=== PATIENT | male | born 1960 | race Caucasian/White ===

== ENCOUNTER 2016-11-28 14:40 | Inpatient (IN) | payer MEDICARE ==
[~2016-11-28] VITALS: Ht 172.7 cm; Wt 66.0 kg
[~2016-11-28 14:40] MED LIST: AMLO10 PO; BRIM0.2S4 EACH EYE; COZA50TA PO; DORZ1SOL2 EACH EYE; FLUT1SPR20 EACH NARE; GABA100C4 PO; HYDR-3133 PO; HYDR200T3 PO; LEFL1TAB3 PO; LOTE0.5S EACH EYE; MIRA33504 PO; NEPA0.3D EACH EYE; OMEP20TA PO; PHOS667C5 PO; PILO1SOL5 EACH EYE; RENATAB5 PO; SEVEL800 PO; TEMA15CA PO; TRAV0.00 EACH EYE
[2016-12-04] MEDS ORDERED: WHEEMIS3 (12:03)
[2016-12-04] MEDS ORDERED: ACET500C PO (12:03)
[2016-12-04] MEDS ORDERED: OXYGENTANK NAS.CANULA (12:21)
[2016-12-04] MEDS ORDERED: ALBU0.63 NEB (12:21)
[2016-12-06] MEDS ORDERED: METOPROLOL TARTRATE 25 MG TAB PO PRN (06:45)
[2016-12-06] MEDS ORDERED: LACTATED RINGER'S 1000 ML IV SCH (06:45)
[2016-12-06] MEDS ORDERED: INSULIN HUMAN REGULAR 1,000 UNITS/10 ML VIAL SQ PRN (06:45)
[2016-12-06] MEDS ORDERED: SODIUM CHLORID 0.9% 500 ML IV SCH (06:45)
[2016-12-06 07:23] LABS: INTERNATIONAL NORMALIZED RATIO 1.3 RATIO
[2016-12-06 07:26] VITALS: BP 128/60; PULSE 85; RESP 18; TEMP 100; O2SAT 95
[2016-12-06 08:19] LABS: AUTOMATED NEUTROPHIL # 6.8 TH/MM3 (1.8-7.7); BASOPHIL # 0.1 TH/MM3 (0-0.2); EOSINOPHIL # 0.3 TH/MM3 (0-0.4); EOSINOPHIL % 3.6 % (0.0-4.0); HEMATOCRIT 28.3 % (39.0-51.0); HEMO FLAGS DIFF FINAL; LYMPH % 11.1 % (9.0-44.0); MEAN CELL VOLUME 79.9 FL (80.0-100.0); MEAN CORPUSCULAR HEMOGLOBIN 25.8 PG (27.0-34.0); MEAN CORPUSCULAR HGB CONC 32.2 % (32.0-36.0); NEUT % 74.3 % (16.0-70.0); PLATELET COUNT 188 TH/MM3 (150-450); RED BLOOD COUNT 3.54 MIL/MM3 (4.50-5.90); RED CELL DISTRIBUTION WIDTH 18.5 % (11.6-17.2); WHITE BLOOD COUNT 9.2 TH/MM3 (4.0-11.0)
[2016-12-06] MEDS ORDERED: ONDANSETRON HCL 4 MG/2 ML VIAL IV PUSH ONE (09:12)
[2016-12-06] MEDS ORDERED: ePHEDrine/NS 25 MG/5 ML SYR IV ONE (09:12)
[2016-12-06] MEDS ORDERED: NEOSTIGMINE 3 MG/3 ML SYR IV ONE (09:12)
[2016-12-06] MEDS ORDERED: PROPOFOL 200 MG/20 ML AMP IV ONE (09:12)
[2016-12-06] MEDS ORDERED: SODIUM CHLORID 0.9% 500 ML INJ 500 ML IV ONE (09:12)
[2016-12-06] MEDS ORDERED: MIDAZOLAM HCL 2 MG/2 ML VIAL ONE ×2 (09:42→09:54)
[2016-12-06] MEDS ORDERED: FAMOTIDINE 20 MG/2 ML VIAL ONE (09:42)
[2016-12-06] MEDS ORDERED: ACETAMINOPHEN 1000 MG/100 ML VIAL IV ONE (09:42)
[2016-12-06] MEDS ORDERED: fentaNYL CITRATE 250 MCG/5 ML AMP ONE (10:03)
[2016-12-06] MEDS ORDERED: VANCOMYCIN HCL 1000 MG VIAL ONE (10:29)
[2016-12-06] MEDS ORDERED: BACITRACIN TOP OINT 15 GM TUBE ONE (11:16)
[2016-12-06] MEDS ORDERED: GENTAMICIN SULFATE 80 MG/2 ML VIAL ONE (11:16)
[2016-12-06] MEDS ORDERED: POTASSIUM CHLOR 20 MEQ 100 ML x 2 BAGS IV PRN (12:15)
[2016-12-06] MEDS ORDERED: POTASSIUM CHLOR 20 MEQ/100 ML x 1 BAG IV PRN (12:15)
[2016-12-06] MEDS ORDERED: POTASSIUM PHOSPHATE 21 MMOL/NS 250 ML IV PRN ×2 (12:15)
[2016-12-06] MEDS ORDERED: ACETAMINOPHEN/HYDROcodone 325 MG/5 MG TAB PO PRN (12:15)
[2016-12-06] MEDS ORDERED: MORPHINE SULFATE 4 MG/ML INJ IV PRN ×2 (12:15)
[2016-12-06] MEDS ORDERED: ONDANSETRON HCL 4 MG/2 ML VIAL IV PUSH PRN (12:15)
[2016-12-06] MEDS ORDERED: SODIUM CHLORIDE 0.9% FLUSH 5 ML FLUSH IV FLUSH PRN (12:15)
[2016-12-06] MEDS ORDERED: MAGNESIUM SULFATE 1 GM/100 ML IV PRN (12:15)
[2016-12-06] MEDS ORDERED: ACETAMINOPHEN 325 MG TAB PO PRN ×2 (12:15→15:30)
[2016-12-06] MEDS ORDERED: BUPIVACAINE HCL PF 0.5% 30 ML VIAL NB ONE (12:25)
[2016-12-06] MEDS ORDERED: DEXTROSE 50% IN WATER 50 ML VIAL(D50) IV PUSH PRN (12:30)
[2016-12-06] MEDS ORDERED: DO NOT ADM ANY ANTICOAGULANT DRUGS XX PRN (12:30)
[2016-12-06] MEDS ORDERED: GLUCAGON 1 MG/ML VIAL OTHER PRN (12:30)
--- NOTE | 2016-12-06 12:36 | PD.VS.PN ---
Objective Pulmonary: CTA Bilateral Cardiac: regular dressing intact. left lateral foot with 6mm x1cm callous. Laboratory Laboratory Tests Test 12/06/16 12/06/16 06:58 08:10 Prothrombin Time 14.0 Prothromb Time International 1.3 Ratio Potassium Level 4.4 White Blood Count 9.2 Red Blood Count 3.54 Hemoglobin 9.1 Hematocrit 28.3 Mean Corpuscular Volume 79.9 Mean Corpuscular Hemoglobin 25.8 Mean Corpuscular Hemoglobin 32.2 Concent Red Cell Distribution Width 18.5 Platelet Count 188 Mean Platelet Volume 8.4 Neutrophils (%) (Auto) 74.3 Lymphocytes (%) (Auto) 11.1 Monocytes (%) (Auto) 10.0 Eosinophils (%) (Auto) 3.6 Basophils (%) (Auto) 1.0 Neutrophils # (Auto) 6.8 Lymphocytes # (Auto) 1.0 Monocytes # (Auto) 0.9 Eosinophils # (Auto) 0.3 Basophils # (Auto) 0.1 CBC Comment DIFF FINAL Differential Comment Assessment and Plan Assessment: (1) Skin flap necrosis Status: Acute Plan This patient is a 55 year old male with hx of non-healing right BKA. Revised to right AKA. Will need HD and pain control. Patient with small ulcer of left lateral foot/heel. Will order non-invasive arterial studies. Sauol Tay DO Dec 06, 2016 12:36
[2016-12-06] MEDS ORDERED: *morphine SULFATE 8 MG/ML PERIprocedure ONLY ONE (14:03)
[2016-12-06] MEDS ORDERED: *ONDANSETRON 4 MG VIAL PERIprocedural Use ONLY ONE (14:03)
[2016-12-06] MEDS ORDERED: SODIUM CHLOR 0.9% 1000 ML INJ 1,000 ML IV PRN ×3 (15:28)
[2016-12-06] MEDS ORDERED: cloNIDine HCL 0.1 MG TAB PO PRN (15:30)
[2016-12-06] MEDS ORDERED: ONDANSETRON HCL 4 MG/2 ML VIAL IV PRN (15:30)
[2016-12-06] MEDS ORDERED: ALBUMIN HUMAN 25% 25 GM/100 ML BAGP IV PRN (15:30)
[2016-12-06] MEDS ORDERED: GENTAMICIN SULFATE (DIALYSIS USE ONLY) 20 MG/2 ML VIAL IV PRN (15:30)
[2016-12-06] MEDS ORDERED: MANNITOL 12.5 GM/50 ML VIAL IV PRN (15:30)
[2016-12-06] MEDS ORDERED: NITROGLYCERIN 0.4 MG SL 25 TABS/BTL SL PRN (15:30)
[2016-12-06] MEDS ORDERED: GELATIN 12 MM/7 MM FOAM TOP PRN (15:30)
[2016-12-06] MEDS ORDERED: SODIUM CHLORIDE 0.9% FLUSH 5 ML FLUSH IVF PRN (15:30)
[2016-12-06] MEDS ORDERED: EPOETIN ALFA 10,000 UNITS/ML VIAL IV PRN (15:30)
[2016-12-06] MEDS ORDERED: diphenhydrAMINE HCL 25 MG CAP PO PRN (15:30)
[2016-12-06] MEDS ORDERED: HEPARIN SODIUM - IV 10,000 UNITS/10 ML VIAL IVF PRN (15:30)
[2016-12-06] MEDS ORDERED: HEPARIN SODIUM - IV 10,000 UNITS/10 ML VIAL PRN (15:30)
[2016-12-06] MEDS ORDERED: LOW DOSE INSULIN NOVOLIN REGULAR SUPPLEMENTAL SCALE SQ SCH (16:00)
--- NOTE | 2016-12-06 17:25 | PD.CONS ---
HPI Service Nephrology Consult Requested By Dr. Tay Reason for Consult ESRD Primary Care Physician Wiley Meza M.D. History of Present Illness 56 year old male with ESRD,diabetes, CAD,PVD recent BKA non healing right leg and had a AKA today , he is on Hemodialysis on Friday, Friday, Friday and follows with Dr. Sharp, today his day to do dialysis as well, post anesthesia he is tired but awakes up, he has dressing right AKA. Review of Systems Constitutional: COMPLAINS OF: Fatigue Musculoskeletal: COMPLAINS OF: Joint pain Neurologic: COMPLAINS OF: Abnormal gait Past Family Social History Allergies: Coded Allergies: No Known Allergies (Verified , 12/04/16) Past Medical History Hypertension Diabetes Hyperlipidemia Coronary artery disease Peripheral arterial disease History of CHF Sleep apnea GERD History of diabetic retinopathy History of glaucoma Questionable history of rheumatoid arthritis Recent diabetic foot infection with gangrene Past Surgical History Recent right foot metatarsal amputation Recent right BKA Thoracentesis Left upper extremity AV shunt placement Cardiac catheterization with stenting and 2007 and 2006 Cataract surgery Ankle surgery with pinning Reported Medications Reported Meds & Active Scripts Active Miralax Powder (Polyethylene Glycol 3350 Powder) 17 Gm Powd 17 Gm PO DAILY Mix and dissolve one measuring cap-ful (17 grams) in water or juice. Cozaar (Losartan Potassium) 50 Mg Tab 50 Mg PO DAILY 30 Days Gabapentin 100 Mg Cap 100 Mg PO BID 30 Days Norvasc (Amlodipine Besylate) 10 Mg Tab 10 Mg PO DAILY 30 Days Renvela (Sevelamer Carbonate) 800 Mg Tab 800 Mg PO TIDAC Reported Albuterol Neb (Albuterol Sulfate) 0.63 Mg/3 Ml Neb 0.63 Mg NEB Q4HR NEB PRN Oxygen tank (Oxygen) 1 Ea Tank 2 Liter DEANDRA.CANULA PRN Oxygen Concentrator Portable Gaseous 2 L/min via Nasal Cannula Continuous For 99 months Acetaminophen 500 Mg Cap 500 Mg PO Q4-6H PRN Wheelchair (Device) 1 Mis Mis 1 Ea .ROUTE DIRECTED Travatan Z Opth Drops (Travoprost) 0.004 % Soln 1 Drop EACH EYE HS Lotemax Opth Drops (Loteprednol Etabonate) 0.5 % Soln 1 Drop EACH EYE DAILY Ilevro Opth Drops (Nepafenac) 0.3 % Soln 1 Drop EACH EYE HS Omeprazole 20 Mg Tab 20 Mg PO DAILY Hydroxyzine HCl 25 Mg Tab 25 Mg PO BID Kendal-Radha (B-Complex W/ C & Folic Acid) 1 Tab 1 Tab PO DAILY Pilocarpine Opth Drops (Pilocarpine HCl) 1 % Soln 1 Drop EACH EYE TID Phoslo (Calcium Acetate (Phosphate Binder)) 667 Mg Cap 1,334 Mg PO TID Hydroxychloroquine (Hydroxychloroquine Sulfate) 200 Mg Tab 200 Mg PO Q12HR Take with food Eq Allergy Relief (Fluticasone Propionate (Nasal)) 50 Mcg/Act Spr 2 [place] EACH NARE DAILY Cosopt Opth Drops (Dorzolamide-Timolol Opth Drops) 22.3-6.8 Mg/Ml Soln 1 Drop EACH EYE TID Brimonidine Opth Drops (Brimonidine Tartrate) 0.2% Soln 1 Drop EACH EYE TID Leflunomide 20 Mg Tab 20 Mg PO DAILY Active Ordered Medications Current Medications Medications (Trade) Dose Ordered Sig/Torey Route Start Time Stop Time Status Last Admin Lactated Ringer's 1,000 ml @ 30 mls/hr Q24H IV 12/06/16 06:45 (NS 500 ml Inj) 500 ml @ 30 mls/hr [id number] IV 12/06/16 06:45 12/07/16 06:44 (NS Flush) 2 ml BID IV FLUSH 12/06/16 21:00 IV Flush 2 ml 2 ml UNSCH PRN IV FLUSH 12/06/16 12:15 Potassium Chloride 100 ml @ 50 mls/hr Q2H PRN IV 12/06/16 12:15 Potassium Chloride 100 ml @ 50 mls/hr UNSCH PRN IV 12/06/16 12:15 Potassium Phosphate 21 mmol/ Sodium Chloride 257 ml @ 41.7 mls/hr UNSCH PRN IV 12/06/16 12:15 (Magnesium Sulfate 1 Gm Premix) 200 ml @ 100 mls/hr UNSCH PRN IV 12/06/16 12:15 (Zofran Inj) 4 mg Q6H PRN IV PUSH 12/06/16 12:15 ([place] 5-325 Mg) 1 tab Q4H PRN PO 12/06/16 12:15 (Roxicodone) 7.5 mg Q4H PRN PO 12/06/16 12:15 (Morphine Inj) 2 mg Q4H PRN IV 12/06/16 12:15 (Morphine Inj) 4 mg Q1H PRN IV 12/06/16 12:15 Clopidogrel Bisulfate 75 mg 75 mg DAILY PO 12/07/16 09:00 (Vancomycin Inj/ NS 250 ml Inj) 250 ml @ 250 mls/hr Q24H IV 12/07/16 11:00 Miscellaneous Information ALL NURSING DEPARTME... UNSCH PRN XX 12/06/16 12:30 12/07/16 12:29 (NS 1000 ml Inj) 1,000 ml @ 0 mls/hr Q0M PRN IV 12/06/16 15:28 12/06/16 16:58 Heparin Sodium (Porcine) 8000 units 8,000 units UNSCH PRN IVF 12/06/16 15:30 Sodium Chloride 1,000 ml @ 200 mls/hr Q5H PRN IV 12/06/16 15:28 (NS 1000 ml Inj) 1,000 ml @ 0 mls/hr Q0M PRN IV 12/06/16 15:28 (Mannitol Inj) 12.5 gm UNSCH PRN IV 12/06/16 15:30 (Albumin 25% Inj) 25 gm UNSCH PRN IV 12/06/16 15:30 (NS Flush) 5 ml UNSCH PRN IVF 12/06/16 15:30 (Heparin Inj) UNSCH PRN .XX 12/06/16 15:30 (Gentamicin (Dialysis) Inj) 20 mg UNSCH PRN IV 12/06/16 15:30 (Zofran Inj) 4 mg UNSCH PRN IV 12/06/16 15:30 (Tylenol) 650 mg UNSCH PRN PO 12/06/16 15:30 (Benadryl) 25 mg UNSCH PRN PO 12/06/16 15:30 (Nitrostat Sl) 0.4 mg UNSCH PRN SL 12/06/16 15:30 (Catapres) 0.1 mg UNSCH PRN PO 12/06/16 15:30 (Epogen Inj) 4,000 units UNSCH PRN IV 12/06/16 15:30 12/06/16 16:58 (Gelfoam 12 Mm/7 Mm Top) 1 foam UNSCH PRN TOP 12/06/16 15:30 12/06/16 16:59 Family History noncontributory Social History denies smoking or ETOH Physical Exam Vital Signs Vital Signs Date Time Temp Pulse Resp B/P Pulse Ox O2 Delivery O2 Flow Rate FiO2 12/06/16 13:00 71 16 123/71 98 Nasal Cannula 3 12/06/16 12:45 69 17 126/73 98 Nasal Cannula 3 12/06/16 12:30 70 17 121/74 98 Nasal Cannula 3 12/06/16 12:15 72 16 119/71 97 Nasal Cannula 3 12/06/16 12:00 75 16 118/66 98 Nasal Cannula 3 12/06/16 11:53 98.8 79 16 107/56 99 Nasal Cannula 3 12/06/16 07:26 100.0 85 18 128/60 95 Physical Exam GENERAL: Well-nourished, well-developed patient. SKIN: Warm and dry. HEAD: Normocephalic. EYES: No scleral icterus. No injection or drainage. NECK: Supple, trachea midline. No JVD or lymphadenopathy. CARDIOVASCULAR: Regular rate and rhythm without murmurs, gallops, or rubs. RESPIRATORY: Breath sounds equal bilaterally. No accessory muscle use. GASTROINTESTINAL: Abdomen soft, non-tender, nondistended. EXTREMITIES: No cyanosis, or edema. AVF L, AKA RT NEUROLOGICAL: Awake,under sedation Laboratory Laboratory Tests Test 12/06/16 12/06/16 06:58 08:10 Prothrombin Time 14.0 Prothromb Time International 1.3 Ratio Potassium Level 4.4 White Blood Count 9.2 Red Blood Count 3.54 Hemoglobin 9.1 Hematocrit 28.3 Mean Corpuscular Volume 79.9 Mean Corpuscular Hemoglobin 25.8 Mean Corpuscular Hemoglobin 32.2 Concent Red Cell Distribution Width 18.5 Platelet Count 188 Mean Platelet Volume 8.4 Neutrophils (%) (Auto) 74.3 Lymphocytes (%) (Auto) 11.1 Monocytes (%) (Auto) 10.0 Eosinophils (%) (Auto) 3.6 Basophils (%) (Auto) 1.0 Neutrophils # (Auto) 6.8 Lymphocytes # (Auto) 1.0 Monocytes # (Auto) 0.9 Eosinophils # (Auto) 0.3 Basophils # (Auto) 0.1 CBC Comment DIFF FINAL Differential Comment Result Diagram: 12/06/16 0810 12/06/16 0658 Assessment and Plan Problem List: (1) ESRD (end stage renal disease) Plan: He is seen during dialysis, tolerating it well, UF 3 L continue supportive care s/p AKA Epogen ordered. (2) PAD (peripheral artery disease) Plan: s/p AKA (3) Type 2 diabetes mellitus Plan: follow BG (4) Hypertension Plan: stable Ham Alcantar MD Dec 06, 2016 17:25
[2016-12-06 20:00] VITALS: BP 146/68; PULSE 87; RESP 16; TEMP 97.8; O2SAT 97
[2016-12-06 21:00] VITALS: PULSE 85
[2016-12-06] MEDS: SODIUM CHLORIDE 0.9% FLUSH 5 ML FLUSH IV FLUSH SCH (21:00)
[2016-12-06] MEDS: MEDIUM DOSE INSULIN NOVOLIN REGULAR SUPPLEMENTAL SCALE SQ SCH (21:00)
[2016-12-06] MEDS ORDERED: HYDROmorphone HCL PF 4 MG/ML VIAL IV PUSH PRN (21:30)
[2016-12-06] MEDS: HYDROmorphone HCL PF 1 MG/ML VIAL IV PUSH PRN (21:32)
[2016-12-06 22:00] VITALS: PULSE 91
[2016-12-06 23:00] VITALS: PULSE 91
[2016-12-06] MEDS: HYDROmorphone HCL 4 MG TAB PO PRN (23:12)
[2016-12-07] VITALS (31 sets, daily range): BP systolic 133–153; BP diastolic 59–74; PULSE 88–101; RESP 14–18; TEMP 98.1–99.5; O2SAT 90–100
--- NOTE | 2016-12-07 01:01 | RADRPT ---
EXAM DATE/TIME: 12/06/2016 21:29 [facility] COMPARISON: No previous studies available for comparison. INDICATIONS : Pre op surgery. MEDICAL HISTORY : Gastroesophageal reflux disease. Hypertension. Congestive heart failure. Renal failure. Cerebrova scular accident. Seizures. Coronary artery disease. Peripheral vascular disease. Deep vein thrombosis in arm. Sleep apnea. Dialysis. Rheumatoid arthritis. Lupus. SURGICAL HISTORY : Coronary artery stent. Bowel resection. Bilateral cataract removal. Angioplasty. Left ankle surger y. Right lower leg amputation. Left arm AV fistula. ENCOUNTER: Initial ACUITY: 1 day PAIN SCORE: 6/10 LOCATION: Left leg. TECHNIQUE: Venous ultrasound of the leg was performed from the inguinal ligament to the proximal calf. Real-lance e, color Doppler and spectral tracing, compression and augmentation techniques were used. FINDINGS: There is normal compressibility of the deep venous system from the inguinal region to the proximal ca lf. No echogenic clot is seen in the lumen of the common femoral, femoral, popliteal, and posterior tibial veins. There is a normal response of the venous system to proximal and distal augmentation an d respiration. CONCLUSION: No DVT is identified within the left lower extremity. Aditya Walker MD on December 07, 2016 at 0:59 Board Certified Radiologist. This report was verified electronically.
[2016-12-07] MEDS: HYDROmorphone HCL PF 1 MG/ML VIAL IV PUSH PRN ×2 (04:40→11:35)
[2016-12-07] MEDS: HYDROmorphone HCL 4 MG TAB PO PRN ×3 (05:50→22:05)
[2016-12-07] MEDS: MEDIUM DOSE INSULIN NOVOLIN REGULAR SUPPLEMENTAL SCALE SQ SCH ×5 (05:54→21:00)
[2016-12-07] MEDS: CLOPIDOGREL 75 MG TAB PO SCH (08:51)
[2016-12-07] MEDS: SODIUM CHLORIDE 0.9% FLUSH 5 ML FLUSH IV FLUSH SCH ×2 (08:53→21:00)
--- NOTE | 2016-12-07 09:39 | PD.VS.PN ---
Subjective Subjective/Hospital Course Pain better controlled after adjustment in pain meds. Objective Vitals/I&O Date Time Temp Pulse Resp B/P Pulse Ox O2 Delivery O2 Flow Rate FiO2 12/07/16 08:49 91 21 12/07/16 08:39 99 Room Air 12/07/16 08:39 98.7 96 18 147/67 99 12/07/16 06:00 91 12/07/16 05:00 94 12/07/16 04:26 99.5 99 14 142/59 97 12/07/16 04:00 93 12/07/16 03:00 95 12/07/16 02:00 94 12/07/16 01:09 98.1 95 16 149/67 100 12/07/16 01:00 88 12/06/16 23:00 91 12/06/16 22:00 91 12/06/16 21:00 85 12/06/16 20:00 97.8 87 16 146/68 97 12/06/16 20:00 87 12/06/16 16:00 75 14 116/69 97 Nasal Cannula 3 12/06/16 15:00 74 16 117/72 99 Nasal Cannula 3 12/06/16 14:00 74 15 98 Nasal Cannula 3 12/06/16 13:00 71 16 123/71 98 Nasal Cannula 3 12/06/16 12:45 69 17 126/73 98 Nasal Cannula 3 12/06/16 12:30 70 17 121/74 98 Nasal Cannula 3 12/06/16 12:15 72 16 119/71 97 Nasal Cannula 3 12/06/16 12:00 75 16 118/66 98 Nasal Cannula 3 12/06/16 11:53 98.8 79 16 107/56 99 Nasal Cannula 3 Physical Exam right AKA stump dressing in place. No drainage observed. Imaging Last 48 hours Impressions Lower Extremity Ultrasound 12/06/16 0000 Signed Impressions: Service Date/Time: Tuesday, December 06, 2016 21:29 - CONCLUSION: No DVT is identified within the left lower extremity. Aditya Walker MD Assessment and Plan Assessment: (1) Skin flap necrosis Status: Acute Plan This patient is a 55 year old male with hx of non-healing right BKA. Revised to right AKA. Pain meds adjusted, diet advanced. Will add stool softener. Had HD 12/06, will need HD again on 12/09. Will review left lower extremity non-invasive studies/vein mapping. Plan for stump stocking and stump protector friday. Discharge planning on friday if pain controlled and above in place. Saulo Tay DO Dec 07, 2016 09:39
[2016-12-07] MEDS ORDERED: BISACODYL 10 MG SUPP RECTAL ONE (09:45)
[2016-12-07] MEDS: VANCOMYCIN 1,000 MG/NS 250 ML IV SCH ×2 (11:26)
--- NOTE | 2016-12-07 12:08 | HHI.NPPN ---
Subjective Additional Remarks Tolerated HD yesterday, s/p R AKA. No acute complaints Objective Data Data 12/06/16 12/07/16 19:00 07:00 Intake Total 800 ml 480 ml Output Total 3300 ml 0 ml Balance -2500 ml 480 ml Intake Oral 480 ml IV Total 0 ml Other 800 ml Output Urine Total 0 ml Stool Total 0 ml Hemodialysis 3000 ml Estimated Blood Loss 300 ml Vital Signs Date Time Temp Pulse Resp B/P Pulse Ox O2 Delivery O2 Flow Rate FiO2 12/07/16 11:29 98.5 95 17 153/74 95 12/07/16 08:49 91 21 12/07/16 08:39 99 Room Air 12/07/16 08:39 98.7 96 18 147/67 99 12/07/16 06:00 91 12/07/16 05:00 94 12/07/16 04:26 99.5 99 14 142/59 97 12/07/16 04:00 93 12/07/16 03:00 95 12/07/16 02:00 94 12/07/16 01:09 98.1 95 16 149/67 100 12/07/16 01:00 88 12/06/16 23:00 91 12/06/16 22:00 91 12/06/16 21:00 85 12/06/16 20:00 97.8 87 16 146/68 97 12/06/16 20:00 87 12/06/16 16:00 75 14 116/69 97 Nasal Cannula 3 12/06/16 15:00 74 16 117/72 99 Nasal Cannula 3 12/06/16 14:00 74 15 98 Nasal Cannula 3 12/06/16 13:00 71 16 123/71 98 Nasal Cannula 3 12/06/16 12:45 69 17 126/73 98 Nasal Cannula 3 12/06/16 12:30 70 17 121/74 98 Nasal Cannula 3 12/06/16 12:15 72 16 119/71 97 Nasal Cannula 3 -: 12/06/16 0810 12/06/16 0658 Physical Exam General Appearance: Well Developed, No Acute Distress Throat Throat Exam: Oral Mucosa [place] & Moist Neck Neck Exam: Neck Supple Pulmonary Resp Exam: Clear Bilaterally Cardiology CV Exam: Regular, Normal Sinus Rhythm Gastrointestinal/Abdomen GI Exam: Soft, Non-Tender, Bowel Sounds Present Integumentary Skin Exam: Clear Extremeties Extremities Exam: No Edema Neurologic Neuro Exam: Alert, Awake, Oriented, Speech Clear Psychiatric Psych Exam: Appropriate Responses Assessment/Plan Problem List: (1) ESRD (end stage renal disease) Plan: HD done yesterday - 3L UF. Plan next HD Friday, continue MWF HD. continue supportive care s/p AKA Epogen ordered. (2) PAD (peripheral artery disease) Plan: s/p AKA (3) Type 2 diabetes mellitus Plan: follow BG (4) Hypertension Plan: stable Problem Qualifiers (1) Type 2 diabetes mellitus: (2) Hypertension: Qualified Code: I10 - Essential hypertension Willem Meza MD Dec 07, 2016 12:08
--- NOTE | 2016-12-07 15:05 | RADRPT ---
EXAM DATE/TIME: 12/06/2016 21:54 [facility] COMPARISON: No previous studies available for comparison. INDICATIONS : Left leg mapping. MEDICAL HISTORY : Congestive heart failure. Gastroesophageal reflux disease. Hypertension. Renal failure. Cerebrovascu lar accident. Seizures. Coronary artery disease. Peripheral vascular disease. Deep vein thrombosis in arm. Sleep apnea. Dialysis. Rheumatoid arthritis. Lupus. SURGICAL HISTORY : Coronary artery stent. Bowel resection. Bilateral cataract removal. Angioplasty. Left ankle surgery . Right lower leg amputation. Left arm AV fistula. ENCOUNTER: Initial ACUITY: 1 day PAIN SCORE: 6/10 LOCATION: Left leg. GREATER SAPHENOUS VEIN THIGH: PROXIMAL: 3 mm MID: 2 mm DISTAL: 2 mm CALF: PROXIMAL: 2 mm MID: 1 mm DISTAL: 1 mm FINDINGS: The venous system of the lower extremity is patent by color Doppler imaging. Measurements of the leg veins (in mm) are listed above. CONCLUSION: 1. Vein measurements as above. Efrem Boucher MD on December 07, 2016 at 15:02 Board Certified Radiologist. This report was verified electronically.
[2016-12-07] MEDS: DOCUSATE SODIUM 100 MG CAP PO SCH (22:04)
[2016-12-08] VITALS (21 sets, daily range): BP systolic 125–154; BP diastolic 59–75; PULSE 16–97; RESP 16–18; TEMP 97.4–98.2; O2SAT 95–97
[2016-12-08 06:24] LABS: AUTOMATED NEUTROPHIL # 13.6 TH/MM3 (1.8-7.7); BASOPHIL # 0.1 TH/MM3 (0-0.2); BASOPHIL % 0.8 % (0.0-2.0); EOSINOPHIL # 0.1 TH/MM3 (0-0.4); EOSINOPHIL % 0.7 % (0.0-4.0); HEMO FLAGS DIFF FINAL; LYMPH % 5.2 % (9.0-44.0); LYMPHOCYTE # 0.8 TH/MM3 (1.0-4.8); MEAN CELL VOLUME 80.6 FL (80.0-100.0); MEAN CORPUSCULAR HEMOGLOBIN 25.4 PG (27.0-34.0); MEAN CORPUSCULAR HGB CONC 31.5 % (32.0-36.0); MONO % 7.6 % (0.0-8.0); NEUT % 85.7 % (16.0-70.0); PLATELET COUNT 265 TH/MM3 (150-450); RED BLOOD COUNT 3.35 MIL/MM3 (4.50-5.90); RED CELL DISTRIBUTION WIDTH 18.3 % (11.6-17.2); WHITE BLOOD COUNT 15.8 TH/MM3 (4.0-11.0)
[2016-12-08 06:41] LABS: BICARBONATE 24.2 MEQ/L (21.0-32.0); POTASSIUM 4.8 MEQ/L (3.5-5.1)
--- NOTE | 2016-12-08 09:02 | PD.VS.PN ---
Subjective Subjective/Hospital Course Pain better controlled after adjustment in pain meds. Objective Vitals/I&O Date Time Temp Pulse Resp B/P Pulse Ox O2 Delivery O2 Flow Rate FiO2 12/08/16 03:00 92 12/08/16 03:00 98.2 16 16 125/59 95 12/08/16 02:00 90 12/08/16 01:00 91 12/08/16 00:00 91 12/07/16 23:00 98.4 91 16 133/65 96 12/07/16 23:00 95 12/07/16 22:00 94 12/07/16 21:44 96 Room Air 12/07/16 21:00 96 12/07/16 20:17 90 21 12/07/16 20:10 98.3 95 16 138/65 96 12/07/16 20:00 96 12/07/16 19:00 95 12/07/16 18:00 96 12/07/16 17:00 93 12/07/16 16:14 98.1 97 16 142/68 94 12/07/16 16:00 99 12/07/16 15:00 100 12/07/16 14:00 101 12/07/16 13:00 96 12/07/16 12:00 96 12/07/16 11:29 98.5 95 17 153/74 95 12/07/16 11:00 96 12/07/16 10:00 93 12/08/16 12/08/16 12/08/16 07:00 15:00 23:00 Intake Total 480 ml Output Total 0 ml Balance 480 ml Physical Exam Right aka stump dressing is clean and intact. Laboratory Laboratory Tests Test 12/08/16 05:25 White Blood Count 15.8 Red Blood Count 3.35 Hemoglobin 8.5 Hematocrit 27.0 Mean Corpuscular Volume 80.6 Mean Corpuscular Hemoglobin 25.4 Mean Corpuscular Hemoglobin 31.5 Concent Red Cell Distribution Width 18.3 Platelet Count 265 Mean Platelet Volume 8.7 Neutrophils (%) (Auto) 85.7 Lymphocytes (%) (Auto) 5.2 Monocytes (%) (Auto) 7.6 Eosinophils (%) (Auto) 0.7 Basophils (%) (Auto) 0.8 Neutrophils # (Auto) 13.6 Lymphocytes # (Auto) 0.8 Monocytes # (Auto) 1.2 Eosinophils # (Auto) 0.1 Basophils # (Auto) 0.1 CBC Comment DIFF FINAL Differential Comment Sodium Level 138 Potassium Level 4.8 Chloride Level 99 Carbon Dioxide Level 24.2 Anion Gap 15 Blood Urea Nitrogen 27 Creatinine 7.82 Estimat Glomerular Filtration 7 Rate Random Glucose 150 Calcium Level 8.8 Assessment and Plan Assessment: (1) Skin flap necrosis Status: Acute Plan This patient is a 55 year old male with hx of non-healing right BKA. Revised to right AKA. Pain is improved. Had HD 2, will need HD again on 12/09. Will review left lower extremity non-invasive studies/vein mapping. Plan for stump stocking and stump protector friday. Discharge planning on friday if pain controlled and above in place. Saulo Tay DO Dec 08, 2016 09:02
[2016-12-08] MEDS: SODIUM CHLORIDE 0.9% FLUSH 5 ML FLUSH IV FLUSH SCH ×2 (09:13→21:00)
[2016-12-08] MEDS: CLOPIDOGREL 75 MG TAB PO SCH (09:13)
[2016-12-08] MEDS: DOCUSATE SODIUM 100 MG CAP PO SCH ×2 (09:13→21:00)
--- NOTE | 2016-12-08 10:53 | HHI.NPPN ---
Subjective Additional Remarks Tolerated HD Friday, s/p R AKA. No acute complaints Objective Data Data 12/07/16 12/08/16 19:00 07:00 Intake Total 730 ml Balance 730 ml Intake Oral 480 ml IV Total 250 ml # Voids 0 # Bowel Movements 0 Vital Signs Date Time Temp Pulse Resp B/P Pulse Ox O2 Delivery O2 Flow Rate FiO2 12/08/16 09:02 97 Room Air 12/08/16 09:02 97.7 90 16 141/68 97 12/08/16 03:00 92 12/08/16 03:00 98.2 16 16 125/59 95 12/08/16 02:00 90 12/08/16 01:00 91 12/08/16 00:00 91 12/07/16 23:00 98.4 91 16 133/65 96 12/07/16 23:00 95 12/07/16 22:00 94 12/07/16 21:44 96 Room Air 12/07/16 21:00 96 12/07/16 20:17 90 21 12/07/16 20:10 98.3 95 16 138/65 96 12/07/16 20:00 96 12/07/16 19:00 95 12/07/16 18:00 96 12/07/16 17:00 93 12/07/16 16:14 98.1 97 16 142/68 94 12/07/16 16:00 99 12/07/16 15:00 100 12/07/16 14:00 101 12/07/16 13:00 96 12/07/16 12:00 96 12/07/16 11:29 98.5 95 17 153/74 95 12/07/16 11:00 96 -: 12/08/16 0525 12/08/16 0525 Physical Exam General Appearance: Well Developed, No Acute Distress Throat Throat Exam: Oral Mucosa [place] & Moist Neck Neck Exam: Neck Supple Pulmonary Resp Exam: Clear Bilaterally Cardiology CV Exam: Regular, Normal Sinus Rhythm Gastrointestinal/Abdomen GI Exam: Soft, Non-Tender, Bowel Sounds Present Integumentary Skin Exam: Clear Extremeties Extremities Exam: No Edema Neurologic Neuro Exam: Alert, Awake, Oriented, Speech Clear Psychiatric Psych Exam: Appropriate Responses Assessment/Plan Problem List: (1) ESRD (end stage renal disease) Plan: HD done Friday - 3L UF. Plan next HD Friday, continue MWF HD. Possible discharge after dialysis Friday continue supportive care s/p AKA Epogen ordered. (2) PAD (peripheral artery disease) Plan: s/p AKA (3) Type 2 diabetes mellitus Plan: follow BG (4) Hypertension Plan: stable Problem Qualifiers (1) Type 2 diabetes mellitus: (2) Hypertension: Qualified Code: I10 - Essential hypertension Willem Meza MD Dec 08, 2016 10:53
[2016-12-08] MEDS: MEDIUM DOSE INSULIN NOVOLIN REGULAR SUPPLEMENTAL SCALE SQ SCH ×3 (11:00→21:00)
[2016-12-08] MEDS: VANCOMYCIN 1,000 MG/NS 250 ML IV SCH ×2 (11:38)
[2016-12-08] MEDS ORDERED: TEMA15CA PO (11:51)
[2016-12-09] VITALS (13 sets, daily range): BP systolic 134–146; BP diastolic 68–77; PULSE 86–116; RESP 18; TEMP 97.7–98.6; O2SAT 94–95
--- NOTE | 2016-12-09 06:20 | MP ---
cc: KIMBERLEE ROSE DATE OF SURGERY 12/06/2016 PREOPERATIVE DIAGNOSIS Nonhealing right BKA stump. POSTOPERATIVE DIAGNOSIS Nonhealing right BKA stump. PROCEDURE Right above-knee amputation. SURGEON MD Jasvir [employer] [place]. IV FLUIDS 500 cc crystalloids. ANESTHESIA General with femoral and popliteal nerve block. ESTIMATED BLOOD LOSS About 300 cc. URINE OUTPUT Not calculated. COMPLICATIONS None. DISPOSITION To PACU. PROCEDURE The patient's right upper extremity was prepped and draped in sterile fashion after being under anesthesia. We did give the patient 1 gram of IV vancomycin in way of perioperative IV antibiotics. After using an Esmarch bandage I insufflated the tourniquet to 200 mmHg in the above-knee region. I made a fishmouth incision anterior and posteriorly, then used a scalpel and electrocautery to dissect down through the skin and deep issues. I then used multiple Ashlee, mosquito and large clamps, multiple various clamps as I divided the small and large vessels as I worked my way down towards the femur. I used a periosteal elevator to remove any soft tissue off the femur. I then used an oscillating saw and cut at an angle to transect the femur. We then removed the right leg specimen to be sent to pathology. I used multiple 0 suture ligatures, multiple 2-0 and 3-0 Vicryl pop-offs to help out with hemostasis. I then used a rasp in order to clean the edges of the femur. I did use bone wax to help out with hemostasis of the bone and electrocautery. I then closed the deep layer of fascia and muscle over the femoral edge and then closed in layers with the surrounding fascia with interrupted 2-0s and then the deep dermal with interrupted 3-0 Vicryl absorbable sutures. I used adriano for the skin. I used a Xeroform dressing, 4x4s and Ioban, however, in order to cover my amputation. The patient tolerated the procedure well and was extubated at the end of the case. We used an Ioban dressing, 4x4s and a Kerlix at the end of the case to place over the stump. The patient tolerated the procedure well. DO URSULA Holden/FABIEN /11:45 AM /6:07 AM
[2016-12-09] MEDS: MEDIUM DOSE INSULIN NOVOLIN REGULAR SUPPLEMENTAL SCALE SQ SCH ×2 (07:00→11:00)
[2016-12-09] MEDS: DOCUSATE SODIUM 100 MG CAP PO SCH (09:00)
[2016-12-09] MEDS ORDERED: POLYETHYLENE GLYCOL 17 GM PKG PO SCH (09:00)
[2016-12-09] MEDS: CLOPIDOGREL 75 MG TAB PO SCH (09:00)
[2016-12-09] MEDS: SODIUM CHLORIDE 0.9% FLUSH 5 ML FLUSH IV FLUSH SCH (09:03)
--- NOTE | 2016-12-09 09:37 | RADRPT ---
EXAM DATE/TIME: 12/06/2016 00:00 CORRECTION Corrected on: December 09, 2016; CORRECTED: Added missing exam form information. [facility] COMPARISON: ARTERIAL SEGMENTAL DOPPLER COMP W/TBI, August 24, 2016, 0:00. INDICATIONS: Left lateral foot ulcer, revised right above knee amputation TECHNIQUE: Five-station segmental examination of the lower extremities was performed. Pulsed-cuff waveform tracings and pressures were recorded. Ankle-brachial indices and toe-brachial indices were calculated. PRESSURES (mmHg): Brachial (arm): Right 147 Left no bp/sticks Lower Thigh: Right AKA Left CNO>240 Calf: Left CNO>240 Ankle: Left CNO>240 Toe: Left 45 DREW: Left CNO TBI: Left 0.31 PULSED CUFF WAVEFORMS: Demonstrate normal amplitude bilaterally. FINDINGS: Segmental Doppler's were performed in this individual who has already had a right AKA amputation. Dialysis fistula is present on the left. Blood pressures are not obtained on the left. We could compress the vessels from thigh to foot. Comparing right brachial pressure to left foot pressure the DREW calculates at 0.31. It is probably a ccurate. Looking at pulse wave tracings from thigh to ankle there is significant trifurcation break up. Pulse wave traces at the knee are blunted suggesting SFA disease as well. CONCLUSION: Limited exam as described above. Comparing pressures in the toe on the left to brachial on the right the DREW is roughly 0.03. Abner Cope MD FACR on December 09, 2016 at 9:17 Board Certified Radiologist. This report was verified electronically. DR Foreign Language Teacher on December 09, 2016 at 16:26 Board Certified Radiologist. This report was verified electronically.
--- NOTE | 2016-12-09 10:38 | HHI.FF ---
Face to Face Verification Diagnosis: (1) S/P BKA (below knee amputation) unilateral Physical Therapy Order: Strength and gait training Home Health Nursing Order: Wound care and dressing changes (Pt will need dressing changes daily and wound management 5 times a week for 4 weeks) I have seen patient Matt Orona on 12/09/16. My clinical findings support the need for the requested home health care services because: Pt is S/P right BKA revision Ltd mobility - disease progression High risk of falls I certify that my clinical findings support that this patient is homebound because: Mr. Orona is an independent 56/m who is requesting to go home, Other than his revised BKA, pt is stable to return home with assistance of wound care management and PT for BKA revision Unsteady gait/balance Yanet Pretty Dec 09, 2016 10:34
[2016-12-09] MEDS: HYDROmorphone HCL PF 1 MG/ML VIAL IV PUSH PRN (11:31)
[2016-12-09] MEDS ORDERED: LEVA750T PO (12:04)
--- NOTE | 2016-12-09 12:15 | PD.VS.DC ---
Discharge Summary Admission Date: Dec 06, 2016 at 06:12 Discharge Date: Dec 09, 2016 Admission Diagnosis: (1) S/P BKA (below knee amputation) unilateral Discharge Diagnosis: (1) Skin flap necrosis Status: Acute (2) S/P BKA (below knee amputation) unilateral Status: Acute Brief History from admission Mr. Orona is a 56/M patient admitted with a hx of non-healing right BKA. Pt is post-op revision BKA who is doing well and requesting to go home. Pt okay to go home with outpatient PT and wound care management Procedure(s): Right BKA revision Significant Findings Laboratory Tests Test 12/08/16 05:25 White Blood Count 15.8 TH/MM3 (4.0-11.0) Red Blood Count 3.35 MIL/MM3 (4.50-5.90) Hemoglobin 8.5 GM/DL (13.0-17.0) Hematocrit 27.0 % (39.0-51.0) Mean Corpuscular Hemoglobin 25.4 PG (27.0-34.0) Mean Corpuscular Hemoglobin 31.5 % Concent (32.0-36.0) Red Cell Distribution Width 18.3 % (11.6-17.2) Neutrophils (%) (Auto) 85.7 % (16.0-70.0) Lymphocytes (%) (Auto) 5.2 % (9.0-44.0) Neutrophils # (Auto) 13.6 TH/MM3 (1.8-7.7) Lymphocytes # (Auto) 0.8 TH/MM3 (1.0-4.8) Monocytes # (Auto) 1.2 TH/MM3 (0-0.9) Blood Urea Nitrogen 27 MG/DL (7-18) Creatinine 7.82 MG/DL (0.60-1.30) Estimat Glomerular Filtration 7 ML/MIN (>89) Rate Random Glucose 150 MG/DL (74-106) Hospital Course: Vital Signs Date Time Temp Pulse Resp B/P Pulse Ox O2 Delivery O2 Flow Rate FiO2 12/09/16 07:00 98.4 93 18 139/68 95 12/09/16 07:00 96 Room Air 12/09/16 07:00 91 12/09/16 06:50 18 12/09/16 06:00 88 12/09/16 03:00 97.7 96 18 134/68 95 12/09/16 03:00 96 12/09/16 00:00 86 12/08/16 23:00 97 12/08/16 23:00 97.7 97 18 154/75 96 12/08/16 19:00 96 Room Air 12/08/16 19:00 97.6 89 18 140/67 96 12/08/16 19:00 89 12/08/16 18:00 86 12/08/16 17:00 87 12/08/16 16:12 97.7 91 16 139/65 95 12/08/16 16:00 91 12/08/16 15:00 92 12/08/16 14:00 86 12/08/16 13:00 93 Last Impressions Lower Extremity Ultrasound 12/06/16 0000 Signed Impressions: Service Date/Time: Tuesday, December 06, 2016 21:29 - CONCLUSION: No DVT is identified within the left lower extremity. Aditya Walker MD Discharge Condition: Good Discharge Disposition: Disch w/ Home Health Serv (Pt to D/C'D home with Home health care for wound care mangement and PT ) Discharge Instructions: Start Levaquin Po for 14 days post -op Take pain medication as needed for pain control at home Please call the office if you have any fever, swelling, redness or drainage Keep adriano intact F/U appointment 12/18/16 at [address] [facility] [phone] Any questions or concerns: Call [facility] [phone] Yanet Pretty Dec 09, 2016 12:15
[2016-12-09] MEDS: VANCOMYCIN 1,000 MG/NS 250 ML IV SCH ×2 (13:04)
[2016-12-21] MEDS ORDERED: LEVA500T PO (07:31)
[2017-01-03] MEDS ORDERED: ALBU0.63 NEB (08:52)
[2017-01-03] MEDS ORDERED: HYDR-3516 PO (08:52)
[2017-01-03] MEDS ORDERED: Brimonidine 0.2% Opth Soln EACH EYE (08:52)
[2017-01-03] MEDS ORDERED: GABA100C4 PO (08:52)
[2017-01-03] MEDS ORDERED: HYDR200T3 PO (08:52)
[2017-01-03] MEDS ORDERED: NEPHRO PO (08:52)
[2017-01-03] MEDS ORDERED: LATA.005%O EACH EYE (08:52)
[2017-01-03] MEDS ORDERED: SEVEL800 PO (08:52)
[2017-01-03] MEDS ORDERED: CALC667C PO (08:52)
[2017-01-03] MEDS ORDERED: PILO1SOL5 EACH EYE (08:52)
[2017-01-03] MEDS ORDERED: COZA25TA PO (08:52)
[2017-01-03] MEDS ORDERED: LACT PO (08:52)
[2017-01-03] MEDS ORDERED: LEVA500T PO (08:52)
[2017-01-03] MEDS ORDERED: Leflunomide PO (08:52)
[2017-01-03] MEDS ORDERED: PANT20 PO (08:52)
== END 2016-12-09 16:31 | disposition home or self-care (01) | DRG 474 ==
LOC: EDSTATUS 12-05 08:00 → HSDI 12-06 06:12 → EDSTATUS 12-06 10:30 → HCPC 12-06 20:00
PROVIDERS: ADMIT Surgery; ATTEND Surgery
PROC: 3E0T3BZ Introduction of Anesthetic Agent into Peripheral Nerves and Plexi, Percutaneous Approach (ICD-10-PCS; 2016-12-06)
PROC: 5A1D00Z (ICD-10-PCS; 2016-12-06)
PROC: 0Y6C0Z3 Detachment at Right Upper Leg, Low, Open Approach (ICD-10-PCS; principal; 2016-12-06 10:03)
DX: T87.89 Other complications of amputation stump (principal); N18.6 End stage renal disease; I13.2 Hypertensive heart and chronic kidney disease with heart failure and with stage 5 chronic kidney disease, or end stage renal disease; E11.22 Type 2 diabetes mellitus with diabetic chronic kidney disease; E11.319 Type 2 diabetes mellitus with unspecified diabetic retinopathy without macular edema; Z99.2 Dependence on renal dialysis; Z79.4 Long term (current) use of insulin; I73.9 Peripheral vascular disease, unspecified; I25.10 Atherosclerotic heart disease of native coronary artery without angina pectoris; I50.9 Heart failure, unspecified; Z89.511 Acquired absence of right leg below knee; E78.5 Hyperlipidemia, unspecified; G47.30 Sleep apnea, unspecified; K21.9 Gastro-esophageal reflux disease without esophagitis; H40.9 Unspecified glaucoma; M06.9 Rheumatoid arthritis, unspecified; G47.33 Obstructive sleep apnea (adult) (pediatric); Z79.82 Long term (current) use of aspirin; Z87.891 Personal history of nicotine dependence; R94.31 Abnormal electrocardiogram [ECG] [EKG]
CPT/HCPCS: 36415; 71020; 80048; 82948; 84132; 85025; 85027; 85610; 85730; 86850; 86900; 86901; 88307; 88311; 90935; 93005; 93923; 93971; 96374; J0131; J1170; J1580; J2250; J2270; J2405; J2710; J3010; J3370; J7030; J7040; J7050; Q4081

== ENCOUNTER → 2016-12-04 | Outpatient (CLI) | payer MEDICARE ==
[~2016-12-04] MED LIST changes: +ACET500C PO; +ALBU0.63 NEB; +ASPI81TA11 PO; +Brimonidine 0.2% Opth Soln EACH EYE; +CALC667C PO; +COZA25TA PO; +CYCL1TAB29 PO; +DULC5TAB PO; +GETGO ROLLING W1 MI1; +HYDR-3516 PO; +LACT PO; +LACTCHW3 CHEW; +LATA.005%O EACH EYE; +LEVA500T PO; +LEVA750T PO; +Leflunomide PO; +NEPHRO PO; +OXYC1TAB35 PO; +OXYGENTANK NAS.CANULA; +PANT20 PO; +PERC7.5T13 PO; +WHEEMIS3
[2016-12-04 12:28] LABS: HEMATOCRIT 28.3 % (39.0-51.0); MEAN CELL VOLUME 80.1 FL (80.0-100.0); MEAN CORPUSCULAR HEMOGLOBIN 25.6 PG (27.0-34.0); PLATELET COUNT 191 TH/MM3 (150-450); RED BLOOD COUNT 3.53 MIL/MM3 (4.50-5.90); RED CELL DISTRIBUTION WIDTH 18.9 % (11.6-17.2); REVIEW FLAG FINAL; WHITE BLOOD COUNT 12.2 TH/MM3 (4.0-11.0)
[2016-12-04 12:38] LABS: BICARBONATE 19.9 MEQ/L (21.0-32.0); POTASSIUM 5.2 MEQ/L (3.5-5.1)
[2016-12-04 12:43] LABS: APTT (PATIENT) 36.3 SEC (24.3-30.1); INTERNATIONAL NORMALIZED RATIO 1.3 RATIO; PROTHROMBIN TIME - PATIENT 14.2 SEC (9.8-11.6)
--- NOTE | 2016-12-04 14:15 | RADRPT ---
EXAM DATE/TIME: 12/04/2016 12:39 [facility] COMPARISON: CHEST SINGLE AP, October 04, 2015, 14:45. INDICATIONS : Evaluate for pneumonia, pneumothorax or communicable disease. Pre op ampuatation right lower extremit y. MEDICAL HISTORY : Congestive heart failure. Diabetes mellitus type II. Renal disease, end stage. lupus,rheumatoid a rthritis SURGICAL HISTORY : Coronary artery stent. partial amputation right lower extremity ENCOUNTER: Initial ACUITY: 1 day PAIN SCORE: 0/10 LOCATION: Bilateral chest FINDINGS: Comparison is August 2016. There is chronic pleural thickening and chronic parenchymal opacity at enio th lung bases. Previous CT demonstrated rounded atelectasis and chronic pleural disease. No new conso lidation. The 60s. Heart size mildly enlarged. No pneumothorax. CONCLUSION: 1. Chronic parenchymal opacity and pleural thickening at the lung bases similar to August 2016. No n ew consolidation to suggest an acute pneumonia. Previous CT demonstrated rounded atelectasis at the l darlene bases. Efrem Boucher MD on December 04, 2016 at 14:10 Board Certified Radiologist. This report was verified electronically.
--- NOTE | 2016-12-06 07:11 | EKG ---
Date Performed: 12/04/2016 Time Performed: 11:52:48 PTAGE: 56 years EKG: Sinus rhythm NONSPECIFIC ST & T-WAVE ABNORMALITY BORDERLINE ECG PREVIOUS TRACING : 10/09/2016 14.37 Compared to prior tracing no significant change DOCTOR: Jamal Delgado Interpretating Date/Time 12/06/2016 07:08:04
== END ==
LOC: CPRE 11:01
PROVIDERS: ATTEND Surgery
DX: Z01.810 Encounter for preprocedural cardiovascular examination (principal); Z01.811 Encounter for preprocedural respiratory examination; Z01.812 Encounter for preprocedural laboratory examination; I73.9 Peripheral vascular disease, unspecified; R94.31 Abnormal electrocardiogram [ECG] [EKG]
CPT/HCPCS: 36415; 71020; 80048; 85027; 85610; 85730; 86850; 86900; 86901; 93005

== ENCOUNTER 2016-12-12 16:07 | Inpatient (IN) | payer MEDICARE ==
[~2016-12-12] VITALS: Ht 172.7 cm; Wt 68.3 kg
[2016-12-12 16:00] VITALS: BP 113/65; PULSE 80; RESP 18; TEMP 97.4; O2SAT 95
[~2016-12-12 16:07] MED LIST changes: -ASPI81TA11 PO; -Brimonidine 0.2% Opth Soln EACH EYE; -CALC667C PO; -COZA25TA PO; -CYCL1TAB29 PO; -DULC5TAB PO; -GETGO ROLLING W1 MI1; -HYDR-3516 PO; -LACT PO; -LACTCHW3 CHEW; -LATA.005%O EACH EYE; -LEVA500T PO; -Leflunomide PO; -NEPHRO PO; -OXYC1TAB35 PO; -PANT20 PO; -PERC7.5T13 PO
[2016-12-12] MEDS ORDERED: MAGNESIUM HYDROXIDE SUSP 30 ML CUP PO PRN (16:30)
[2016-12-12] MEDS ORDERED: oxyCODONE/ACETAMINOPHEN 5 MG/325 MG TAB PO PRN (16:30)
[2016-12-12] MEDS ORDERED: BISACODYL 10 MG SUPP PR PRN (16:30)
[2016-12-12] MEDS ORDERED: SODIUM CHLORIDE 0.9% FLUSH 5 ML FLUSH FLUSH PRN (16:30)
[2016-12-12] MEDS ORDERED: NALOXONE HCL 0.4 MG/ML AMP IV PRN (16:30)
[2016-12-12] MEDS ORDERED: ONDANSETRON HCL 4 MG/2 ML VIAL IVP PRN (16:30)
[2016-12-12] MEDS ORDERED: ACETAMINOPHEN 325 MG TAB PO PRN ×2 (16:30→17:45)
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
[2016-12-12] MEDS ORDERED: SODIUM CHLOR 0.9% 1000 ML INJ 1,000 ML IV SCH (17:00)
[2016-12-12] MEDS ORDERED: VANCOMYCIN INJ 1,251 MG in SODIUM CHLORID 0.9% 500 ML INJ 500 ML IV ONE (17:00)
--- NOTE | 2016-12-12 17:24 | PD.VS.CON ---
History of Present Illness Chief Complaint: right leg swelling after recent AKA revision (12/09/2016). Consult Requested by: Dr. Sampson History of Present Illness 56 year old diabetic with right AKA revision for non-healing right BKA with discharge 4 days ago with home health, rehab and continued antibiotics. Patient never filled prescription for antibiotics once discharged and noticed swelling as the week progressed in his right BKA stump. 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 Presented to office and has serosanguinous discharge from area. Past/Family/Social History Past Medical History DM Renal insufficiency PAD. Past Surgical History see above. Home Medications Active Scripts Levofloxacin (Levaquin)750 Mg Bpq669 Mg PO DAILY #14 TAB Ref 0 Prov:Yanet Pretty HEEL SEAT FITTER 12/09/16 Polyethylene Glycol 3350 Powder (Miralax Powder)17 Gm Powd17 Gm PO DAILY #1 BOTTLE Ref 0 Mix and dissolve one measuring cap-ful (17 grams) in water or juice. Prov:Emily Sanchez 10/10/16 Losartan (Cozaar)50 Mg Tab50 Mg PO DAILY 30 Days Prov:Gideon Chavez MD 10/03/16 Gabapentin 100 Mg Alk743 Mg PO BID 30 Days Prov:Gideon Chavez MD 10/03/16 Amlodipine (Norvasc)10 Mg Tab10 Mg PO DAILY 30 Days Prov:Gideon Chavez MD 10/03/16 Sevelamer Carbonate (Renvela)800 Mg Bmd823 Mg PO TIDAC #90 TAB Prov:Hailey Jimenez MD 09/03/16 Reported Medications Temazepam 15 Mg Cap15 Mg PO HS PRN (INSOMNIA) #30 CAP Ref 0 12/08/16 Albuterol Neb 0.63 Mg/3 Ml Neb0.63 Mg NEB Q4HR NEB PRN (SHORTNESS OF BREATH) # 25 NEBULE Ref 0 12/04/16 Oxygen tank 1 Ea Tank #2 Liter Moses.canula Prn Oxygen Concentrator Portable Gaseous 2 L/min via Nasal Cannula Continuous For 99 months 12/04/16 Acetaminophen 500 Mg Mvj458 Mg PO Q4-6H PRN (PAIN SCALE 1 TO 7) Ref 0 12/04/16 Wheelchair 1 Mis Mis #1 EA .ROUTE DIRECTED Ref 0 12/04/16 Travoprost Opth Drops (Travatan Z Opth Drops)0.004 % Soln1 Drop EACH EYE HS #1 BOTTLE Ref 0 09/01/16 Loteprednol Opth Drops (Lotemax Opth Drops)0.5 % Soln1 Drop EACH EYE DAILY #1 BOTTLE Ref 0 09/01/16 Nepafenac Opth Drops (Ilevro Opth Drops)0.3 % Soln1 Drop EACH EYE HS #1 BOTTLE Ref 0 09/01/16 Omeprazole 20 Mg Tab20 Mg PO DAILY #30 TAB Ref 0 09/01/16 Hydroxyzine HCl 25 Mg Tab25 Mg PO BID Ref 0 09/01/16 B-Complex W/ C & Folic Acid (Kendal-Radha)1 Tab1 Tab PO DAILY 09/01/16 Pilocarpine Opth Drops 1 % Soln1 Drop EACH EYE TID #1 BOTTLE Ref 0 09/01/16 Calcium Acetate (Phosphate Binder) (Phoslo)667 Mg Cap1,334 Mg PO TID #180 CAP Ref 0 09/01/16 Hydroxychloroquine 200 Mg Vnr175 Mg PO Q12HR #60 TAB Ref 0 Take with food 09/01/16 Fluticasone Propionate (Nasal) (Eq Allergy Relief)50 Mcg/Act Spr2 Notrees EACH NARE DAILY 09/01/16 Dorzolamide-Timolol Opth Drops (Cosopt Opth Drops)22.3-6.8 Mg/Ml Soln1 Drop EACH EYE TID #10 ML 09/01/16 Brimonidine Opth Drops 0.2% Soln1 Drop EACH EYE TID #1 BOTTLE Ref 0 09/01/16 Leflunomide 20 Mg Tab20 Mg PO DAILY 09/01/16 Discontinued Reported Medications Temazepam 15 Mg Cap15 Mg PO HS PRN (INSOMNIA) #30 CAP Ref 0 09/01/16 Coded Allergies: No Known Allergies (Verified , 12/04/16) Physical Exam Neuro: CN2-12 intact Neck: no carotid bruits Heart: regular Lungs: CTA Abdomen: soft and nondistended. Vascular: palpable femoral pulses. Extremities: RIGHT aka stump with edema and erythema laterally. lateral adriano removed Minimal discharge could be drained from right AKA stump at bedside. Mostly serous but not foul smelling. Assessment and Plan Assessment: (1) Cellulitis Status: Acute Plan 56 yr old male with cellulitis status post right AKA. Possible developing abscess. Patient should be admitted for IV antibiotics and diabetic blood sugar control. Will check WBC, Hgb A1C etc.. Allow for observation of stump. May need further surgical revision although would like to attempt IV antibiotics and wound care initially. I have discussed this case with Dr. Samspon and appreciate his assistance in managing this patient. Saulo Tay DO, FACS Collection Systems Technician of Vascular Surgery /[place] Problem Qualifiers (1) Cellulitis: Qualified Code: L03.115 - Cellulitis of right lower extremity Saulo Tay DO Dec 12, 2016 17:24
[2016-12-12] MEDS ORDERED: SODIUM CHLOR 0.9% 1000 ML INJ 1,000 ML IV PRN ×2 (17:39)
--- NOTE | 2016-12-12 17:42 | RADRPT ---
EXAM DATE/TIME: 12/12/2016 16:52 [facility] COMPARISON: CHEST PA & LAT, December 04, 2016, 12:39. CHEST SINGLE AP, August 25, 2016, 9:34. INDICATIONS : Cough. MEDICAL HISTORY : None. SURGICAL HISTORY : Stents. ENCOUNTER: Initial ACUITY: 1 day PAIN SCORE: 0/10 LOCATION: Bilateral chest FINDINGS: The cardiac silhouette is enlarged in transverse diameter. There is prominence of the aortic knob is with calcification characteristic of atherosclerotic vascular disease. There is prominence of the magdalena tral pulmonary vasculature with indistinct vascular margins compatible with vascular congestion but n o evidence of overt failure. Small bilateral pleural effusions are identified. CONCLUSION: 1. Cardiomegaly and findings of vascular congestion without overt failure. The findings are improved when compared with the prior exam. 2. Small bilateral effusions Robson Norwood MD on December 12, 2016 at 17:40 Board Certified Radiologist. This report was verified electronically.
[2016-12-12] MEDS ORDERED: SODIUM CHLORIDE 0.9% FLUSH 5 ML FLUSH IVF PRN (17:45)
[2016-12-12] MEDS ORDERED: MANNITOL 12.5 GM/50 ML VIAL IV PRN (17:45)
[2016-12-12] MEDS ORDERED: diphenhydrAMINE HCL 25 MG CAP PO PRN (17:45)
[2016-12-12] MEDS ORDERED: HEPARIN SODIUM - IV 10,000 UNITS/10 ML VIAL PRN (17:45)
[2016-12-12] MEDS ORDERED: cloNIDine HCL 0.1 MG TAB PO PRN (17:45)
[2016-12-12] MEDS ORDERED: ALBUMIN HUMAN 25% 25 GM/100 ML BAGP IV PRN (17:45)
[2016-12-12] MEDS ORDERED: NITROGLYCERIN 0.4 MG SL 25 TABS/BTL SL PRN (17:45)
[2016-12-12] MEDS ORDERED: ONDANSETRON HCL 4 MG/2 ML VIAL IV PRN (17:45)
[2016-12-12] MEDS ORDERED: GENTAMICIN SULFATE (DIALYSIS USE ONLY) 20 MG/2 ML VIAL IV PRN (17:45)
[2016-12-12] MEDS ORDERED: HEPARIN SODIUM - IV 10,000 UNITS/10 ML VIAL IVF PRN (17:45)
--- NOTE | 2016-12-12 19:23 | MB ---
cc: MICHAEL HARTMAN MD DATE OF CONSULTATION: 12/12/2016 REASON FOR CONSULTATION End-stage renal disease on hemodialysis, for management. HISTORY OF PRESENT ILLNESS This is a very pleasant 56-year-old male with a past medical history of hypertension, diabetes mellitus, peripheral vascular disease, end-stage renal disease on hemodialysis, chronic anemia who was admitted directly by the vascular surgery for the infection of the right leg stump. I was called to see the patient for the management of dialysis. The patient has been on hemodialysis Friday, Friday and Friday. He has been getting nocturnal dialysis and had his treatment done last night. He went to see vascular surgery after he had above-knee amputation done and the vascular surgery has evaluated him and they saw that he had infection in the right stump and he has some discharge from there. There is no history of fever. The patient had infection three or four weeks ago and he was given vancomycin with dialysis for two weeks, and this was started I think four weeks ago. He denies any nausea or vomiting. He does not have any fever at home. There is not much pain in the right leg. He has been compliant with his dialysis treatment and wants to change the time to a little bit earlier so he can go back home easily. PAST MEDICAL HISTORY 1. Hypertension. 2. Diabetes mellitus. 3. Peripheral vascular disease. 4. Chronic anemia. 5. Ischemic heart disease. PAST SURGICAL HISTORY 1. Left arm AV fistula. 2. Transmetatarsal amputation. 3. Right below-knee and then above-knee amputation. 4. Cardiac catheterization. 5. Colonoscopy. 6. Thoracentesis. 7. Cataract surgery. REVIEW OF SYSTEMS There is no history of fever. No headache, dizziness or blurring of vision. He denies any shortness of breath, no chest pain, no palpitation. No nausea or vomiting. No abdominal pain. No history of diarrhea. SOCIAL HISTORY The patient is single, lives with his girlfriend. There is no history of smoking or alcoholism. FAMILY HISTORY Noncontributory. ALLERGIES NO KNOWN DRUG ALLERGIES. MEDICATIONS Current he is on - 1. Vancomycin one dose today and then we will continue with dialysis. 2. Cefepime 2 grams q.8 hours. 3. Dilaudid as needed. 4. Dulcolax as needed. PHYSICAL EXAMINATION GENERAL: The patient is awake, alert, he is not in acute distress. VITAL SIGNS: His last blood pressure is 146/77, temperature is 98.4. HEAD, EYES, EARS, NOSE AND THROAT: Pupils equally reacting to light. Nonicteric sclerae. Conjunctivae are pale. NECK: Supple. JVD not elevated. LUNGS: The patient has bilateral good air entry with no wheezing. HEART: S1, S2. Regular rhythm. ABDOMEN: Abdomen is distended, soft, lax. There is no tenderness. EXTREMITIES: On the left leg he has mild edema, the right he has above-knee amputation, the stump is covered with a dressing. INVESTIGATION WBC count is 15.8, this was done four days ago, hemoglobin of 8.5, platelet count of 265. Sodium 138, potassium 4.8, chloride 99, bicarb 24.2, BUN 27, creatinine 7.8, this was also done four days ago. In the cultures he is growing Staph aureus but this is old also. ASSESSMENT AND PLAN 1. Peripheral vascular disease. 2. Post above-knee amputation and infection. 3. End-stage renal disease on hemodialysis. 4. Hypertension. 5. Diabetes mellitus. 6. Anemia. The patient is on hemodialysis Friday, Friday and Friday. There are no recent labs. We will continue dialysis tomorrow and continue antibiotic, follow the culture result and adjust antibiotic as needed. His hemoglobin is low. He will be getting the Epogen with the dialysis and transfusion as needed. Thank you for the consultation and I will follow the patient while he is in the hospital. MD CORTEZ Wyatt/[place] /5:39 PM /6:55 PM
[2016-12-12 20:00] VITALS: BP 118/72; PULSE 76; RESP 20; TEMP 97.4; O2SAT 96
[2016-12-12] MEDS ORDERED: TEMAZEPAM 15 MG CAP PO PRN (20:45)
[2016-12-12] MEDS ORDERED: DEXTROSE 50% IN WATER 50 ML VIAL(D50) IV PUSH PRN (20:45)
[2016-12-12] MEDS ORDERED: GLUCAGON 1 MG/ML VIAL OTHER PRN (20:45)
[2016-12-12] MEDS: INSULIN ASPART SUPPLEMENTAL SCALE SQ SCH (21:00)
[2016-12-12] MEDS: HYDROXYCHLOROQUINE SULFATE 200 MG TAB PO SCH (22:32)
[2016-12-12] MEDS: GABAPENTIN 100 MG CAP PO SCH (22:32)
[2016-12-12] MEDS: SODIUM CHLORIDE 0.9% FLUSH 5 ML FLUSH FLUSH SCH (22:33)
[2016-12-13] VITALS: BP 120/66; PULSE 82; RESP 20; TEMP 98; O2SAT 94
[2016-12-13] MEDS: CEFEPIME INJ 2,000 MG in SODIUM CHLORIDE 0.9% INJ 100 ML IV SCH ×2 (02:46→20:39)
[2016-12-13 05:23] LABS: AUTOMATED NEUTROPHIL # 13.3 TH/MM3 (1.8-7.7); BASOPHIL # 0.2 TH/MM3 (0-0.2); EOSINOPHIL # 0.7 TH/MM3 (0-0.4); EOSINOPHIL % 3.9 % (0.0-4.0); HEMATOCRIT 27.7 % (39.0-51.0); HEMO FLAGS DIFF FINAL; LYMPHOCYTE # 1.9 TH/MM3 (1.0-4.8); MEAN CELL VOLUME 81.6 FL (80.0-100.0); MEAN CORPUSCULAR HEMOGLOBIN 25.6 PG (27.0-34.0); MEAN CORPUSCULAR HGB CONC 31.4 % (32.0-36.0); MONO % 7.5 % (0.0-8.0); NEUT % 76.6 % (16.0-70.0); PLATELET COUNT 321 TH/MM3 (150-450); RED CELL DISTRIBUTION WIDTH 18.2 % (11.6-17.2); WHITE BLOOD COUNT 17.3 TH/MM3 (4.0-11.0)
[2016-12-13 05:47] LABS: ANION GAP 14 MEQ/L (5-15); BICARBONATE 25.2 MEQ/L (21.0-32.0); BLOOD UREA NITROGEN 27 MG/DL (7-18); CHLORIDE 98 MEQ/L (98-107); GLOMERULAR FILTRATION RATE 7 ML/MIN (>89); POTASSIUM 4.4 MEQ/L (3.5-5.1); SODIUM (NA) 137 MEQ/L (136-145)
[2016-12-13] MEDS: INSULIN ASPART SUPPLEMENTAL SCALE SQ SCH ×4 (06:13→20:46)
[2016-12-13] MEDS: HYDROmorphone HCL PF 1 MG/ML VIAL IV PUSH PRN (07:58)
[2016-12-13] MEDS: CALCIUM ACETATE 667 MG CAP PO SCH ×3 (07:59→16:30)
[2016-12-13 08:00] VITALS: BP 122/60; PULSE 76; RESP 14; TEMP 97.3; O2SAT 100
[2016-12-13] MEDS: SODIUM CHLORIDE 0.9% FLUSH 5 ML FLUSH FLUSH SCH ×2 (08:20→20:45)
[2016-12-13] MEDS: SEVELAMER CARBONATE 800 MG TAB PO SCH ×3 (08:20→16:30)
--- NOTE | 2016-12-13 08:32 | PD.VS.PN ---
Subjective Subjective/Hospital Course right Objective Vitals/I&O Date Time Temp Pulse Resp B/P Pulse Ox O2 Delivery O2 Flow Rate FiO2 12/13/16 01:39 21 12/13/16 00:00 98.0 82 20 120/66 94 12/12/16 20:00 97.4 76 20 118/72 96 12/12/16 16:00 97.4 80 18 113/65 95 Physical Exam edema of right AKA stump. Mild erythema along incision line. [id number] area over lateral part of incision Laboratory Laboratory Tests Test 12/12/16 12/13/16 19:32 05:05 Creatinine 7.59 7.94 Estimat Glomerular Filtration 7 7 Rate White Blood Count 17.3 Red Blood Count 3.40 Hemoglobin 8.7 Hematocrit 27.7 Mean Corpuscular Volume 81.6 Mean Corpuscular Hemoglobin 25.6 Mean Corpuscular Hemoglobin 31.4 Concent Red Cell Distribution Width 18.2 Platelet Count 321 Mean Platelet Volume 8.2 Neutrophils (%) (Auto) 76.6 Lymphocytes (%) (Auto) 11.0 Monocytes (%) (Auto) 7.5 Eosinophils (%) (Auto) 3.9 Basophils (%) (Auto) 1.0 Neutrophils # (Auto) 13.3 Lymphocytes # (Auto) 1.9 Monocytes # (Auto) 1.3 Eosinophils # (Auto) 0.7 Basophils # (Auto) 0.2 CBC Comment DIFF FINAL Differential Comment Sodium Level 137 Potassium Level 4.4 Chloride Level 98 Carbon Dioxide Level 25.2 Anion Gap 14 Blood Urea Nitrogen 27 Random Glucose 91 Calcium Level 8.6 B-Type Natriuretic Peptide 1049 Imaging Last 48 hours Impressions Chest X-Ray 12/12/16 1622 Signed Impressions: Service Date/Time: December 16:52 - CONCLUSION: 1. Cardiomegaly and findings of vascular congestion without overt failure. The findings are improved when compared with the prior exam. 2. Small bilateral effusions Robson Norwood MD Assessment and Plan Assessment: (1) Cellulitis Status: Acute Plan 56 yr old male with cellulitis status post right AKA. Possible developing abscess. Patient admitted for IV antibiotics and diabetic blood sugar control. Will check WBC, Hgb A1C etc.. Wound culture from within wound sent. Allow for observation of stump will silver pack dressing. Wound care nurse consulted I have discussed this case with Dr. Sampson and appreciate his assistance in managing this patient. Saulo Tay DO, FACS Director Writing of Vascular Surgery /[place] Problem Qualifiers (1) Cellulitis: Qualified Code: L03.115 - Cellulitis of right lower extremity Saulo Tay DO Dec 13, 2016 08:32
[2016-12-13] MEDS ORDERED: NON-FORMULARY DRUG (Leflunomide 20 MG) PO SCH (09:00)
[2016-12-13] MEDS ORDERED: PT:LEFLUNOMIDE 20 MG PO SCH (09:00)
[2016-12-13] MEDS: PANTOPRAZOLE SOD 20 MG DELAYED RELEASE TAB PO SCH (09:11)
[2016-12-13] MEDS: HYDROXYCHLOROQUINE SULFATE 200 MG TAB PO SCH ×2 (09:11→20:39)
[2016-12-13] MEDS: LOSARTAN 50 MG TAB PO SCH (09:11)
[2016-12-13] MEDS: GABAPENTIN 100 MG CAP PO SCH ×2 (09:11→20:39)
--- NOTE | 2016-12-13 11:03 | HHI.PR ---
Subjective Remarks Went for HD Seen after HD today, at bedside. Also is being evaluated by ID Dr Lawton Patient says he feels tired today, No fever or chills overnight. Pain is controlled by meds. Stump doesn't look with impressive erythema, wound was packed in the morning , I spoke with wound care. No fever or chills. No n/v/d/c. Objective Vitals Vital Signs Date Time Temp Pulse Resp B/P Pulse Ox O2 Delivery O2 Flow Rate FiO2 12/13/16 08:00 97.3 76 14 122/60 100 12/13/16 01:39 21 12/13/16 00:00 98.0 82 20 120/66 94 12/12/16 20:00 97.4 76 20 118/72 96 12/12/16 16:00 97.4 80 18 113/65 95 I/O 12/12/16 12/12/16 12/12/16 12/13/16 12/13/16 12/13/16 07:00 15:00 23:00 07:00 15:00 23:00 Intake Total 1070 ml 160 ml Output Total 0 ml 0 ml Balance 1070 ml 160 ml Intake Oral 320 ml 160 ml IV Total 750 ml Output Urine Total 0 ml 0 ml # Bowel Movements 0 0 Result Diagram: 12/13/16 0505 12/13/16 0505 Imaging Last Impressions Chest X-Ray 12/12/16 1622 Signed Impressions: Service Date/Time: December 16:52 - CONCLUSION: 1. Cardiomegaly and findings of vascular congestion without overt failure. The findings are improved when compared with the prior exam. 2. Small bilateral effusions Robson Norwood MD Objective Remarks GENERAL: This is a well-nourished, well-developed patient, in no apparent distress. SKIN: No rashes, ecchymoses or lesions. Warm and dry. Stump with lateral erythema and packed , no much erythema around. HEAD: Atraumatic. Normocephalic. No temporal or scalp tenderness. EYES: Pupils equal round and reactive. No injection or drainage. ENT: Nose without bleeding, purulent drainage or septal hematoma. Airway patent. NECK: Trachea midline. No lymphadenopathy. Supple, nontender, no meningeal signs. CARDIOVASCULAR: Regular rate and rhythm without murmurs, gallops, or rubs. No JVD. RESPIRATORY: Clear to auscultation. Breath sounds equal bilaterally. No wheezes , rales, or rhonchi. GASTROINTESTINAL: Abdomen soft, non-tender, nondistended. No guarding. MUSCULOSKELETAL: Right AKA surgical incision site tender to palpation, wound packed. Left lower ext 2+ edema, skin very tight. NEUROLOGICAL: Awake and alert. Cranial nerves II through XII intact. No focal neurological deficits. Normal speech. Mr. Orona is a pleasant [place] with a history of RA, DM, HTN who presented 4 days after he was discharged from the hospital following right sided AKA. He reported redness, increased pain, tenderness, bloody pus drainage from the post wound. Upon presentation to his vascular surgeon's office, patient was advised to be admitted to the hospital for IV abx and possibly further surgical intervention. - Post AKA wound infection - Discussed with vascular surgeon, Dr. Tay as well his INFORMATION SYSTEMS SECURITY DEVELOPER Ms. Holt. - We'll start patient on vancomycin, cefepime. Will provide first dose Vancomycin tonight. - Discussed with Dr. Sharp (nephrology) regarding Vancomycin during dialysis. - Infectious disease and nephrology consult. - CBC, BMP in the AM. - Diabetes mellitus - obtain hemoglobin A1c. - Diabetic diet. - Sliding scale insulin. If blood glucose remains well controlled, consider discontinuing sliding scale insulin. - ESRD - Consulted Dr. Sharp (Nephrology) regarding continuation of dialysis as well as vancomycin. - Hypertension - Continue Losartan and Amlodipine with holding parameters. - Rheumatoid arthritis - Continue Hydroxychloroquine, Leflunomide - Probable systolic CHF - I cannot find any echo report after 2010. We will obtain an Echocardiogram. - CXR on 12/12/2016 reviewed by me - shows some vascular congestion, cardiomegaly. Full code. Pharmacological prophylaxis when okay with Vascular surgery. A/P Problem List: (1) AKA stump complication ICD Code: T87.9 Status: Acute (2) Type 2 diabetes mellitus ICD Code: E11.9 Status: Chronic (3) Hypertension ICD Code: I10 Status: Chronic (4) ESRD (end stage renal disease) ICD Code: N18.6 Status: Chronic (5) Rheumatoid arthritis ICD Code: M06.9 Status: Acute Assessment and Plan Mr. Orona is a pleasant 56 yo male [place] with a history of RA, DM , HTN who presented 4 days after he was discharged from the hospital following right sided AKA. He reported redness, increased pain, tenderness, bloody pus drainage from the post wound. Upon presentation to his vascular surgeon's office , patient was advised to be admitted to the hospital for IV abx and possibly further surgical intervention. Cellulitis status post right AKA. Possible developing abscess. Patient admitted for IV antibiotics and diabetic blood sugar control. Wound culture from within wound pending Silver pack dressing. Wound care nurse consulted Dr Tay [facility] surgeon following Continue vancomycin, cefepime. Nephrology following Dr. Sharp (nephrology) regarding Vancomycin during dialysis. Infectious disease and nephrology consult. Check CBC, BMP, A1c. Follow kidney function Diabetes mellitus hemoglobin A1c. Diabetic diet. Sliding scale insulin. If blood glucose remains well controlled, consider discontinuing sliding scale insulin. ESRD - Consulted Dr. Sharp (Nephrology) regarding continuation of dialysis as well as vancomycin. Hypertension - Continue Losartan and Amlodipine with holding parameters. Rheumatoid arthritis - Continue Hydroxychloroquine, Leflunomide Probable systolic CHF I cannot find any echo report after 2010. 2D Echocardiogram pending. CXR on 12/12/2016 reviewed by me - shows some vascular congestion, cardiomegaly. Full code. Pharmacological prophylaxis when okay with Vascular surgery. Discussed with the patient, nurse, family at bedside, Dr Lawton ID, wound care CosmAllyson sánchez MD Dec 13, 2016 11:03
--- NOTE | 2016-12-13 11:24 | HHI.NPPN ---
Subjective General Problems: Anemia, Diabetes, Edema, Hypertension Renal Failure: Chronic, End Stage Renal Disease History of Present Illness 56-year-old male with a past medical history of hypertension, diabetes mellitus, peripheral vascular disease, end-stage renal disease on hemodialysis, chronic anemia who was admitted directly by the vascular surgery for the infection of the right leg stump. I was called to see the patient for the management of dialysis. The patient has been on hemodialysis Friday, Friday and Friday. Additional Remarks Patient is alert, seen on HD, has pain in the stump. Objective Data Data 12/12/16 12/13/16 19:00 07:00 Intake Total 1230 ml Output Total 0 ml Balance 1230 ml Intake Oral 480 ml IV Total 750 ml Output Urine Total 0 ml # Bowel Movements 0 Vital Signs Date Time Temp Pulse Resp B/P Pulse Ox O2 Delivery O2 Flow Rate FiO2 12/13/16 08:00 97.3 76 14 122/60 100 12/13/16 01:39 21 12/13/16 00:00 98.0 82 20 120/66 94 12/12/16 20:00 97.4 76 20 118/72 96 12/12/16 16:00 97.4 80 18 113/65 95 -: 12/13/16 0505 12/13/16 0505 Microbiology 12/13/16 Gram Stain, Received Pending 12/13/16 Wound Culture, Received Pending Physical Exam General Appearance: No Acute Distress, Comfortable Eyes Eye Exam: Pupils Equal Throat Throat Exam: Oral Mucosa [place] & Moist Pulmonary Resp Exam: Breath Sounds Equal, No Distress, Decreased Bases Cardiology CV Exam: Regular, Normal Sinus Rhythm Gastrointestinal/Abdomen GI Exam: Soft, Non-Tender, Bowel Sounds Present Extremeties Extremities Exam: Trace Edema Neurologic Neuro Exam: Alert, Awake, Oriented Psychiatric Psych Exam: Appropriate Responses Assessment/Plan Assessment Summary: Anemia of CKD, Hypertension, End Stage Renal Disease Problem List: (1) Coronary artery disease (2) Anemia (3) Hyperlipidemia (4) CHF (congestive heart failure) (5) PAD (peripheral artery disease) (6) Cellulitis (7) AKA stump complication (8) ESRD (end stage renal disease) Plan Patient has infection of the stump. BP is stable. Now on HD. On Epogen, Hgb was 8.7. Vanco and Cefepime, follow the cultures. HD to continue MWF. Problem Qualifiers (1) Cellulitis: Qualified Code: L03.115 - Cellulitis of right lower extremity Devin Sharp MD Dec 13, 2016 11:24
[2016-12-13] MEDS ORDERED: VANCOMYCIN INJ 1,000 MG in SODIUM CHLOR 0.9% 250 ML INJ 250 ML IV SCH (11:30)
[2016-12-13 12:20] LABS: HEMOGLOBIN A1a 1.8 %; HEMOGLOBIN A1b 1.7 %; HEMOGLOBIN Ao 85.3 %; HEMOGLOBIN P3 5.5 %
[2016-12-13] MEDS: EPOETIN ALFA 10,000 UNITS/ML VIAL IV PRN (13:27)
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
[2016-12-13] MEDS: oxyCODONE/ACETAMINOPHEN 5 MG/325 MG TAB PO PRN ×2 (15:04→20:45)
[2016-12-13 16:00] VITALS: BP 122/60; PULSE 85; RESP 16; TEMP 97.7; O2SAT 99
--- NOTE | 2016-12-13 17:08 | EC ---
Study Study Date:12/13/2016 STUDY CONCLUSIONS SUMMARY - Left ventricle: The cavity size was normal. Wall thickness was normal. Systolic function was mildly to moderately reduced. The estimated ejection fraction was in the range of 40% to 45%. Wall motion was normal; there were no regional wall motion abnormalities. - Ventricular septum: The contour showed diastolic flattening. - Aortic valve: Valve area: 1.57cm^2 (Vmax). - Tricuspid valve: Severe regurgitation. - Pulmonary arteries: PA peak pressure: 63mm Hg (S). If LV function is below 40, please consider prescribing an ACEI or ARB or document rationale for non-use. PROCEDURE DATA STUDY STATUS: Elective. Procedure: Transthoracic echocardiography. Image quality was good. Scanning was performed from the parasternal, apical, and subcostal acoustic windows. Study completion: The patient tolerated the procedure well. Transthoracic echocardiography. M-mode, complete 2D, complete spectral Doppler, and color Doppler. Patient status: Inpatient. CARDIAC ANATOMY LEFT VENTRICLE: The cavity size was normal. Wall thickness was normal. Systolic function was mildly to moderately reduced. The estimated ejection fraction was in the range of 40% to 45%. Wall motion was normal; there were no regional wall motion abnormalities. AORTIC VALVE: Trileaflet; normal thickness leaflets. Doppler: Transvalvular velocity was within the normal range. There was no stenosis. No regurgitation. Valve area: 1.57cm^2 (Vmax). Peak gradient: 11mm Hg (S). AORTA: Aortic root: The aortic root was normal in size. MITRAL VALVE: Structurally normal valve. Doppler: Transvalvular velocity was within the normal range. There was no evidence for stenosis. No regurgitation. Peak gradient: 5mm Hg (D). LEFT ATRIUM: The atrium was normal in size. RIGHT VENTRICLE: The cavity size was normal. Wall thickness was normal. VENTRICULAR SEPTUM: The contour showed diastolic flattening. PULMONIC VALVE: Doppler: Transvalvular velocity was within the normal range. There was no evidence for stenosis. No regurgitation. TRICUSPID VALVE: Structurally normal valve. Doppler: Transvalvular velocity was within the normal range. Severe regurgitation. PULMONARY ARTERY: The main pulmonary artery was normal-sized. Systolic pressure was within the normal range. RIGHT ATRIUM: The atrium was normal in size. PERICARDIUM: There was no pericardial effusion. SYSTEMIC VEINS: Inferior vena cava: The vessel was normal in size. BASIC MEASUREMENTS ADULT NORMAL Left ventricle LV internal dimension, ED, chordal level, *55.3 mm 43-52 PLAX LV internal dimension, ES, chordal level, *45.1 mm 23-38 PLAX Fractional shortening, chordal level, PLAX *18 % >29 LV posterior wall thickness, ED 7.51 mm IVS/LVPW ratio, ED 0.97 <1.3 Ventricular septum Septal thickness, ED 7.29 mm Aortic valve Leaflet separation 16 mm 15-26 BASIC MEASUREMENTS ADULT NORMAL Aortic valve Leaflet separation 16 mm 15-26 Aorta Root diameter, ED 22 mm 20-37 Left atrium Anterior-posterior dimension, ES *42 mm 19-40 LA/aortic root ratio 1.91 DOPPLER MEASUREMENTS ADULT NORMAL Main pulmonary artery Pressure, S *63 mm Hg =30 Aortic valve Peak velocity, S 167 cm/s Peak gradient, S 11 mm Hg Valve area, Vmax 1.57 cm^2 Mitral valve Peak E-wave velocity 110 cm/s Peak A-wave velocity 64.7 cm/s Deceleration time 183 ms 150-230 Peak gradient, D 5 mm Hg Peak E/A ratio 1.7 Maximal regurgitant velocity 346 cm/s Tricuspid valve Regurgitant peak velocity 390 cm/s Peak RV-RA gradient, S 61 mm Hg Maximal regurgitant velocity 390 cm/s Systemic veins Estimated CVP 10 mm Hg Right ventricle RV pressure, S *71 mm Hg <30 Pulmonic valve Peak velocity, S 138 cm/s LEGEND: Mean values are shown as u=mean value. Asterisk (*) black values outside specified normal range. Prepared and signed by Ash Hudson [id number]
[2016-12-13 17:42] VITALS: O2SAT 99
[2016-12-13 20:00] VITALS: BP 120/74; PULSE 78; RESP 20; TEMP 97.4; O2SAT 94
[2016-12-14] VITALS: BP 126/78; PULSE 74; RESP 20; TEMP 97.7; O2SAT 95
[2016-12-14] MEDS: INSULIN ASPART SUPPLEMENTAL SCALE SQ SCH ×4 (05:24→21:00)
[2016-12-14] MEDS: oxyCODONE/ACETAMINOPHEN 5 MG/325 MG TAB PO PRN ×5 (05:24→22:03)
[2016-12-14] MEDS: CALCIUM ACETATE 667 MG CAP PO SCH ×3 (07:55→17:24)
[2016-12-14] MEDS: SEVELAMER CARBONATE 800 MG TAB PO SCH ×3 (07:55→17:24)
[2016-12-14] MEDS: PANTOPRAZOLE SOD 20 MG DELAYED RELEASE TAB PO SCH (07:55)
[2016-12-14] MEDS: GABAPENTIN 100 MG CAP PO SCH ×2 (07:55→20:33)
[2016-12-14] MEDS: HYDROXYCHLOROQUINE SULFATE 200 MG TAB PO SCH ×2 (07:56→20:33)
[2016-12-14] MEDS: LOSARTAN 50 MG TAB PO SCH (07:56)
[2016-12-14] MEDS: SODIUM CHLORIDE 0.9% FLUSH 5 ML FLUSH FLUSH SCH ×2 (07:56→20:33)
[2016-12-14 08:00] VITALS: BP 119/66; PULSE 80; RESP 18; TEMP 97.9; O2SAT 98
[2016-12-14 10:42] VITALS: O2SAT 92
--- NOTE | 2016-12-14 10:58 | PD.VS.PN ---
Subjective Subjective/Hospital Course Doing well, no complaints; minimal pain with dressing changes Objective Vitals/I&O Date Time Temp Pulse Resp B/P Pulse Ox O2 Delivery O2 Flow Rate FiO2 12/14/16 08:00 97.9 80 18 119/66 98 12/14/16 00:00 97.7 74 20 126/78 95 12/13/16 20:00 97.4 78 20 120/74 94 12/13/16 17:42 99 21 12/13/16 16:00 97.7 85 16 122/60 99 12/14/16 12/14/16 12/14/16 07:00 15:00 23:00 Intake Total 220 ml 0 ml Output Total 0 ml Balance 220 ml 0 ml Physical Exam R AKA intact except laterally, Small area packed and no surrounding erythema Laboratory Date/Time Procedure Status Source Growth 12/13/16 08:00 Gram Stain - Final Resulted Wound Drainage 12/13/16 08:00 Wound Culture Resulted Wound Drainage Pending Imaging Last 48 hours Impressions Chest X-Ray 12/12/16 1622 Signed Impressions: Service Date/Time: December 16:52 - CONCLUSION: 1. Cardiomegaly and findings of vascular congestion without overt failure. The findings are improved when compared with the prior exam. 2. Small bilateral effusions Robson Norwood MD Assessment and Plan Assessment: (1) Cellulitis Status: Acute Plan 56 yr old male with cellulitis status post right AKA. His wound looks good. I suspect he can manage this as an outpatient with Bactrim (MRSA presumption) and home health wound RN for BID packing. If he does go home, we will see him this week in clinic at [facility] - Vascular Surgery Problem Qualifiers (1) Cellulitis: Qualified Code: L03.115 - Cellulitis of right lower extremity Cory Boswell MD Dec 14, 2016 10:58
[2016-12-14 12:00] VITALS: BP 124/68; PULSE 78; RESP 16; TEMP 98.1; O2SAT 96
--- NOTE | 2016-12-14 12:05 | HHI.NPPN ---
Subjective General Problems: Anemia, Diabetes, Edema, Hypertension Renal Failure: Chronic, End Stage Renal Disease History of Present Illness 56-year-old male with a past medical history of hypertension, diabetes mellitus, peripheral vascular disease, end-stage renal disease on hemodialysis, chronic anemia who was admitted directly by the vascular surgery for the infection of the right leg stump. I was called to see the patient for the management of dialysis. The patient has been on hemodialysis Friday, Friday and Friday. Additional Remarks Patient is alert, feeling better, no pain at stump, no SOB. Objective Data Data 12/13/16 12/14/16 19:00 07:00 Intake Total 240 ml 700 ml Output Total 3000 ml 0 ml Balance -2760 ml 700 ml Intake Oral 240 ml 600 ml IV Total 100 ml Output Urine Total 0 ml 0 ml Hemodialysis 3000 ml # Bowel Movements 0 0 Vital Signs Date Time Temp Pulse Resp B/P Pulse Ox O2 Delivery O2 Flow Rate FiO2 12/14/16 08:00 97.9 80 18 119/66 98 12/14/16 00:00 97.7 74 20 126/78 95 12/13/16 20:00 97.4 78 20 120/74 94 12/13/16 17:42 99 21 12/13/16 16:00 97.7 85 16 122/60 99 -: 12/13/16 0505 12/13/16 0505 Physical Exam General Appearance: No Acute Distress, Comfortable Eyes Eye Exam: Pupils Equal Throat Throat Exam: Oral Mucosa [place] & Moist Pulmonary Resp Exam: Breath Sounds Equal, No Distress, Decreased Bases Cardiology CV Exam: Regular, Normal Sinus Rhythm Gastrointestinal/Abdomen GI Exam: Soft, Non-Tender, Bowel Sounds Present Extremeties Extremities Exam: Trace Edema Neurologic Neuro Exam: Alert, Awake, Oriented Psychiatric Psych Exam: Appropriate Responses Assessment/Plan Assessment Summary: Anemia of CKD, Hypertension, End Stage Renal Disease Problem List: (1) Coronary artery disease (2) Anemia (3) Hyperlipidemia (4) CHF (congestive heart failure) (5) PAD (peripheral artery disease) (6) Cellulitis (7) AKA stump complication (8) ESRD (end stage renal disease) Plan Patient has infection of the stump. BP is stable. Now on HD. On Epogen, Hgb was 8.7. Vanco and Cefepime, follow the cultures. HD done yesterday, tolerated well. Continue antibiotics. Vascular surgery following. Problem Qualifiers (1) Cellulitis: Qualified Code: L03.115 - Cellulitis of right lower extremity Devin Sharp MD Dec 14, 2016 12:05
--- NOTE | 2016-12-14 14:18 | HHI.PR ---
Subjective Remarks Says has some pain at the stump , dressing was changed in the morning. No fever or chills. No cp, sob, n/v/d/c. Objective Vitals Vital Signs Date Time Temp Pulse Resp B/P Pulse Ox O2 Delivery O2 Flow Rate FiO2 12/14/16 12:00 98.1 78 16 124/68 96 12/14/16 10:42 92 21 12/14/16 08:00 97.9 80 18 119/66 98 12/14/16 00:00 97.7 74 20 126/78 95 12/13/16 20:00 97.4 78 20 120/74 94 12/13/16 17:42 99 21 12/13/16 16:00 97.7 85 16 122/60 99 I/O 12/13/16 12/13/16 12/13/16 12/14/16 12/14/16 12/14/16 07:00 15:00 23:00 07:00 15:00 23:00 Intake Total 160 ml 240 ml 480 ml 220 ml 0 ml Output Total 0 ml 3000 ml 0 ml 0 ml Balance 160 ml -2760 ml 480 ml 220 ml 0 ml Intake Oral 160 ml 240 ml 380 ml 220 ml IV Total 100 ml 0 ml Output Urine Total 0 ml 0 ml 0 ml 0 ml Hemodialysis 3000 ml # Bowel Movements 0 0 0 0 Result Diagram: 12/13/16 0505 12/13/16 0505 Imaging Last Impressions Chest X-Ray 12/12/16 1622 Signed Impressions: Service Date/Time: December 16:52 - CONCLUSION: 1. Cardiomegaly and findings of vascular congestion without overt failure. The findings are improved when compared with the prior exam. 2. Small bilateral effusions Robson Norwood MD Objective Remarks GENERAL: This is a well-nourished, well-developed patient, in no apparent distress. SKIN: No rashes, ecchymoses or lesions. Warm and dry. Stump with lateral erythema and packed , no much erythema around. HEAD: Atraumatic. Normocephalic. No temporal or scalp tenderness. EYES: Pupils equal round and reactive. No injection or drainage. ENT: Nose without bleeding, purulent drainage or septal hematoma. Airway patent. NECK: Trachea midline. No lymphadenopathy. Supple, nontender, no meningeal signs. CARDIOVASCULAR: Regular rate and rhythm without murmurs, gallops, or rubs. No JVD. RESPIRATORY: Clear to auscultation. Breath sounds equal bilaterally. No wheezes , rales, or rhonchi. GASTROINTESTINAL: Abdomen soft, non-tender, nondistended. No guarding. MUSCULOSKELETAL: Right AKA surgical incision site tender to palpation, wound packed. Left lower ext 2+ edema, skin very tight. NEUROLOGICAL: Awake and alert. Cranial nerves II through XII intact. No focal neurological deficits. Normal speech. Mr. Orona is a [facility] with a history of RA, DM, HTN who presented 4 days after he was discharged from the hospital following right sided AKA. He reported redness, increased pain, tenderness, bloody pus drainage from the post wound. Upon presentation to his vascular surgeon's office, patient was advised to be admitted to the hospital for IV abx and possibly further surgical intervention. - Post AKA wound infection - Discussed with vascular surgeon, Dr. Tay as well his [employer] Ms. Holt. - We'll start patient on vancomycin, cefepime. Will provide first dose Vancomycin tonight. - Discussed with Dr. Sharp (nephrology) regarding Vancomycin during dialysis. - Infectious disease and nephrology consult. - CBC, BMP in the AM. - Diabetes mellitus - obtain hemoglobin A1c. - Diabetic diet. - Sliding scale insulin. If blood glucose remains well controlled, consider discontinuing sliding scale insulin. - ESRD - Consulted Dr. Sharp (Nephrology) regarding continuation of dialysis as well as vancomycin. - Hypertension - Continue Losartan and Amlodipine with holding parameters. - Rheumatoid arthritis - Continue Hydroxychloroquine, Leflunomide - Probable systolic CHF - I cannot find any echo report after 2010. We will obtain an Echocardiogram. - CXR on 12/12/2016 reviewed by me - shows some vascular congestion, cardiomegaly. Full code. Pharmacological prophylaxis when okay with Vascular surgery. A/P Problem List: (1) AKA stump complication ICD Code: T87.9 Status: Acute (2) Type 2 diabetes mellitus ICD Code: E11.9 Status: Chronic (3) Hypertension ICD Code: I10 Status: Chronic (4) ESRD (end stage renal disease) ICD Code: N18.6 Status: Chronic (5) Rheumatoid arthritis ICD Code: M06.9 Status: Acute Assessment and Plan Mr. Orona is a pleasant 56 yo male [place] with a history of RA, DM , HTN who presented 4 days after he was discharged from the hospital following right sided AKA. He reported redness, increased pain, tenderness, bloody pus drainage from the post wound. Upon presentation to his vascular surgeon's office , patient was advised to be admitted to the hospital for IV abx and possibly further surgical intervention. Cellulitis status post right AKA. Possible developing abscess. Patient admitted for IV antibiotics and diabetic blood sugar control. Wound culture from within wound pending Silver pack dressing. Wound care nurse consulted Dr Jasvir verdin surgeon following Continue vancomycin, cefepime. Nephrology following Dr. Sharp (nephrology) regarding Vancomycin during dialysis. Infectious disease and nephrology consult. Check CBC, BMP, A1c. Follow kidney function Diabetes mellitus hemoglobin A1c. Diabetic diet. Sliding scale insulin. If blood glucose remains well controlled, consider discontinuing sliding scale insulin. ESRD - Consulted Dr. Sharp (Nephrology) regarding continuation of dialysis as well as vancomycin. Hypertension - Continue Losartan and Amlodipine with holding parameters. Rheumatoid arthritis - Continue Hydroxychloroquine, Leflunomide Probable systolic CHF systolic EF 40%. Stable at this time. doesn;t appear with exacerbation 2D Echocardiogram EF 40-45% CXR on 12/12/2016 reviewed by me - shows some vascular congestion, cardiomegaly. Full code. Pharmacological prophylaxis when okay with Vascular surgery. Discussed with the patient, nurse Allyson Lebron MD Dec 14, 2016 14:18 Allyson Lebron MD Dec 14, 2016 14:18
[2016-12-14 17:32] LABS: AUTOMATED NEUTROPHIL # 9.3 TH/MM3 (1.8-7.7); BASOPHIL # 0.2 TH/MM3 (0-0.2); BASOPHIL % 1.3 % (0.0-2.0); EOSINOPHIL # 0.6 TH/MM3 (0-0.4); EOSINOPHIL % 4.8 % (0.0-4.0); HEMATOCRIT 27.6 % (39.0-51.0); HEMO FLAGS DIFF FINAL; LYMPH % 7.9 % (9.0-44.0); MEAN CELL VOLUME 82.1 FL (80.0-100.0); MEAN CORPUSCULAR HEMOGLOBIN 26.6 PG (27.0-34.0); MEAN CORPUSCULAR HGB CONC 32.4 % (32.0-36.0); MONO % 11.6 % (0.0-8.0); NEUT % 74.4 % (16.0-70.0); PLATELET COUNT 292 TH/MM3 (150-450); RED BLOOD COUNT 3.36 MIL/MM3 (4.50-5.90); RED CELL DISTRIBUTION WIDTH 18.5 % (11.6-17.2); WHITE BLOOD COUNT 12.5 TH/MM3 (4.0-11.0)
[2016-12-14 20:00] VITALS: BP 125/63; PULSE 68; RESP 18; TEMP 97.8; O2SAT 95
[2016-12-14] MEDS: CEFEPIME INJ 2,000 MG in SODIUM CHLORIDE 0.9% INJ 100 ML IV SCH (20:33)
[2016-12-14] MEDS: PIPERACIL-TAZO 2.25 GM PREMIX 50 ML IV SCH (22:58)
[2016-12-15] VITALS: BP 125/61; PULSE 71; RESP 20; TEMP 97.3; O2SAT 97
[2016-12-15] MEDS: oxyCODONE/ACETAMINOPHEN 5 MG/325 MG TAB PO PRN ×4 (05:23→20:43)
[2016-12-15] MEDS: PIPERACIL-TAZO 2.25 GM PREMIX 50 ML IV SCH ×3 (05:24→20:43)
[2016-12-15] MEDS: INSULIN ASPART SUPPLEMENTAL SCALE SQ SCH ×4 (05:26→20:49)
[2016-12-15 07:13] LABS: AUTOMATED NEUTROPHIL # 7.5 TH/MM3 (1.8-7.7); BASOPHIL # 0.1 TH/MM3 (0-0.2); BASOPHIL % 1.3 % (0.0-2.0); EOSINOPHIL # 0.6 TH/MM3 (0-0.4); HEMATOCRIT 26.7 % (39.0-51.0); LYMPH % 8.8 % (9.0-44.0); LYMPHOCYTE # 0.9 TH/MM3 (1.0-4.8); MEAN CELL VOLUME 80.5 FL (80.0-100.0); MEAN CORPUSCULAR HEMOGLOBIN 25.5 PG (27.0-34.0); MEAN CORPUSCULAR HGB CONC 31.7 % (32.0-36.0); NEUT % 71.9 % (16.0-70.0); PLATELET COUNT 256 TH/MM3 (150-450); RED BLOOD COUNT 3.31 MIL/MM3 (4.50-5.90); RED CELL DISTRIBUTION WIDTH 18.2 % (11.6-17.2); WHITE BLOOD COUNT 10.5 TH/MM3 (4.0-11.0)
[2016-12-15 07:16] LABS: HEMO FLAGS AUTO DIFF
[2016-12-15 07:27] LABS: BICARBONATE 29.5 MEQ/L (21.0-32.0); MAGNESIUM 1.8 MG/DL (1.5-2.5)
[2016-12-15] MEDS: HYDROXYCHLOROQUINE SULFATE 200 MG TAB PO SCH ×2 (07:41→20:43)
[2016-12-15] MEDS: PANTOPRAZOLE SOD 20 MG DELAYED RELEASE TAB PO SCH (07:41)
[2016-12-15] MEDS: SEVELAMER CARBONATE 800 MG TAB PO SCH ×3 (07:41→15:57)
[2016-12-15] MEDS: SODIUM CHLORIDE 0.9% FLUSH 5 ML FLUSH FLUSH SCH ×2 (07:42→20:49)
[2016-12-15] MEDS: LOSARTAN 50 MG TAB PO SCH (07:42)
[2016-12-15] MEDS: CALCIUM ACETATE 667 MG CAP PO SCH ×3 (07:42→15:57)
[2016-12-15] MEDS: GABAPENTIN 100 MG CAP PO SCH ×2 (07:42→20:43)
[2016-12-15 08:00] VITALS: BP 109/56; PULSE 70; RESP 18; TEMP 97.9; O2SAT 98
[2016-12-15 09:25] LABS: SCAN/DIFF AUTO DIFF CONFIRMED
--- NOTE | 2016-12-15 11:00 | HHI.NPPN ---
Subjective General Problems: Anemia, Diabetes, Edema, Hypertension Renal Failure: Chronic, End Stage Renal Disease History of Present Illness 56-year-old male with a past medical history of hypertension, diabetes mellitus, peripheral vascular disease, end-stage renal disease on hemodialysis, chronic anemia who was admitted directly by the vascular surgery for the infection of the right leg stump. I was called to see the patient for the management of dialysis. The patient has been on hemodialysis Friday, Friday and Friday. Additional Remarks Patient is alert, no pain at stump, no SOB, eating better. Objective Data Data 12/14/16 12/15/16 19:00 07:00 Intake Total 360 ml 610 ml Output Total 0 ml 0 ml Balance 360 ml 610 ml Intake Oral 360 ml 360 ml IV Total 0 ml 250 ml Output Urine Total 0 ml 0 ml # Voids 0 # Bowel Movements 0 0 Vital Signs Date Time Temp Pulse Resp B/P Pulse Ox O2 Delivery O2 Flow Rate FiO2 12/15/16 08:00 97.9 70 18 109/56 98 12/15/16 00:00 97.3 71 20 125/61 97 12/14/16 20:00 97.8 68 18 125/63 95 12/14/16 12:00 98.1 78 16 124/68 96 -: 12/15/16 0618 12/15/16 0618 Physical Exam General Appearance: No Acute Distress, Comfortable Eyes Eye Exam: Pupils Equal Throat Throat Exam: Oral Mucosa [place] & Moist Pulmonary Resp Exam: Breath Sounds Equal, No Distress, Decreased Bases Cardiology CV Exam: Regular, Normal Sinus Rhythm Gastrointestinal/Abdomen GI Exam: Soft, Non-Tender, Bowel Sounds Present Extremeties Extremities Exam: Trace Edema Neurologic Neuro Exam: Alert, Awake, Oriented Psychiatric Psych Exam: Appropriate Responses Assessment/Plan Assessment Summary: Anemia of CKD, Hypertension, End Stage Renal Disease Problem List: (1) Coronary artery disease (2) Anemia (3) Hyperlipidemia (4) CHF (congestive heart failure) (5) PAD (peripheral artery disease) (6) Cellulitis (7) AKA stump complication (8) ESRD (end stage renal disease) Plan Patient has infection of the stump. BP is stable. Now on HD. On Epogen, Hgb was 8.7. Vanco and Cefepime, follow the cultures. Cultures growing Gram Neg. Continue same, HD will be in AM. Problem Qualifiers (1) Cellulitis: Qualified Code: L03.115 - Cellulitis of right lower extremity Devin Sharp MD Dec 15, 2016 11:00
[2016-12-15 12:00] VITALS: BP 112/58; PULSE 74; RESP 16; TEMP 98.4; O2SAT 99
[2016-12-15 16:00] VITALS: BP 110/62; PULSE 76; RESP 18; TEMP 96.9; O2SAT 99
--- NOTE | 2016-12-15 17:30 | HHI.PR ---
Subjective Remarks Was seen earlier today. Patient in the chair. Says he doesn't have much pain at the stump. Erythema has improved. Dressing changed by nurses, no ore pus coming out. healing well. No fever overnight. No n/v/d/c. has decreased appetite. Objective Vitals Vital Signs Date Time Temp Pulse Resp B/P Pulse Ox O2 Delivery O2 Flow Rate FiO2 12/15/16 12:00 98.4 74 16 112/58 99 12/15/16 08:00 97.9 70 18 109/56 98 12/15/16 00:00 97.3 71 20 125/61 97 12/14/16 20:00 97.8 68 18 125/63 95 I/O 12/14/16 12/14/16 12/14/16 12/15/16 12/15/16 12/15/16 07:00 15:00 23:00 07:00 15:00 23:00 Intake Total 220 ml 360 ml 320 ml 290 ml 50 ml Output Total 0 ml 0 ml 0 ml Balance 220 ml 360 ml 320 ml 290 ml 50 ml Intake Oral 220 ml 360 ml 120 ml 240 ml IV Total 0 ml 200 ml 50 ml 50 ml Output Urine Total 0 ml 0 ml 0 ml # Voids 0 # Bowel Movements 0 0 0 0 Result Diagram: 12/15/1618 12/15/1618 Imaging Last Impressions Chest X-Ray 12/12/16 1622 Signed Impressions: Service Date/Time: December 16:52 - CONCLUSION: 1. Cardiomegaly and findings of vascular congestion without overt failure. The findings are improved when compared with the prior exam. 2. Small bilateral effusions Robson Norwood MD Objective Remarks GENERAL: This is a well-nourished, well-developed patient, in no apparent distress. SKIN: No rashes, ecchymoses or lesions. Warm and dry. Stump with lateral erythema and packed , no much erythema around. HEAD: Atraumatic. Normocephalic. No temporal or scalp tenderness. EYES: Pupils equal round and reactive. No injection or drainage. ENT: Nose without bleeding, purulent drainage or septal hematoma. Airway patent. NECK: Trachea midline. No lymphadenopathy. Supple, nontender, no meningeal signs. CARDIOVASCULAR: Regular rate and rhythm without murmurs, gallops, or rubs. No JVD. RESPIRATORY: Clear to auscultation. Breath sounds equal bilaterally. No wheezes , rales, or rhonchi. GASTROINTESTINAL: Abdomen soft, non-tender, nondistended. No guarding. MUSCULOSKELETAL: Right AKA surgical incision site tender to palpation, wound packed. Left lower ext 2+ edema, skin very tight. NEUROLOGICAL: Awake and alert. Cranial nerves II through XII intact. No focal neurological deficits. Normal speech. Mr. Orona is a pleasant [place] with a history of RA, DM, HTN who presented 4 days after he was discharged from the hospital following right sided AKA. He reported redness, increased pain, tenderness, bloody pus drainage from the post wound. Upon presentation to his vascular surgeon's office, patient was advised to be admitted to the hospital for IV abx and possibly further surgical intervention. - Post AKA wound infection - Discussed with vascular surgeon, Dr. 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 Holt. - We'll start patient on vancomycin, cefepime. Will provide first dose Vancomycin tonight. - Discussed with Dr. Sharp (nephrology) regarding Vancomycin during dialysis. - Infectious disease and nephrology consult. - CBC, BMP in the AM. - Diabetes mellitus - obtain hemoglobin A1c. - Diabetic diet. - Sliding scale insulin. If blood glucose remains well controlled, consider discontinuing sliding scale insulin. - ESRD - Consulted Dr. Sharp (Nephrology) regarding continuation of dialysis as well as vancomycin. - Hypertension - Continue Losartan and Amlodipine with holding parameters. - Rheumatoid arthritis - Continue Hydroxychloroquine, Leflunomide - Probable systolic CHF - I cannot find any echo report after 2010. We will obtain an Echocardiogram. - CXR on 12/12/2016 reviewed by me - shows some vascular congestion, cardiomegaly. Full code. Pharmacological prophylaxis when okay with Vascular surgery. A/P Problem List: (1) AKA stump complication ICD Code: T87.9 Status: Acute (2) Type 2 diabetes mellitus ICD Code: E11.9 Status: Chronic (3) Hypertension ICD Code: I10 Status: Chronic (4) ESRD (end stage renal disease) ICD Code: N18.6 Status: Chronic (5) Rheumatoid arthritis ICD Code: M06.9 Status: Acute Assessment and Plan Mr. Orona is a pleasant 56 yo male [place] with a history of RA, DM , HTN who presented 4 days after he was discharged from the hospital following right sided AKA. He reported redness, increased pain, tenderness, bloody pus drainage from the post wound. Upon presentation to his vascular surgeon's office , patient was advised to be admitted to the hospital for IV abx and possibly further surgical intervention. Cellulitis status post right AKA. Possible developing abscess. Patient admitted for IV antibiotics and diabetic blood sugar control. Wound culture from within wound pending Silver pack dressing. Wound care nurse consulted, appreciate recommendations Dr Jasvir verdin surgeon following Continue vancomycin, cefepime. Nephrology following Dr. Sharp (nephrology) regarding Vancomycin during dialysis. Infectious disease and nephrology consult, appreciate recommendations A1c is 4.7. Follow kidney function Diabetes mellitus hemoglobin A1c is 4.7 Diabetic diet. Sliding scale insulin. If blood glucose remains well controlled, consider discontinuing sliding scale insulin. ESRD - Consulted Dr. Sharp (Nephrology) regarding continuation of dialysis as well as vancomycin. Hypertension - Continue Losartan and Amlodipine with holding parameters. Rheumatoid arthritis - Continue Hydroxychloroquine, Leflunomide Probable systolic CHF systolic EF 40%. Stable at this time. doesn't appear with exacerbation. BNP elevated. Patient also on HD. 2D Echocardiogram EF 40-45% CXR on 12/12/2016 reviewed by me - shows some vascular congestion, cardiomegaly. Full code. Pharmacological prophylaxis when okay with Vascular surgery. Discussed with the patient, nurse Allyson Lebron MD Dec 15, 2016 17:30
[2016-12-15 20:00] VITALS: BP 110/63; PULSE 74; RESP 18; TEMP 97.5; O2SAT 99
[2016-12-16] VITALS: BP 109/54; PULSE 71; RESP 18; TEMP 97.8; O2SAT 96
[2016-12-16 04:57] LABS: AUTOMATED NEUTROPHIL # 7.6 TH/MM3 (1.8-7.7); BASOPHIL # 0.2 TH/MM3 (0-0.2); BASOPHIL % 2.1 % (0.0-2.0); EOSINOPHIL # 0.7 TH/MM3 (0-0.4); EOSINOPHIL % 6.5 % (0.0-4.0); HEMATOCRIT 28.7 % (39.0-51.0); HEMO FLAGS DIFF FINAL; LYMPH % 7.6 % (9.0-44.0); LYMPHOCYTE # 0.8 TH/MM3 (1.0-4.8); MEAN CORPUSCULAR HEMOGLOBIN 26.1 PG (27.0-34.0); MEAN CORPUSCULAR HGB CONC 32.2 % (32.0-36.0); MONO % 10.4 % (0.0-8.0); NEUT % 73.4 % (16.0-70.0); PLATELET COUNT 284 TH/MM3 (150-450); RED BLOOD COUNT 3.54 MIL/MM3 (4.50-5.90); RED CELL DISTRIBUTION WIDTH 18.7 % (11.6-17.2); WHITE BLOOD COUNT 10.3 TH/MM3 (4.0-11.0)
[2016-12-16 05:31] LABS: POTASSIUM 4.3 MEQ/L (3.5-5.1)
[2016-12-16] MEDS: INSULIN ASPART SUPPLEMENTAL SCALE SQ SCH ×4 (06:12→21:00)
[2016-12-16] MEDS: PIPERACIL-TAZO 2.25 GM PREMIX 50 ML IV SCH ×3 (06:12→21:46)
[2016-12-16] MEDS: oxyCODONE/ACETAMINOPHEN 5 MG/325 MG TAB PO PRN ×4 (06:14→21:45)
[2016-12-16] MEDS: SEVELAMER CARBONATE 800 MG TAB PO SCH ×3 (08:00→16:59)
[2016-12-16 08:13] VITALS: BP 133/62; PULSE 70; RESP 18; TEMP 97.2; O2SAT 97
[2016-12-16] MEDS: HYDROmorphone HCL PF 1 MG/ML VIAL IV PUSH PRN ×2 (08:33→14:29)
[2016-12-16] MEDS: SODIUM CHLORIDE 0.9% FLUSH 5 ML FLUSH FLUSH SCH ×2 (08:43→21:46)
[2016-12-16] MEDS: CALCIUM ACETATE 667 MG CAP PO SCH ×3 (08:45→16:59)
[2016-12-16] MEDS: HYDROXYCHLOROQUINE SULFATE 200 MG TAB PO SCH ×2 (09:00→21:45)
[2016-12-16] MEDS: LOSARTAN 50 MG TAB PO SCH (09:00)
[2016-12-16] MEDS: PANTOPRAZOLE SOD 20 MG DELAYED RELEASE TAB PO SCH (09:00)
[2016-12-16] MEDS: GABAPENTIN 100 MG CAP PO SCH ×2 (09:00→21:45)
[2016-12-16] MEDS: EPOETIN ALFA 10,000 UNITS/ML VIAL IV PRN (09:47)
[2016-12-16] MEDS: SODIUM CHLOR 0.9% 1000 ML INJ 1,000 ML IV PRN (09:47)
[2016-12-16] MEDS: GELATIN 12 MM/7 MM FOAM TOP PRN (09:48)
--- NOTE | 2016-12-16 10:11 | HHI.NPPN ---
Subjective General Problems: Anemia, Diabetes, Edema, Hypertension Renal Failure: Chronic, End Stage Renal Disease History of Present Illness 56-year-old male with a past medical history of hypertension, diabetes mellitus, peripheral vascular disease, end-stage renal disease on hemodialysis, chronic anemia who was admitted directly by the vascular surgery for the infection of the right leg stump. I was called to see the patient for the management of dialysis. The patient has been on hemodialysis Friday, Friday and Friday. Additional Remarks Patient is alert, no pain at stump, no SOB, eating better. Objective Data Data 12/15/16 12/16/16 19:00 07:00 Intake Total 530 ml 460 ml Output Total 0 ml Balance 530 ml 460 ml Intake Oral 480 ml 360 ml IV Total 50 ml 100 ml Output Urine Total 0 ml # Voids 2 # Bowel Movements 0 2 Vital Signs Date Time Temp Pulse Resp B/P Pulse Ox O2 Delivery O2 Flow Rate FiO2 12/16/16 08:13 97.2 70 18 133/62 97 12/16/16 00:00 97.8 71 18 109/54 96 12/15/16 20:00 97.5 74 18 110/63 99 12/15/16 16:00 96.9 76 18 110/62 99 12/15/16 12:00 98.4 74 16 112/58 99 -: 12/16/16 0427 12/16/16 0427 Physical Exam General Appearance: No Acute Distress, Comfortable Eyes Eye Exam: Pupils Equal Throat Throat Exam: Oral Mucosa [place] & Moist Pulmonary Resp Exam: Breath Sounds Equal, No Distress, Decreased Bases Cardiology CV Exam: Regular, Normal Sinus Rhythm Gastrointestinal/Abdomen GI Exam: Soft, Non-Tender, Bowel Sounds Present Extremeties Extremities Exam: Trace Edema Neurologic Neuro Exam: Alert, Awake, Oriented Psychiatric Psych Exam: Appropriate Responses Assessment/Plan Assessment Summary: Anemia of CKD, Hypertension, End Stage Renal Disease Problem List: (1) Coronary artery disease (2) Anemia (3) Hyperlipidemia (4) CHF (congestive heart failure) (5) PAD (peripheral artery disease) (6) Cellulitis (7) AKA stump complication (8) ESRD (end stage renal disease) Plan S/P aka RT ESRD seen during hemodialysis tolerating it well continue with 3 L UF next HD Fri Problem Qualifiers (1) Cellulitis: Qualified Code: L03.115 - Cellulitis of right lower extremity Ham Alcantar MD Dec 16, 2016 10:11
[2016-12-16 12:00] VITALS: BP 137/68; PULSE 75; RESP 18; TEMP 97.8; O2SAT 98
--- NOTE | 2016-12-16 14:18 | HHI.PR ---
Subjective Remarks Went for HD, seen after. Says she skipped breakfast. Not much appetite. Feels very tired. Pain is controlled. No fever or chills. Had some pus coming out from the wound when squeezed. Has pain when dressing changed. Objective Vitals Vital Signs Date Time Temp Pulse Resp B/P Pulse Ox O2 Delivery O2 Flow Rate FiO2 12/16/16 12:00 97.8 75 18 137/68 98 12/16/16 08:13 97.2 70 18 133/62 97 12/16/16 00:00 97.8 71 18 109/54 96 12/15/16 20:00 97.5 74 18 110/63 99 12/15/16 16:00 96.9 76 18 110/62 99 I/O 12/15/16 12/15/16 12/15/16 12/16/16 12/16/16 12/16/16 07:00 15:00 23:00 07:00 15:00 23:00 Intake Total 290 ml 530 ml 290 ml 170 ml Output Total 0 ml 3000 ml Balance 290 ml 530 ml 290 ml 170 ml -3000 ml Intake Oral 240 ml 480 ml 240 ml 120 ml IV Total 50 ml 50 ml 50 ml 50 ml Output Urine Total 0 ml Hemodialysis 3000 ml # Voids 0 1 1 # Bowel Movements 0 0 1 1 Result Diagram: 12/16/1642612/16/16426 Imaging Last Impressions Chest X-Ray 12/12/161621 Signed Impressions: Service Date/Time: December 16:52 - CONCLUSION: 1. Cardiomegaly and findings of vascular congestion without overt failure. The findings are improved when compared with the prior exam. 2. Small bilateral effusions Robson Norwood MD Objective Remarks GENERAL: This is a well-nourished, well-developed patient, in no apparent distress. SKIN: No rashes, ecchymoses or lesions. Warm and dry. Stump with lateral erythema and packed , no much erythema around. HEAD: Atraumatic. Normocephalic. No temporal or scalp tenderness. EYES: Pupils equal round and reactive. No injection or drainage. ENT: Nose without bleeding, purulent drainage or septal hematoma. Airway patent. NECK: Trachea midline. No lymphadenopathy. Supple, nontender, no meningeal signs. CARDIOVASCULAR: Regular rate and rhythm without murmurs, gallops, or rubs. No JVD. RESPIRATORY: Clear to auscultation. Breath sounds equal bilaterally. No wheezes , rales, or rhonchi. GASTROINTESTINAL: Abdomen soft, non-tender, nondistended. No guarding. MUSCULOSKELETAL: Right AKA surgical incision site tender to palpation, wound packed. Left lower ext 2+ edema, skin very tight. NEUROLOGICAL: Awake and alert. Cranial nerves II through XII intact. No focal neurological deficits. Normal speech. Mr. Orona is a [facility] with a history of RA, DM, HTN who presented 4 days after he was discharged from the hospital following right sided AKA. He reported redness, increased pain, tenderness, bloody pus drainage from the post wound. Upon presentation to his vascular surgeon's office, patient was advised to be admitted to the hospital for IV abx and possibly further surgical intervention. - Post AKA wound infection - Discussed with vascular surgeon, Dr. Tay as well his CLIP [employer] SUNGLASSES INSPECTOR Ms. Holt. - We'll start patient on vancomycin, cefepime. Will provide first dose Vancomycin tonight. - Discussed with Dr. Sharp (nephrology) regarding Vancomycin during dialysis. - Infectious disease and nephrology consult. - CBC, BMP in the AM. - Diabetes mellitus - obtain hemoglobin A1c. - Diabetic diet. - Sliding scale insulin. If blood glucose remains well controlled, consider discontinuing sliding scale insulin. - ESRD - Consulted Dr. Sharp (Nephrology) regarding continuation of dialysis as well as vancomycin. - Hypertension - Continue Losartan and Amlodipine with holding parameters. - Rheumatoid arthritis - Continue Hydroxychloroquine, Leflunomide - Probable systolic CHF - I cannot find any echo report after 2010. We will obtain an Echocardiogram. - CXR on 12/12/2016 reviewed by me - shows some vascular congestion, cardiomegaly. Full code. Pharmacological prophylaxis when okay with Vascular surgery. A/P Problem List: (1) AKA stump complication ICD Code: T87.9 Status: Acute (2) Type 2 diabetes mellitus ICD Code: E11.9 Status: Chronic (3) Hypertension ICD Code: I10 Status: Chronic (4) ESRD (end stage renal disease) ICD Code: N18.6 Status: Chronic (5) Rheumatoid arthritis ICD Code: M06.9 Status: Acute Assessment and Plan Mr. Orona is a pleasant 56 yo male [place] with a history of RA, DM , HTN who presented 4 days after he was discharged from the hospital following right sided AKA. He reported redness, increased pain, tenderness, bloody pus drainage from the post wound. Upon presentation to his vascular surgeon's office , patient was advised to be admitted to the hospital for IV abx and possibly further surgical intervention. Cellulitis status post right AKA. Possible developing abscess. Patient admitted for IV antibiotics and diabetic blood sugar control. Wound culture from within wound pending Silver pack dressing. Wound care nurse consulted, appreciate recommendations Dr Jasvir verdin surgeon following Continue vancomycin, cefepime. Nephrology following Dr. Sharp (nephrology) regarding Vancomycin during dialysis. Infectious disease and nephrology consult, appreciate recommendations A1c is 4.7. Follow kidney function Culture shows Enterobacter cloacae. Possible revision of his right AKA. NPO after midnight for surgery in am 2/14. Diabetes mellitus hemoglobin A1c is 4.7 Diabetic diet. Sliding scale insulin. If blood glucose remains well controlled, consider discontinuing sliding scale insulin. ESRD - Consulted Dr. Sharp (Nephrology) regarding continuation of dialysis as well as vancomycin. Hypertension - Continue Losartan and Amlodipine with holding parameters. Rheumatoid arthritis - Continue Hydroxychloroquine, Leflunomide Probable systolic CHF systolic EF 40%. Stable at this time. doesn't appear with exacerbation. BNP elevated. Patient also on HD. 2D Echocardiogram EF 40-45% CXR on 12/12/2016 reviewed by me - shows some vascular congestion, cardiomegaly. Full code. Pharmacological prophylaxis when okay with Vascular surgery. Discussed with the patient, nurse Allyson Lebron MD Dec 16, 2016 14:18
[2016-12-16 16:00] VITALS: BP 113/78; PULSE 78; RESP 18; TEMP 97; O2SAT 98
--- NOTE | 2016-12-16 16:22 | PD.VS.PN ---
Subjective Subjective/Hospital Course Doing well, no complaints; minimal pain with dressing change but 5-10 cc of more milky discharge noted. Objective Vitals/I&O Date Time Temp Pulse Resp B/P Pulse Ox O2 Delivery O2 Flow Rate FiO2 12/16/16 12:00 97.8 75 18 137/68 98 12/16/16 08:13 97.2 70 18 133/62 97 12/16/16 00:00 97.8 71 18 109/54 96 12/15/16 20:00 97.5 74 18 110/63 99 12/16/16 12/16/16 12/16/16 07:00 15:00 23:00 Intake Total 170 ml 60 ml Output Total 3000 ml Balance 170 ml -2940 ml Physical Exam Right AKA stump with minimal edema. Lateral stump opened with milky discharge. Laboratory Laboratory Tests Test 12/16/16 04:27 White Blood Count 10.3 Red Blood Count 3.54 Hemoglobin 9.2 Hematocrit 28.7 Mean Corpuscular Volume 81.0 Mean Corpuscular Hemoglobin 26.1 Mean Corpuscular Hemoglobin 32.2 Concent Red Cell Distribution Width 18.7 Platelet Count 284 Mean Platelet Volume 8.7 Neutrophils (%) (Auto) 73.4 Lymphocytes (%) (Auto) 7.6 Monocytes (%) (Auto) 10.4 Eosinophils (%) (Auto) 6.5 Basophils (%) (Auto) 2.1 Neutrophils # (Auto) 7.6 Lymphocytes # (Auto) 0.8 Monocytes # (Auto) 1.1 Eosinophils # (Auto) 0.7 Basophils # (Auto) 0.2 CBC Comment DIFF FINAL Differential Comment Sodium Level 135 Potassium Level 4.3 Chloride Level 98 Carbon Dioxide Level 26.0 Anion Gap 11 Blood Urea Nitrogen 26 Creatinine 8.10 Estimat Glomerular Filtration 7 Rate Random Glucose 79 Calcium Level 9.0 Date/Time Procedure Status Source Growth 12/13/16 08:00 Gram Stain - Final Complete Wound Drainage 12/13/16 08:00 Wound Culture - Final Complete Enterobacter Cloacae Assessment and Plan Assessment: (1) Cellulitis Status: Acute Plan 56 yr old male with cellulitis status post right AKA. His wound looks good with improving WBC count, but has some residual drainage that is more purulent. He is on antibiotics and culture shows enterobacter cloacae. He is in discomfort with manipulation of the wound and when I expressed it he had discharge. I discussed exam and washout under anesthesia with possible revision of his right AKA. He understands the risks and benefits and since he ate lunch will be made NPO after midnight for surgery in am. Saulo Tay DO, FACS [employer] /[place] Problem Qualifiers (1) Cellulitis: Qualified Code: L03.115 - Cellulitis of right lower extremity Saulo Tay DO Dec 16, 2016 16:22
[2016-12-16] MEDS ORDERED: LACTATED RINGER'S 1000 ML IV SCH (19:15)
[2016-12-16] MEDS ORDERED: SODIUM CHLORID 0.9% 500 ML IV SCH (19:15)
[2016-12-16] MEDS ORDERED: METOPROLOL TARTRATE 25 MG TAB PO PRN (19:15)
[2016-12-16] MEDS ORDERED: INSULIN HUMAN REGULAR 1,000 UNITS/10 ML VIAL SQ PRN (19:15)
[2016-12-16 20:00] VITALS: BP 105/55; PULSE 86; RESP 20; TEMP 97.3; O2SAT 95
[2016-12-17] VITALS: BP 93/52; PULSE 82; RESP 20; TEMP 96.9; O2SAT 97
[2016-12-17 04:00] VITALS: BP 91/50; PULSE 90; RESP 18; TEMP 96.6; O2SAT 96
[2016-12-17] MEDS: PIPERACIL-TAZO 2.25 GM PREMIX 50 ML IV SCH ×3 (05:11→21:48)
[2016-12-17] MEDS: INSULIN ASPART SUPPLEMENTAL SCALE SQ SCH ×3 (05:52→21:00)
[2016-12-17] MEDS: oxyCODONE/ACETAMINOPHEN 5 MG/325 MG TAB PO PRN (07:12)
[2016-12-17] MEDS ORDERED: BUPIVACAINE HCL PF 0.5% 30 ML VIAL NB ONE (07:14)
[2016-12-17 08:00] VITALS: BP 120/61; PULSE 76; RESP 16; TEMP 96.6; O2SAT 97
[2016-12-17] MEDS: SEVELAMER CARBONATE 800 MG TAB PO SCH ×3 (08:00→17:00)
[2016-12-17] MEDS: GABAPENTIN 100 MG CAP PO SCH ×2 (08:27→21:48)
[2016-12-17] MEDS: CALCIUM ACETATE 667 MG CAP PO SCH ×3 (08:27→18:00)
[2016-12-17] MEDS: HYDROXYCHLOROQUINE SULFATE 200 MG TAB PO SCH ×2 (08:27→21:49)
[2016-12-17] MEDS: LOSARTAN 50 MG TAB PO SCH (08:27)
[2016-12-17] MEDS: PANTOPRAZOLE SOD 20 MG DELAYED RELEASE TAB PO SCH (08:28)
[2016-12-17] MEDS: SODIUM CHLORIDE 0.9% FLUSH 5 ML FLUSH FLUSH SCH ×2 (08:28→21:48)
--- NOTE | 2016-12-17 10:48 | HHI.NPPN ---
Subjective General Problems: Anemia, Diabetes, Edema, Hypertension Renal Failure: Chronic, End Stage Renal Disease History of Present Illness 56-year-old male with a past medical history of hypertension, diabetes mellitus, peripheral vascular disease, end-stage renal disease on hemodialysis, chronic anemia who was admitted directly by the vascular surgery for the infection of the right leg stump. I was called to see the patient for the management of dialysis. The patient has been on hemodialysis Friday, Friday and Friday. Additional Remarks Patient is alert, no pain at stump, no SOB, eating better. Objective Data Data 12/16/16 12/17/16 19:00 07:00 Intake Total 60 ml 340 ml Output Total 3000 ml Balance -2940 ml 340 ml Intake Oral 60 ml 240 ml IV Total 0 ml 100 ml Hemodialysis 3000 ml # Voids 2 0 # Bowel Movements 0 2 Vital Signs Date Time Temp Pulse Resp B/P Pulse Ox O2 Delivery O2 Flow Rate FiO2 12/17/16 08:00 96.6 76 16 120/61 97 12/17/16 04:00 96.6 90 18 91/50 96 12/17/16 00:23 16 12/17/16 00:00 96.9 82 20 93/52 97 12/16/16 20:00 97.3 86 20 105/55 95 12/16/16 16:00 97.0 78 18 113/78 98 12/16/16 12:00 97.8 75 18 137/68 98 -: 12/16/16 0427 12/16/16 0427 Physical Exam General Appearance: No Acute Distress, Comfortable Eyes Eye Exam: Pupils Equal Throat Throat Exam: Oral Mucosa [place] & Moist Pulmonary Resp Exam: Breath Sounds Equal, No Distress, Decreased Bases Cardiology CV Exam: Regular, Normal Sinus Rhythm Gastrointestinal/Abdomen GI Exam: Soft, Non-Tender, Bowel Sounds Present Extremeties Extremities Exam: Trace Edema Neurologic Neuro Exam: Alert, Awake, Oriented Psychiatric Psych Exam: Appropriate Responses Assessment/Plan Assessment Summary: Anemia of CKD, Hypertension, End Stage Renal Disease Problem List: (1) Coronary artery disease (2) Anemia (3) Hyperlipidemia (4) CHF (congestive heart failure) (5) PAD (peripheral artery disease) (6) Cellulitis (7) AKA stump complication (8) ESRD (end stage renal disease) Plan S/P Aka RT ESRD HD done yesterday 3 L off next HD Fri Problem Qualifiers (1) Cellulitis: Qualified Code: L03.115 - Cellulitis of right lower extremity Ham Alcantar MD Dec 17, 2016 10:48
--- NOTE | 2016-12-17 11:19 | EKG ---
Date Performed: 12/16/2016 Time Performed: 21:04:33 PTAGE: 56 years EKG: Sinus rhythm DIFFUSE T WAVE ABNORMALITY Since previous tracing, no significant change noted ABNORMAL ECG PREVIOUS TRACING : 12/04/2016 11.52 DOCTOR: Awais Schuster Interpretating Date/Time 12/17/2016 11:19:13
--- NOTE | 2016-12-17 11:59 | HHI.PR ---
Subjective Remarks Patient is in nad. He is NPO as plan for surgery in the afternoon. No chills or fever overnight. Pain is controlled by meds. No n/v/d/c. Denies chest pain or sob. Objective Vitals Vital Signs Date Time Temp Pulse Resp B/P Pulse Ox O2 Delivery O2 Flow Rate FiO2 12/17/16 08:00 96.6 76 16 120/61 97 12/17/16 04:00 96.6 90 18 91/50 96 12/17/16 00:23 16 12/17/16 00:00 96.9 82 20 93/52 97 12/16/16 20:00 97.3 86 20 105/55 95 12/16/16 16:00 97.0 78 18 113/78 98 12/16/16 12:00 97.8 75 18 137/68 98 I/O 12/16/16 12/16/16 12/16/16 12/17/16 12/17/16 12/17/16 07:00 15:00 23:00 07:00 15:00 23:00 Intake Total 170 ml 60 ml 240 ml 100 ml Output Total 3000 ml Balance 170 ml -2940 ml 240 ml 100 ml Intake Oral 120 ml 60 ml 240 ml 0 ml IV Total 50 ml 0 ml 0 ml 100 ml Hemodialysis 3000 ml # Voids 1 2 0 0 # Bowel Movements 1 0 1 1 Result Diagram: 12/16/16 0427 12/16/16 0427 Imaging Last Impressions Chest X-Ray 12/12/16 1622 Signed Impressions: Service Date/Time: December 16:52 - CONCLUSION: 1. Cardiomegaly and findings of vascular congestion without overt failure. The findings are improved when compared with the prior exam. 2. Small bilateral effusions Robson Norwood MD Objective Remarks GENERAL: This is a well-nourished, well-developed patient, in no apparent distress. SKIN: No rashes, ecchymoses or lesions. Warm and dry. Stump with lateral erythema and packed , no much erythema around. HEAD: Atraumatic. Normocephalic. No temporal or scalp tenderness. EYES: Pupils equal round and reactive. No injection or drainage. ENT: Nose without bleeding, purulent drainage or septal hematoma. Airway patent. NECK: Trachea midline. No lymphadenopathy. Supple, nontender, no meningeal signs. CARDIOVASCULAR: Regular rate and rhythm without murmurs, gallops, or rubs. No JVD. RESPIRATORY: Clear to auscultation. Breath sounds equal bilaterally. No wheezes , rales, or rhonchi. GASTROINTESTINAL: Abdomen soft, non-tender, nondistended. No guarding. MUSCULOSKELETAL: Right AKA surgical incision site tender to palpation, wound packed. Left lower ext 2+ edema, skin very tight. NEUROLOGICAL: Awake and alert. Cranial nerves II through XII intact. No focal neurological deficits. Normal speech. Mr. Orona is a [facility] with a history of RA, DM, HTN who presented 4 days after he was discharged from the hospital following right sided AKA. He reported redness, increased pain, tenderness, bloody pus drainage from the post wound. Upon presentation to his vascular surgeon's office, patient was advised to be admitted to the hospital for IV abx and possibly further surgical intervention. - Post AKA wound infection - Discussed with vascular surgeon, Dr. Tay as well his DRESS MARKER Ms. Holt. - We'll start patient on vancomycin, cefepime. Will provide first dose Vancomycin tonight. - Discussed with Dr. Sharp (nephrology) regarding Vancomycin during dialysis. - Infectious disease and nephrology consult. - CBC, BMP in the AM. - Diabetes mellitus - obtain hemoglobin A1c. - Diabetic diet. - Sliding scale insulin. If blood glucose remains well controlled, consider discontinuing sliding scale insulin. - ESRD - Consulted Dr. Sharp (Nephrology) regarding continuation of dialysis as well as vancomycin. - Hypertension - Continue Losartan and Amlodipine with holding parameters. - Rheumatoid arthritis - Continue Hydroxychloroquine, Leflunomide - Probable systolic CHF - I cannot find any echo report after 2010. We will obtain an Echocardiogram. - CXR on 12/12/2016 reviewed by me - shows some vascular congestion, cardiomegaly. Full code. Pharmacological prophylaxis when okay with Vascular surgery. A/P Problem List: (1) AKA stump complication ICD Code: T87.9 Status: Acute (2) Type 2 diabetes mellitus ICD Code: E11.9 Status: Chronic (3) Hypertension ICD Code: I10 Status: Chronic (4) ESRD (end stage renal disease) ICD Code: N18.6 Status: Chronic (5) Rheumatoid arthritis ICD Code: M06.9 Status: Acute Assessment and Plan Mr. Orona is a pleasant 56 yo male [place] with a history of RA, DM , HTN who presented 4 days after he was discharged from the hospital following right sided AKA. He reported redness, increased pain, tenderness, bloody pus drainage from the post wound. Upon presentation to his vascular surgeon's office , patient was advised to be admitted to the hospital for IV abx and possibly further surgical intervention. Cellulitis status post right AKA. Possible developing abscess. Patient admitted for IV antibiotics and diabetic blood sugar control. Wound culture from within wound pending Silver pack dressing. Wound care nurse consulted, appreciate recommendations Dr Jasvir verdin surgeon following Continue vancomycin, cefepime. Nephrology following Dr. Sharp (nephrology) regarding Vancomycin during dialysis. Infectious disease and nephrology consult, appreciate recommendations A1c is 4.7. Follow kidney function Culture shows Enterobacter cloacae. Possible revision of his right AKA. NPO after midnight for surgery in am 214. Diabetes mellitus hemoglobin A1c is 4.7 Diabetic diet. Sliding scale insulin. If blood glucose remains well controlled, consider discontinuing sliding scale insulin. ESRD - Consulted Dr. Sharp (Nephrology) regarding continuation of dialysis as well as vancomycin. Hypertension - Continue Losartan and Amlodipine with holding parameters. Rheumatoid arthritis - Continue Hydroxychloroquine, Leflunomide Probable systolic CHF systolic EF 40%. Stable at this time. doesn't appear with exacerbation. BNP elevated. Patient also on HD. 2D Echocardiogram EF 40-45% CXR on 12/12/2016 reviewed by me - shows some vascular congestion, cardiomegaly. Full code. Pharmacological prophylaxis when okay with Vascular surgery. Discussed with the patient, nurse Allyson Lebron MD Dec 17, 2016 11:58
[2016-12-17 12:00] VITALS: BP 127/58; PULSE 78; RESP 17; TEMP 97.4; O2SAT 94
[2016-12-17] MEDS ORDERED: THROMBIN (TOPICAL) 5,000 UNIT VIAL ONE (13:11)
[2016-12-17] MEDS ORDERED: GELFOAM SIZE 100 ONE (13:11)
[2016-12-17] MEDS ORDERED: BUPIVACAINE/EPINEPHRINE 0.5% PF 30 ML VIAL ONE (13:11)
[2016-12-17] MEDS ORDERED: LIDOCAINE HCL 1% 50 ML VIAL ONE (13:12)
[2016-12-17] MEDS ORDERED: GENTAMICIN SULFATE 80 MG/2 ML VIAL ONE (13:12)
[2016-12-17] MEDS ORDERED: MIDAZOLAM HCL 2 MG/2 ML VIAL ONE (13:29)
[2016-12-17] MEDS ORDERED: METOCLOPRAMIDE HCL 10 MG/2 ML VIAL ONE (13:29)
[2016-12-17] MEDS ORDERED: FAMOTIDINE 20 MG/2 ML VIAL ONE (13:29)
[2016-12-17] MEDS ORDERED: SODIUM CHLORID 0.9% 500 ML INJ 500 ML IV ONE (15:20)
[2016-12-17] MEDS ORDERED: PHENYLEPH/NS 1000 MCG/10 ML SYR IV ONE (15:20)
[2016-12-17] MEDS ORDERED: ePHEDrine/NS 25 MG/5 ML SYR IV ONE (15:20)
[2016-12-17] MEDS ORDERED: ONDANSETRON HCL 4 MG/2 ML VIAL IV PUSH ONE (15:20)
[2016-12-17] MEDS ORDERED: PROPOFOL 200 MG/20 ML AMP IV ONE (15:20)
--- NOTE | 2016-12-17 17:20 | HHI.PR ---
Immediate Post Op Note Procedure Date: Dec 17, 2016 Pre Op Diagnosis: (1) AKA stump complication Post Op Diagnosis: (1) AKA stump complication Surgeon: Saulo Tay Junior Assistant Manager(s): JIM Procedure: Right AKA I&D and revision. Findings: Loculated pocket without any purulence. Complications: none Specimen(s) removed: NA Estimated blood loss: 150 cc Anesthesia: General, Regional Block Drains: None Fluids: 1000 IVF Tourniquet time (min at mmHg) NA Patient to: PACU Patient Condition: Good Implant/Devices: Other Date/Time of Procedure: SEE SURGICAL CARE RECORD Saulo Tay DO Dec 17, 2016 17:20
[2016-12-17] MEDS ORDERED: MORPHINE SULFATE 4 MG/ML INJ IV PRN ×2 (17:30)
[2016-12-17] MEDS ORDERED: ACETAMINOPHEN/HYDROcodone 325 MG/5 MG TAB PO PRN (17:30)
[2016-12-17] MEDS ORDERED: PILL SPLITTER OTHER PRN (17:30)
[2016-12-17] MEDS ORDERED: DO NOT ADM ANY ANTICOAGULANT DRUGS XX PRN (17:30)
[2016-12-17 20:00] VITALS: BP 120/58; PULSE 79; RESP 22; TEMP 97.3; O2SAT 100
[2016-12-17] MEDS: HYDROmorphone HCL PF 1 MG/ML VIAL IV PUSH PRN (23:45)
[2016-12-18] VITALS: BP 140/63; PULSE 87; RESP 20; TEMP 97.6; O2SAT 100
[2016-12-18 04:00] VITALS: BP 122/62; PULSE 87; RESP 20; TEMP 98.6; O2SAT 96
[2016-12-18] MEDS: PIPERACIL-TAZO 2.25 GM PREMIX 50 ML IV SCH ×3 (04:49→20:39)
[2016-12-18] MEDS: INSULIN ASPART SUPPLEMENTAL SCALE SQ SCH ×4 (06:30→20:38)
[2016-12-18 07:48] LABS: HEMATOCRIT 28.6 % (39.0-51.0)
[2016-12-18 07:49] LABS: REVIEW FLAG FINAL
[2016-12-18 07:55] LABS: BICARBONATE 25.4 MEQ/L (21.0-32.0)
[2016-12-18 07:56] LABS: POTASSIUM 5.1 MEQ/L (3.5-5.1)
[2016-12-18 08:00] VITALS: BP 135/65; PULSE 92; RESP 17; TEMP 98.1; O2SAT 95
[2016-12-18] MEDS: CALCIUM ACETATE 667 MG CAP PO SCH ×3 (08:39→17:35)
[2016-12-18] MEDS: GABAPENTIN 100 MG CAP PO SCH ×2 (08:39→20:38)
[2016-12-18] MEDS: HYDROXYCHLOROQUINE SULFATE 200 MG TAB PO SCH ×2 (08:40→20:38)
[2016-12-18] MEDS: LOSARTAN 50 MG TAB PO SCH (08:40)
[2016-12-18] MEDS: PANTOPRAZOLE SOD 20 MG DELAYED RELEASE TAB PO SCH (08:40)
[2016-12-18] MEDS: SODIUM CHLORIDE 0.9% FLUSH 5 ML FLUSH FLUSH SCH ×2 (08:41→20:38)
--- NOTE | 2016-12-18 09:32 | HHI.NPPN ---
Subjective General Problems: Anemia, Diabetes, Edema, Hypertension Renal Failure: Chronic, End Stage Renal Disease History of Present Illness 56-year-old male with a past medical history of hypertension, diabetes mellitus, peripheral vascular disease, end-stage renal disease on hemodialysis, chronic anemia who was admitted directly by the vascular surgery for the infection of the right leg stump. I was called to see the patient for the management of dialysis. The patient has been on hemodialysis Friday, Friday and Friday. Additional Remarks Patient is alert, no pain at stump, no SOB, eating better. Objective Data Data 12/17/16 12/18/16 19:00 07:00 Intake Total 500 ml 180 ml Output Total 150 ml Balance 350 ml 180 ml Intake Oral 0 ml 180 ml IV Total 0 ml 0 ml Other 500 ml Output Urine Total 0 ml Estimated Blood Loss 150 ml # Voids 0 # Bowel Movements 0 0 Vital Signs Date Time Temp Pulse Resp B/P Pulse Ox O2 Delivery O2 Flow Rate FiO2 12/18/16 08:00 98.1 92 17 135/65 95 12/18/16 04:00 98.6 87 20 122/62 96 12/18/16 03:47 18 12/18/16 00:19 18 12/18/16 00:00 97.6 87 20 140/63 100 12/17/16 20:00 97.3 79 22 120/58 100 12/17/16 18:00 98.0 84 15 134/72 97 Nasal Cannula 3 12/17/16 17:30 89 17 140/71 97 Nasal Cannula 3 12/17/16 17:15 85 15 159/79 97 Nasal Cannula 3 12/17/16 17:00 88 16 161/75 97 Nasal Cannula 3 12/17/16 16:45 80 15 153/77 97 Nasal Cannula 3 12/17/16 16:37 97.8 82 15 154/89 96 Nasal Cannula 3 12/17/16 12:00 97.4 78 17 127/58 94 -: 12/18/16 0713 12/18/16 0713 Microbiology 12/17/16 Gram Stain - Final, Resulted 12/17/16 Wound Culture, Resulted Pending Physical Exam General Appearance: No Acute Distress, Comfortable Eyes Eye Exam: Pupils Equal Throat Throat Exam: Oral Mucosa [place] & Moist Pulmonary Resp Exam: Breath Sounds Equal, No Distress, Decreased Bases Cardiology CV Exam: Regular, Normal Sinus Rhythm Gastrointestinal/Abdomen GI Exam: Soft, Non-Tender, Bowel Sounds Present Extremeties Extremities Exam: Trace Edema Neurologic Neuro Exam: Alert, Awake, Oriented Psychiatric Psych Exam: Appropriate Responses Assessment/Plan Assessment Summary: Anemia of CKD, Hypertension, End Stage Renal Disease Problem List: (1) Coronary artery disease (2) Anemia (3) Hyperlipidemia (4) CHF (congestive heart failure) (5) PAD (peripheral artery disease) (6) Cellulitis (7) AKA stump complication (8) ESRD (end stage renal disease) Plan S/P Aka RT ESRD HD proceeding noted the patient was seen during hemodialysis 1 L of ultrafiltration plan He has debridement of right AKA wound Anemia on Epogen 10,000 Problem Qualifiers (1) Cellulitis: Qualified Code: L03.115 - Cellulitis of right lower extremity Ham Alcantar MD Dec 18, 2016 09:32
--- NOTE | 2016-12-18 10:33 | HHI.PR ---
Subjective Remarks Went for HD. Seen while in HD today. Says she4 feels tires. No fever or chills. Ate breakfast before going to HD. No cp,sob, n/v/d/c. Pain at the stump controlled by meds. Objective Vitals Vital Signs Date Time Temp Pulse Resp B/P Pulse Ox O2 Delivery O2 Flow Rate FiO2 12/18/16 08:00 98.1 92 17 135/65 95 12/18/16 04:00 98.6 87 20 122/62 96 12/18/16 03:47 18 12/18/16 00:19 18 12/18/16 00:00 97.6 87 20 140/63 100 12/17/16 20:00 97.3 79 22 120/58 100 12/17/16 18:00 98.0 84 15 134/72 97 Nasal Cannula 3 12/17/16 17:30 89 17 140/71 97 Nasal Cannula 3 12/17/16 17:15 85 15 159/79 97 Nasal Cannula 3 12/17/16 17:00 88 16 161/75 97 Nasal Cannula 3 12/17/16 16:45 80 15 153/77 97 Nasal Cannula 3 12/17/16 16:37 97.8 82 15 154/89 96 Nasal Cannula 3 12/17/16 12:00 97.4 78 17 127/58 94 I/O 12/17/16 12/17/16 12/17/16 12/18/16 12/18/16 12/18/16 07:00 15:00 23:00 07:00 15:00 23:00 Intake Total 100 ml 0 ml 620 ml 60 ml 110 ml Output Total 0 ml 150 ml Balance 100 ml 0 ml 470 ml 60 ml 110 ml Intake Oral 0 ml 0 ml 120 ml 60 ml IV Total 100 ml 0 ml 110 ml Other 500 ml Output Urine Total 0 ml 0 ml Estimated Blood Loss 150 ml # Voids 0 0 0 # Bowel Movements 1 0 0 0 Result Diagram: 12/18/1671212/18/16712 Imaging Last Impressions Chest X-Ray 12/12/16 162 Signed Impressions: Service Date/Time: December 16:52 - CONCLUSION: 1. Cardiomegaly and findings of vascular congestion without overt failure. The findings are improved when compared with the prior exam. 2. Small bilateral effusions Robson Norwood MD Objective Remarks GENERAL: This is a well-nourished, well-developed patient, in no apparent distress. SKIN: No rashes, ecchymoses or lesions. Warm and dry. Stump with lateral erythema and packed , no much erythema around. HEAD: Atraumatic. Normocephalic. No temporal or scalp tenderness. EYES: Pupils equal round and reactive. No injection or drainage. ENT: Nose without bleeding, purulent drainage or septal hematoma. Airway patent. NECK: Trachea midline. No lymphadenopathy. Supple, nontender, no meningeal signs. CARDIOVASCULAR: Regular rate and rhythm without murmurs, gallops, or rubs. No JVD. RESPIRATORY: Clear to auscultation. Breath sounds equal bilaterally. No wheezes , rales, or rhonchi. GASTROINTESTINAL: Abdomen soft, non-tender, nondistended. No guarding. MUSCULOSKELETAL: Right AKA surgical incision site tender to palpation, wound packed. Left lower ext 2+ edema, skin very tight. NEUROLOGICAL: Awake and alert. Cranial nerves II through XII intact. No focal neurological deficits. Normal speech. Mr. Orona is a [facility] with a history of RA, DM, HTN who presented 4 days after he was discharged from the hospital following right sided AKA. He reported redness, increased pain, tenderness, bloody pus drainage from the post wound. Upon presentation to his vascular surgeon's office, patient was advised to be admitted to the hospital for IV abx and possibly further surgical intervention. - Post AKA wound infection - Discussed with vascular surgeon, Dr. Tay as well his TAX DIRECTOR Ms. Holt. - We'll start patient on vancomycin, cefepime. Will provide first dose Vancomycin tonight. - Discussed with Dr. Sharp (nephrology) regarding Vancomycin during dialysis. - Infectious disease and nephrology consult. - CBC, BMP in the AM. - Diabetes mellitus - obtain hemoglobin A1c. - Diabetic diet. - Sliding scale insulin. If blood glucose remains well controlled, consider discontinuing sliding scale insulin. - ESRD - Consulted Dr. Sharp (Nephrology) regarding continuation of dialysis as well as vancomycin. - Hypertension - Continue Losartan and Amlodipine with holding parameters. - Rheumatoid arthritis - Continue Hydroxychloroquine, Leflunomide - Probable systolic CHF - I cannot find any echo report after 2010. We will obtain an Echocardiogram. - CXR on 12/12/2016 reviewed by me - shows some vascular congestion, cardiomegaly. Full code. Pharmacological prophylaxis when okay with Vascular surgery. A/P Problem List: (1) AKA stump complication ICD Code: T87.9 Status: Acute (2) Type 2 diabetes mellitus ICD Code: E11.9 Status: Chronic (3) Hypertension ICD Code: I10 Status: Chronic (4) ESRD (end stage renal disease) ICD Code: N18.6 Status: Chronic (5) Rheumatoid arthritis ICD Code: M06.9 Status: Acute Assessment and Plan Mr. Orona is a pleasant 56 yo male [place] with a history of RA, DM , HTN who presented 4 days after he was discharged from the hospital following right sided AKA. He reported redness, increased pain, tenderness, bloody pus drainage from the post wound. Upon presentation to his vascular surgeon's office , patient was advised to be admitted to the hospital for IV abx and possibly further surgical intervention. Cellulitis status post right AKA. Possible developing abscess. Patient admitted for IV antibiotics and diabetic blood sugar control. Wound culture from within wound pending Silver pack dressing. Wound care nurse consulted, appreciate recommendations Dr Jasvir verdin surgeon following Continue vancomycin, cefepime. Nephrology following Dr. Sharp (nephrology) regarding Vancomycin during dialysis. Infectious disease and nephrology consult, appreciate recommendations A1c is 4.7. Follow kidney function Culture shows Enterobacter cloacae. 12/17 S/P Right AKA I&D and revision by Dr Jasvir verdin surgery, patient with loculated pocket without any purulence. Diabetes mellitus hemoglobin A1c is 4.7 Diabetic diet. Sliding scale insulin. If blood glucose remains well controlled, consider discontinuing sliding scale insulin. ESRD - Consulted Dr. Sharp (Nephrology) regarding continuation of dialysis as well as vancomycin. Hypertension - Continue Losartan and Amlodipine with holding parameters. Rheumatoid arthritis - Continue Hydroxychloroquine, Leflunomide Probable systolic CHF systolic EF 40%. Stable at this time. doesn't appear with exacerbation. BNP elevated. Patient also on HD. 2D Echocardiogram EF 40-45% CXR on 12/12/2016 reviewed by me - shows some vascular congestion, cardiomegaly. Full code. Pharmacological prophylaxis when okay with Vascular surgery. Discussed with the patient, nurse Allyson Lebron MD Dec 18, 2016 10:33
[2016-12-18] MEDS: SEVELAMER CARBONATE 800 MG TAB PO SCH ×2 (12:49→17:35)
[2016-12-18 16:00] VITALS: BP 133/83; PULSE 88; RESP 18; TEMP 98.5; O2SAT 95
[2016-12-18 20:00] VITALS: BP 121/63; PULSE 84; RESP 20; TEMP 97.6; O2SAT 94
[2016-12-19] VITALS: BP 131/63; PULSE 91; RESP 18; TEMP 98.6; O2SAT 98
[2016-12-19] MEDS: PIPERACIL-TAZO 2.25 GM PREMIX 50 ML IV SCH ×3 (04:23→22:14)
[2016-12-19] MEDS: INSULIN ASPART SUPPLEMENTAL SCALE SQ SCH ×4 (05:29→21:00)
--- NOTE | 2016-12-19 05:46 | MP ---
cc: KIMBERLEE ROSE DO ATTENDING PHYSICIAN Dr. Kimberlee Rose DATE OF OPERATION 12/17/2016 PREOPERATIVE DIAGNOSES 1. Critical limb ischemia right lower extremity. 2. Abscess/cellulitis right above-knee amputation stump. POSTOPERATIVE DIAGNOSES 1. Critical limb ischemia right lower extremity. 2. Abscess/cellulitis right above-knee amputation stump. PROCEDURE 1. Revision of right above-knee amputation stump. 2. Incision and drainage of right amputation stump. PROCEDURE The patient's right leg was prepped and draped in sterile fashion. The patient was given perioperative IV antibiotics, Zosyn 2.25 mg, and the patient had a peripheral nerve block as well. I removed the adriano out of the right AKA incision. Then I removed any deep sutures. The sutures were removed. There was no definitive purulence, although I did send off a culture of the bone marrow. I then used an elevator to remove any soft tissue off of the bone. It should be noted that the distal tissue just below my flaps somewhat appeared to be questionably viable. I then used an oscillating saw in order to cut through the femur and I removed approximately 2-3 cm of the femur. I then used a rasp in order to clean the edges of the femur and then used approximately 3 liters of irrigation with gentamicin in order to clean the area. I also took back my skin flaps approximately 1 cm. I then undermined any the questionable tissue with a electrocautery and scalpel as needed. There was an area that was a questionably a pocket, although there was no purulence in it. I closed this area to prevent a space with interrupted 2-0 Vicryl absorbable sutures. I then irrigated with another 2 liters of warm normal saline and then it should be noted that all the tissue appeared to be viable bleeding appropriately. I controlled bleeding with hemostasis and some 2-0 ties of Vicryl absorbable sutures as needed. I then closed in layers with multiple 2-0 Vicryl absorbable sutures. Although the patient did not have a lot of hamstring muscles, I used mostly his quadriceps muscles and the deep investing fascia approximated with 2-0 interrupted Vicryl sutures. I then used 3-0 Vicryl interrupted [id number] sutures closer to the skin and adriano and placed a Prevena wound VAC with 4x4s and a Kerlix over the amputation stump. The patient tolerated the procedure well and was taken to the PACU. DO URSULA Holden/FABIEN /4:13 PM /5:34 AM
[2016-12-19 05:48] LABS: AUTOMATED NEUTROPHIL # 8.4 TH/MM3 (1.8-7.7); BASOPHIL # 0.1 TH/MM3 (0-0.2); BASOPHIL % 0.8 % (0.0-2.0); EOSINOPHIL # 0.5 TH/MM3 (0-0.4); EOSINOPHIL % 4.2 % (0.0-4.0); HEMATOCRIT 28.9 % (39.0-51.0); HEMO FLAGS DIFF FINAL; LYMPHOCYTE # 1.1 TH/MM3 (1.0-4.8); MEAN CELL VOLUME 82.4 FL (80.0-100.0); MEAN CORPUSCULAR HEMOGLOBIN 25.8 PG (27.0-34.0); MEAN CORPUSCULAR HGB CONC 31.3 % (32.0-36.0); MONO % 11.5 % (0.0-8.0); NEUT % 73.5 % (16.0-70.0); PLATELET COUNT 210 TH/MM3 (150-450); RED CELL DISTRIBUTION WIDTH 20.5 % (11.6-17.2); WHITE BLOOD COUNT 11.4 TH/MM3 (4.0-11.0)
[2016-12-19 06:25] LABS: BICARBONATE 30.4 MEQ/L (21.0-32.0); MAGNESIUM 1.7 MG/DL (1.5-2.5); POTASSIUM 3.7 MEQ/L (3.5-5.1)
[2016-12-19 08:00] VITALS: BP 130/63; PULSE 88; RESP 20; TEMP 97.5; O2SAT 95
[2016-12-19] MEDS: GABAPENTIN 100 MG CAP PO SCH ×2 (08:59→22:15)
[2016-12-19] MEDS: SEVELAMER CARBONATE 800 MG TAB PO SCH ×3 (08:59→17:46)
[2016-12-19] MEDS: CALCIUM ACETATE 667 MG CAP PO SCH ×3 (08:59→17:46)
[2016-12-19] MEDS: HYDROXYCHLOROQUINE SULFATE 200 MG TAB PO SCH ×2 (09:01→22:15)
[2016-12-19] MEDS: PANTOPRAZOLE SOD 20 MG DELAYED RELEASE TAB PO SCH (09:01)
[2016-12-19] MEDS: SODIUM CHLORIDE 0.9% FLUSH 5 ML FLUSH FLUSH SCH ×2 (09:01→22:14)
[2016-12-19] MEDS: LOSARTAN 50 MG TAB PO SCH (09:01)
--- NOTE | 2016-12-19 10:43 | HHI.NPPN ---
Subjective General Problems: Anemia, Diabetes, Edema, Hypertension Renal Failure: Chronic, End Stage Renal Disease History of Present Illness 56-year-old male with a past medical history of hypertension, diabetes mellitus, peripheral vascular disease, end-stage renal disease on hemodialysis, chronic anemia who was admitted directly by the vascular surgery for the infection of the right leg stump. I was called to see the patient for the management of dialysis. The patient has been on hemodialysis Friday, Friday and Friday. Additional Remarks Patient is alert, no pain at stump, no SOB, eating better. Objective Data Data 12/18/16 12/19/16 19:00 07:00 Intake Total 400 ml 700 ml Output Total 0 ml 0 ml Balance 400 ml 700 ml Intake Oral 240 ml 600 ml IV Total 160 ml 100 ml Output Urine Total 0 ml 0 ml # Bowel Movements 0 0 Vital Signs Date Time Temp Pulse Resp B/P Pulse Ox O2 Delivery O2 Flow Rate FiO2 12/19/16 08:00 97.5 88 20 130/63 95 12/19/16 00:00 98.6 91 18 131/63 98 12/18/16 20:00 97.6 84 20 121/63 94 12/18/16 18:34 17 12/18/16 16:00 98.5 88 18 133/83 95 12/18/16 14:17 19 -: 12/19/16 0531 12/19/16 0531 Physical Exam General Appearance: No Acute Distress, Comfortable Eyes Eye Exam: Pupils Equal Throat Throat Exam: Oral Mucosa [place] & Moist Pulmonary Resp Exam: Breath Sounds Equal, No Distress, Decreased Bases Cardiology CV Exam: Regular, Normal Sinus Rhythm Gastrointestinal/Abdomen GI Exam: Soft, Non-Tender, Bowel Sounds Present Extremeties Extremities Exam: Trace Edema Neurologic Neuro Exam: Alert, Awake, Oriented Psychiatric Psych Exam: Appropriate Responses Assessment/Plan Assessment Summary: Anemia of CKD, Hypertension, End Stage Renal Disease Problem List: (1) Coronary artery disease (2) Anemia (3) Hyperlipidemia (4) CHF (congestive heart failure) (5) PAD (peripheral artery disease) (6) Cellulitis (7) AKA stump complication (8) ESRD (end stage renal disease) Plan S/P Aka RT ESRD HD MWF Here He has debridement of right AKA wound Anemia on Epogen 10,000 Problem Qualifiers (1) Cellulitis: Qualified Code: L03.115 - Cellulitis of right lower extremity Ham Alcantar MD Dec 19, 2016 10:43
[2016-12-19 12:00] VITALS: BP 121/58; PULSE 84; RESP 17; TEMP 98.6; O2SAT 97
--- NOTE | 2016-12-19 15:09 | HHI.PR ---
Subjective Remarks Says young has pain at the surgical site, fairly controlled by meds. No n/v/d/c. Says she has better appetite and is eating better. Ate all breakfast. Objective Vitals Vital Signs Date Time Temp Pulse Resp B/P Pulse Ox O2 Delivery O2 Flow Rate FiO2 12/19/16 12:00 98.6 84 17 121/58 97 12/19/16 08:00 97.5 88 20 130/63 95 12/19/16 00:00 98.6 91 18 131/63 98 12/18/16 20:00 97.6 84 20 121/63 94 12/18/16 18:34 17 12/18/16 16:00 98.5 88 18 133/83 95 I/O 12/18/16 12/18/16 12/18/16 12/19/16 12/19/16 12/19/16 07:00 15:00 23:00 07:00 15:00 23:00 Intake Total 60 ml 350 ml 340 ml 410 ml 1130 ml Output Total 0 ml 0 ml 0 ml 961 ml Balance 60 ml 350 ml 340 ml 410 ml 169 ml Intake Oral 60 ml 240 ml 240 ml 360 ml 1080 ml IV Total 110 ml 100 ml 50 ml 50 ml Output Urine Total 0 ml 0 ml 0 ml 960 ml Stool Total 1 ml # Voids 0 # Bowel Movements 0 0 0 Result Diagram: 12/19/16 0531 12/19/16 0531 Imaging Last Impressions Chest X-Ray 12/12/16 1622 Signed Impressions: Service Date/Time: December 16:52 - CONCLUSION: 1. Cardiomegaly and findings of vascular congestion without overt failure. The findings are improved when compared with the prior exam. 2. Small bilateral effusions Robson Norwood MD Objective Remarks GENERAL: This is a well-nourished, well-developed patient, in no apparent distress. SKIN: No rashes, ecchymoses or lesions. Warm and dry. Stump with lateral erythema and packed , no much erythema around. HEAD: Atraumatic. Normocephalic. No temporal or scalp tenderness. EYES: Pupils equal round and reactive. No injection or drainage. ENT: Nose without bleeding, purulent drainage or septal hematoma. Airway patent. NECK: Trachea midline. No lymphadenopathy. Supple, nontender, no meningeal signs. CARDIOVASCULAR: Regular rate and rhythm without murmurs, gallops, or rubs. No JVD. RESPIRATORY: Clear to auscultation. Breath sounds equal bilaterally. No wheezes , rales, or rhonchi. GASTROINTESTINAL: Abdomen soft, non-tender, nondistended. No guarding. MUSCULOSKELETAL: Right AKA surgical incision site tender to palpation, wound packed. Left lower ext 2+ edema, skin very tight. NEUROLOGICAL: Awake and alert. Cranial nerves II through XII intact. No focal neurological deficits. Normal speech. Mr. Orona is a [facility] with a history of RA, DM, HTN who presented 4 days after he was discharged from the hospital following right sided AKA. He reported redness, increased pain, tenderness, bloody pus drainage from the post wound. Upon presentation to his vascular surgeon's office, patient was advised to be admitted to the hospital for IV abx and possibly further surgical intervention. - Post AKA wound infection - Discussed with vascular surgeon, Dr. Tay as well his YOUTH AGENT Ms. Holt. - We'll start patient on vancomycin, cefepime. Will provide first dose Vancomycin tonight. - Discussed with Dr. Sharp (nephrology) regarding Vancomycin during dialysis. - Infectious disease and nephrology consult. - CBC, BMP in the AM. - Diabetes mellitus - obtain hemoglobin A1c. - Diabetic diet. - Sliding scale insulin. If blood glucose remains well controlled, consider discontinuing sliding scale insulin. - ESRD - Consulted Dr. Sharp (Nephrology) regarding continuation of dialysis as well as vancomycin. - Hypertension - Continue Losartan and Amlodipine with holding parameters. - Rheumatoid arthritis - Continue Hydroxychloroquine, Leflunomide - Probable systolic CHF - I cannot find any echo report after 2010. We will obtain an Echocardiogram. - CXR on 12/12/2016 reviewed by me - shows some vascular congestion, cardiomegaly. Full code. Pharmacological prophylaxis when okay with Vascular surgery. A/P Problem List: (1) AKA stump complication ICD Code: T87.9 Status: Acute (2) Type 2 diabetes mellitus ICD Code: E11.9 Status: Chronic (3) Hypertension ICD Code: I10 Status: Chronic (4) ESRD (end stage renal disease) ICD Code: N18.6 Status: Chronic (5) Rheumatoid arthritis ICD Code: M06.9 Status: Acute Assessment and Plan Mr. Orona is a pleasant 56 yo male [place] with a history of RA, DM , HTN who presented 4 days after he was discharged from the hospital following right sided AKA. He reported redness, increased pain, tenderness, bloody pus drainage from the post wound. Upon presentation to his vascular surgeon's office , patient was advised to be admitted to the hospital for IV abx and possibly further surgical intervention. Cellulitis status post right AKA. Possible developing abscess. Patient admitted for IV antibiotics and diabetic blood sugar control. Wound culture from within wound pending Silver pack dressing. Wound care nurse consulted, appreciate recommendations Dr Jasvir verdin surgeon following Continue vancomycin, cefepime. Nephrology following Dr. Sharp (nephrology) regarding Vancomycin during dialysis. Infectious disease and nephrology consult, appreciate recommendations A1c is 4.7. Follow kidney function Culture shows Enterobacter cloacae. 12/17 S/P Right AKA I&D and revision by Dr Jasvir verdin surgery, patient with loculated pocket without any purulence. Continue abx per ID recommendations Consult PT/OT Severe protein calorie malnutrition. Prealbumin of 8. Add ensure to diet. Cheese Cook consult. Diabetes mellitus well controlled by diet and exercise hemoglobin A1c is 4.7 Diabetic diet. Sliding scale insulin. If blood glucose remains well controlled, consider discontinuing sliding scale insulin. ESRD - Consulted Dr. Sharp (Nephrology) regarding continuation of dialysis as well as vancomycin. Hypertension - Continue Losartan and Amlodipine with holding parameters. Rheumatoid arthritis - Continue Hydroxychloroquine, Leflunomide Probable systolic CHF systolic EF 40%. Stable at this time. doesn't appear with exacerbation. BNP elevated. Patient also on HD. 2D Echocardiogram EF 40-45% CXR on 12/12/2016 reviewed by me - shows some vascular congestion, cardiomegaly. Full code. Pharmacological prophylaxis when okay with Vascular surgery. Discussed with the patient, nurse Allyson Lebron MD Dec 19, 2016 15:09
[2016-12-19 16:00] VITALS: BP 134/72; PULSE 91; RESP 20; TEMP 97.8; O2SAT 95
[2016-12-19 20:00] VITALS: BP 117/59; PULSE 82; RESP 17; TEMP 97.9; O2SAT 97
[2016-12-20] VITALS: BP 127/63; PULSE 85; RESP 17; TEMP 97.7; O2SAT 96
[2016-12-20] MEDS: PIPERACIL-TAZO 2.25 GM PREMIX 50 ML IV SCH ×2 (04:22→12:37)
[2016-12-20] MEDS: INSULIN ASPART SUPPLEMENTAL SCALE SQ SCH ×3 (05:30→16:00)
[2016-12-20 08:00] VITALS: BP 136/67; PULSE 79; RESP 16; TEMP 96.6; O2SAT 97
[2016-12-20] MEDS: SEVELAMER CARBONATE 800 MG TAB PO SCH ×2 (08:00→12:34)
[2016-12-20] MEDS: SODIUM CHLORIDE 0.9% FLUSH 5 ML FLUSH FLUSH SCH ×2 (08:06→08:10)
[2016-12-20] MEDS: LOSARTAN 50 MG TAB PO SCH (08:09)
[2016-12-20] MEDS: GABAPENTIN 100 MG CAP PO SCH (08:09)
[2016-12-20] MEDS: HYDROXYCHLOROQUINE SULFATE 200 MG TAB PO SCH ×2 (08:10→13:20)
[2016-12-20] MEDS: CALCIUM ACETATE 667 MG CAP PO SCH ×2 (08:10→12:35)
[2016-12-20] MEDS: PANTOPRAZOLE SOD 20 MG DELAYED RELEASE TAB PO SCH (08:10)
[2016-12-20] MEDS ORDERED: PERC7.5T13 PO (08:58)
[2016-12-20] MEDS ORDERED: LEVA500T PO ×2 (08:58→16:19)
[2016-12-20] MEDS ORDERED: LACTCHW3 CHEW ×2 (08:58→16:19)
--- NOTE | 2016-12-20 09:36 | PD.VS.PN ---
Subjective Subjective/Hospital Course Doing well, no complaints. Patient having less discomfort after amputation revision. Objective Vitals/I&O Date Time Temp Pulse Resp B/P Pulse Ox O2 Delivery O2 Flow Rate FiO2 12/20/16 08:00 96.6 79 16 136/67 97 12/20/16 00:00 97.7 85 17 127/63 96 12/19/16 20:00 97.9 82 17 117/59 97 12/19/16 16:00 97.8 91 20 134/72 95 12/19/16 12:00 98.6 84 17 121/58 97 12/20/16 12/20/16 12/20/16 07:00 15:00 23:00 Intake Total 290 ml Balance 290 ml Physical Exam Right AKA stump with stocking and provena dressing in place. Laboratory Date/Time Procedure Status Source Growth 12/17/16 15:42 Gram Stain - Final Complete Wound Leg 12/17/16 15:42 Wound Culture - Final Complete Enterobacter Cloacae Assessment and Plan Assessment: (1) Cellulitis Status: Acute Plan 56 yr old male with cellulitis status post right AKA revision For abscess. Plan for discharge to rehab. Dressing can be removed on friday12/23/2016. Then 4x4 and stump stocking can be used as dressing. Follow up in office in 4 weeks for staple removal Saulo Tay DO, FACS Pet Counselor of Vascular Surgery /Jose Problem Qualifiers (1) Cellulitis: Qualified Code: L03.115 - Cellulitis of right lower extremity Saulo Tay DO Dec 20, 2016 09:36
--- NOTE | 2016-12-20 10:33 | HHI.NPPN ---
Subjective General Problems: Anemia, Diabetes, Edema, Hypertension Renal Failure: Chronic, End Stage Renal Disease History of Present Illness 56-year-old male with a past medical history of hypertension, diabetes mellitus, peripheral vascular disease, end-stage renal disease on hemodialysis, chronic anemia who was admitted directly by the vascular surgery for the infection of the right leg stump. I was called to see the patient for the management of dialysis. The patient has been on hemodialysis Friday, Friday and Friday. Additional Remarks Patient is alert, no pain at stump, no SOB, eating better. Objective Data Data 12/19/16 12/20/16 19:00 07:00 Intake Total 1130 ml 580 ml Output Total 961 ml Balance 169 ml 580 ml Intake Oral 1080 ml 480 ml IV Total 50 ml 100 ml Output Urine Total 960 ml Stool Total 1 ml # Voids 4 # Bowel Movements 2 Vital Signs Date Time Temp Pulse Resp B/P Pulse Ox O2 Delivery O2 Flow Rate FiO2 12/20/16 08:00 96.6 79 16 136/67 97 12/20/16 00:00 97.7 85 17 127/63 96 12/19/16 20:00 97.9 82 17 117/59 97 12/19/16 16:00 97.8 91 20 134/72 95 12/19/16 12:00 98.6 84 17 121/58 97 -: 12/19/16 0531 12/19/16 0531 Physical Exam General Appearance: No Acute Distress, Comfortable Eyes Eye Exam: Pupils Equal Throat Throat Exam: Oral Mucosa [place] & Moist Pulmonary Resp Exam: Breath Sounds Equal, No Distress, Decreased Bases Cardiology CV Exam: Regular, Normal Sinus Rhythm Gastrointestinal/Abdomen GI Exam: Soft, Non-Tender, Bowel Sounds Present Extremeties Extremities Exam: Trace Edema Neurologic Neuro Exam: Alert, Awake, Oriented Psychiatric Psych Exam: Appropriate Responses Assessment/Plan Assessment Summary: Anemia of CKD, Hypertension, End Stage Renal Disease Problem List: (1) Coronary artery disease (2) Anemia (3) Hyperlipidemia (4) CHF (congestive heart failure) (5) PAD (peripheral artery disease) (6) Cellulitis (7) AKA stump complication (8) ESRD (end stage renal disease) Plan S/P Aka RT ESRD HD MWF seen during hemodialysis UF 2 L on 3K/HCO3 He has debridement of right AKA wound Anemia on Epogen 10,000 Problem Qualifiers (1) Cellulitis: Qualified Code: L03.115 - Cellulitis of right lower extremity Ham Alcantar MD Dec 20, 2016 10:33
[2016-12-20] MEDS: EPOETIN ALFA 10,000 UNITS/ML VIAL IV PRN (11:39)
[2016-12-20] MEDS: SODIUM CHLOR 0.9% 1000 ML INJ 1,000 ML IV PRN (11:39)
[2016-12-20] MEDS: GELATIN 12 MM/7 MM FOAM TOP PRN (11:40)
[2016-12-20 12:25] VITALS: BP 145/71; PULSE 87; RESP 16; TEMP 97; O2SAT 95
--- NOTE | 2016-12-20 15:17 | HHI.DS ---
Discharge Summary Admission Date Dec 12, 2016 at 4:12 pm Discharge Date: Dec 20, 2016 Admitting Diagnosis Post op wound infection. (1) AKA stump complication ICD Code: T87.9 (2) Type 2 diabetes mellitus ICD Code: E11.9 (3) Hypertension ICD Code: I10 (4) ESRD (end stage renal disease) ICD Code: N18.6 (5) Rheumatoid arthritis ICD Code: M06.9 Procedures 12/17/2016 1. Revision of right above-knee amputation stump. 2. Incision and drainage of right amputation stump. Brief History - From Admission Mr. Orona is a very pleasant 56 year old [place] with a history of diabetes mellitus, ESRD on HD MWF, recent right sided above knee amputation who was admitted directly from his vascular surgeon's office due to post op wound infection. Patient was discharged approximately 4 days ago on Levaquin. However , he did not fill his prescription and has not been taking any antibiotics. In the last few days, he has noticed redness, more tenderness and thick white/ bloody discharge. Today, he also noticed the drainage starting to smell bad. He denies any fever. Denies any dysuria, hematuria. No changes in bowel habits. In an effort to prevent further worsening of the infection and possibly surgical washout, patient is being admitted to the hospital. CBC/BMP: 12/19/16 0531 12/19/16 0531 Significant Findings Laboratory Tests Test 12/18/16 12/19/16 07:13 05:31 Hemoglobin 8.9 GM/DL 9.0 GM/DL (13.0-17.0) (13.0-17.0) Hematocrit 28.6 % 28.9 % (39.0-51.0) (39.0-51.0) Sodium Level 135 MEQ/L (136-145) Creatinine 7.43 MG/DL 5.40 MG/DL (0.60-1.30) (0.60-1.30) Estimat Glomerular Filtration 8 ML/MIN (>89) 11 ML/MIN (>89) Rate Random Glucose 114 MG/DL (74-106) Prealbumin 8 MG/DL (20-40) White Blood Count 11.4 TH/MM3 (4.0-11.0) Red Blood Count 3.50 MIL/MM3 (4.50-5.90) Mean Corpuscular Hemoglobin 25.8 PG (27.0-34.0) Mean Corpuscular Hemoglobin 31.3 % Concent (32.0-36.0) Red Cell Distribution Width 20.5 % (11.6-17.2) Neutrophils (%) (Auto) 73.5 % (16.0-70.0) Monocytes (%) (Auto) 11.5 % (0.0-8.0) Eosinophils (%) (Auto) 4.2 % (0.0-4.0) Neutrophils # (Auto) 8.4 TH/MM3 (1.8-7.7) Monocytes # (Auto) 1.3 TH/MM3 (0-0.9) Eosinophils # (Auto) 0.5 TH/MM3 (0-0.4) Chloride Level 97 MEQ/L (98-107) PE at Discharge GENERAL: This is a well-nourished, well-developed patient, in no apparent distress. SKIN: No rashes, ecchymoses or lesions. Warm and dry. Stump with lateral erythema and packed , no much erythema around. HEAD: Atraumatic. Normocephalic. No temporal or scalp tenderness. EYES: Pupils equal round and reactive. No injection or drainage. ENT: Nose without bleeding, purulent drainage or septal hematoma. Airway patent. NECK: Trachea midline. No lymphadenopathy. Supple, nontender, no meningeal signs. CARDIOVASCULAR: Regular rate and rhythm without murmurs, gallops, or rubs. No JVD. RESPIRATORY: Clear to auscultation. Breath sounds equal bilaterally. No wheezes , rales, or rhonchi. GASTROINTESTINAL: Abdomen soft, non-tender, nondistended. No guarding. MUSCULOSKELETAL: Right AKA surgical incision site tender to palpation, wound packed. Left lower ext 2+ edema, skin very tight. NEUROLOGICAL: Awake and alert. Cranial nerves II through XII intact. No focal neurological deficits. Normal speech. Mr. Orona is a [place] with a history of RA, DM, HTN who presented 4 days after he was discharged from the hospital following right sided AKA. He reported redness, increased pain, tenderness, bloody pus drainage from the post wound. Upon presentation to his vascular surgeon's office, patient was advised to be admitted to the hospital for IV abx and possibly further surgical intervention. - Post AKA wound infection - Discussed with vascular surgeon, Dr. Tay as well his CYLINDER SANDER OPERATOR Ms. Holt. - We'll start patient on vancomycin, cefepime. Will provide first dose Vancomycin tonight. - Discussed with Dr. Sharp (nephrology) regarding Vancomycin during dialysis. - Infectious disease and nephrology consult. - CBC, BMP in the AM. - Diabetes mellitus - obtain hemoglobin A1c. - Diabetic diet. - Sliding scale insulin. If blood glucose remains well controlled, consider discontinuing sliding scale insulin. - ESRD - Consulted Dr. Sharp (Nephrology) regarding continuation of dialysis as well as vancomycin. - Hypertension - Continue Losartan and Amlodipine with holding parameters. - Rheumatoid arthritis - Continue Hydroxychloroquine, Leflunomide - Probable systolic CHF - I cannot find any echo report after 2010. We will obtain an Echocardiogram. - CXR on 12/12/2016 reviewed by me - shows some vascular congestion, cardiomegaly. Full code. Pharmacological prophylaxis when okay with Vascular surgery. Pt update on day of discharge Mr. Orona is doing well. No acute concerns. Had hemodialysis today. No fever , chills. Hospital Course Mr. Orona is a pleasant 56 yo male [place] with a history of RA, DM , HTN who presented 4 days after he was discharged from the hospital following right sided AKA. He reported redness, increased pain, tenderness, bloody pus drainage from the post wound. Upon presentation to his vascular surgeon's office , patient was advised to be admitted to the hospital for IV abx and possibly further surgical intervention. Cellulitis status post right AKA. Possible developing abscess. Patient admitted for IV antibiotics and diabetic blood sugar control. Silver pack dressing. Wound care nurse consulted, appreciate recommendations Received vancomycin, cefepime. Nephrology following Dr. Sharp (nephrology) regarding Vancomycin during dialysis. Infectious disease and nephrology consult, appreciate recommendations A1c is 4.7. Follow kidney function Culture shows Enterobacter cloacae. 12/17 S/P Right AKA I&D and revision by Dr [facility] surgery, patient with loculated pocket without any purulence. Discussed with ID on 12/20/2016. We will continue Levaquin 500mg Q48hrs X 7 doses. Severe protein calorie malnutrition. Prealbumin of 8. Add ensure to diet. Accounting/Finance Tutor consult. Diabetes mellitus well controlled by diet and exercise hemoglobin A1c is 4.7 Diabetic diet. Sliding scale insulin. If blood glucose remains well controlled, consider discontinuing sliding scale insulin. Hypertension - Continue Losartan and Amlodipine with holding parameters. Rheumatoid arthritis - Continue Hydroxychloroquine, Leflunomide Probable systolic CHF systolic EF 40%. Stable at this time. doesn't appear with exacerbation. BNP elevated. Patient also on HD. 2D Echocardiogram EF 40-45% CXR on 12/12/2016 shows some vascular congestion, cardiomegaly. Patient is being transferred to [facility] today. Hospitalist service can be consulted if needed once patient is admitted at [facility]. Pt Condition on Discharge: Good Discharge Disposition: Rehab Inpatient Discharge Time: > 30 minutes Discharge Instructions DIET: Follow Instructions for: Diabetic Diet Activities you can perform: Regular-No Restrictions Follow up Referrals: Vascular Surgery - 3 Weeks with Saulo Tay V. DO New Medications: Lactobacillus Acidophilus (Lactinex) 1 Chew 1 TAB CHEW TID Nutritional Supplement Days 14 Ref 0 TAB Levofloxacin (Levaquin) 500 Mg Tab 500 MG PO Q48H Infection #7 Ref 0 TAB Oxycodone-Acetaminophen (Percocet) 7.5-325 mg Tab 1 TAB PO Q6H PRN PAIN #30 Ref 0 TAB Continued Medications: Acetaminophen (Acetaminophen) 500 Mg Cap 500 MG PO Q4-6H PRN PAIN SCALE 1 TO 7 Ref 0 CAP Albuterol Neb (Albuterol Neb) 0.63 Mg/3 Ml Neb 0.63 MG NEB Q4HR NEB PRN SHORTNESS OF BREATH #25 Ref 0 NEBULE Amlodipine (Norvasc) 10 Mg Tab 10 MG PO DAILY Days 30 TAB B-Complex W/ C & Folic Acid (Kendal-Radha) 1 Tab 1 TAB PO DAILY TAB Brimonidine Opth Drops (Brimonidine Opth Drops) 0.2% Soln 1 DROP EACH EYE TID Intraocular pressure #1 Ref 0 BOTTLE Calcium Acetate (Phosphate Binder) (Phoslo) 667 Mg Cap 1334 MG PO TID Hyperphosphatemia #180 Ref 0 CAP Dorzolamide-Timolol Opth Drops (Cosopt Opth Drops) 22.3-6.8 Mg/Ml Soln 1 DROP EACH EYE TID #10 ML Fluticasone Propionate (Nasal) (Eq Allergy Relief) 50 Mcg/Act Spr 2 SPRAY EACH NARE DAILY Gabapentin (Gabapentin) 100 Mg Cap 100 MG PO BID Days 30 CAP Hydroxychloroquine (Hydroxychloroquine) 200 Mg Tab 200 MG PO Q12HR Take with food #60 Ref 0 TAB Leflunomide (Leflunomide) 20 Mg Tab 20 MG PO DAILY TAB Losartan (Cozaar) 50 Mg Tab 50 MG PO DAILY Days 30 TAB Loteprednol Opth Drops (Lotemax Opth Drops) 0.5 % Soln 1 DROP EACH EYE DAILY Inflammation #1 Ref 0 BOTTLE Nepafenac Opth Drops (Ilevro Opth Drops) 0.3 % Soln 1 DROP EACH EYE HS Treat Swelling-Pain #1 Ref 0 BOTTLE Omeprazole (Omeprazole) 20 Mg Tab 20 MG PO DAILY #30 Ref 0 TAB Pilocarpine Opth Drops (Pilocarpine Opth Drops) 1 % Soln 1 DROP EACH EYE TID Glaucoma #1 Ref 0 BOTTLE Polyethylene Glycol 3350 Powder (Miralax Powder) 17 Gm Powd 17 GM PO DAILY Mix and dissolve one measuring cap-ful (17 grams) in water or juice. Constipation #1 Ref 0 BOTTLE Sevelamer Carbonate (Renvela) 800 Mg Tab 800 MG PO TIDAC KIDNEY DISEASE #90 TAB Temazepam (Temazepam) 15 Mg Cap 15 MG PO HS PRN INSOMNIA #30 Ref 0 CAP Travoprost Opth Drops (Travatan Z Opth Drops) 0.004 % Soln 1 DROP EACH EYE HS Glaucoma #1 Ref 0 BOTTLE Discontinued Medications: Hydroxyzine HCl (Hydroxyzine HCl) 25 Mg Tab 25 MG PO BID Ref 0 TAB Levofloxacin (Levaquin) 750 Mg Tab 750 MG PO DAILY Post-Op #14 Ref 0 TAB Levi Sampson DO Dec 20, 2016 3:17 pm
[2016-12-20 16:00] VITALS: BP 115/62; PULSE 91; RESP 16; TEMP 96.9; O2SAT 98
--- NOTE | 2016-12-20 16:17 | HHI.IDPN ---
Subjective Subjective Remarks pt is sp AKA revision op report reviewed ? bone involvement no new co no diarrhea Antibiotics zosyn Allergies: Coded Allergies: No Known Allergies (Verified , 12/04/16) Objective . Vital Signs Date Time Temp Pulse Resp B/P Pulse Ox O2 Delivery O2 Flow Rate FiO2 12/20/16 12:25 97.0 87 16 145/71 95 12/20/16 08:00 96.6 79 16 136/67 97 12/20/16 00:00 97.7 85 17 127/63 96 12/19/16 20:00 97.9 82 17 117/59 97 12/19/16 16:00 97.8 91 20 134/72 95 12/19/16 12/19/16 12/20/16 15:00 23:00 07:00 Intake Total 1130 ml 290 ml 290 ml Output Total 961 ml Balance 169 ml 290 ml 290 ml Intake Oral 1080 ml 240 ml 240 ml IV Total 50 ml 50 ml 50 ml Output Urine Total 960 ml Stool Total 1 ml # Voids 2 2 # Bowel Movements 2 . Laboratory Tests Test 12/19/16 05:31 White Blood Count 11.4 TH/MM3 Red Blood Count 3.50 MIL/MM3 Hemoglobin 9.0 GM/DL Hematocrit 28.9 % Mean Corpuscular Volume 82.4 FL Mean Corpuscular Hemoglobin 25.8 PG Mean Corpuscular Hemoglobin 31.3 % Concent Red Cell Distribution Width 20.5 % Platelet Count 210 TH/MM3 Mean Platelet Volume 8.2 FL Neutrophils (%) (Auto) 73.5 % Lymphocytes (%) (Auto) 10.0 % Monocytes (%) (Auto) 11.5 % Eosinophils (%) (Auto) 4.2 % Basophils (%) (Auto) 0.8 % Neutrophils # (Auto) 8.4 TH/MM3 Lymphocytes # (Auto) 1.1 TH/MM3 Monocytes # (Auto) 1.3 TH/MM3 Eosinophils # (Auto) 0.5 TH/MM3 Basophils # (Auto) 0.1 TH/MM3 CBC Comment DIFF FINAL Differential Comment Laboratory Tests Test 12/19/16 05:31 Sodium Level 137 MEQ/L Potassium Level 3.7 MEQ/L Chloride Level 97 MEQ/L Carbon Dioxide Level 30.4 MEQ/L Anion Gap 10 MEQ/L Blood Urea Nitrogen 11 MG/DL Creatinine 5.40 MG/DL Estimat Glomerular Filtration 11 ML/MIN Rate Random Glucose 95 MG/DL Calcium Level 8.7 MG/DL Magnesium Level 1.7 MG/DL Imaging Last Impressions Chest X-Ray 12/12/16 1622 Signed Impressions: Service Date/Time: December 16:52 - CONCLUSION: 1. Cardiomegaly and findings of vascular congestion without overt failure. The findings are improved when compared with the prior exam. 2. Small bilateral effusions Robson Norwood MD Physical Exam CONSTITUTIONAL/GENERAL: This is an adequately nourished patient, in no apparent distress. TUBES/LINES/DRAINS: AVF in place w thrill LUE CARDIOVASCULAR: Regular rate and rhythm without murmurs, gallops, or rubs. No JVD. Peripheral pulses symmetric. RESPIRATORY/CHEST: Symmetric, unlabored respirations. Clear to auscultation. Breath sounds equal bilaterally. No wheezes, rales, or rhonchi. GASTROINTESTINAL: Abdomen soft, non-tender, nondistended. No hepato-splenomegaly , or palpable masses. No guarding. Bowel sounds present. GENITOURINARY: Without palpable bladder distension. MUSCULOSKELETAL: Extremities without clubbing, cyanosis, or edema. sp L AKA, dressing in place intact Assessment & Plan Remarks PVD Diabetic neuropahty sp AKA Invfected AKA site, meyers S Enterobacter Mult med prob ESRD Leukocytosis - 2/2 infx, - Levaquine 500 mg po every other day x 6 wks -pt was instructed to avoid antacids, Ca , Mg containing meds and food (e.i. dairy) Discussed Condition With pt Elda Mijares MD Dec 20, 2016 16:17
[2016-12-21] MEDS ORDERED: LEVA500T PO (07:31)
[2017-01-03] MEDS ORDERED: GABA100C4 PO (08:52)
[2017-01-03] MEDS ORDERED: PILO1SOL5 EACH EYE (08:52)
[2017-01-03] MEDS ORDERED: HYDR-3516 PO (08:52)
[2017-01-03] MEDS ORDERED: LEVA500T PO (08:52)
[2017-01-03] MEDS ORDERED: PANT20 PO (08:52)
[2017-01-03] MEDS ORDERED: Leflunomide PO (08:52)
[2017-01-03] MEDS ORDERED: LATA.005%O EACH EYE (08:52)
[2017-01-03] MEDS ORDERED: COZA25TA PO (08:52)
[2017-01-03] MEDS ORDERED: NEPHRO PO (08:52)
[2017-01-03] MEDS ORDERED: LACT PO (08:52)
[2017-01-03] MEDS ORDERED: CALC667C PO (08:52)
[2017-01-03] MEDS ORDERED: Brimonidine 0.2% Opth Soln EACH EYE (08:52)
[2017-01-03] MEDS ORDERED: SEVEL800 PO (08:52)
[2017-01-03] MEDS ORDERED: HYDR200T3 PO (08:52)
[2017-01-03] MEDS ORDERED: ALBU0.63 NEB (08:52)
== END 2016-12-20 16:35 | DRG 474 ==
LOC: N07A 16:12
PROVIDERS: ADMIT Hospitalist; ATTEND Hospitalist
PROC: 5A1D60Z (ICD-10-PCS; 2016-12-13)
PROC: 0Y6C0Z3 Detachment at Right Upper Leg, Low, Open Approach (ICD-10-PCS; principal; 2016-12-17 14:08)
DX: T87.43 Infection of amputation stump, right lower extremity (principal); N18.6 End stage renal disease; E43 Unspecified severe protein-calorie malnutrition; I12.0 Hypertensive chronic kidney disease with stage 5 chronic kidney disease or end stage renal disease; I50.20 Unspecified systolic (congestive) heart failure; T81.4XXA Infection following a procedure, initial encounter; E11.22 Type 2 diabetes mellitus with diabetic chronic kidney disease; Z99.2 Dependence on renal dialysis; E11.40 Type 2 diabetes mellitus with diabetic neuropathy, unspecified; E11.51 Type 2 diabetes mellitus with diabetic peripheral angiopathy without gangrene; M06.9 Rheumatoid arthritis, unspecified; G47.00 Insomnia, unspecified; Z68.22 Body mass index [BMI] 22.0-22.9, adult; I25.10 Atherosclerotic heart disease of native coronary artery without angina pectoris; E78.5 Hyperlipidemia, unspecified; B96.89 Other specified bacterial agents as the cause of diseases classified elsewhere
CPT/HCPCS: 71010; 76937; 80048; 82565; 82948; 83036; 83735; 83880; 84134; 85014; 85018; 85025; 87070; 87077; 87186; 87205; 90935; 93005; 93306; 96365; 96374; 96375; J0692; J1170; J1580; J2250; J2270; J2370; J2405; J2543; J2765; J3010; J3370; J7030; J7040; Q4081

== ENCOUNTER 2017-01-09 16:31 | Emergency (ER) | payer MEDICARE ==
[~2017-01-09] VITALS: Ht 172.7 cm; Wt 72.0 kg
[~2017-01-09 16:31] MED LIST changes: -BRIM0.2S4 EACH EYE; +Brimonidine 0.2% Opth Soln EACH EYE; +CALC667C PO; +COZA25TA PO; -HYDR-3133 PO; +HYDR-3516 PO; +LACT PO; +LATA.005%O EACH EYE; -LEFL1TAB3 PO; +LEVA500T PO; -LEVA750T PO; +Leflunomide PO; +NEPHRO PO; -OMEP20TA PO; +PANT20 PO; +PERC7.5T13 PO; -PHOS667C5 PO; -RENATAB5 PO; -TRAV0.00 EACH EYE
[2017-01-09 16:32] VITALS: BP 140/63; PULSE 80; RESP 16; TEMP 97.8; O2SAT 95
--- NOTE | 2017-01-09 18:02 | PD ---
HPI Chief Complaint: Head Injury Time Seen by Provider: 17:59 Travel History International Travel<30 days: No Contact w/Intl Traveler<30days: No Traveled to known affect area: No History of Present Illness HPI 56-year-old male presents to the emergency department for evaluation of head injury that occurred today. Patient has a history of end-stage renal disease, hypertension, diabetes, rheumatoid arthritis, lupus. He is on dialysis, Friday , Friday, Friday. 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 Patient states he is are not his wheelchair and lost his balance causing him to fall. He denies any dizziness. No chest pain. No shortness of breath. No abdominal pain. No nausea or vomiting. Denies any neck pain or back pain. Patient states he feels fine. He does have a small abrasion to the occipital scalp. His tetanus immunization is up-to-date according to the patient. He states he does not currently take any anticoagulants. PFSH Past Medical History Anemia: Yes Arthritis: Yes (RA, Lupus) Asthma: No Autoimmune Disease: No Anxiety: No Depression: No Heart Rhythm Problems: No Cancer: No Cardiac Catheterization: Yes Cardiovascular Problems: Yes (CHF) High Cholesterol: No Chemotherapy: No Chest Pain: No Congestive Heart Failure: Yes COPD: No Cerebrovascular Accident: Yes (1998) Diabetes: Yes (diet controlled) Patient Takes Glucophage: No Dialysis: Yes (-W-) Diminished Hearing: No Deep Vein Thrombosis: Yes (LT JUGULAR AND CLAVICLE) Endocrine: Yes Gastrointestinal Disorders: Yes (REFLUX) GERD: Yes Glaucoma: No Genitourinary: Yes (DOES NOT URINATE) Hepatitis: No Hiatal Hernia: No Hypertension: Yes Immune Disorder: Yes (lupus) Implanted Vascular Access Dvce: Yes (FISTULA LEFT ARM) Kidney Stones: No Medical other: Yes (NEUROPATHY, HAS CLOTS IN NECK AND CHEST, LUPUS, ANEMIA, RHEUMATOID ARTHRITI) Musculoskeletal: Yes (RA, RIGHT BKA, Right AKA) Neurologic: Yes Psychiatric: No Reproductive: No Respiratory: Yes (SLEEP APNEA USES SLEEP MACHINE) Immunizations Current: Yes Migraines: No Myocardial Infarction: No Radiation Therapy: No Renal Failure: Yes Seizures: Yes Sickle Cell Disease: No Sleep Apnea: Yes Thyroid Disease: No Ulcer: No PNEUMOCCOCAL Vaccine (Year): 2010 Past Surgical History Abdominal Surgery: No AICD: No Arteriovenous Shunt: Yes (x2) Body Medical Devices: FISTULA LEFT UPPER ARM, IVC filter Cardiac Surgery: No Coronary Stent: Yes (X 2) Ear Surgery: No Endocrine Surgery: No Eye Surgery: No Genitourinary Surgery: No Gynecologic Surgery: No Insulin Pump: No Joint Replacement: No Neurologic Surgery: No Oral Surgery: No Pacemaker: No Thoracic Surgery: No Other Surgery: Yes (Left arm Fistula/Shunts, Left ankle) Social History Alcohol Use: No Tobacco Use: No Substance Use: No Allergies-Medications (Allergen,Severity, Reaction): Coded Allergies: No Known Allergies (Verified , 01/09/17) Reported Meds & Prescriptions Reported Meds & Active Scripts Active Nephro-Radha Rx (Vitamin B Cmplx/Vit C/Folic AC) 1 Tab 1 Cap PO DAILY 14 Days Renvela (Sevelamer Carbonate) 800 Mg Tab 800 Mg PO TIDAC 14 Days Pilocarpine Opth Drops (Pilocarpine HCl) 1 % Soln 1 Drop EACH EYE TID 14 Days Protonix (Pantoprazole Sodium) 20 Mg Tab 20 Mg PO DAILY 30 Days Cozaar (Losartan Potassium) 25 Mg Tab 25 Mg PO DAILY 30 Days Levaquin (Levofloxacin) 500 Mg Tab 500 Mg PO Q48H 30 Days [Leflunomide] 20 MG Tab 20 Mg PO DAILY 14 Days Xalatan Opth Drops (Latanoprost) 0.005% Drops 1 Drop EACH EYE HS 14 Days Acidophilus/l-Sporogenes (Lactobacillus Acidophilus) 1 Tab Tab 1 Tab PO TID 30 Days Hydroxychloroquine (Hydroxychloroquine Sulfate) 200 Mg Tab 200 Mg PO Q12HR 14 Days Hydrocodone-Acetaminophen 5-325 mg Tab 1 Tab PO Q6H PRN Gabapentin 100 Mg Cap 100 Mg PO BID 30 Days Calcium Acetate (Calcium Acetate (Phosphate Bin) 667 Mg Cap 1,334 Mg PO TID 14 Days [Brimonidine 0.2% Opth Soln] 100 DROP/5 ML Soln 1 Drop EACH EYE TID 14 Days Albuterol Neb (Albuterol Sulfate) 0.63 Mg/3 Ml Neb 0.63 Mg NEB Q4HR NEB PRN 30 Days Levaquin (Levofloxacin) 500 Mg Tab 500 Mg PO Q48H 42 Days Percocet (Oxycodone-Acetaminophen) 7.5-325 mg Tab 1 Tab PO Q6H PRN Miralax Powder (Polyethylene Glycol 3350 Powder) 17 Gm Powd 17 Gm PO DAILY Mix and dissolve one measuring cap-ful (17 grams) in water or juice. Cozaar (Losartan Potassium) 50 Mg Tab 50 Mg PO DAILY 30 Days Norvasc (Amlodipine Besylate) 10 Mg Tab 10 Mg PO DAILY 30 Days Reported Temazepam 15 Mg Cap 15 Mg PO HS PRN Oxygen tank (Oxygen) 1 Ea Tank 2 Liter DEANDRA.CANULA PRN Oxygen Concentrator Portable Gaseous 2 L/min via Nasal Cannula Continuous For 99 months Acetaminophen 500 Mg Cap 500 Mg PO Q4-6H PRN Wheelchair (Device) 1 Mis Mis 1 Ea .ROUTE DIRECTED Lotemax Opth Drops (Loteprednol Etabonate) 0.5 % Soln 1 Drop EACH EYE DAILY Ilevro Opth Drops (Nepafenac) 0.3 % Soln 1 Drop EACH EYE HS Eq Allergy Relief (Fluticasone Propionate (Nasal)) 50 Mcg/Act Spr 2 [place] EACH NARE DAILY Cosopt Opth Drops (Dorzolamide-Timolol Opth Drops) 22.3-6.8 Mg/Ml Soln 1 Drop EACH EYE TID Review of Systems Except as stated in HPI: all other systems reviewed are Neg Physical Exam Narrative GENERAL: Well-developed well-nourished male patient, afebrile. SKIN: Warm and dry. Superficial abrasion with small hematoma noted to the hospital scalp. No lacerations. ENT: Mucosa pink and moist. No erythema or exudates. No uvular edema. No uvular , palatal, or tonsillar deviation. Airway patent. Nasal turbinates appear normal without nasal blood, purulent drainage or septal hematoma. Bilateral tympanic membranes are clear without erythema or perforation. HEAD: Normocephalic. Atraumatic. EYES: No scleral icterus. No injection or drainage. NECK: Supple, trachea midline. No JVD or lymphadenopathy. CARDIOVASCULAR: Regular rate and rhythm without murmurs, gallops, or rubs. RESPIRATORY: Breath sounds equal bilaterally. No accessory muscle use. Lungs sounds are clear to auscultation. GASTROINTESTINAL: Abdomen soft, non-tender, nondistended. MUSCULOSKELETAL: No cyanosis, or edema. Patient has right BKA. BACK: Nontender without obvious deformity. No CVA tenderness. Data Data Last Documented VS Vital Signs Date Time Temp Pulse Resp B/P Pulse Ox O2 Delivery O2 Flow Rate FiO2 01/09/17 16:32 97.8 80 16 140/[address] Brain W/O Iv Contrast(Rout) (01/09/17 ) MDM Medical Decision Making Medical Screen Exam Complete: Yes Emergency Medical Condition: Yes Medical Record Reviewed: Yes Interpretation(s) CT brain - CONCLUSION: Negative noncontrast head CT. Differential Diagnosis Abrasion versus minor head injury versus intracranial abnormality Narrative Course 56-year-old chronically ill male presents to the emergency department for evaluation after he lost his balance and fell hitting the back of his head. He states he feels fine at this time. He denies any complaints. CT scan of the brain is ordered and pending. CT of the brain is negative. Patient is stable for discharge. He is to follow- up with his primary care physician. The patient is agreeable. He is return for any acute worsening of symptoms. The patient was discharged in stable condition with instructions, including return instructions and follow up instructions. Diagnosis Primary Impression: Closed head injury Qualified Code: S09.90XA - Closed head injury, initial encounter Referrals: Primary Care Physician call for appointment Patient Instructions: General Instructions, Head Injury (ED) Additional Instructions: Follow-up with your primary care physician. Return to the emergency department for any acute worsening of symptoms. Med/Other Pt SpecificInfo: No Change to Meds Disposition: 01 DISCHARGE HOME Condition: Stable Ambar Martinez DONNY Jan 09, 2017 18:02
--- NOTE | 2017-01-09 18:41 | RADRPT ---
EXAM DATE/TIME: 01/09/2017 18:27 [facility] COMPARISON: No previous studies available for comparison. INDICATIONS : Fall from wheelchair; hit head. RADIATION DOSE: 42.72 CTDIvol (mGy) MEDICAL HISTORY : Cerebrovascular disease. Hypertension. Deep venous thrombosis.Cadiovascular disease. SURGICAL HISTORY : None. ENCOUNTER: Initial ACUITY: 1 day PAIN SCALE: 4/10 LOCATION: Bilateral cranial TECHNIQUE: Multiple contiguous axial images were obtained of the head. Using automated exposure control and adj ustment of the mA and/or kV according to patient size, radiation dose was kept as low as reasonably a chievable to obtain optimal diagnostic quality images. FINDINGS: CEREBRUM: The ventricles are normal for age. No evidence of midline shift, mass lesion, hemorrhage or acute in farction. No extra-axial fluid collections are seen. POSTERIOR FOSSA: The cerebellum and brainstem are intact. The 4th ventricle is midline. The cerebellopontine angle i s unremarkable. EXTRACRANIAL: Scalp vessels are calcified. Visualized portions of the paranasal sinuses and mastoid air cells are c lear. SKULL: The calvaria is intact. No evidence of skull fracture. CONCLUSION: Negative noncontrast head CT. Aditya Thacker MD on January 09, 2017 at 18:38 Board Certified Radiologist. This report was verified electronically.
== END 2017-01-09 18:57 | disposition home or self-care (01) ==
LOC: NEPB 16:31
DX: S09.90XA Unspecified injury of head, initial encounter (principal); M06.9 Rheumatoid arthritis, unspecified; I12.0 Hypertensive chronic kidney disease with stage 5 chronic kidney disease or end stage renal disease; M32.9 Systemic lupus erythematosus, unspecified; E11.22 Type 2 diabetes mellitus with diabetic chronic kidney disease; I50.9 Heart failure, unspecified; Z89.511 Acquired absence of right leg below knee; W18.30XA Fall on same level, unspecified, initial encounter; Y93.9 Activity, unspecified; Y92.9 Unspecified place or not applicable; Y99.9 Unspecified external cause status
CPT/HCPCS: 70450

== ENCOUNTER 2017-02-13 10:15 | Observation (INO) | payer MEDICARE ==
[2017-02-13] VITALS (8 sets, daily range): BP systolic 120–136; BP diastolic 60–84; PULSE 73–81; RESP 16–24; TEMP 95.7–98; O2SAT 93–99
[~2017-02-13] VITALS: Ht 172.7 cm; Wt 66.0 kg
[2017-02-13] MEDS ORDERED: SODIUM CHLORIDE 0.9% FLUSH 10 ML FLUSH IV FLUSH PRN ×3 (11:00→18:30)
--- NOTE | 2017-02-13 11:39 | PD ---
HPI Chief Complaint: Abdominal Pain Time Seen by Provider: 11:34 Travel History International Travel<30 days: No Contact w/Intl Traveler<30days: No Traveled to known affect area: No History of Present Illness HPI Patient comes in complaining of abdominal distention for 1 week. Patient reports he's had nonbloody diarrhea over the past 3 days. Patient reports he took Imodium 3 days ago and that seemed to make his symptoms worse. Denies any fevers, nausea, vomiting, chest pain. Patient states this feels like it is becoming a little more difficult to breathe secondary to his abdomen bloating. 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 Patient is on dialysis and though it may be secondary to being fluid overloaded but even after getting back down to his dry weight still remains distended and uncomfortable. PFSH Past Medical History Anemia: Yes Arthritis: Yes (RA, Lupus) Asthma: No Autoimmune Disease: No Anxiety: No Depression: No Heart Rhythm Problems: No Cancer: No Cardiac Catheterization: Yes Cardiovascular Problems: Yes (CHF) High Cholesterol: No Chemotherapy: No Chest Pain: No Congestive Heart Failure: Yes COPD: No Cerebrovascular Accident: Yes (1998) Diabetes: Yes Patient Takes Glucophage: No Dialysis: Yes (-W-) Diminished Hearing: No Deep Vein Thrombosis: Yes (LT JUGULAR AND CLAVICLE) Endocrine: Yes Gastrointestinal Disorders: Yes (REFLUX) GERD: Yes Glaucoma: No Genitourinary: Yes (DOES NOT URINATE) Hepatitis: No Hiatal Hernia: No Hypertension: Yes Immune Disorder: Yes (lupus) Implanted Vascular Access Dvce: Yes (FISTULA LEFT ARM) Kidney Stones: No Medical other: Yes (NEUROPATHY, HAS CLOTS IN NECK AND CHEST, LUPUS, ANEMIA, RHEUMATOID ARTHRITI) Musculoskeletal: Yes (RA, RIGHT BKA, Right AKA) Neurologic: Yes Psychiatric: No Reproductive: No Respiratory: Yes (SLEEP APNEA USES SLEEP MACHINE) Immunizations Current: Yes Migraines: No Myocardial Infarction: No Radiation Therapy: No Renal Failure: Yes Seizures: Yes Sickle Cell Disease: No Sleep Apnea: Yes Thyroid Disease: No Ulcer: No Tetanus Vaccination: < 5 Years PNEUMOCCOCAL Vaccine (Year): 2010 Past Surgical History Abdominal Surgery: No AICD: No Arteriovenous Shunt: Yes (x2) Body Medical Devices: FISTULA LEFT UPPER ARM, IVC filter Cardiac Surgery: No Coronary Stent: Yes (X 2) Ear Surgery: No Endocrine Surgery: No Eye Surgery: No Genitourinary Surgery: No Gynecologic Surgery: No Insulin Pump: No Joint Replacement: No Neurologic Surgery: No Oral Surgery: No Pacemaker: No Thoracic Surgery: No Other Surgery: Yes (Left arm Fistula/Shunts, Left ankle) Social History Alcohol Use: No Tobacco Use: No Substance Use: No Allergies-Medications (Allergen,Severity, Reaction): Coded Allergies: No Known Allergies (Verified , 02/13/17) Reported Meds & Prescriptions Reported Meds & Active Scripts Active Nephro-Radha Rx (Vitamin B Cmplx/Vit C/Folic AC) 1 Tab 1 Cap PO DAILY 14 Days Renvela (Sevelamer Carbonate) 800 Mg Tab 800 Mg PO TIDAC 14 Days Pilocarpine Opth Drops (Pilocarpine HCl) 1 % Soln 1 Drop EACH EYE TID 14 Days Protonix (Pantoprazole Sodium) 20 Mg Tab 20 Mg PO DAILY 30 Days [Leflunomide] 20 MG Tab 20 Mg PO DAILY 14 Days Xalatan Opth Drops (Latanoprost) 0.005% Drops 1 Drop EACH EYE HS 14 Days Hydroxychloroquine (Hydroxychloroquine Sulfate) 200 Mg Tab 200 Mg PO Q12HR 14 Days Hydrocodone-Acetaminophen 5-325 mg Tab 1 Tab PO Q6H PRN Gabapentin 100 Mg Cap 100 Mg PO BID 30 Days Calcium Acetate (Calcium Acetate (Phosphate Bin) 667 Mg Cap 1,334 Mg PO TID 14 Days [Brimonidine 0.2% Opth Soln] 100 DROP/5 ML Soln 1 Drop EACH EYE TID 14 Days Albuterol Neb (Albuterol Sulfate) 0.63 Mg/3 Ml Neb 0.63 Mg NEB Q4HR NEB PRN 30 Days Percocet (Oxycodone-Acetaminophen) 7.5-325 mg Tab 1 Tab PO Q6H PRN Miralax Powder (Polyethylene Glycol 3350 Powder) 17 Gm Powd 17 Gm PO DAILY Mix and dissolve one measuring cap-ful (17 grams) in water or juice. Cozaar (Losartan Potassium) 50 Mg Tab 50 Mg PO DAILY 30 Days Norvasc (Amlodipine Besylate) 10 Mg Tab 10 Mg PO DAILY 30 Days Reported Temazepam 15 Mg Cap 15 Mg PO HS PRN Acetaminophen 500 Mg Cap 500 Mg PO Q4-6H PRN Lotemax Opth Drops (Loteprednol Etabonate) 0.5 % Soln 1 Drop EACH EYE DAILY Ilevro Opth Drops (Nepafenac) 0.3 % Soln 1 Drop EACH EYE HS Eq Allergy Relief (Fluticasone Propionate (Nasal)) 50 Mcg/Act Spr 2 [place] EACH NARE DAILY Cosopt Opth Drops (Dorzolamide-Timolol Opth Drops) 22.3-6.8 Mg/Ml Soln 1 Drop EACH EYE TID Review of Systems Except as stated in HPI: all other systems reviewed are Neg Physical Exam Narrative GENERAL: Well-developed, well nourished, in no acute distress, and non-ill appearing. SKIN: Focused skin assessment warm and dry. HEAD: Atraumatic. Normocephalic. EYES: Pupils equal and round. EOMI. No scleral icterus. No injection or drainage. ENT: No nasal bleeding or discharge. Mucous membranes pink and moist. NECK: Trachea midline. Supple. No nuclear rigidity. CARDIOVASCULAR: Regular rate and rhythm. No murmur appreciated. RESPIRATORY: No accessory muscle use. No respiratory distress. Clear to auscultation. Breath sounds equal bilaterally. GASTROINTESTINAL: Abdomen soft, tenderness throughout, distended. Hepatic and splenic margins not palpable. Hypoactive bowel sounds 4. No pulsatile mass. MUSCULOSKELETAL: No obvious deformities. No clubbing. No cyanosis. No edema. Full range of motion. Right AKA noted. NEUROLOGICAL: Awake and alert. No obvious cranial nerve deficits. Motor grossly within normal limits. Normal speech. PSYCHIATRIC: Appropriate mood and affect; insight and judgment normal. Data Data Last Documented VS Vital Signs Date Time Temp Pulse Resp B/P Pulse Ox O2 Delivery O2 Flow Rate FiO2 02/13/17 12:12 73 18 124/75 97 Room Air 02/13/17 10:17 97.7 Orders Complete Blood Count With Diff (02/13/17 10:51) Comprehensive Metabolic Panel (02/13/17 10:51) Lactic Acid (02/13/17 10:51) Prothrombin Time / Inr (Pt) (02/13/17 10:51) Act Partial Throm Time (Ptt) (02/13/17 10:51) Sodium Chloride 0.9% Flush (Ns Flush) (02/13/17 11:00) Abdomen, Kub Only (02/13/17 10:51) Iv Access Insert/Monitor (02/13/17 11:29) Ecg Monitoring (02/13/17 11:29) Oximetry (02/13/17 11:29) Ct Abd/Pel W/O Iv Contrast (02/13/17 ) Lipase (02/13/17 11:39) Electrocardiogram (02/13/17 11:39) Admit Order (Ed Use Only) (02/13/17 13:10) Labs Laboratory Tests Test 02/13/17 11:40 White Blood Count 6.8 TH/MM3 Red Blood Count 3.67 MIL/MM3 Hemoglobin 9.7 GM/DL Hematocrit 30.1 % Mean Corpuscular Volume 82.1 FL Mean Corpuscular Hemoglobin 26.5 PG Mean Corpuscular Hemoglobin 32.3 % Concent Red Cell Distribution Width 16.7 % Platelet Count 171 TH/MM3 Mean Platelet Volume 8.8 FL Neutrophils (%) (Auto) 65.2 % Lymphocytes (%) (Auto) 18.2 % Monocytes (%) (Auto) 10.7 % Eosinophils (%) (Auto) 4.5 % Basophils (%) (Auto) 1.4 % Neutrophils # (Auto) 4.5 TH/MM3 Lymphocytes # (Auto) 1.2 TH/MM3 Monocytes # (Auto) 0.7 TH/MM3 Eosinophils # (Auto) 0.3 TH/MM3 Basophils # (Auto) 0.1 TH/MM3 CBC Comment DIFF FINAL Differential Comment Prothrombin Time 11.5 SEC Prothromb Time International 1.0 RATIO Ratio Activated Partial 33.6 SEC Thromboplast Time Sodium Level 138 MEQ/L Potassium Level 4.0 MEQ/L Chloride Level 104 MEQ/L Carbon Dioxide Level 23.5 MEQ/L Anion Gap 11 MEQ/L Blood Urea Nitrogen 34 MG/DL Creatinine 7.96 MG/DL Estimat Glomerular Filtration 7 ML/MIN Rate Random Glucose 110 MG/DL Lactic Acid Level 0.9 mmol/L Calcium Level 8.5 MG/DL Total Bilirubin 0.5 MG/DL Aspartate Amino Transf 13 U/L (AST/SGOT) Alanine Aminotransferase 7 U/L (ALT/SGPT) Alkaline Phosphatase 83 U/L Total Protein 6.8 GM/DL Albumin 2.2 GM/DL Lipase 118 U/L MDM Medical Decision Making Medical Screen Exam Complete: Yes Emergency Medical Condition: Yes Interpretation(s) EKG reviewed by Dr. Live, shows normal sinus rhythm ventricular rate is 71. No STEMI Differential Diagnosis SBO, ileus, constipation, mass, electrolyte abnormality, other Narrative Course Patient seen and examined. Initial Laboratory and radiological studies were ordered. Discussed patient with Dr. Kidd, who saw and evaluated the Patient and recommends inpatient placement in observation for therapeutic paracentesis and further evaluation. This is all discussed with patient who is agreeable for admission. All questions were answered. Physician Communication Physician Communication [phone] Jimenez, who is agreeable to admit the patient. Diagnosis Primary Impression: Ascites Qualified Code: R18.8 - Other ascites Additional Impression: ESRD (end stage renal disease) Admitting Information Admitting Physician Requests: Observation Condition: Stable Alex Andrews Feb 13, 2017 11:39
--- NOTE | 2017-02-13 11:58 | RADRPT ---
EXAM DATE/TIME: 02/13/2017 11:44 [facility] COMPARISON: ABDOMEN KUB ONLY, October 10, 2016, 5:35. INDICATIONS : Abdominal pain and distention; diarrhea. MEDICAL HISTORY : Gastroesophageal reflux disease. renal failure. SURGICAL HISTORY : None. ENCOUNTER: Initial ACUITY: 3 days PAIN SCORE: 6/10 LOCATION: Bilateral Abdomen FINDINGS: Supine view of the abdomen was performed. The abdominal bowel gas pattern is normal. No abnormal ma sses, calcifications, or organomegaly is seen. The osseous structures are unremarkable. Numerous sut ures in the right midabdomen. CONCLUSION: Normal examination. Librado Marte MD on February 13, 2017 at 11:55 Board Certified Radiologist. This report was verified electronically.
[2017-02-13 12:15] LABS: AUTOMATED NEUTROPHIL # 4.5 TH/MM3 (1.8-7.7); BASOPHIL # 0.1 TH/MM3 (0-0.2); BASOPHIL % 1.4 % (0.0-2.0); EOSINOPHIL # 0.3 TH/MM3 (0-0.4); EOSINOPHIL % 4.5 % (0.0-4.0); HEMATOCRIT 30.1 % (39.0-51.0); HEMO FLAGS DIFF FINAL; LYMPH % 18.2 % (9.0-44.0); LYMPHOCYTE # 1.2 TH/MM3 (1.0-4.8); MEAN CELL VOLUME 82.1 FL (80.0-100.0); MEAN CORPUSCULAR HEMOGLOBIN 26.5 PG (27.0-34.0); MEAN CORPUSCULAR HGB CONC 32.3 % (32.0-36.0); MONO % 10.7 % (0.0-8.0); NEUT % 65.2 % (16.0-70.0); PLATELET COUNT 171 TH/MM3 (150-450); RED BLOOD COUNT 3.67 MIL/MM3 (4.50-5.90); RED CELL DISTRIBUTION WIDTH 16.7 % (11.6-17.2); WHITE BLOOD COUNT 6.8 TH/MM3 (4.0-11.0)
[2017-02-13 12:45] LABS: APTT (PATIENT) 33.6 SEC (24.3-30.1); PROTHROMBIN TIME - PATIENT 11.5 SEC (9.8-11.6)
[2017-02-13 12:53] LABS: ALT (GPT) 7 U/L (12-78); ANION GAP 11 MEQ/L (5-15); AST (GOT) 13 U/L (15-37); BICARBONATE 23.5 MEQ/L (21.0-32.0); BLOOD UREA NITROGEN 34 MG/DL (7-18); CHLORIDE 104 MEQ/L (98-107); GLOMERULAR FILTRATION RATE 7 ML/MIN (>89); SODIUM (NA) 138 MEQ/L (136-145)
[2017-02-13 12:55] LABS: ALKALINE PHOSPHATASE 83 U/L (45-117); TOTAL BILIRUBIN ADULT 0.5 MG/DL (0.2-1.0)
--- NOTE | 2017-02-13 12:59 | RADRPT ---
EXAM DATE/TIME: 02/13/2017 12:34 [facility] COMPARISON: CT ABDOMEN & PELVIS W/O CONTRAST, October 08, 2016, 23:46. INDICATIONS : Diffuse abdominal pain with distention. ORAL CONTRAST: No oral contrast ingested. RADIATION DOSE: 10.19 CTDIvol (mGy) MEDICAL HISTORY : Seizures. Cardiovascular disease Deep venous thrombosis. Hypertension. CVA. Diabetes. Renal failure, Dialysis. SURGICAL HISTORY : None. ENCOUNTER: Initial ACUITY: 1 week PAIN SCALE: 6/10 LOCATION: Bilateral abdomen TECHNIQUE: Volumetric scanning of the abdomen and pelvis was performed. Using automated exposure control and ad justment of the mA and/or kV according to patient size, radiation dose was kept as low as reasonably achievable to obtain optimal diagnostic quality images. FINDINGS: LOWER LUNGS: There is stable rounded atelectasis in the right lung base. There are small bilateral pleural effusio ns with scarring. LIVER: Homogeneous density without lesion. There is no dilation of the biliary tree. No calcified gallston es. SPLEEN: Normal size without lesion. PANCREAS: Within normal limits. KIDNEYS: Kidneys remain small and atrophic in appearance with no focal lesion or hydronephrosis. Extensive arcaeli al vascular calcifications are present. ADRENAL GLANDS: Within normal limits. VASCULAR: There is no aortic aneurysm. Extensive vascular calcifications are again noted. BOWEL/MESENTERY: There is a large amount of ascitic fluid throughout the abdomen and pelvis. The bowel loops are displ aced centrally with no evidence of obstruction. There is no free air. ABDOMINAL WALL: Within normal limits. RETROPERITONEUM: There is no lymphadenopathy. BLADDER: No wall thickening or mass. REPRODUCTIVE: Within normal limits. INGUINAL: There is no lymphadenopathy or hernia. MUSCULOSKELETAL: Within normal limits for patient age. CONCLUSION: 1. Marked ascitic fluid throughout the abdomen and pelvis. The bowel is displaced centrally by the fl uid. 2. The kidneys remain small and atrophic in appearance. 3. Stable rounded atelectasis in the right lung base. 4. Small bilateral pleural effusions. Gideon Merida MD on February 13, 2017 at 12:54 Board Certified Radiologist. This report was verified electronically.
[2017-02-13] MEDS ORDERED: NALOXONE HCL 0.4 MG/ML AMP IV PRN (13:45)
--- NOTE | 2017-02-13 13:59 | PD ---
Data Data Last Documented VS Vital Signs Date Time Temp Pulse Resp B/P Pulse Ox O2 Delivery O2 Flow Rate FiO2 02/13/17 12:12 73 18 124/75 97 Room Air 02/13/17 10:17 97.7 Orders Complete Blood Count With Diff (02/13/17 10:51) Comprehensive Metabolic Panel (02/13/17 10:51) Lactic Acid (02/13/17 10:51) Prothrombin Time / Inr (Pt) (02/13/17 10:51) Act Partial Throm Time (Ptt) (02/13/17 10:51) Sodium Chloride 0.9% Flush (Ns Flush) (02/13/17 11:00) Abdomen, Kub Only (02/13/17 10:51) Iv Access Insert/Monitor (02/13/17 11:29) Ecg Monitoring (02/13/17 11:29) Oximetry (02/13/17 11:29) Ct Abd/Pel W/O Iv Contrast (02/13/17 ) Lipase (02/13/17 11:39) Electrocardiogram (02/13/17 11:39) Admit Order (Ed Use Only) (02/13/17 13:10) Labs Laboratory Tests Test 02/13/17 11:40 White Blood Count 6.8 TH/MM3 Red Blood Count 3.67 MIL/MM3 Hemoglobin 9.7 GM/DL Hematocrit 30.1 % Mean Corpuscular Volume 82.1 FL Mean Corpuscular Hemoglobin 26.5 PG Mean Corpuscular Hemoglobin 32.3 % Concent Red Cell Distribution Width 16.7 % Platelet Count 171 TH/MM3 Mean Platelet Volume 8.8 FL Neutrophils (%) (Auto) 65.2 % Lymphocytes (%) (Auto) 18.2 % Monocytes (%) (Auto) 10.7 % Eosinophils (%) (Auto) 4.5 % Basophils (%) (Auto) 1.4 % Neutrophils # (Auto) 4.5 TH/MM3 Lymphocytes # (Auto) 1.2 TH/MM3 Monocytes # (Auto) 0.7 TH/MM3 Eosinophils # (Auto) 0.3 TH/MM3 Basophils # (Auto) 0.1 TH/MM3 CBC Comment DIFF FINAL Differential Comment Prothrombin Time 11.5 SEC Prothromb Time International 1.0 RATIO Ratio Activated Partial 33.6 SEC Thromboplast Time Sodium Level 138 MEQ/L Potassium Level 4.0 MEQ/L Chloride Level 104 MEQ/L Carbon Dioxide Level 23.5 MEQ/L Anion Gap 11 MEQ/L Blood Urea Nitrogen 34 MG/DL Creatinine 7.96 MG/DL Estimat Glomerular Filtration 7 ML/MIN Rate Random Glucose 110 MG/DL Lactic Acid Level 0.9 mmol/L Calcium Level 8.5 MG/DL Total Bilirubin 0.5 MG/DL Aspartate Amino Transf 13 U/L (AST/SGOT) Alanine Aminotransferase 7 U/L (ALT/SGPT) Alkaline Phosphatase 83 U/L Total Protein 6.8 GM/DL Albumin 2.2 GM/DL Lipase 118 U/L [facility] Supervised Visit with NASIMA: Yes Narrative Course The history, exam, and medical decision-making in the associated midlevel provider note were completed with my assistance. I reviewed and agree with the findings presented. I attest that I had a [id number] encounter with the patient on the same day, and personally performed and documented my assessment and findings in the medical record. *My assessment and Findings: This is a 56-year-old male with a history of end- stage renal disease who presents to the emergency department with 4 days of abdominal distention. Patient has severe ascites on CT scan. I think it's reasonable to place the patient in observation for diagnostic and therapeutic paracentesis as this is the first time he had ascites. He is hypoalbuminemic which is the likely etiology of his symptoms. He has no signs of SBP. Diagnosis Primary Impression: Ascites Qualified Code: R18.8 - Other ascites Additional Impression: ESRD (end stage renal disease) Condition: Stable Neris Live MD Feb 13, 2017 13:59
--- NOTE | 2017-02-13 16:04 | RADRPT ---
EXAM DATE/TIME: 02/13/2017 15:04 [place] COMPARISON: No previous studies available for comparison. EXTERNAL COMPARISON: [facility], CT ABDOMEN & PELVIS W/O CONTRAST, Sep 27 2015. INDICATIONS : Ascites. MEDICAL HISTORY : Deep venous thrombosis. Hypertension. Seizures. CVA. Numbness. Congestive heart failure. Coronoary a rtery disease. Renal failure. Dialysis. Diabetes. SURGICAL HISTORY : AV shunt, left arm. Coronary stent. Transmetatarsal amputation, right foot. Left ankle surgery. ENCOUNTER: Initial ACUITY: 1 week PAIN SCORE: 2/10 LOCATION: Right lower quadrant FLUID: Total volume of 5,000 cc of clear, yellow fluid was removed. Fluid was sent to lab for ordered studies. Post procedure scanning reveals no hematoma or other complication. TECHNIQUE: 1. Ultrasound guidance for abdominal paracentesis. 2. Paracentesis. The risks, benefits, and alternatives to ultrasound guided paracentesis were explained to the patient in detail including the risk of bleeding and infection. Written and verbal informed consent was obt ained. With the patient on the ultrasound table, ultrasound imaging was used to select the most appropriate approach for paracentesis. Overlying skin was prepped and draped in the usual sterile fashion and wi th a local anesthetic, a dermatotomy was made with an 11 blade scalpel. A 6 [place] [id number] ca theter was introduced into the peritoneal cavity and fluid was collected. The patient tolerated the procedure well and left the ultrasound suite in stable condition. CONCLUSION: Uncomplicated ultrasound guided paracentesis. Aditya Walker MD on February 13, 2017 at 16:02 Board Certified Radiologist. This report was verified electronically.
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
[2017-02-13] MEDS ORDERED: RESP: ALBUTEROL 0.63 MG/3 ML NEB (PRN) NEB (16:15)
[2017-02-13 17:01] LABS: PERITONEAL BASO 1 %; PERITONEAL HISTIOCYTES 36 %; PERITONEAL LYMPHS 43 %; PERITONEAL MONOS 11 %; PERITONEAL POLYS(SEGS) 9 %; PERITONEAL WBC 489 /MM3 (0-10)
[2017-02-13] MEDS ORDERED: DEXTROSE 50% IN WATER 50 ML VIAL(D50) IV PUSH PRN (17:45)
[2017-02-13] MEDS ORDERED: GLUCAGON 1 MG/ML VIAL OTHER PRN (17:45)
[2017-02-13] MEDS ORDERED: SODIUM CHLOR 0.9% 1000 ML INJ 1,000 ML IV PRN ×3 (18:20)
[2017-02-13] MEDS ORDERED: ALBUMIN HUMAN 25% 25 GM/100 ML BAGP IV PRN (18:30)
[2017-02-13] MEDS ORDERED: EPOETIN ALFA 10,000 UNITS/ML VIAL IV PRN (18:30)
[2017-02-13] MEDS ORDERED: cloNIDine HCL 0.1 MG TAB PO PRN (18:30)
[2017-02-13] MEDS ORDERED: GENTAMICIN SULFATE (DIALYSIS USE ONLY) 20 MG/2 ML VIAL IV PRN (18:30)
[2017-02-13] MEDS ORDERED: ONDANSETRON HCL 4 MG/2 ML VIAL IV PRN (18:30)
[2017-02-13] MEDS ORDERED: ACETAMINOPHEN 325 MG TAB PO PRN (18:30)
[2017-02-13] MEDS ORDERED: NITROGLYCERIN 0.4 MG SL 25 TABS/BTL SL PRN (18:30)
[2017-02-13] MEDS ORDERED: MANNITOL 12.5 GM/50 ML VIAL IV PRN (18:30)
[2017-02-13] MEDS ORDERED: HEPARIN SODIUM - IV 10,000 UNITS/10 ML VIAL PRN (18:30)
[2017-02-13] MEDS ORDERED: diphenhydrAMINE HCL 25 MG CAP PO PRN (18:30)
[2017-02-13] MEDS ORDERED: HEPARIN SODIUM - IV 10,000 UNITS/10 ML VIAL IVF PRN (18:30)
[2017-02-13] MEDS ORDERED: GELATIN 12 MM/7 MM FOAM TOP PRN (18:30)
[2017-02-13] MEDS: CALCIUM ACETATE 667 MG CAP PO SCH (18:43)
[2017-02-13] MEDS: SEVELAMER CARBONATE 800 MG TAB PO SCH (18:52)
[2017-02-13] MEDS: DORZOLAMIDE/TIMOLOL OPTH SOLN 10 ML BTL EACH EYE SCH (18:53)
[2017-02-13] MEDS: BRIMONIDINE TARTRATE 0.2% OPHT SOLN 5 ML BTL EACH EYE SCH (18:54)
[2017-02-13] MEDS: PILOCARPINE HCL 1% OPHT SOLN 15 ML BTL EACH EYE SCH (18:56)
[2017-02-13] MEDS: INSULIN ASPART SUPPLEMENTAL SCALE SQ SCH (21:00)
[2017-02-13] MEDS ORDERED: [UNRECOGNIZED DRUG - OTHER] EACH EYE SCH (21:00)
[2017-02-13] MEDS ORDERED: LATANOPROST 0.005% OPHT SOLN 2.5 ML BTL EACH EYE SCH (21:00)
[2017-02-13] MEDS: SODIUM CHLORIDE 0.9% FLUSH 10 ML FLUSH IV FLUSH SCH (21:30)
[2017-02-13] MEDS: HYDROXYCHLOROQUINE SULFATE 200 MG TAB PO SCH (21:30)
--- NOTE | 2017-02-13 21:44 | MB ---
cc: MICHAEL HARTMAN MD DATE OF CONSULTATION 02/13/17 REASON FOR CONSULTATION End-stage renal disease on hemodialysis for management. HISTORY OF PRESENT ILLNESS Mr. Orona is a 56 year old male known to me from before with past medical history of hypertension, diabetes mellitus, history of peripheral vascular disease, end-stage renal disease on hemodialysis three times per week, history of ischemic heart disease who was admitted because of ascites and abdominal distension. I was called to see the patient for management of hemodialysis. The patient has been on hemodialysis Friday, Friday and Friday. He had his last treatment done yesterday. The patient has ___ abdominal distension and he has loose bowel motion and vomiting on Friday and he just had dialysis on Friday, but he went yesterday for dialysis. According to him, 3.5 liters of fluid was removed. The patient noticed that he has more and more distension of his abdomen associated with mild shortness of breath. There is no chest pain and his nausea, vomiting and diarrhea has improved. Finally he came to the hospital and it was found that he has ascites. The patient was sent for abdominal pelvis CT scan and then he had a paracentesis done and he had five liters of clear yellow fluid removed. The patient is feeling much better after the paracentesis. His breathing is improved. His abdominal distension is much better. There is no abdominal pain. Past PAST MEDICAL HISTORY 1. Hypertension, 2. Diabetes mellitus, 3. Peripheral vascular disease, 4. Ischemic heart disease, 5. Chronic anemia, 6. End-stage renal disease on hemodialysis. PAST SURGICAL HISTORY 1. Left arm AV fistula 2. History of right above-knee amputation 3. Cardiac catheterization 4. Colonoscopy 5. Thoracentesis 6. Cataract surgery 7. Paracentesis SOCIAL HISTORY The patient is single. There is no history of smoking FAMILY HISTORY Noncontributory. ALLERGIES None. MEDICATIONS Currently 1. Amlodipine 10 mg once a day 2. Gabapentin 400 mg once a day 3. Cozaar 50 mg daily. 4. 5. MiraLax 17 grams daily 6. Nephrocaps 1 capsule daily. 7. drops. 8. Plaquenil 200 mg q.12 h 9. Insulin sliding scale 10. PhosLo 13/34 mg t.i.d. 11. Renvela 800 mg t.i.d., 12. Albuterol as needed 13/ Narcan as needed PHYSICAL EXAMINATION GENERAL: Alert. He is not in acute distress. VITAL SIGNS: Last blood pressure __38/76, temperature is oxygen saturation 95-97%. HEENT: Pupils equal and reacting to light. Conjunctivae normal. NECK: Supple. JVD is not elevated. LUNGS: The patient has bilateral decreased air entry with increased wheezing. HEART: S1, S2 regular rhythm. ABDOMEN: Soft, lax. There is mild tenderness. Bowel sounds positive. EXTREMITIES: There is mild edema in the left leg. the right he has amputation. LABORATORY DATA WBC count is 6.8, hemoglobin 9.7, platelet count 171, neutrophils 65.2%. Sodium is 138, potassium 4.0, chloride 104, bicarb 23.5, BUN 34, creatinine 0.96, glucose 110, calcium 8.5, AST 13, ALT 7, total protein 6.8, albumin is 2.2. IMAGING STUDIES The patient had CT scan of the abdomen and pelvis done which shows that he has marked ascites, kidney remains small, small bilateral pleural effusion, atelectasis at the right lung base. Abdominal x-ray was done and it shows normal examination. The patient previously had echocardiogram done in December of this year and it showed his ejection fraction is 40-45%. ASSESSMENT AND PLAN 1. Ascites with fluid overload. 2. End-stage renal disease on hemodialysis. 3. Ischemic heart disease and congestive heart failure 4. Anemia. 5. Diabetes mellitus 6. Hypertension The patient has ascites and he has lower ejection fraction with congestive heart failure. I discussed with the patient. I told him to restrict the salt and fluid intake and also to be compliant with his dialysis treatment because missing the dialysis treatment causes more fluid accumulation. He had 3.5 liters of fluid removed yesterday with dialysis and now he has findings of ascites removed. His ascites was most likely because of congestive heart disease and also contributed some by the renal failure. We will try to adjust his diuretic and remote more fluid with dialysis and looking to measures to improve his blood pressure since he tends it tends to drop during dialysis. The patient will have his hemodialysis here tomorrow and possibly can be discharged tomorrow if he remains stable. Thank you for the consultation and I will follow the patient while he in the hospital. MD CORTEZ Wyatt/ /6:14 PM /9:26 PM
--- NOTE | 2017-02-13 22:43 | EKG ---
Date Performed: 02/13/2017 Time Performed: 12:12:46 PTAGE: 56 years EKG: Sinus rhythm POSSIBLE INFERIOR MYOCARDIAL INFARCTION NONSPECIFIC T WAVE ABNORMALITY ABNORMAL ECG PREVIOUS TRACING : 12/16/2016 21.04 Compared to previous tracing, possible inferior infarct pat tern is now evident. DOCTOR: Bogdan Zarate Interpretating Date/Time 02/13/2017 22:43:15
[2017-02-14 04:15] VITALS: BP 128/69; PULSE 86; RESP 18; O2SAT 97
[2017-02-14] MEDS: INSULIN ASPART SUPPLEMENTAL SCALE SQ SCH ×2 (06:29→12:45)
--- NOTE | 2017-02-14 07:59 | HHI.DCPOC ---
Discharge Care Plan Diagnosis: (1) ESRD (end stage renal disease) (2) Ascites Your Health Problems Are: Shortness of Breath Goals to Promote Your Health * To prevent worsening of your condition and complications * To maintain your health at the optimal level Directions to Meet Your Goals Take your medications as prescribed Follow your dietary instruction Follow activity as directed Keep your appointments as scheduled Take your immunizations and boosters as scheduled If your symptoms worsen call your PCP, if no PCP go to Urgent Care Center or Emergency Room Smoking is Dangerous to Your Health. Avoid second hand smoke Call the 24-hour hour crisis hotline for domestic abuse at Emily Sanchez. [facility] Feb 14, 2017 07:59
[2017-02-14] MEDS ORDERED: LIDOCAINE HCL 1% PF 30 ML VIAL ONE (08:13)
[2017-02-14] MEDS ORDERED: SODIUM BICARBONATE 8.4% INJ 50 MEQ/50 ML SYR ONE (08:13)
[2017-02-14 08:19] VITALS: BP 124/60; PULSE 80; RESP 18; TEMP 97.8; O2SAT 98
[2017-02-14 08:25] VITALS: O2SAT 96
[2017-02-14] MEDS: CALCIUM ACETATE 667 MG CAP PO SCH ×2 (08:56→13:00)
[2017-02-14] MEDS: SEVELAMER CARBONATE 800 MG TAB PO SCH ×2 (08:56→12:00)
[2017-02-14] MEDS: HYDROXYCHLOROQUINE SULFATE 200 MG TAB PO SCH (08:57)
[2017-02-14] MEDS: SODIUM CHLORIDE 0.9% FLUSH 10 ML FLUSH IV FLUSH SCH (08:57)
[2017-02-14] MEDS ORDERED: LOTEPREDNOL OPTH EACH EYE SCH (09:00)
[2017-02-14] MEDS ORDERED: PANTOPRAZOLE SOD 20 MG DELAYED RELEASE TAB PO SCH (09:00)
[2017-02-14] MEDS ORDERED: VITAMIN B CMPLX/VITC/FOLIC AC CAP PO SCH (09:00)
[2017-02-14] MEDS ORDERED: POLYETHYLENE GLYCOL 17 GM PKG PO SCH (09:00)
[2017-02-14] MEDS ORDERED: GABAPENTIN 100 MG CAP PO SCH (09:00)
[2017-02-14] MEDS ORDERED: LOSARTAN 50 MG TAB PO SCH (09:00)
[2017-02-14] MEDS ORDERED: LEFLUNOMIDE 20 MG PO SCH (09:00)
--- NOTE | 2017-02-14 09:33 | HHI.PR ---
Subjective Remarks sitting up in wheelchair no cp no sob no fever anxious to go home no pain Objective Objective Results - Vital Signs Date Time Temp Pulse Resp B/P Pulse Ox O2 Delivery O2 Flow Rate FiO2 02/14/17 08:19 97.8 80 18 124/60 98 02/14/17 04:15 86 18 128/69 97 02/13/17 19:16 80 18 129/60 95 02/13/17 16:35 97.8 78 17 128/76 97 02/13/17 15:08 97.1 78 16 136/84 95 02/13/17 14:09 98.0 81 17 136/81 99 Room Air 02/13/17 12:12 73 18 124/75 97 Room Air 02/13/17 11:50 95.7 77 16 133/70 93 02/13/17 11:36 18 97 Room Air 02/13/17 11:20 18 02/13/17 10:17 97.7 76 24 120/64 96 Room Air Result Diagram: 02/13/17 1140 02/13/17 1140 Imaging Last Impressions Abdomen X-Ray 02/13/17 1051 Signed Impressions: Service Date/Time: February 11:44 - CONCLUSION: Normal examination. Librado Marte MD Abdomen/Pelvis CT 02/13/17 0000 Signed Impressions: Service Date/Time: February 12:34 - CONCLUSION: 1. Marked ascitic fluid throughout the abdomen and pelvis. The bowel is displaced centrally by the fluid. 2. The kidneys remain small and atrophic in appearance. 3. Stable rounded atelectasis in the right lung base. 4. Small bilateral pleural effusions. Gideon Merida MD Other Results Laboratory Tests Test 02/13/17 02/13/17 11:40 15:30 White Blood Count 6.8 Red Blood Count 3.67 Hemoglobin 9.7 Hematocrit 30.1 Mean Corpuscular Volume 82.1 Mean Corpuscular Hemoglobin 26.5 Mean Corpuscular Hemoglobin 32.3 Concent Red Cell Distribution Width 16.7 Platelet Count 171 Mean Platelet Volume 8.8 Neutrophils (%) (Auto) 65.2 Lymphocytes (%) (Auto) 18.2 Monocytes (%) (Auto) 10.7 Eosinophils (%) (Auto) 4.5 Basophils (%) (Auto) 1.4 Neutrophils # (Auto) 4.5 Lymphocytes # (Auto) 1.2 Monocytes # (Auto) 0.7 Eosinophils # (Auto) 0.3 Basophils # (Auto) 0.1 CBC Comment DIFF FINAL Differential Comment Prothrombin Time 11.5 Prothromb Time International 1.0 Ratio Activated Partial 33.6 Thromboplast Time Sodium Level 138 Potassium Level 4.0 Chloride Level 104 Carbon Dioxide Level 23.5 Anion Gap 11 Blood Urea Nitrogen 34 Creatinine 7.96 Estimat Glomerular Filtration 7 Rate Random Glucose 110 Lactic Acid Level 0.9 Calcium Level 8.5 Total Bilirubin 0.5 Aspartate Amino Transf 13 (AST/SGOT) Alanine Aminotransferase 7 (ALT/SGPT) Alkaline Phosphatase 83 Total Protein 6.8 Albumin 2.2 Lipase 118 Peritoneal Fluid WBC 489 Peritoneal Fluid RBC 0 Peritoneal Fluid Neutrophils 9 Peritoneal Fluid Lymphocytes 43 Peritoneal Fluid Monocytes 11 Peritoneal Fluid Basophils 1 Peritoneal Fluid Histiocytes 36 Peritoneal Fluid Total Protein 4.3 Peritoneal Fluid Albumin 1.8 Peritoneal Fluid LDH 93 Peritoneal Fluid Glucose 119 Peritoneal Fluid Amylase 19 Date/Time Procedure Status Source Growth 02/13/17 15:30 Gram Stain Received Fluid Peritoneal Fluid Pending 02/13/17 15:30 Body Fluid Culture Received Fluid Peritoneal Fluid Pending ROS General: No: Fatigue, Weakness HEENT: No: Sore Throat, Dysphagia Cardiac: No: Chest Pain, Edema, Palpitations Pulmonary: No: Cough, SOB, Wheezing GI: No: Abdominal Pain, BM, Diarrhea, N/V /WAFER CUTTER: No: Dysuria, Urgency Neuro/MS: No: Lightheaded, Confusion Psych: No: Anxiety, Depression Skin: No: Itching, Rash Physical Exam Physical Exam GENERAL: This is a chronically ill-appearing male, thin built. SKIN: No rashes, ecchymoses or lesions. Cool and dry. HEAD: Atraumatic. Normocephalic. No temporal or scalp tenderness. EYES: Pupils equal round and reactive. Extraocular motions intact. No scleral icterus. Conjunctiva mildly erythematous. ENT: Nose without bleeding, purulent drainage or septal hematoma. Throat without erythema, tonsillar hypertrophy or exudate. Uvula midline. Airway patent. NECK: Trachea midline. No JVD or lymphadenopathy. Supple, nontender, no meningeal signs. CARDIOVASCULAR: Regular rate and rhythm without murmurs, gallops, or rubs. RESPIRATORY: Diminished at bases. GASTROINTESTINAL: Abdomen is soft, nondistended, nontender. Bowel sounds hypoactive 4. Unable to detect any organomegaly. Has abdominal dressing from recent paracentesis. MUSCULOSKELETAL: Right above-knee amputation. Left pedal pulse with pulse +1, trace ankle edema. NEUROLOGICAL: Awake, alert oriented 3. No focal deficit. Urinary Catheter: No Vascular Central Line Catheter: No A/P Diagnosis: (1) Ascites (2) ESRD (end stage renal disease) (3) Hypertension (4) Type 2 diabetes mellitus (5) Anemia (6) History of right above knee amputation (7) recent infection to stump (8) Coronary artery disease (9) PAD (peripheral artery disease) (10) Hyperlipidemia (11) Rheumatoid arthritis (12) GERD (gastroesophageal reflux disease) Assessment and Plan 56-year-old male with a history of RA, DM, HTN, PAD, end-stage renal disease, status post right BKA to AKA revision that subsequently developed cellulitis. Presented to the emergency room with increased abdominal distention, shortness of breath. Ascites, etiology unclear, denies any history of liver disease, no EtOH abuse. Poss. due to heart failure per renal input , last EF 40-45 % -renal recommends to limit fluid and salt, will adjust diuretics. Pt. to have HD tx today -Ultrasound-guided paracentesis was ordered, approximately 5000 cc were drained. Fluid results noted, albumin okay. Cytology pending End-stage renal disease, on dialysis Friday and Friday -Nephrology input appreciated -for HD today, okay to leave after tx if stable. Status post right AKA with recent infection, stable, no fever, no leukocytosis. Indicates he finished a course of antibiotics in January. Follows up with Dr. Tay -Continue to monitor right AKA stump Diabetes mellitus-diet controlled -Diabetic and renal diet. -Accu-Cheks and sliding scale Hypertension - Continue Losartan and Amlodipine Rheumatoid arthritis -Continue Hydroxychloroquine, Leflunomide Chronic CHF, echocardiogram December 2016, EF of 40-45% -Continue to monitor, patient does not appear to be in any fluid overload -poss. contributing to ascites in addition to renal disease. Symptoms improved, no SOB, no CP Poss. dc today after HD F/U nephrology Diet-renal diet, fluid and salt restriction Activity-as tolerated D/W RN D/W Dr. Jimenez D/W pt. This patient was seen by myself and Dr. Jimenez, this note is written on his behalf Problem Qualifiers (1) Ascites: Qualified Code: R18.8 - Other ascites (2) Hypertension: Qualified Code: I10 - Essential hypertension (3) Type 2 diabetes mellitus: Qualified Code: E11.22 - Type 2 diabetes mellitus with chronic kidney disease on chronic dialysis, unspecified supervisor intermediates insulin use status (4) Anemia: (5) Coronary artery disease: Qualified Code: I25.10 - Coronary artery disease involving [place] coronary artery of [place] heart without angina pectoris (6) Hyperlipidemia: Qualified Code: E78.5 - Hyperlipidemia, unspecified hyperlipidemia type (7) Rheumatoid arthritis: (8) GERD (gastroesophageal reflux disease): Qualified Code: K21.9 - Gastroesophageal reflux disease, esophagitis presence not specified Emily Sanchez Feb 14, 2017 09:33
[2017-02-14] MEDS: DORZOLAMIDE/TIMOLOL OPTH SOLN 10 ML BTL EACH EYE SCH ×2 (11:41→13:00)
[2017-02-14] MEDS: PILOCARPINE HCL 1% OPHT SOLN 15 ML BTL EACH EYE SCH ×2 (11:41→13:00)
[2017-02-14] MEDS: BRIMONIDINE TARTRATE 0.2% OPHT SOLN 5 ML BTL EACH EYE SCH ×2 (11:41→12:48)
--- NOTE | 2017-02-14 11:58 | HHI.NPPN ---
Subjective History of Present Illness 56 year old male known to me from before with past medical history of hypertension, diabetes mellitus, history of peripheral vascular disease, end-stage renal disease on hemodialysis three times per week, history of ischemic heart disease who was admitted because of ascites and abdominal distension. I was called to see the patient for management of hemodialysis. The patient has been on hemodialysis Friday, Friday and Friday. Objective Data Data Vital Signs Date Time Temp Pulse Resp B/P Pulse Ox O2 Delivery O2 Flow Rate FiO2 02/14/17 08:19 97.8 80 18 124/60 98 02/14/17 04:15 86 18 128/69 97 02/13/17 19:16 80 18 129/60 95 02/13/17 16:35 97.8 78 17 128/76 97 02/13/17 15:08 97.1 78 16 136/84 95 02/13/17 14:09 98.0 81 17 136/81 99 Room Air 02/13/17 12:12 73 18 124/75 97 Room Air -: 02/13/17 1140 02/13/17 1140 Microbiology 02/13/17 Gram Stain - Final, Resulted 02/13/17 Body Fluid Culture - Preliminary, Resulted NO GROWTH IN 24 HOURS. Devin Sharp MD Feb 14, 2017 11:58
[2017-02-14 12:05] VITALS: BP 142/72; PULSE 79; RESP 18; TEMP 97.4; O2SAT 98
== END 2017-02-14 14:44 | disposition home or self-care (01) ==
LOC: NEPC 10:15 → NEDA 13:11 → NEPGCP 16:53
PROVIDERS: ADMIT Specialist; ATTEND Specialist
DX: R18.8 Other ascites (principal); I13.2 Hypertensive heart and chronic kidney disease with heart failure and with stage 5 chronic kidney disease, or end stage renal disease; N18.6 End stage renal disease; I50.9 Heart failure, unspecified; E11.51 Type 2 diabetes mellitus with diabetic peripheral angiopathy without gangrene; E11.319 Type 2 diabetes mellitus with unspecified diabetic retinopathy without macular edema; E11.22 Type 2 diabetes mellitus with diabetic chronic kidney disease; E11.40 Type 2 diabetes mellitus with diabetic neuropathy, unspecified; E11.628 Type 2 diabetes mellitus with other skin complications; I25.10 Atherosclerotic heart disease of native coronary artery without angina pectoris; H40.9 Unspecified glaucoma; E78.5 Hyperlipidemia, unspecified; D64.9 Anemia, unspecified; G47.30 Sleep apnea, unspecified; M06.9 Rheumatoid arthritis, unspecified; K21.9 Gastro-esophageal reflux disease without esophagitis; Z89.611 Acquired absence of right leg above knee; Z89.511 Acquired absence of right leg below knee; Z99.81 Dependence on supplemental oxygen; Z86.73 Personal history of transient ischemic attack (TIA), and cerebral infarction without residual deficits; Z99.2 Dependence on renal dialysis; Z95.5 Presence of coronary angioplasty implant and graft
CPT/HCPCS: 49083; 74000; 74176; 80053; 82042; 82150; 82945; 82948; 83605; 83615; 83690; 84157; 85025; 85610; 85730; 87070; 87205; 88112; 88305; 89051; 93005; 99285; C1729; G0378

== ENCOUNTER 2017-05-03 20:40 | Observation (INO) | payer MEDICARE ==
[~2017-05-03] VITALS: Ht 172.7 cm; Wt 60.0 kg
[~2017-05-03 20:40] MED LIST changes: -COZA25TA PO; -LACT PO; -LEVA500T PO; -OXYGENTANK NAS.CANULA; -PERC7.5T13 PO; -WHEEMIS3
[2017-05-03 20:42] VITALS: BP 158/91; PULSE 80; RESP 18; TEMP 98.5; O2SAT 96
[2017-05-03] MEDS ORDERED: MORPHINE SULFATE 4 MG/ML INJ IV PUSH ONE (23:15)
[2017-05-03] MEDS ORDERED: METOCLOPRAMIDE HCL 10 MG/2 ML VIAL IV PUSH ONE (23:15)
[2017-05-03] MEDS ORDERED: MONT10TA2 PO (23:19)
[2017-05-03] MEDS ORDERED: METO5TAB PO (23:19)
[2017-05-03] MEDS ORDERED: TRAV0.00 EACH EYE (23:19)
[2017-05-03] MEDS ORDERED: CALC1CAP PO (23:19)
[2017-05-03] MEDS ORDERED: OMEP20TA PO (23:19)
[2017-05-03 23:21] VITALS: RESP 20; O2SAT 99
--- NOTE | 2017-05-03 23:49 | RADRPT ---
EXAM DATE/TIME: 05/03/2017 23:11 [facility] COMPARISON: CHEST SINGLE AP, December 12, 2016, 16:52. INDICATIONS : Pt with uncontrolable vomiting. MEDICAL HISTORY : Rheumatoid arthritis. Diabetes mellitus type II. Hypertension. GERD, CVA, Lupus, Dialysis, Left u pper arm fistula SURGICAL HISTORY : Arteriovenous shunt ENCOUNTER: Initial ACUITY: 1 day PAIN SCORE: 7/10 LOCATION: Bilateral chest FINDINGS: A single view of the chest demonstrates the lungs to be symmetrically aerated without evidence of mas s. Stable area consolidation in the right lower lobe medially. A pleural effusion on the right and b ilateral costophrenic angle blunting. The cardiomediastinal contours are unremarkable. Osseous stru ctures are intact. Vascular stents bilaterally CONCLUSION: Stable infiltrate right lower lobe. Bilateral lateral costophrenic angle blunting is unchanged. Librado Marte MD on May 03, 2017 at 23:46 Board Certified Radiologist. This report was verified electronically.
[2017-05-03 23:50] LABS: AUTOMATED NEUTROPHIL # 7.5 TH/MM3 (1.8-7.7); BASOPHIL # 0.1 TH/MM3 (0-0.2); BASOPHIL % 1.3 % (0.0-2.0); EOSINOPHIL # 0.2 TH/MM3 (0-0.4); HEMATOCRIT 42.5 % (39.0-51.0); HEMO FLAGS DIFF FINAL; LYMPH % 15.4 % (9.0-44.0); LYMPHOCYTE # 1.5 TH/MM3 (1.0-4.8); MEAN CELL VOLUME 84.5 FL (80.0-100.0); MEAN CORPUSCULAR HEMOGLOBIN 26.9 PG (27.0-34.0); MEAN CORPUSCULAR HGB CONC 31.8 % (32.0-36.0); MONO % 6.9 % (0.0-8.0); NEUT % 74.4 % (16.0-70.0); PLATELET COUNT 207 TH/MM3 (150-450); RED BLOOD COUNT 5.03 MIL/MM3 (4.50-5.90); RED CELL DISTRIBUTION WIDTH 15.5 % (11.6-17.2)
[2017-05-04] VITALS (7 sets, daily range): BP systolic 145–177; BP diastolic 60–78; PULSE 68–80; RESP 18–20; TEMP 97.7–98.5; O2SAT 96–100
[2017-05-04 00:01] LABS: APTT (PATIENT) 27.3 SEC (24.3-30.1); INTERNATIONAL NORMALIZED RATIO 1.1 RATIO; PROTHROMBIN TIME - PATIENT 12.3 SEC (9.8-11.6)
--- NOTE | 2017-05-04 00:28 | RADRPT ---
EXAM DATE/TIME: 05/03/2017 23:55 [facility] COMPARISON: CT ABDOMEN & PELVIS W/O CONTRAST, February 13, 2017, 12:34. INDICATIONS : Paracentesis yesterday at [facility]. Abdominal pain and nausea since. ORAL CONTRAST: No oral contrast ingested. RADIATION DOSE: 5.04 CTDIvol (mGy) MEDICAL HISTORY : Gastroesophageal reflux disease. Deep venous thrombosis. Congestive heart failure.CVA. Myocardial inf arction. CAD. Hypertension. Renal failure. Dialysis. Lupus. Diabetes. SURGICAL HISTORY : AV shunt ENCOUNTER: Initial ACUITY: 1 day PAIN SCALE: 8/10 LOCATION: abdomen TECHNIQUE: Volumetric scanning of the abdomen and pelvis was performed. Using automated exposure control and ad justment of the mA and/or kV according to patient size, radiation dose was kept as low as reasonably achievable to obtain optimal diagnostic quality images. DICOM format image data is available [facility] for review and comparison. FINDINGS: LOWER LUNGS: Bibasilar areas of consolidation consistent with rounded atelectasis right greater left. Small bilate ral pleural effusions. LIVER: Extensive ascites surrounding the liver and throughout the abdomen. Homogeneous density without les ion. There is no dilation of the biliary tree. Questionable few small calcified gallstones. SPLEEN: Mildly prominent size without lesion. PANCREAS: Within normal limits. KIDNEYS: Markedly atrophic in size. There is no mass, stone, or hydronephrosis. ADRENAL GLANDS: Within normal limits. VASCULAR: Severe atherosclerotic disease There is no aortic aneurysm. BOWEL/MESENTERY: Suspected right hemicolectomy . The stomach, small bowel, and colon demonstrate no acute abnormality . There is no free intraperitoneal air or fluid. ABDOMINAL WALL: Within normal limits. RETROPERITONEUM: There is no lymphadenopathy. BLADDER: No wall thickening or mass. REPRODUCTIVE: Within normal limits. INGUINAL: There is no lymphadenopathy or hernia. MUSCULOSKELETAL: Within normal limits for patient age. CONCLUSION: Significant ascites throughout the abdomen. No evidence of bowel obstruction. No free air is identifi ed. Extensive atherosclerotic disease. Librado Marte MD on May 04, 2017 at 0:22 Board Certified Radiologist. This report was verified electronically.
[2017-05-04 00:56] LABS: ALT (GPT) 14 U/L (12-78); ANION GAP 13 MEQ/L (5-15); AST (GOT) 19 U/L (15-37); BICARBONATE 25.2 MEQ/L (21.0-32.0); BLOOD UREA NITROGEN 35 MG/DL (7-18); CHLORIDE 101 MEQ/L (98-107); GLOMERULAR FILTRATION RATE 6 ML/MIN (>89); MAGNESIUM 2.1 MG/DL (1.5-2.5); POTASSIUM 4.6 MEQ/L (3.5-5.1); SODIUM (NA) 139 MEQ/L (136-145)
[2017-05-04 00:59] LABS: ALKALINE PHOSPHATASE 146 U/L (45-117); TOTAL BILIRUBIN ADULT 0.6 MG/DL (0.2-1.0)
[2017-05-04] MEDS ORDERED: DEXTROSE 50% IN WATER 50 ML VIAL(D50) IV PUSH ONE (01:00)
[2017-05-04] MEDS: SODIUM CHLORIDE 0.9% FLUSH 10 ML FLUSH IV FLUSH PRN ×2 (01:24→01:41)
[2017-05-04] MEDS ORDERED: ONDANSETRON HCL 4 MG/2 ML VIAL IV PUSH ONE (01:45)
--- NOTE | 2017-05-04 02:08 | PD ---
HPI Chief Complaint: Abdominal Pain Time Seen by Provider: 23:10 Travel History International Travel<30 days: No Contact w/Intl Traveler<30days: No Traveled to known affect area: No History of Present Illness HPI 56-year-old male presents to the emergency department by private transportation in the care of family for evaluation of abdominal pain. Patient states he's had increasing persistent abdominal pain since undergoing paracentesis on Friday. Patient also underwent hemodialysis on Friday. Patient has end-stage renal disease and hemodialysis Wednesdays and Fridays. Patient denies any fever or chills. Patient has had nausea and vomiting. Patient denies bilious emesis coffee-ground emesis or hematemesis. No change in bowel habits. Patient does not produce urine. Patient states since February he has had 3 episodes of paracentesis. Patient states he has had similar type pain but less intense and less duration after his second paracentesis but pain since Friday has been quite severe. Patient did not contact his primary care provider and did not have the pain at time of the paracentesis a did not notify the physician that performed the procedure. Patient has not had any cough congestion chest pain shortness of breath. Patient's spouse report source of recurrent ascites has not been reportedly determined. Patient denies any new upper or lower extremity pain and states no difficulties at AV graft fistula site. Patient rates pain 7 and 8/10 in intensity. Patient reportedly took 8 mg of Zofran prior to coming to the emergency room. PFSH Past Medical History Narrative Medical End stage renal disease hemodialysis Friday's hypertension CVA CAD coronary stent DVT diabetes ascites paracentesis 3 hypertension AV fistula ; nursing notes reviewed Anemia: Yes Arthritis: Yes (RA, Lupus) Asthma: No Autoimmune Disease: No Blood Disorders: No Anxiety: No Depression: No Heart Rhythm Problems: No Cancer: No Cardiac Catheterization: Yes Cardiovascular Problems: Yes (CHF, DVT) High Cholesterol: No Chemotherapy: No Chest Pain: No Congestive Heart Failure: Yes COPD: No Cerebrovascular Accident: Yes (1998) Diabetes: Yes Patient Takes Glucophage: No Dialysis: Yes () Diminished Hearing: No Deep Vein Thrombosis: Yes (LT JUGULAR AND CLAVICLE) Endocrine: Yes Gastrointestinal Disorders: Yes (REFLUX) GERD: Yes Glaucoma: No Genitourinary: No Hepatitis: No Hiatal Hernia: No Hypertension: Yes Immune Disorder: Yes (Rhematoid Arthritis and Lupus) Implanted Vascular Access Dvce: Yes (FISTULA LEFT ARM) Kidney Stones: No Medical other: Yes (NEUROPATHY, HAS CLOTS IN NECK AND CHEST, LUPUS, ANEMIA, RHEUMATOID ARTHRITI) Musculoskeletal: No Neurologic: No Psychiatric: No Reproductive: No Respiratory: Yes (C- pap and nebulizer ) Immunizations Current: Yes Migraines: No Myocardial Infarction: No Radiation Therapy: No Renal Failure: Yes Seizures: Yes Sickle Cell Disease: No Sleep Apnea: No Thyroid Disease: No Ulcer: No PNEUMOCCOCAL Vaccine (Year): 2010 Past Surgical History Abdominal Surgery: No AICD: No Arteriovenous Shunt: Yes (x2) Body Medical Devices: FISTULA LEFT UPPER ARM, IVC filter Cardiac Surgery: No Coronary Stent: Yes (X 2) Ear Surgery: No Endocrine Surgery: No Eye Surgery: No Genitourinary Surgery: No Gynecologic Surgery: No Insulin Pump: No Joint Replacement: No Neurologic Surgery: No Oral Surgery: No Pacemaker: No Thoracic Surgery: No Other Surgery: Yes (Left arm Fistula/Shunts, Left ankle) Social History Alcohol Use: No Tobacco Use: No Substance Use: No Allergies-Medications (Allergen,Severity, Reaction): Coded Allergies: No Known Allergies (Verified , 05/03/17) Reported Meds & Prescriptions Reported Meds & Active Scripts Active Nephro-Radha Rx (Vitamin B Cmplx/Vit C/Folic AC) 1 Tab 1 Cap PO DAILY 14 Days Renvela (Sevelamer Carbonate) 800 Mg Tab 800 Mg PO TIDAC 14 Days Pilocarpine Opth 1% (Pilocarpine HCl) 1 % Soln 1 Drop EACH EYE TID 14 Days [Leflunomide] 20 MG Tab 20 Mg PO DAILY 14 Days Xalatan Opth Drops (Latanoprost) 0.005% Drops 1 Drop EACH EYE HS 14 Days Hydroxychloroquine (Hydroxychloroquine Sulfate) 200 Mg Tab 200 Mg PO Q12HR 14 Days Gabapentin 100 Mg Cap 100 Mg PO BID 30 Days [Brimonidine 0.2% Opth Soln] 100 DROP/5 ML Soln 1 Drop EACH EYE TID 14 Days Albuterol Neb (Albuterol Sulfate) 0.63 Mg/3 Ml Neb 0.63 Mg NEB Q4HR NEB PRN 30 Days Cozaar (Losartan Potassium) 50 Mg Tab 50 Mg PO DAILY 30 Days Norvasc (Amlodipine Besylate) 10 Mg Tab 10 Mg PO DAILY 30 Days Reported Travatan Z Opth Drops (Travoprost) 0.004 % Soln 1 Drop EACH EYE HS Omeprazole 20 Mg Tab 20 Mg PO DAILY Singulair (Montelukast Sodium) 10 Mg Tab 10 Mg PO HS Metoclopramide (Metoclopramide HCl) 5 Mg Tab 5 Mg PO TIDAC Calcium Acetate (Phosphate Binder) 667 Mg Cap 667 Mg PO TID Temazepam 15 Mg Cap 15 Mg PO HS PRN Cosopt Opth Drops (Dorzolamide-Timolol Opth Drops) 22.3-6.8 Mg/Ml Soln 1 Drop EACH EYE TID Review of Systems Except as stated in HPI: all other systems reviewed are Neg General / Constitutional: No: Fever, Chills HENT: No: Congestion Cardiovascular: No: Chest Pain or Discomfort Respiratory: No: Shortness of Breath Gastrointestinal: Positive: Nausea, Abdominal Pain Genitourinary: No: Flank Pain Musculoskeletal: No: Myalgias, Arthralgias Skin: No Rash Neurologic: Positive: Weakness Psychiatric: No: Anxiety, Depression Hematologic/Lymphatic: No: Easy Bruising Physical Exam Narrative GENERAL: Thin, well-developed male, ill-appearing in no respiratory distress SKIN: Warm and dry. HEAD: Normocephalic. EYES: No scleral icterus. No injection or drainage. NECK: Supple, trachea midline. No JVD or lymphadenopathy. CARDIOVASCULAR: Regular rate and rhythm without murmurs, gallops, or rubs. RESPIRATORY: Breath sounds equal bilaterally. No accessory muscle use. GASTROINTESTINAL: Abdomen soft, diffusely tender with fluid wave, nondistended. MUSCULOSKELETAL: No cyanosis, or edema. BACK: Nontender without obvious deformity. No CVA tenderness. Data Data Last Documented VS Vital Signs Date Time Temp Pulse Resp B/P Pulse Ox O2 Delivery O2 Flow Rate FiO2 05/04/17 00:24 16 05/03/17 23:21 99 Room Air 05/03/17 20:42 98.5 80 158/91 Orders Complete Blood Count With Diff (05/03/17 23:10) Comprehensive Metabolic Panel (05/03/17 23:10) Lipase (05/03/17 23:10) Lactic Acid (05/03/17 23:10) Prothrombin Time / Inr (Pt) (05/03/17 23:10) Act Partial Throm Time (Ptt) (05/03/17 23:10) Iv Access Insert/Monitor (05/03/17 23:10) Ecg Monitoring (05/03/17 23:10) Oximetry (05/03/17 23:10) Sodium Chloride 0.9% Flush (Ns Flush) (05/03/17 23:15) Electrocardiogram (05/03/17 23:10) Chest, Single Ap (05/03/17 23:10) Morphine Inj (Morphine Inj) (05/03/17 23:15) Blood Culture (05/03/17 23:10) Magnesium (Mg) (05/03/17 23:10) Metoclopramide Inj (Reglan Inj) (05/03/17 23:15) Oral Contrast - Adult (05/03/17 23:21) Ct Abd/Pel W/O Iv Contrast (05/03/17 ) Dextrose 50% In Yang (Vial) Inj (D50w (Vi (05/04/17 01:00) Ondansetron Inj (Zofran Inj) (05/04/17 01:45) Place In Observation (05/04/17 ) Vital Signs (Adult) Q4H (05/04/17 02:04) Bedside Glucose DAVIDSON.AC&HS (05/04/17 02:04) Diet Renal (05/04/17 Breakfast) Acetaminophen (Tylenol) (05/04/17 02:15) Ondansetron Inj (Zofran Inj) (05/04/17 02:15) Prochlorperazine Supp (Compazine Supp) (05/04/17 02:15) Complete Blood Count With Diff (05/05/17 06:00) Heparin Inj (Heparin Inj) (05/04/17 09:00) Naloxone Inj (Narcan Inj) (05/04/17 02:15) Sennosides (Senokot) (05/04/17 02:15) Bisacodyl Supp (Dulcolax Supp) (05/04/17 02:15) Pantoprazole Inj (Protonix Inj) (05/04/17 06:00) Consult Nephrology (05/04/17 ) Dextrose 5% In Wate 1000ml Inj (D5w 1000 (05/04/17 02:15) Admit Order (Ed Use Only) (05/04/17 ) ^ Saline Lock (05/04/17 02:11) Resp Oxygen Moses C Titrat 1-4 L (05/04/17 ) Notify Dr: Other (05/04/17 02:11) Sodium Chloride 0.9% Flush (Ns Flush) (05/04/17 09:00) Sodium Chloride 0.9% Flush (Ns Flush) (05/04/17 02:15) Vancomycin Inj (Vancomycin Inj) (05/04/17 02:15) Promethazine Supp (Phenergan Supp) (05/04/17 02:15) Labs Laboratory Tests Test 05/03/17 05/04/17 23:20 00:05 White Blood Count 10.0 TH/MM3 Red Blood Count 5.03 MIL/MM3 Hemoglobin 13.5 GM/DL Hematocrit 42.5 % Mean Corpuscular Volume 84.5 FL Mean Corpuscular Hemoglobin 26.9 PG Mean Corpuscular Hemoglobin 31.8 % Concent Red Cell Distribution Width 15.5 % Platelet Count 207 TH/MM3 Mean Platelet Volume 9.6 FL Neutrophils (%) (Auto) 74.4 % Lymphocytes (%) (Auto) 15.4 % Monocytes (%) (Auto) 6.9 % Eosinophils (%) (Auto) 2.0 % Basophils (%) (Auto) 1.3 % Neutrophils # (Auto) 7.5 TH/MM3 Lymphocytes # (Auto) 1.5 TH/MM3 Monocytes # (Auto) 0.7 TH/MM3 Eosinophils # (Auto) 0.2 TH/MM3 Basophils # (Auto) 0.1 TH/MM3 CBC Comment DIFF FINAL Differential Comment Prothrombin Time 12.3 SEC Prothromb Time International 1.1 RATIO Ratio Activated Partial 27.3 SEC Thromboplast Time Lactic Acid Level 1.5 mmol/L Sodium Level 139 MEQ/L Potassium Level 4.6 MEQ/L Chloride Level 101 MEQ/L Carbon Dioxide Level 25.2 MEQ/L Anion Gap 13 MEQ/L Blood Urea Nitrogen 35 MG/DL Creatinine 8.85 MG/DL Estimat Glomerular Filtration 6 ML/MIN Rate Random Glucose 62 MG/DL Calcium Level 9.5 MG/DL Magnesium Level 2.1 MG/DL Total Bilirubin 0.6 MG/DL Aspartate Amino Transf 19 U/L (AST/SGOT) Alanine Aminotransferase 14 U/L (ALT/SGPT) Alkaline Phosphatase 146 U/L Total Protein 8.3 GM/DL Albumin 2.8 GM/DL Lipase 80 U/L MDM Medical Decision Making Medical Screen Exam Complete: Yes Emergency Medical Condition: Yes Medical Record Reviewed: Yes Interpretation(s) EKG: Sinus rhythm rate [address] elevation or injury pattern change noted prolonged QT interval Last Impressions Chest X-Ray 05/03/17 2310 Signed Impressions: Service Date/Time: Wednesday, May 03, 2017 23:11 - CONCLUSION: Stable infiltrate right lower lobe. Bilateral lateral costophrenic angle blunting is unchanged. Librado Marte MD Abdomen/Pelvis CT 05/03/17 0000 Signed Impressions: Service Date/Time: Wednesday, May 03, 2017 23:55 - CONCLUSION: Significant ascites throughout the abdomen. No evidence of bowel obstruction. No free air is identified. Extensive atherosclerotic disease. Librado Marte MD CBC & BMP Diagram 05/03/17 23:20 05/04/17 00:05 Differential Diagnosis Abdominal pain, spontaneous bacterial peritonitis, ischemic colitis, gastritis, pancreatitis, electronic disturbance Narrative Course IV access obtained specimens collected and sent for resulting patient administered Reglan and morphine sulfate Patient rating for lab results CT abdomen and pelvis noncontrast ordered Patient noticing some improvement of symptoms but continues to complain of nausea and abdominal pain; plan will be to admit patient for abdominal pain ascites and IV antibiotics while awaiting culture results Physician Communication Physician Communication Patient's case discussed with [facility]ist-- admit OBS to Dr Kidd Diagnosis Primary Impression: Abdominal pain Additional Impressions: Ascites ESRD (end stage renal disease) Ngozi Brantley MD May 04, 2017 02:08
[2017-05-04] MEDS ORDERED: VANCOMYCIN INJ 1,000 MG in SODIUM CHLOR 0.9% 250 ML INJ 250 ML IV ONE (02:15)
[2017-05-04] MEDS ORDERED: ACETAMINOPHEN 325 MG TAB PO PRN ×2 (02:15→20:30)
[2017-05-04] MEDS ORDERED: SODIUM CHLORIDE 0.9% FLUSH 10 ML FLUSH IVF PRN (02:15)
[2017-05-04] MEDS ORDERED: BISACODYL 10 MG SUPP RECTAL PRN (02:15)
[2017-05-04] MEDS ORDERED: ONDANSETRON HCL 4 MG/2 ML VIAL IVP PRN (02:15)
[2017-05-04] MEDS ORDERED: PROMETHAZINE HCL 25 MG SUPP RECTAL ONE (02:15)
[2017-05-04] MEDS ORDERED: NALOXONE HCL 0.4 MG/ML AMP IV PRN (02:15)
[2017-05-04] MEDS ORDERED: SENNOSIDES 8.6 MG TAB PO PRN (02:15)
[2017-05-04] MEDS ORDERED: PROCHLORPERAZINE 25 MG SUPP RECTAL PRN (02:15)
[2017-05-04] MEDS ORDERED: PIPERACIL-TAZO 3.375 GM PREMIX 50 ML IV ONE (02:45)
[2017-05-04] MEDS: DEXTROSE 5% IN WATE 1000ML INJ 1,000 ML IV SCH ×2 (02:49→22:15)
[2017-05-04] MEDS: PANTOPRAZOLE SODIUM 40 MG VIAL IV PUSH SCH (05:39)
[2017-05-04] MEDS: HEPARIN SODIUM - SQ 10,000 UNITS/ML VIAL SQ SCH ×2 (09:10→21:00)
[2017-05-04] MEDS: SODIUM CHLORIDE 0.9% FLUSH 10 ML FLUSH IV FLUSH SCH ×2 (09:10→21:00)
--- NOTE | 2017-05-04 13:52 | EKG ---
Date Performed: 05/04/2017 Time Performed: 00:56:47 PTAGE: 56 years EKG: Sinus rhythm WITH SINUS ARRHYTHMIA PROLONGED QT INTERVAL Questionable old inferior wall infarct. Compared to prev ious tracing, there's been no significant serial change, although there's been an increase in lateral voltage ABNORMAL ECG PREVIOUS TRACING : 02/13/2017 12.12 DOCTOR: Kell Chavarria Interpretating Date/Time 05/04/2017 13:52:15
--- NOTE | 2017-05-04 17:39 | HHI.PR ---
Objective Objective Results - Vital Signs Date Time Temp Pulse Resp B/P Pulse Ox O2 Delivery O2 Flow Rate FiO2 05/04/17 12:19 98.2 72 18 157/75 96 05/04/17 11:11 100 Nasal Cannula 2.00 05/04/17 08:19 98.0 68 20 170/60 96 05/04/17 03:52 98.4 80 18 177/78 97 05/04/17 02:58 98.5 76 16 150/78 98 05/04/17 00:24 16 05/03/17 23:21 20 99 Room Air 05/03/17 22:51 16 05/03/17 20:42 98.5 80 18 158/91 96 Room Air I/O 05/03/17 05/03/17 05/03/17 05/04/17 05/04/17 05/04/17 07:00 15:00 23:00 07:00 15:00 23:00 Intake Total 311 ml Balance 311 ml IV Total 311 ml Result Diagram: 05/03/17 2320 05/04/17 0005 A/P Assessment and Plan dictated, [id number], under Mary Shah May 04, 2017 17:39
[2017-05-04] MEDS ORDERED: SODIUM CHLOR 0.9% 1000 ML INJ 1,000 ML IV PRN ×3 (20:21)
[2017-05-04] MEDS ORDERED: diphenhydrAMINE HCL 25 MG CAP PO PRN (20:30)
[2017-05-04] MEDS ORDERED: cloNIDine HCL 0.1 MG TAB PO PRN (20:30)
[2017-05-04] MEDS ORDERED: HEPARIN SODIUM - IV 10,000 UNITS/10 ML VIAL IVF PRN (20:30)
[2017-05-04] MEDS ORDERED: ONDANSETRON HCL 4 MG/2 ML VIAL IV PRN (20:30)
[2017-05-04] MEDS ORDERED: GELATIN 12 MM/7 MM FOAM TOP PRN (20:30)
[2017-05-04] MEDS ORDERED: NITROGLYCERIN 0.4 MG SL 25 TABS/BTL SL PRN (20:30)
[2017-05-04] MEDS ORDERED: ALBUMIN HUMAN 25% 25 GM/100 ML BAGP IV PRN (20:30)
[2017-05-04] MEDS ORDERED: HEPARIN SODIUM - IV 10,000 UNITS/10 ML VIAL PRN (20:30)
[2017-05-04] MEDS ORDERED: GENTAMICIN SULFATE (DIALYSIS USE ONLY) 20 MG/2 ML VIAL IV PRN (20:30)
[2017-05-04] MEDS ORDERED: SODIUM CHLORIDE 0.9% FLUSH 10 ML FLUSH IV FLUSH PRN (20:30)
[2017-05-04] MEDS ORDERED: MANNITOL 12.5 GM/50 ML VIAL IV PRN (20:30)
[2017-05-05 04:45] VITALS: BP 161/78; PULSE 71; RESP 20; TEMP 97.7; O2SAT 100
[2017-05-05] MEDS: PANTOPRAZOLE SODIUM 40 MG VIAL IV PUSH SCH (06:00)
[2017-05-05 07:52] VITALS: BP 160/76; PULSE 68; RESP 16; TEMP 96.6; O2SAT 99
--- NOTE | 2017-05-05 08:46 | MB ---
cc: RAMANA CM MD DATE OF CONSULTATION: 05/04/2017 REASON FOR CONSULTATION End-stage renal disease management. HISTORY OF PRESENT ILLNESS This is a 56-year-old male who is an end-stage renal disease patient. He is on hemodialysis Friday, Friday, Friday, and is followed up with Dr. Sharp. The patient has an ongoing history of ascites which has been attributed to CHF as well as diabetes in the past. He has had multiple episodes of paracentesis and had an outpatient paracentesis on Friday at [facility]. He apparently had seven liters of fluid removed. The patient follows up with Dr. Lety Cm of GI and apparently analysis of the fluid was pending. The patient further had his dialysis after his paracentesis on Friday and had about one liter of UF with his treatment. Friday he was feeling well, however, he developed some ongoing nausea and vomiting and intractable emesis as well as abdominal pains. The patient was admitted here to the hospital. He is in the clinical decision unit now. The patient was given Phenergan for his nausea and his nausea symptoms greatly improved, however, he has had some ongoing abdominal pains. At this point a CT scan was ordered and a CT of the abdomen and pelvis revealed significant ascites throughout the abdomen and extensive atherosclerotic disease. There were no other findings of pathology on the CT scan. GI apparently has been consulted as well. At this point the patient is resting in bed comfortably. He reports his nausea symptoms have improved, however, he has ongoing abdominal pains. Nephrology was consulted for end-stage renal disease management. REVIEW OF SYSTEMS The patient denies any fevers or chills, however, has had some nausea and vomiting and ongoing abdominal pains. No chest pains. No shortness of breath. No diarrhea. No constipation. No dysuria. Otherwise review of systems is negative. PAST MEDICAL HISTORY 1. Hypertension. 2. Diabetes. 3. Peripheral vascular disease. 4. Ischemic heart disease. 5. Chronic anemia. 6. End-stage renal disease on dialysis with right AKA. PAST SURGICAL HISTORY 1. Left upper arm AV fistula. 2. Right AKA. 3. Cardiac catheterization. 4. Colonoscopy. 5. Thoracentesis. 6. Cataract surgery. 7. Multiple paracenteses. SOCIAL HISTORY The patient is single, lives at home. No history of smoking, alcohol or drug use. FAMILY HISTORY Noncontributory. ALLERGIES None. MEDICATIONS At home included: 1. Nephro-Radha. 2. Renvela. 3. Hydroxychloroquine. 4. Gabapentin. 5. Albuterol. 6. Cozaar. 7. Norvasc. 8. Singulair. 9. Omeprazole. 10.Reglan. 11.PhosLo. 12.Temazepam. PHYSICAL EXAMINATION VITAL SIGNS: At the time of evaluation temperature 97.7, pulse 73, respiratory rate 20, blood pressure 145/72, pulse ox 100% on room air. GENERAL: Awake, alert, oriented, in no apparent distress. HEENT/NECK: Neck soft supple. CARDIAC: Regular rate and rhythm. PULMONARY: Lungs clear to auscultation. ABDOMEN: Soft. Mild tenderness. EXTREMITIES: Right AKA. No signs of edema. LABORATORY FINDINGS White count 10, hemoglobin 13.5, hematocrit 42.5, platelet count 207. Sodium 139, potassium 4.6, chloride 101, bicarb 25.2, BUN 35, creatinine 8.8, glucose 62, AST 19, ALT 14, alk phos 146, total protein 8.3, albumin 2.8. ASSESSMENT AND PLAN 1. End-stage renal disease. The patient is on hemodialysis Friday, Friday, Friday, and had his last outpatient dialysis on Friday. He is followed up with Dr. Sharp for his renal issues. Will go ahead and order dialysis for Friday and continue with Friday, Friday, Friday dialysis while the patient is here. His electrolytes and volume status are otherwise stable. 2. Ascites. The patient had a recent paracentesis with apparently seven liters of fluid removal on Friday at [facility]. Apparently analysis of the fluid studies is pending at this point. The patient follows up closely with Dr. Lety Cm of GI. Apparently at this time he has had ongoing issues with ascites. The ascites has been attributed to renal failure as well as CHF in the past. Will do ultrafiltration on Friday as tolerated to help ascites. It is unclear if he will need further possible paracentesis here. 3. Nausea and vomiting. The patient has improved with Phenergan here. The patient has no signs of any infection at this point. His abdomen is relatively nontender. I do not suspect any peritonitis at this stage, however, continue to follow. GI has been consulted as well. 4. CHF. Continue with ultrafiltration with dialysis as tolerated. 5. Diabetes. Continue to monitor glucose. Glucose is stable. 6. Hypertension. Blood pressure is stable at 145/72. Continue medications. Continue to monitor. MD KHANG PickensP/BT /8:41 PM 8:30 AM MTDD
[2017-05-05] MEDS: HEPARIN SODIUM - SQ 10,000 UNITS/ML VIAL SQ SCH (09:00)
[2017-05-05] MEDS: SODIUM CHLORIDE 0.9% FLUSH 10 ML FLUSH IV FLUSH SCH (09:00)
--- NOTE | 2017-05-05 09:04 | MH ---
cc: FABIEN KIDD DATE OF : 1960 DATE OF ADMISSION: 05/04/2017 CHIEF COMPLAINT Abdominal pain, nausea and vomiting. Travel in the last 30 days, none. HISTORY OF PRESENT ILLNESS: This is a pleasant 56 year-old male who has end-stage renal disease and has been on dialysis for approximately nine years. The patient states he does not make urine. He has been judaism with going to his dialysis treatments but for the past few months has been having some problems with abdominal swelling. He has been followed per [facility], Dr. Meza, and has had two paracenteses performed in the last 34 days. The first one he had some abdominal pain and generalized weakness after the test but he recovered within 24 hour period. This past Friday, two days ago, he had his second paracentesis and he states that seven liters of fluid was pulled off. He also went to dialysis that afternoon and had a busy day he states. That evening when coming home, the patient noted pretty intense pain on the left and right side of his abdomen. He states that it radiated to the mid abdomen area and it was so painful to the point that he could not bend over. He states he was having trouble swallowing. He could not keep any food down and he has not eaten any solid food in 48 hours. He is taking a few sips of liquids now but states that the pain has continued to the point that he has not been able to eat or sleep. He came to the emergency room for follow up. The patient states his only other symptom is headache which he feels is probably secondary to not eating but no chest pain, no shortness of breath since the procedure. The patient is wheelchair bound part of the time. He has had a right AKA for poor circulation in August of 2016. PAST MEDICAL HISTORY: According to the patient and record: 1. RA. 2. Lupus. 3. Diabetes. Takes p.o. meds. Oral hypoglycemics. 4. Congestive heart failure. 5. DVT 6. CVA in 1998. 7. Dialysis on Friday, Friday and Friday. Left jugular and clavicle. 8. GERD. 9. 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 10. Anemia. 11. Some respiratory insufficiency. PAST SURGICAL HISTORY: 1. Fistula in the left upper arm. 2. IVC filter. 3. AV shunt x2. 4. Coronary stents. 5. Left ankle surgery. ALLERGIES: None known. MEDICATIONS: Documented. 1. Renvela. 2. Pilocarpine eye drops. 3. Nephrovite vitamins. 4. Xalatan eye drops. 5. Hydroxychloroquine. 6. Gabapentin. 7. Albuterol. 8. Cozaar. 9. Norvasc. 10. Travatan eye drops. 11. Omeprazole. 12. Singulair. 13. Reglan. 14. Calcium acetate. 15. Temazepam 16. Cosopt. SOCIAL HISTORY: The patient lives with his fiance. He denies any alcohol, tobacco or illicit drug use. REVIEW OF SYSTEMS: A 12 point review was obtained. Positives noted with his abdominal swelling, nausea, vomiting, anorexia, excruciating pain, uncontrolled, headache. He does have end-stage renal disease, went to dialysis Friday. Recent right AKA in August of 2016. No other symptoms, otherwise systems are negative or unremarkable. PHYSICAL EXAMINATION: VITAL SIGNS: Temperature is 98, pulse 68, respiratory rate 20, blood pressure 170/60. On admission 150/78 and 177/78. O2 sat 96% on room air. GENERAL: Well-nourished male, looks to be his stated age, resting in bed, no shortness of breath. SKIN: Kelley mucous membranes, warm and dry. HEENT: Atraumatic, normocephalic. MADINA 2. Mucous membranes are moist. Slight yellow coating on tongue. Tongue is midline and moist. No scleral icterus. NECK: Supple. CARDIOVASCULAR: S1-S2. Regular rate and rhythm. No murmurs, rubs, or gallops. EXTREMITIES: No edema in his left leg, right AKA has a covering that is clean, dry and intact over the stump. LUNGS: Essentially clear. No murmurs, rubs, or gallops. ABDOMEN: Round, soft, mild tenderness to light palpation. Bowel sounds are soft and present. MUSCULOSKELETAL: Moves extremities with purpose. No obvious deformities except for his AKA surgery to the right leg. NEUROLOGIC: Awake, alert, answers questions appropriately, good historian. Speech is clear. Tongue is midline. Claim Investigator are equal upper extremities. PSYCHIATRIC: Appropriate mood and affect. DIAGNOSTIC DATA WBC count 10, RBC 5.03, hemoglobin 13.5, hematocrit 42.5, platelet count 207, MCH 26.9, MCHC 31.8. Neutrophil count 74.4, all other diffs are normal. Chemistry: Sodium 139, potassium 4.6, chloride 101, carbon dioxide 25.2, anion gap 13, BUN 35, creatinine 8.85. GFR 6, random glucose 62. Lactic acid 1.5. Alkaline phosphatase is 146, total protein 8.3. Albumin 2.8, lipase 80. PT/INR is 1.1. IMAGING STUDIES: Chest x-ray: Stable infiltrate in the right lower lobe, bilateral, costophrenic angle blunting is unchanged. Abdomen and pelvis CT shows significant ascites in the abdomen but no bowel obstruction, no free air. Extensive atherosclerotic disease. ASSESSMENT: 1. Abdominal ascites. 2. Uncontrolled abdominal pain, left and right side, radiating to the center. 3. Nausea, vomiting, dysphagia. 4. Hypertension. 5. End-stage renal disease. The patient is on hemodialysis three times a week. 6. History of coronary artery disease. 7. Anemia. 8. History of right AKA stump with complications. 9. Right lower lobe infiltrate. Possible pneumonia. 10. Diabetes mellitus type 2. PLAN: 1. The plan is to monitor in observation. Will monitor his vital signs q4 and as needed. 2. Accu-Cheks. 3. Place him on a renal diet. 4. Monitor his swallow. 5. DVT prophylaxis with heparin. 6. Bowel regimen. 7. Consult nephrology for their expert opinion to monitor and possibly for dialysis on Friday. 8. Reconcile medications, p.r.n. medications for pain, nausea, shortness of breath, bowel regimen. The patient has received in the emergency room morphine, IV Reglan, IV fluids, ECG monitoring. He also received Zosyn. 9. Will continue IV Protonix for now. 10. Suppositories for nausea. 11. Gentle hydration with IV fluids. 12. He did receive a dose of vancomycin x1 in the emergency room. The patient does seem to be feeling better and resting better. This case has been discussed with Dr. Kidd and we will follow. Dictated by: DONNY Parker Fabien Kidd MD JP/DEANDRA /8:43 AM /9:07 AM
--- NOTE | 2017-05-05 09:28 | HHI.NPPN ---
Subjective History of Present Illness 56 year old with diabetes, CHF, ESRD, Ascites Objective Data Data Vital Signs Date Time Temp Pulse Resp B/P Pulse Ox O2 Delivery O2 Flow Rate FiO2 05/05/17 07:52 96.6 68 16 160/76 99 05/05/17 04:45 97.7 71 20 161/78 100 05/04/17 23:48 98.4 74 20 148/71 100 05/04/17 19:44 97.7 73 20 145/72 100 05/04/17 12:19 98.2 72 18 157/75 96 05/04/17 11:11 100 Nasal Cannula 2.00 -: 05/03/17 2320 05/04/17 0005 Physical Exam General Appearance: Well Developed Neck Neck Exam: Neck Supple Pulmonary Resp Exam: Clear Bilaterally, Breath Sounds Equal Cardiology CV Exam: Regular, Normal Sinus Rhythm Gastrointestinal/Abdomen GI Exam: Soft, Bowel Sounds Present, Distended Extremeties Extremities Exam: No Edema Extremeties Remarks AKA Rt Assessment/Plan Problem List: (1) ESRD (end stage renal disease) Plan: Patient is seen during dialysis UF 2.5 L tolerating it well, has Ascites , recurrent recent 7 L removed continue supportive care (2) Status post above knee amputation of right lower extremity Plan: stable (3) Type 2 diabetes mellitus Plan: follow BG (4) Hypertension Plan: stable Ham Alcantar MD May 05, 2017 09:28
--- NOTE | 2017-05-05 10:22 | HHI.PR ---
Subjective Interval History Alert, oriented, denies complaints, seen in the dialysis unit, had breakfast this morning without problems, wants to go home Review of Systems Constitutional Constitutional Remarks 10 systems reviewed and otherwise negative Vitals/Results Vital Signs Vital Signs Date Time Temp Pulse Resp B/P Pulse Ox O2 Delivery O2 Flow Rate FiO2 05/05/17 07:52 96.6 68 16 160/76 99 05/05/17 04:45 97.7 71 20 161/78 100 05/04/17 23:48 98.4 74 20 148/71 100 05/04/17 19:44 97.7 73 20 145/72 100 05/04/17 12:19 98.2 72 18 157/75 96 05/04/17 11:11 100 Nasal Cannula 2.00 CBC/BMP: 05/03/17 2320 05/04/17 0005 Physical Exam General General Appearance: Well Developed, Comfortable Ears & Nose Ears & Nose Exam: Nasal Mucosa [place] Neck Neck Exam: Neck Supple Pulmonary Resp Exam: Clear Bilaterally, Breath Sounds Equal Cardiology CV Exam: Regular, Normal Sinus Rhythm Gastrointestinal/Abdomen GI Exam: Soft, Bowel Sounds Present Musculoskeletal MS Exam: Normal Tone MS Remarks Right above-knee amputation Integumentary Skin Exam: Warm, Dry Extremeties Extremities Exam: No Edema Neurologic Neuro Exam: Alert, Awake, Oriented, Speech Clear Psychiatric Psych Exam: Appropriate Responses VTE Prophylaxis VTE Prophylaxis Meds: Heparin Assessment/Plan Assessment/Plan Assessment Admitted with abdominal pain and vomiting, resolved Chronic ascites, status post recent removal of 7 L on Friday at [facility] Ascitic fluid analysis not available at this time Bibasal atelectasis, no evidence of pneumonia Bilateral small pleural effusions End-stage renal disease on dialysis Diabetes Status post amputation Management Discharge home today Continue dialysis as scheduled Friday Follow-up with his metal burnisher Dr.Ketul Meza for management of his sinusitis Continue medications otherwise Discussed with patient Discussed with nurse 40 minutes spent Discharge Minutes: 40 Hailey Jimenez MD May 05, 2017 10:22
[2017-05-05] MEDS ORDERED: HEPARIN SODIUM - SQ 10,000 UNITS/ML VIAL SQ SCH (21:00)
== END 2017-05-05 14:59 | disposition home or self-care (01) ==
LOC: NEPC 20:40 → NEDA 05-04 02:14 → NEPGCP 05-04 03:18
PROVIDERS: ADMIT Specialist; ATTEND Specialist
DX: R18.8 Other ascites (principal); R10.9 Unspecified abdominal pain; R11.2 Nausea with vomiting, unspecified; R13.10 Dysphagia, unspecified; Z89.611 Acquired absence of right leg above knee; D64.9 Anemia, unspecified; R51 Headache; J98.11 Atelectasis; I45.81 Long QT syndrome; I49.8 Other specified cardiac arrhythmias; I70.90 Unspecified atherosclerosis; J90 Pleural effusion, not elsewhere classified; I25.10 Atherosclerotic heart disease of native coronary artery without angina pectoris; I13.2 Hypertensive heart and chronic kidney disease with heart failure and with stage 5 chronic kidney disease, or end stage renal disease; I50.9 Heart failure, unspecified; N18.6 End stage renal disease; Z99.2 Dependence on renal dialysis; I25.2 Old myocardial infarction; I73.9 Peripheral vascular disease, unspecified; E11.40 Type 2 diabetes mellitus with diabetic neuropathy, unspecified; M06.9 Rheumatoid arthritis, unspecified; K21.9 Gastro-esophageal reflux disease without esophagitis; Z86.73 Personal history of transient ischemic attack (TIA), and cerebral infarction without residual deficits; Z95.5 Presence of coronary angioplasty implant and graft; Z79.899 Other long term (current) drug therapy
CPT/HCPCS: 71010; 74176; 80053; 82948; 83605; 83690; 83735; 85025; 85610; 85730; 87040; 93005; 96374; 96375; 99285; C9113; G0257; G0378; J1644; J2270; J2405; J2543; J2765; J3370; J7030; J7050; J7070; P9047; 90935

== ENCOUNTER 2018-07-12 14:49 | Inpatient (IN) ==
--- NOTE | 2018-07-12 17:01 | ED ---
HPI General Chief complaint: Allergic Reaction Stated complaint: problem breathing,swelling neck,face Time Seen by Provider: 07/12/18 16:33 Source: patient Mode of arrival: ambulatory Limitations: no limitations History of Present Illness HPI narrative: 58yo M with PMH of ESRD on HD M/W/F (last HD was Friday), lupus, RA, CHF, left chest DVT not on anticoagulation presents to the ED with c/o worsening neck edema, fullness in head and chest as well as sob since last Friday. Pt had a port place in right chest last by his vascular surgeon Dr. Willem Meza. Denies any fever, chest pain, n/v, abdominal pain, focal weakness or numbness. Pt has oxygen at home PRN but has been feeling more sob so is using it more. Able to drink and eat but decreased PO intake. Related Data Home Medications Medication Instructions Recorded Confirmed B complex-vitamin C-folic acid 1 tab PO DAILY 07/12/18 07/12/18 [Kendal-Radha] amlodipine 10 mg PO DAILY 07/12/18 07/12/18 brimonidine 1 drp OPHTHALMIC (EYE) TID 07/12/18 07/12/18 calcium acetate 667 mg PO TID 07/12/18 07/12/18 chlorhexidine gluconate 1 applic MUCOUS MEMBRANE BID 07/12/18 07/12/18 clotrimazole 1 applic TOPICAL BID 07/12/18 07/12/18 dorzolamide-timolol 1 drp OPHTHALMIC (EYE) BID 07/12/18 07/12/18 erythromycin 1 applic OPHTHALMIC (EYE) DAILY 07/12/18 07/12/18 fluticasone 1 spray INTRANASAL DAILY 07/12/18 07/12/18 gabapentin 300 mg PO DAILY 07/12/18 07/12/18 hydroxychloroquine 200 mg PO BID 07/12/18 07/12/18 hydroxychloroquine [Plaquenil] 07/12/18 hydroxychloroquine [Plaquenil] 200 mg PO BID 07/12/18 07/12/18 leflunomide 20 mg PO DAILY 07/12/18 07/12/18 losartan 50 mg PO DAILY 07/12/18 07/12/18 metoclopramide HCl 5 mg PO QID 07/12/18 07/12/18 nepafenac [Ilevro] 1 drp OPHTHALMIC (EYE) DAILY 07/12/18 07/12/18 nystatin-triamcinolone 07/12/18 ondansetron [Zofran ODT] 07/12/18 pantoprazole 40 mg PO DAILY 07/12/18 07/12/18 tramadol 50 mg PO DAILY 07/12/18 07/12/18 travoprost [Travatan Z] 1 drp OPHTHALMIC (EYE) TID 07/12/18 07/12/18 Allergies Allergy/AdvReac Type Severity Reaction Status Date / Time No Known Allergies Allergy Uncoded 05/03/17 22:20 Review of Systems ROS: all other systems reviewed are negative [facility] Medical History Medical History Broken back (Acute) CHF (congestive heart failure) (Acute) Closed right ankle fracture (Acute) DVT (deep venous thrombosis) (Acute) Lupus (Acute) Rheumatoid arteritis (Acute) Surgical History Surgical History Above knee amputation of right lower extremity (Acute) Hx of heart artery stent (Acute) Social History Social History Substance History: No History of Abuse Second Hand Smoke Exposure: No Smoking Status: Former smoker How Often Do You Have a Drink Containing Alcohol: Never Recent Travel in [facility] within the Last 8 Weeks: No Recent Out of Country Travel within the Last 8 Weeks: No Exam Narrative Exam Narrative: GENERAL: 58yo M in mild distress. SKIN: Focused skin assessment warm/dry. HEAD: Atraumatic. Normocephalic. EYES: Pupils equal and round. No scleral icterus. No injection or drainage. ENT: No nasal bleeding or discharge. Mucous membranes pink and moist. Uvula midline. NECK: +Diffuse edema that is not erythematous. CARDIOVASCULAR: Regular rate and rhythm. No murmur appreciated. RESPIRATORY: No accessory muscle use. Clear to auscultation. Breath sounds equal bilaterally. O2 sat 95% on 2L NC. GASTROINTESTINAL: Abdomen soft, non-tender, nondistended. MUSCULOSKELETAL: Right AKA. Left leg: +Edema. NEUROLOGICAL: Awake and alert. No obvious cranial nerve deficits. Motor grossly within normal limits. Normal speech. PSYCHIATRIC: Appropriate mood and affect; insight and judgment normal. Course Initial Documented Vital Signs Temperature 98.7 F 07/12/18 14:53 Pulse Rate 72 07/12/18 14:53 Respiratory Rate 07/12/18 14:53 Blood Pressure 131/70 07/12/18 14:53 Pulse Oximetry 98 07/12/18 14:53 Last Documented Vital Signs Temperature 97.6 F 07/13/18 08:00 Pulse Rate 72 07/13/18 08:00 Respiratory Rate 12 07/13/18 08:00 Blood Pressure 138/64 07/13/18 08:00 Pulse Oximetry 100 07/13/18 08:00 Sign Out Sign Out Data: Patient Sign Out occurred on 07/12/18 at 17:53. Patient's care was discussed, and care was transferred from Crystal Cueva DO to Albertina Merlos MD. Sign Out Comment: Pt seen at of my shift so full work up is pending. Sign out to next team to follow up with labs, EKG, CXR, US bilateral upper extremity. Last updated by Crystal Cueva DO at 07/12/18 17:18 Post-Handoff Eval: I received care of patient at checkout at which time EKG, labs, imaging were pending. Imaging is consistent with possible superior vena cava syndrome. I spoke with Dr. Markham, vascular surgeon on-call, who stated he would follow this patient 's care in the hospital. EKG shows peaked T waves and labs revealed an elevated potassium. He was given dextrose, insulin, bicarb, calcium. I spoke with Dr. Alcantar, dog beautician on- call for Dr. Sharp, who agreed with dialysis. The patient was then admitted to the hospitalist service by Dr. Porras, hospitalist on-call. Medical Decision Making MDM Narrative Medical decision making narrative: 58yo M with facial swelling, head fullness, chest fullness, sob 1 day after his port placement in right chest last . Concern for superior vena caval syndrome so ordered US of bilateral upper extremities. Pt has no stridor or drooling. Anterior neck and lower face is edematous but speaking in complete sentences. Pt was seen at end of my shift so sign out to next team to follow up labs, US, EKG, CXR. Discussed with radiologist and CT chest with IV contrast can visualize superior vena cava obstruction so it was ordered. Dr. Sharp is his dog beautician and he will need HD after IV contrast. Medical Screen Exam Complete: Yes Emergency Medical Condition: Yes Differential Diagnosis Differential Diagnosis: Superior vena caval syndrome/obstruction vs. CHF exacerbation vs. fluid overload Lab Data Result diagrams: 07/13/18 04:33 07/13/18 04:33 Lab Results 07/12/18 07/12/18 07/12/18 Range/Units 18:05 18:05 18:05 WBC 7.8 (4.0-11.0) th/mm3 RBC 4.22 L (4.50-5.90) mil/mm3 Hgb 12.2 L (13.0-17.0) gm/dL Hct 37.0 L (39.0-51.0) % MCV 87.8 (80.0-100.0) fL MCH 28.9 (27.0-34.0) pg MCHC 32.9 (32.0-36.0) % RDW 16.2 (11.6-17.2) % Plt Count 210 (150-450) th/mm3 MPV 10.1 (7.0-11.0) fL Neut % (Auto) 65.2 (16.0-70.0) % Lymph % (Auto) 19.4 (9.0-44.0) % Cataño % (Auto) 7.6 (0.0-8.0) % Eos % (Auto) 6.0 H (0.0-4.0) % Baso % (Auto) 1.8 (0.0-2.0) % Neut # (Auto) 5.1 (1.8-7.7) th/mm3 Lymph # (Auto) 1.5 (1.0-4.8) th/mm3 Cataño # (Auto) 0.6 (0.0-0.9) th/mm3 Eos # (Auto) 0.5 H (0.0-0.4) th/mm3 Baso # (Auto) 0.1 (0.0-0.2) th/mm3 WBC Differential . Differential Comment Auto diff final PT 11.3 (9.8-11.6) sec INR 1.1 Ratio APTT 31.9 H (24.3-30.1) sec Sodium 130 L (136-145) meq/L Potassium 6.3 H (3.5-5.1) meq/L Chloride 95 L (98-107) meq/L Carbon Dioxide 25.3 (21.0-32.0) meq/L Anion Gap 10 (5-15) meq/L BUN 73 H (7-18) mg/dL Creatinine 12.02 H* (0.60-1.30) mg/dL Estimated GFR 4 L (>89) mL/min POC Glucose (68-110) mg/dl Random Glucose 124 H (74-106) mg/dL Calcium 8.4 L (8.5-10.1) mg/dL Total Bilirubin (0.2-1.0) mg/dL AST (15-37) U/L ALT (12-78) U/L Alkaline Phosphatase (45-117) U/L Troponin I Less than 0.02 L (0.02-0.05) ng/mL Total Protein (6.4-8.2) g/dL Albumin (3.4-5.0) g/dL 07/13/18 07/13/18 07/13/18 Range/Units 04:33 04:33 09:51 WBC 6.6 (4.0-11.0) th/mm3 RBC 4.32 L (4.50-5.90) mil/mm3 Hgb 12.4 L (13.0-17.0) gm/dL Hct 37.5 L (39.0-51.0) % MCV 86.8 (80.0-100.0) fL MCH 28.7 (27.0-34.0) pg MCHC 33.1 (32.0-36.0) % RDW 16.3 (11.6-17.2) % Plt Count 201 (150-450) th/mm3 MPV 9.8 (7.0-11.0) fL Neut % (Auto) 67.0 (16.0-70.0) % Lymph % (Auto) 20.1 (9.0-44.0) % Cataño % (Auto) 7.1 (0.0-8.0) % Eos % (Auto) 4.6 H (0.0-4.0) % Baso % (Auto) 1.2 (0.0-2.0) % Neut # (Auto) 4.4 (1.8-7.7) th/mm3 Lymph # (Auto) 1.3 (1.0-4.8) th/mm3 Cataño # (Auto) 0.5 (0.0-0.9) th/mm3 Eos # (Auto) 0.3 (0.0-0.4) th/mm3 Baso # (Auto) 0.1 (0.0-0.2) th/mm3 WBC Differential . Differential Comment Auto diff final PT (9.8-11.6) sec INR Ratio APTT (24.3-30.1) sec Sodium 134 L (136-145) meq/L Potassium 4.9 D (3.5-5.1) meq/L Chloride 96 L (98-107) meq/L Carbon Dioxide 27.4 (21.0-32.0) meq/L Anion Gap 11 (5-15) meq/L BUN 48 H (7-18) mg/dL Creatinine 9.51 H (0.60-1.30) mg/dL Estimated GFR 6 L (>89) mL/min POC Glucose 158 H (68-110) mg/dl Random Glucose 99 (74-106) mg/dL Calcium 8.7 (8.5-10.1) mg/dL Total Bilirubin 0.6 (0.2-1.0) mg/dL AST 16 (15-37) U/L ALT 9 L (12-78) U/L Alkaline Phosphatase 157 H (45-117) U/L Troponin I (0.02-0.05) ng/mL Total Protein 8.6 H (6.4-8.2) g/dL Albumin 3.6 (3.4-5.0) g/dL Imaging Data Radiologist's impression: Chest X-Ray 07/12/18 16:54 CONCLUSION: Status post Vmvfjf-i-Ysja placement. Right paratracheal stripe is widened raise possibility of hematoma or adenopathy. CT scan chest with IV contrast is recommended. The patient has a left subclavian stent Venous Doppler Study 07/12/18 16:54 CONCLUSION: 1. Limited suboptimal study due to motion and color-flow artifact. 2. The jugular veins appear partially collapsed with apparent nonocclusive thrombus. The subclavian through cephalic veins are compressible and patent. 3. Bilateral adenopathy. Chest CT 07/12/18 17:27 CONCLUSION: 1. The brachiocephalic vein is very stenotic in appearance with a right subclavian port catheter transversing through this region. The azygos vein is distended densely opacified and reconstitutes the distal superior vena cava. In the appropriate clinical setting this could be characteristic of superior vena caval syndrome. 2. Stable mediastinal adenopathy. 3. Multiple stable areas of apparent rounded atelectasis. 4. Normal pleural effusions. Discharge Plan Discharge Disposition Patient Disposition: 30 Still Patient Discharge Condition Condition: Serious Discharge Details Diagnosis: SVC syndrome, Acute hyperkalemia Physicians Team ED Provider: Albertina Merlos Primary Care Provider: Wiley Meza V Attending Provider: Cosme Ramos Other Providers: Ham Alcantar ; Matthew Markham Status ED Status: Left Department Discharge Information Discharge Date/Time: 07/13/18 00:31
--- NOTE | 2018-07-12 17:29 | XR ---
EXAM DATE: 07/12/2018 5:15 PM EDT AGE/SEX: 58 years / Male INDICATIONS: Shortness of breath. CLINICAL DATA: This is the patient's initial encounter. Patient reports that signs and symptoms have been present for 1 day and indicates a pain score of 0/10. MEDICAL/SURGICAL HISTORY: . Gastroesophageal reflux disease. Deep venous thrombosis. Congestiv e heart failure. CVA. Myocardial infarction. CAD. Hypertension. Renal failure. Dialysis. Lupus. Diabe ollie. . AV shunt. COMPARISON: [facility] – [place] S[place] AP, 05/03/2017. . FINDINGS: There is a right sided Vbfrjf-h-Rkmt catheter with its tip overlying the SVC. The right paratracheal stripe is widened. Small bilateral pleural effusions. CONCLUSION: Status post Tcjder-t-Psyw placement. Right paratracheal stripe is widened raise possibility of hemato ma or adenopathy. CT scan chest with IV contrast is recommended. The patient has a left subclavian st ent Electronically signed by: Librado Marte MD 07/12/2018 5:27 PM EDT
[2018-07-12 19:08] LABS: Baso # (Auto) 0.1 th/mm3 (0.0-0.2); Baso % (Auto) 1.8 % (0.0-2.0); Eos # (Auto) 0.5 th/mm3 (0.0-0.4); Hemoglobin 12.2 gm/dL (13.0-17.0); Lymph # (Auto) 1.5 th/mm3 (1.0-4.8); Lymph % (Auto) 19.4 % (9.0-44.0); Mean Corpuscular HGB Conc 32.9 % (32.0-36.0); Mean Corpuscular Hemoglobin 28.9 pg (27.0-34.0); Mean Corpuscular Volume 87.8 fL (80.0-100.0); Mean Platelet Volume 10.1 fL (7.0-11.0); Mono # (Auto) 0.6 th/mm3 (0.0-0.9); Mono % (Auto) 7.6 % (0.0-8.0); Neut # (Auto) 5.1 th/mm3 (1.8-7.7); Neut % (Auto) 65.2 % (16.0-70.0); Platelet Count 210 th/mm3 (150-450); Red Blood Count 4.22 mil/mm3 (4.50-5.90); Red Cell Distribution Width 16.2 % (11.6-17.2); White Blood Count 7.8 th/mm3 (4.0-11.0)
[2018-07-12 19:22] LABS: Activated Partial Thrombo Time 31.9 sec (24.3-30.1); INR 1.1 Ratio; Prothrombin Time 11.3 sec (9.8-11.6)
[2018-07-12 19:31] LABS: Anion Gap 10 meq/L (5-15); Blood Urea Nitrogen 73 mg/dL (7-18); Calcium 8.4 mg/dL (8.5-10.1); Carbon Dioxide 25.3 meq/L (21.0-32.0); Chloride 95 meq/L (98-107); Glomerular Filtration Rate 4 mL/min (>89); Glucose,Random 124 mg/dL (74-106); Potassium 6.3 meq/L (3.5-5.1); Sodium 130 meq/L (136-145)
--- NOTE | 2018-07-12 19:32 | US ---
EXAM DATE: 07/12/2018 6:40 PM EDT AGE/SEX: 58 years / Male INDICATIONS: Bilateral arm and chest swelling with port placement. History of deep venous thrombosis in the jugular vein into thousand 12. CLINICAL DATA: This is the patient's subsequent encounter. Patient reports that signs and symptoms h ave been present for 4 - 6 days and indicates a pain score of 3/10. MEDICAL/SURGICAL HISTORY: Congestive heart failure. Deep venous thrombosis. Rheumatoid arthri tis. Lupus. . Right leg amputation. Heart artery stent surgery. COMPARISON: No prior exams available for comparison. FINDINGS: The study was limited and suboptimal. There is extensive color flow artifact Right Upper Extremity: There are multiple focal acute nodule lesions most characteristic of adenopat hy. These measure up to 1.9 x 1.2 cm in greatest diameter. Largest measures up to approximately 1.2 c m. The subclavian to cephalic veins are compressible and patent. The jugular vein appears partially c ollapsed with apparent nonocclusive thrombus. Left Upper Extremity: There are multiple focal hypoechoic nodular lesions the largest measures up to approximately 1.4 x 1.6 x 1 cm. The subclavian through cephalic veins are compressible and demonstra te normal venous waveform and augmentation response. The jugular vein appear partially collapsed with apparent nonocclusive thrombus. Other: None. CONCLUSION: 1. Limited suboptimal study due to motion and color-flow artifact. 2. The jugular veins appear partially collapsed with apparent nonocclusive thrombus. The subclavian through cephalic veins are compressible and patent. 3. Bilateral adenopathy. Electronically signed by: Gideon Merida MD 07/12/2018 7:31 PM EDT
--- NOTE | 2018-07-12 19:45 | CT ---
EXAM DATE: 07/12/2018 6:47 PM EDT AGE/SEX: 58 years / Male INDICATIONS: Shortness of breath for one week. Superior vena caval syndrome after port placement. CLINICAL DATA: This is the patient's initial encounter. Patient reports that signs and symptoms have been present for 1 week and indicates a pain score of 4/10. MEDICAL/SURGICAL HISTORY: Congestive heart failure. Lupus. Deep venous thrombosis. Coronary arter y stent. RADIATION DOSE: 7.82 CTDI (mGy) COMPARISON: [facility], CT CHEST W/O CONTRAST, 09/27/2015. . TECHNIQUE: Multiple contiguous axial images were obtained through the chest during bolus infusion of 70 ml Omnipaque 350 (iohexol) nonionic water-soluble contrast as a single exam dose. Images were obtained in suspended respiration using multiple row detector helical technique. Using automated exp osure control and adjustment of the mA and/or kV according to patient size, radiation dose was kept a s low as reasonably achievable to obtain optimal diagnostic quality images. DICOM format image data is available electronically for review and comparison. FINDINGS: Lungs: There are stable areas of rounded atelectasis with focal consolidation again noted in both jasper ng bases. There are no new masses or nodules.. Mediastinum: The heart size remains prominent. There is no pericardial effusion. There are multiple prominent pretracheal and right paratracheal lymph nodes which do not appear significantly changed fr om the prior study. The largest of these measures up to approximately 2.8 x 1.7 cm. Coronary artery c alcifications are present. There has been interval placement of a right-sided Whljha-g-Fwny catheter with the tip in superior vena cava. The right brachiocephalic vein appears very stenotic and the port transverses through this region. The azygos vein is distended and densely opacified with multiple ex tensive venous collaterals. There is soft tissue edema Pleurae: Minimal pleural effusions. Axillae: Unremarkable. Bony Structures: Unremarkable. Miscellaneous: The examination was extended to include the upper abdomen, and both adrenal glands ar e normal in size and configuration. There is a small amount of ascitic fluid surrounding the liver ma rgin. The kidneys are small and atrophic in appearance with calcification. CONCLUSION: 1. The brachiocephalic vein is very stenotic in appearance with a right subclavian port catheter tra nsversing through this region. The azygos vein is distended densely opacified and reconstitutes the d istal superior vena cava. In the appropriate clinical setting this could be characteristic of superi or vena caval syndrome. 2. Stable mediastinal adenopathy. 3. Multiple stable areas of apparent rounded atelectasis. 4. Normal pleural effusions. Electronically signed by: Gideon Merida MD 07/12/2018 7:44 PM EDT
[2018-07-12] MEDS ORDERED: CALCIUM GLUCONATE IV.PUSH ONE (19:54)
[2018-07-12] MEDS ORDERED: Sodium Bicarbonate 8.4% Inj 50 MEQ/50 ML Syringe IV.PUSH ONE (19:55)
[2018-07-12] MEDS ORDERED: Acetaminophen 325 MG Tablet PO PRN (20:21)
[2018-07-12] MEDS ORDERED: Albumin Human 25% Inj 100 ML IV.SIG PRN (20:21)
[2018-07-12] MEDS ORDERED: Heparin 10,000 UNITS/10 ML Vial (for IV use) OTHER PRN ×2 (20:21)
[2018-07-12] MEDS ORDERED: Gelatin 12 MM/7 MM Topical Foam TOPICAL PRN (20:21)
[2018-07-12] MEDS ORDERED: Sod Chloride 0.9% Inj 1,000 ML OTHER PRN ×2 (20:21)
[2018-07-12] MEDS ORDERED: Sod Chloride 0.9% Inj 1,000 ML IV.CONT PRN (20:21)
[2018-07-12] MEDS ORDERED: Bisacodyl 10 MG Supp RECTAL PRN (20:28)
--- NOTE | 2018-07-12 20:37 | P.HPIM ---
History of Present Illness Primary Care Physician: Wiley Meza MD History of Present Illness: This is a 58-year-old male with a PMH of HTN, CHF (Echo 12/13/16 w/ EF 40-45%), Lupus, RA, h/o Left Chest DVT (not on anticoagulation), h/o BKA and ESRD on HD // who presented to the ER w/ c/o neck swelling and SOB x1 wk. States he noticed "a double chin" approx 1 wk ago and thought it would go away after dialysis, however he's noted no improvement. States "feels like I'm drowning". Follows w/ Dr. Sharp as outpatient, on HD /, last HD on Friday w/ no complications. Notes he had Right Chest Port placement on by Dr. Meza w/ Vascular Surgery. Denies fever, chills, cough or chest pain. On arrival, BP 131/70, HR 72, O2 sat 98% on RA, Afebrile. CBC essentially unremarkable. INR 1.1. K+ 6.3. Creatinine 12.02. Troponin negative. EKG w/ peaked T-waves. CXR with Qdrair-d-Nlfx placement, right paratracheal stripe possibly hematoma or adenopathy, patent left subclavian stent. Doppler with partially collapsed jugular veins, nonocclusive thrombus, patent subclavian through cephalic veins. 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 Dr. Smith consulted by ER physician, will evaluate for SVC Syndrome , Dr. Alcantar consulted, arrangements made for emergent dialysis this evening. - Diagnosis (1) SVC syndrome (2) Hyperkalemia (3) ESRD (end stage renal disease) on dialysis Inpatient Certification: I certify that the inpatient services were ordered in accordance with Medicare regulations governing the order. This includes certification that hospital inpatient services are reasonable and necessary and in the case of services not specified as inpatient-only under 42 CFR 419.22(n), that they are appropriately provided as inpatient services in accordance to with the 2-midnight benchmark under 43 CFR 412.3(e) Estimated Total Length of Stay (Days): 2 Plans for Post Hospital Care: Not yet determined Review of Systems PAST FAMILY HISTORY: Reviewed. No h/o DM or CAD All other systems reviewed negative except as stated in HPI PMFSH - History History Provided By: Patient, Family Member - Medical History Medical History: Medical History (Last Updated 07/12/18 @ 16:58 by Zainab Morales) Broken back CHF (congestive heart failure) Closed right ankle fracture DVT (deep venous thrombosis) Lupus Rheumatoid arteritis - Surgical History Surgical History: Surgical History (Last Updated 07/12/18 @ 16:58 by Zainab Morales) Above knee amputation of right lower extremity Hx of heart artery stent - Tobacco History Second Hand Smoke Exposure: No Tobacco Use In Past 30 Days: No Smoking Status: Former smoker - Alcohol History How Often Do You Have a Drink Containing Alcohol: Never - Substance Use History Substance History: No History of Abuse - Travel History Recent Travel in the [place] Within the Last 8 Weeks: No Recent Travel Out of the Country Within the Last 8 Weeks: No - Immunization History Tetanus Immunization: Unsure Hx Influenza Vaccine This Season: Yes Medications and Allergies Active Medications: Active Medications Acetaminophen (Tylenol) 650 mg PO UNSCH PRN PRN Reason: SEE LABEL COMMENTS Acetaminophen (Tylenol) 650 mg PO Q4H PRN PRN Reason: Temp > 100.4 Al Hydroxide/Mg Hydroxide (Milk Of [place] Liq) 30 ml PO Q12H PRN PRN Reason: Mild Constipation Bisacodyl (Dulcolax Supp) 10 mg RECTAL DAILY PRN PRN Reason: SEVERE CONSITIPATION Clonidine HCl (Catapres) 0.1 mg PO UNSCH PRN PRN Reason: SEE LABEL COMMENTS Diphenhydramine HCl (Benadryl) 25 mg PO UNSCH PRN PRN Reason: SEE LABEL COMMENTS Gelatin (Gelfoam 12 Mm/7 Mm Topical) 1 foam TOPICAL PRN PRN PRN Reason: help stop bleeding from site Gentamicin Sulfate (Gentamicin Inj) 20 mg OTHER WITH DIALYSIS PRN PRN Reason: Dwell Gentamycin Lock Heparin Sodium (Porcine) (Heparin Inj) 8,000 units OTHER WITH DIALYSIS PRN PRN Reason: for machine prime Heparin Sodium (Porcine) (Heparin Inj) 1,000 units OTHER WITH DIALYSIS PRN PRN Reason: Dwell Heparin to Fill Catheter Albumin Human (Flexbumin 25% Inj) 100 mls @ 60 mls/hr IV.SIG WITH DIALYSIS PRN PRN Reason: hypotension / volume replace Sodium Chloride (Ns Inj) 1,000 mls @ 0 mls/hr OTHER .Q0M PRN PRN Reason: for prime and rinse back Sodium Chloride (Ns Inj) 1,000 mls @ 200 mls/hr OTHER .Q5H PRN PRN Reason: for dialyzer flush PRN Sodium Chloride (Ns Inj) 1,000 mls @ 0 mls/hr IV.CONT .Q0M PRN PRN Reason: hypotension / volume replace Lactulose (Lactulose Liq) 30 ml PO DAILY PRN PRN Reason: SEVERE CONSITIPATION Mannitol (Mannitol Inj) 12.5 gm IV.PUSH UNSCH PRN PRN Reason: hypotension / volume replace Nitroglycerin (Nitrostat Sl) 0.4 mg SL Q5M PRN PRN Reason: CHEST PAIN Ondansetron HCl (Zofran Inj) 4 mg IV.PUSH UNSCH PRN PRN Reason: NAUSEA OR VOMITING Ondansetron HCl (Zofran Inj) 4 mg IV.PUSH Q6H PRN PRN Reason: NAUSEA OR VOMITING Senna/Docusate Sodium (Myrna-Colace) 1 tab PO BID KELSY Sennosides (Senokot) 17.2 mg PO Q12H PRN PRN Reason: Moderate Constipation Sodium Chloride (Ns Flush) 5 ml IV.FLUSH PRN PRN PRN Reason: flush each lumen during HD Allergies Allergy/AdvReac Type Severity Reaction Status Date / Time No Known Allergies Allergy Uncoded 05/03/17 22:20 Home Medications Medication Instructions Recorded Confirmed Type chlorhexidine gluconate 1 applic MUCOUS MEMBRANE BID 07/12/18 07/12/18 History clotrimazole 1 applic TOPICAL BID 07/12/18 07/12/18 History ondansetron [Zofran ODT] 07/12/18 History Exam Vital signs: Vital Signs 07/12/18 14:53 07/12/18 18:00 07/12/18 20:05 Temperature 98.7 F Pulse Rate 72 76 64 Respiratory Rate 18 16 18 Blood Pressure 131/70 151/73 H 151/66 H Pulse Oximetry 98 100 100 Intake & Output 07/12/18 07/12/18 07/13/18 06:59 18:59 06:59 Weight 59.421 kg Narrative: PE: GENERAL: Very pleasant middle-aged male in no acute distress. at bedside. SKIN: Focused skin assessment warm and dry. HEENT: PERRLA, EOMI. No scleral icterus or conjunctival pallor. No lid lag or facial droop. Bilateral neck edema, no erythema, no airway compromise. CARDIOVASCULAR: Regular rate and rhythm. No obvious murmurs to auscultation. No chest tenderness to palpation. RESPIRATORY: No obvious rhonchi or wheezing. Clear to auscultation. Breath sounds equal bilaterally. GASTROINTESTINAL: Abdomen soft, non-tender, nondistended. BS normal. MUSCULOSKELETAL: Extremities without clubbing, cyanosis, +1 edema. No obvious deformities. Right AKA NEUROLOGICAL: Awake, alert and oriented x4. No focal neurologic deficits. Moving both upper and lower extremities spontaneously. PSYCHIATRIC: Appropriate mood and affect. Insight and judgment normal. Results - Labs CBC & Chem 7: 07/12/18 18:05 07/12/18 18:05 Labs: Short CBC 07/12/18 Range/Units 18:05 WBC 7.8 (4.0-11.0) th/mm3 Hgb 12.2 L (13.0-17.0) gm/dL Hct 37.0 L (39.0-51.0) % Plt Count 210 (150-450) th/mm3 BMP 07/12/18 18:05 Sodium 130 L Potassium 6.3 H Chloride 95 L Carbon Dioxide 25.3 BUN 73 H Creatinine 12.02 H* Calcium 8.4 L Cardiac Enzymes 07/12/18 Range/Units 18:05 Troponin I Less than 0.02 L (0.02-0.05) ng/mL - Imaging Impressions Chest X-Ray 07/12/18 16:54 CONCLUSION: Status post Xfayqs-[id number]-Ikcg placement. Right paratracheal stripe is widened raise possibility of hematoma or adenopathy. CT scan chest with IV contrast is recommended. The patient has a left subclavian stent Venous Doppler Study 07/12/18 16:54 CONCLUSION: 1. Limited suboptimal study due to motion and color-flow artifact. 2. The jugular veins appear partially collapsed with apparent nonocclusive thrombus. The subclavian through cephalic veins are compressible and patent. 3. Bilateral adenopathy. Chest CT 07/12/18 17:27 CONCLUSION: 1. The brachiocephalic vein is very stenotic in appearance with a right subclavian port catheter transversing through this region. The azygos vein is distended densely opacified and reconstitutes the distal superior vena cava. In the appropriate clinical setting this could be characteristic of superior vena caval syndrome. 2. Stable mediastinal adenopathy. 3. Multiple stable areas of apparent rounded atelectasis. 4. Normal pleural effusions. Caprini VTE Risk Assessment Caprini VTE Risk Assessment: No/Low Risk (score <= 1) Caprini Risk Assessment Model: Point Value = 1 Point Value = 2 Point Value = 3 Point Value = 5 Age 41-60 Minor surgery BMI > 25 kg/m2 Swollen legs Varicose veins or History of unexplained or recurrent spontaneous Oral contraceptives or hormone replacement Sepsis (< 1 month) Serious lung disease, including pneumonia (< 1 month) Abnormal pulmonary function Acute myocardial infarction Congestive heart failure (< 1 month) History of inflammatory bowel disease Medical patient at bed rest Age 61-74 Arthroscopic surgery Major open surgery (> 45 min) Laparoscopic surgery (> 45 min) Malignancy Confined to bed (> 72 hours) Immobilizing plaster cast Central venous access Age >= 75 History of VTE Family history of VTE Factor V Leiden Prothrombin [id number] Lupus anticoagulant Anticardiolipin antibodies Elevated serum homocysteine Heparin-induced thrombocytopenia Other congenital or acquired thrombophilia Stroke (< 1 month) Elective arthroplasty Hip, pelvis, or leg fracture Acute spinal cord injury (< 1 month) Prophylaxis Regimen: Total Risk Factor Score Risk Level Prophylaxis Regimen 0-1 Low Early ambulation 2 Moderate Order ONE of the following: *Sequential Compression Device (SCD) *Heparin 5000 units SQ BID 3-4 Higher Order ONE of the following medications: *Heparin 5000 units SQ TID *Enoxaparin/Lovenox 40 mg SQ daily (WT < 150 kg, CrCl > 30 mL/min) *Enoxaparin/Lovenox 30 mg SQ daily (WT < 150 kg, CrCl > 10-29 mL/min) *Enoxaparin/Lovenox 30 mg SQ BID (WT < 150 kg, CrCl > 30 mL/min) AND/OR *Sequential Compression Device (SCD) 5 or more Highest Order ONE of the following medications: *Heparin 5000 units SQ TID (Preferred with Epidurals) *Enoxaparin/Lovenox 40 mg SQ daily (WT < 150 kg, CrCl > 30 mL/min) *Enoxaparin/Lovenox 30 mg SQ daily (WT < 150 kg, CrCl > 10-29 mL/min) *Enoxaparin/Lovenox 30 mg SQ BID (WT < 150 kg, CrCl > 30 mL/min) AND *Sequential Compression Device (SCD) Assessment and Plan - Assessment (1) SVC syndrome Code(s): I87.1 - Compression of vein Status: Acute (2) Hyperkalemia Code(s): E87.5 - Hyperkalemia Status: Acute (3) ESRD (end stage renal disease) on dialysis Code(s): N18.6 - End stage renal disease; Z99.2 - Dependence on renal dialysis Status: Acute - Plan A/P: 1. SVC Syndrome: acute onset neck swelling x1 wk, CT Chest w/ significant stenosis brachiocephalic vein characteristic of SVC syndrome, images reviewed. Dr. Smith consulted, will evaluate for possible intervention. 2. Hyperkalemia: K+ 6.3, EKG w/ peaked T-waves, Telemetry, plan for emergent dialysis, repeat labs after HD. 3. ESRD on HD: M/W/F, following w/ Dr. Sharp, complaint w/ HD, Dr. Alcantar consulted, arrangements made for emergent dialysis this evening. Monitor I/O. 4. DVT Prophylaxis: SCD/Teds 5. Social work for d/c planning as needed 6. Case discussed w/ ER physician at length, labs/records/imaging reviewed by me
[2018-07-12] MEDS ORDERED: SODIUM CHLOR 0.9% IV.SIG ONE (21:00)
[2018-07-12] MEDS ORDERED: CALCIUM GLUCONATE IV.SIG ONE (21:00)
[2018-07-13] MEDS: Senna/Docusate Sodium 8.6/50 MG Tablet PO SCH ×3 (01:37→21:45)
[2018-07-13 05:28] LABS: Baso # (Auto) 0.1 th/mm3 (0.0-0.2); Baso % (Auto) 1.2 % (0.0-2.0); Eos # (Auto) 0.3 th/mm3 (0.0-0.4); Eos % (Auto) 4.6 % (0.0-4.0); Hematocrit 37.5 % (39.0-51.0); Hemoglobin 12.4 gm/dL (13.0-17.0); Lymph # (Auto) 1.3 th/mm3 (1.0-4.8); Lymph % (Auto) 20.1 % (9.0-44.0); Mean Corpuscular HGB Conc 33.1 % (32.0-36.0); Mean Corpuscular Hemoglobin 28.7 pg (27.0-34.0); Mean Corpuscular Volume 86.8 fL (80.0-100.0); Mean Platelet Volume 9.8 fL (7.0-11.0); Mono # (Auto) 0.5 th/mm3 (0.0-0.9); Mono % (Auto) 7.1 % (0.0-8.0); Neut # (Auto) 4.4 th/mm3 (1.8-7.7); Platelet Count 201 th/mm3 (150-450); Red Blood Count 4.32 mil/mm3 (4.50-5.90); Red Cell Distribution Width 16.3 % (11.6-17.2); White Blood Count 6.6 th/mm3 (4.0-11.0)
[2018-07-13 06:03] LABS: Alanine Aminotransferase 9 U/L (12-78); Albumin 3.6 g/dL (3.4-5.0); Alkaline Phosphatase 157 U/L (45-117); Anion Gap 11 meq/L (5-15); Aspartate Aminotransferase 16 U/L (15-37); Blood Urea Nitrogen 48 mg/dL (7-18); Calcium 8.7 mg/dL (8.5-10.1); Carbon Dioxide 27.4 meq/L (21.0-32.0); Chloride 96 meq/L (98-107); Glomerular Filtration Rate 6 mL/min (>89); Glucose,Random 99 mg/dL (74-106); Potassium 4.9 meq/L (3.5-5.1); Sodium 134 meq/L (136-145); Total Protein 8.6 g/dL (6.4-8.2)
--- NOTE | 2018-07-13 09:11 | P.CONNP ---
<Valerie Booth - Last Filed: 07/13/18 11:09> History of Present Illness Service: Nephrology Consult date: 07/13/18 Requesting Physician: Albertina Merlos Reason for Consult: End stage renal disease on hemodialysis Primary Care Provider: Wiley Meza MD Family Provider: Wiley Meza MD History of Present Illness: Patient is a 58-year-old male with a past medical history of hypertension, Congestive heart failure (Echo 12/13/16 w/ EF 40-45%), Lupus, Rheumatoid arthritis, hx of Left Chest DVT (not on anticoagulation), right AKA and ESRD on HD //. Presented to the emergency room with complaints of neck swelling and shortness of breath. Notes he had Right Chest Port placement on by Dr. Derrick madden/ Vascular Surgery and stents placed in AVF. Chest xray with Gyamft-d-Ocaa placement, right paratracheal stripe possibly hematoma or adenopathy, patent left subclavian stent. Doppler with partially collapsed jugular veins, nonocclusive thrombus, patent subclavian through cephalic veins. 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 Nephrology is consulted for management of end stage renal disease. Hemodialysis was done last night tolerated well with removal of 2 liters of fluid. Continues to report shortness of breath at times and can not lie down. Denies any nausea, vomiting, or diarrhea. PMFSH - History History Provided By: Patient - Medical History Medical History: Medical History (Last Updated 07/12/18 @ 16:58 by Zainab Morales) Broken back CHF (congestive heart failure) Closed right ankle fracture DVT (deep venous thrombosis) Lupus Rheumatoid arteritis - Surgical History Surgical History: Surgical History (Last Updated 07/12/18 @ 16:58 by Zainab Morales) Above knee amputation of right lower extremity Hx of heart artery stent - Tobacco History Second Hand Smoke Exposure: No Tobacco Use In Past 30 Days: No Smoking Status: Former smoker - Alcohol History How Often Do You Have a Drink Containing Alcohol: Never - Substance Use History Substance History: No History of Abuse - Travel History Recent Travel in the [place] Within the Last 8 Weeks: No Recent Travel Out of the Country Within the Last 8 Weeks: No - Immunization History Tetanus Immunization: Unsure Hx Influenza Vaccine This Season: Yes Medications and Allergies Allergies Allergy/AdvReac Type Severity Reaction Status Date / Time No Known Allergies Allergy Uncoded 05/03/17 22:20 Home Medications Medication Instructions Recorded Confirmed Type B complex-vitamin C-folic acid 1 tab PO DAILY 07/12/18 07/12/18 History [Kendal-Radha] amlodipine 10 mg PO DAILY 07/12/18 07/12/18 History brimonidine 1 drp RIGHT EYE DAILY 07/12/18 07/14/18 History calcium acetate 667 mg PO TID 07/12/18 07/12/18 History chlorhexidine gluconate 1 applic MUCOUS MEMBRANE BID 07/12/18 07/12/18 History clotrimazole 1 applic TOPICAL BID 07/12/18 07/12/18 History dorzolamide-timolol 1 drp OPHTHALMIC (EYE) TID 07/12/18 07/14/18 History erythromycin See Label Instructions .ROUTE 07/12/18 07/14/18 History .COMPLEX fluticasone 1 spray INTRANASAL DAILY 07/12/18 07/12/18 History gabapentin 300 mg PO DAILY 07/12/18 07/12/18 History hydroxychloroquine [Plaquenil] 1 tab PO BID 07/12/18 07/14/18 History leflunomide 20 mg PO DAILY 07/12/18 07/12/18 History losartan 50 mg PO DAILY 07/12/18 07/12/18 History metoclopramide HCl 5 mg PO QID 07/12/18 07/12/18 History nepafenac [Ilevro] 1 drp LEFT EYE DAILY 07/12/18 07/14/18 History nystatin-triamcinolone See Label Instructions .ROUTE 07/12/18 07/14/18 History .COMPLEX PRN ondansetron [Zofran ODT] 4 mg PO PRN 07/12/18 07/14/18 History pantoprazole 40 mg PO DAILY 07/12/18 07/12/18 History tramadol 50 mg PO DAILY 07/12/18 07/12/18 History travoprost [Travatan Z] 1 drp RIGHT EYE DAILY 07/12/18 07/14/18 History Active Medications: Active Medications Acetaminophen (Tylenol) 650 mg PO UNSCH PRN PRN Reason: SEE LABEL COMMENTS Acetaminophen (Tylenol) 650 mg PO Q4H PRN PRN Reason: Temp > 100.4 Al Hydroxide/Mg Hydroxide (Milk Of Magnesia Liq) 30 ml PO Q12H PRN PRN Reason: Mild Constipation Bisacodyl (Dulcolax Supp) 10 mg RECTAL DAILY PRN PRN Reason: SEVERE CONSITIPATION Clonidine HCl (Catapres) 0.1 mg PO UNSCH PRN PRN Reason: SEE LABEL COMMENTS Diphenhydramine HCl (Benadryl) 25 mg PO UNSCH PRN PRN Reason: SEE LABEL COMMENTS Gelatin (Gelfoam 12 Mm/7 Mm Topical) 1 foam TOPICAL PRN PRN PRN Reason: help stop bleeding from site Gentamicin Sulfate (Gentamicin Inj) 20 mg OTHER WITH DIALYSIS PRN PRN Reason: Dwell Gentamycin Lock Heparin Sodium (Porcine) (Heparin Inj) 8,000 units OTHER WITH DIALYSIS PRN PRN Reason: for machine prime Heparin Sodium (Porcine) (Heparin Inj) 1,000 units OTHER WITH DIALYSIS PRN PRN Reason: Dwell Heparin to Fill Catheter Albumin Human (Flexbumin 25% Inj) 100 mls @ 60 mls/hr IV.SIG WITH DIALYSIS PRN PRN Reason: hypotension / volume replace Sodium Chloride (Ns Inj) 1,000 mls @ 0 mls/hr OTHER .Q0M PRN PRN Reason: for prime and rinse back Sodium Chloride (Ns Inj) 1,000 mls @ 200 mls/hr OTHER .Q5H PRN PRN Reason: for dialyzer flush PRN Sodium Chloride (Ns Inj) 1,000 mls @ 0 mls/hr IV.CONT .Q0M PRN PRN Reason: hypotension / volume replace Lactulose (Lactulose Liq) 30 ml PO DAILY PRN PRN Reason: SEVERE CONSITIPATION Mannitol (Mannitol Inj) 12.5 gm IV.PUSH UNSCH PRN PRN Reason: hypotension / volume replace Nitroglycerin (Nitrostat Sl) 0.4 mg SL Q5M PRN PRN Reason: CHEST PAIN Ondansetron HCl (Zofran Inj) 4 mg IV.PUSH UNSCH PRN PRN Reason: NAUSEA OR VOMITING Ondansetron HCl (Zofran Inj) 4 mg IV.PUSH Q6H PRN PRN Reason: NAUSEA OR VOMITING Senna/Docusate Sodium (Myrna-Colace) 1 tab PO BID KELSY Last Admin: 07/13/18 01:37 Dose: Not Given Sennosides (Senokot) 17.2 mg PO Q12H PRN PRN Reason: Moderate Constipation Sodium Chloride (Ns Flush) 5 ml IV.FLUSH PRN PRN PRN Reason: flush each lumen during HD Exam Vital signs: Vital Signs 07/12/18 14:53 07/12/18 18:00 07/12/18 20:05 Temperature 98.7 F Pulse Rate 72 76 64 Respiratory Rate 18 16 18 Blood Pressure 131/70 151/73 H 151/66 H Pulse Oximetry 98 100 100 07/13/18 00:00 07/13/18 04:00 07/13/18 07:46 Temperature 97.3 F L 97.6 F Pulse Rate 69 69 69 Respiratory Rate 17 17 Blood Pressure 119/63 117/55 L Pulse Oximetry 100 100 07/13/18 08:00 Temperature 97.6 F Pulse Rate 72 Respiratory Rate 12 Blood Pressure 138/64 Pulse Oximetry 100 Intake & Output 07/12/18 07/13/18 07/13/18 18:59 06:59 18:59 Intake Total 100 / 100 Output Total 1999 Balance -1900 / -1900 Weight 59.421 kg Intake: IV 100 / 100 Calcium Gluconate Inj 4.65 MEQ 100 / 100 In NS Inj 100 ML @ 110 mls/hr IV.SIG ONCE ONE Rx#:[id number] Output: Hemodialysis Amount 1999 Other: # Voids 1 Date of Last Bowel Movement 07/12/18 Narrative: GENERAL: Very pleasant middle-aged male in no acute distress. SKIN: Warm and dry. Steri strips and sutures present on right chest wall. HEENT: PERRLA, Scleral injected. No lid lag or facial droop. Bilateral neck edema, no erythema, no airway compromise. CARDIOVASCULAR: Regular rate and rhythm. No obvious murmurs to auscultation. No chest tenderness to palpation. RESPIRATORY: No obvious rhonchi or wheezing. Clear to auscultation. Breath sounds equal bilaterally. GASTROINTESTINAL: Abdomen soft, non-tender, nondistended. BS normal. MUSCULOSKELETAL: Extremities without clubbing, cyanosis, +1 edema. No obvious deformities. Right AKA NEUROLOGICAL: Awake, alert and oriented x4. No focal neurologic deficits. Moving both upper and lower extremities spontaneously. PSYCHIATRIC: Appropriate mood and affect. Insight and judgment normal. Results - Lab Results 07/13/18 04:33 07/13/18 04:33 Most recent lab results Calcium 8.7 mg/dL (8.5-10.1) 07/13/18 04:33 Assessment and Plan - Assessment (1) ESRD (end stage renal disease) on dialysis Code(s): N18.6 - End stage renal disease; Z99.2 - Dependence on renal dialysis Status: Acute Plan: End stage renal disease on hemodialysis Friday, Friday, and Friday and [facility]. Plan Avoid IVF administration and gadolinium. Renal diet added to cardiac diet Hemodialysis yesterday tolerated will with removal of 2 liters of fluid. Will have hemodialysis today to place on Friday, Friday, Friday schedule. (2) SVC syndrome Code(s): I87.1 - Compression of vein Status: Acute Plan: CT with The brachiocephalic vein is very stenotic in appearance with a right subclavian port catheter transversing through this region. The azygos vein is distended densely opacified and reconstitutes the distal superior vena cava. In the appropriate clinical setting this could be characteristic of superior vena caval syndrome. Vascular consulted for recommendations. (3) Acute hyperkalemia Code(s): E87.5 - Hyperkalemia Status: Acute Plan: Resolved potassium level at 4.9 <Parish Sharp - Last Filed: 07/23/18 09:39> History of Present Illness Primary Care Provider: Wiley Meza MD Family Provider: Wiley Meza MD [facility] - Medical History Medical History: Medical History (Last Updated 07/12/18 @ 16:58 by Zainab Morales) Broken back CHF (congestive heart failure) Closed right ankle fracture DVT (deep venous thrombosis) Lupus Rheumatoid arteritis - Surgical History Surgical History: Surgical History (Last Updated 07/12/18 @ 16:58 by Zainab Morales) Above knee amputation of right lower extremity Hx of heart artery stent Results - Lab Results 07/17/18 05:29 07/17/18 05:29 Most recent lab results Calcium 8.3 mg/dL (8.5-10.1) L 07/17/18 05:29 Phosphorus 5.6 mg/dL (2.5-4.9) H D 07/17/18 05:29 Magnesium 2.1 mg/dL (1.5-2.5) 07/17/18 05:29 Assessment and Plan - Assessment (1) ESRD (end stage renal disease) on dialysis Code(s): N18.6 - End stage renal disease; Z99.2 - Dependence on renal dialysis Status: Chronic Plan: Patient seen and examined, agree with above. For HD today, remove fluid as tolerated. Vascular consulted for SVC syndrome. (2) SVC syndrome Code(s): I87.1 - Compression of vein Status: Resolved (3) Acute hyperkalemia Code(s): E87.5 - Hyperkalemia Status: Acute
--- NOTE | 2018-07-13 10:01 | P.PN ---
Subjective Interval history: follow up for sob, findings of SVC syndrome: Sitting up in wheelchair, noted with edema around neck. Patient states he cannot lay flat, feels like he is drowning and has increased shortness of breath. Able to breathe better sitting up, no chest pain. Currently n.p.o., had trouble swallowing. No fever. Physical Exam Vital signs: Vital Signs 07/12/18 14:53 07/12/18 18:00 07/12/18 20:05 Temperature 98.7 F Pulse Rate 72 76 64 Respiratory Rate 18 16 18 Blood Pressure 131/70 151/73 H 151/66 H Pulse Oximetry 98 100 100 07/13/18 00:00 07/13/18 04:00 07/13/18 07:46 Temperature 97.3 F L 97.6 F Pulse Rate 69 69 69 Respiratory Rate 17 17 Blood Pressure 119/63 117/55 L Pulse Oximetry 100 100 07/13/18 08:00 Temperature 97.6 F Pulse Rate 72 Respiratory Rate 12 Blood Pressure 138/64 Pulse Oximetry 100 Intake & Output 07/12/18 07/13/18 07/13/18 18:59 06:59 18:59 Intake Total 100 / 100 Output Total 1999 Balance -1900 / -1900 Weight 59.421 kg Intake: IV 100 / 100 Calcium Gluconate Inj 4.65 MEQ 100 / 100 In NS Inj 100 ML @ 110 mls/hr IV.SIG ONCE ONE Rx#:[id number] Output: Hemodialysis Amount 1999 Other: # Voids 1 Date of Last Bowel Movement 07/12/18 Narrative: GENERAL: Well-nourished, well-developed patient in no apparent distress. SKIN: Warm and dry. Right upper chest wall with Steri-Strips from recent port insertion HEAD: Atraumatic. Normocephalic. EYES: Pupils equal and round. No scleral icterus. Conjunctival injection, right greater than left. ENT: No nasal bleeding or discharge. Mucous membranes pink and moist. NECK: Neck edema noted. CARDIOVASCULAR: Regular rate and rhythm. Left upper extremity with AV fistula, positive bruit and thrill. RESPIRATORY: Expiratory wheezing. Diminished at bases GASTROINTESTINAL: Abdomen soft, non-tender, nondistended. Hepatic and splenic margins not palpable. MUSCULOSKELETAL: Right AKA. Left lower extremity with trace pretibial edema NEUROLOGICAL: Awake, alert oriented 3. No focal deficit. PSYCHIATRIC: Appropriate mood and affect; insight and judgment normal. Results - Labs CBC & Chem 7: 07/13/18 04:33 07/13/18 04:33 Laboratory Results - last 24 hr 07/12/18 07/12/18 07/12/18 18:05 18:05 18:05 WBC 7.8 RBC 4.22 L Hgb 12.2 L Hct 37.0 L MCV 87.8 MCH 28.9 MCHC 32.9 RDW 16.2 Plt Count 210 MPV 10.1 Neut % (Auto) 65.2 Lymph % (Auto) 19.4 Allen % (Auto) 7.6 Eos % (Auto) 6.0 H Baso % (Auto) 1.8 Neut # (Auto) 5.1 Lymph # (Auto) 1.5 Allen # (Auto) 0.6 Eos # (Auto) 0.5 H Baso # (Auto) 0.1 WBC Differential . Differential Comment Auto diff final PT 11.3 INR 1.1 APTT 31.9 H Sodium 130 L Potassium 6.3 H Chloride 95 L Carbon Dioxide 25.3 Anion Gap 10 BUN 73 H Creatinine 12.02 H* Estimated GFR 4 L Random Glucose 124 H Calcium 8.4 L Total Bilirubin AST ALT Alkaline Phosphatase Troponin I Less than 0.02 L Total Protein Albumin 07/13/18 07/13/18 04:33 04:33 WBC 6.6 RBC 4.32 L Hgb 12.4 L Hct 37.5 L MCV 86.8 MCH 28.7 MCHC 33.1 RDW 16.3 Plt Count 201 MPV 9.8 Neut % (Auto) 67.0 Lymph % (Auto) 20.1 Allen % (Auto) 7.1 Eos % (Auto) 4.6 H Baso % (Auto) 1.2 Neut # (Auto) 4.4 Lymph # (Auto) 1.3 Allen # (Auto) 0.5 Eos # (Auto) 0.3 Baso # (Auto) 0.1 WBC Differential . Differential Comment Auto diff final PT INR APTT Sodium 134 L Potassium 4.9 D Chloride 96 L Carbon Dioxide 27.4 Anion Gap 11 BUN 48 H Creatinine 9.51 H Estimated GFR 6 L Random Glucose 99 Calcium 8.7 Total Bilirubin 0.6 AST 16 ALT 9 L Alkaline Phosphatase 157 H Troponin I Total Protein 8.6 H Albumin 3.6 - Imaging Impressions Chest X-Ray 07/12/18 16:54 CONCLUSION: Status post Kpniha-h-Ptlx placement. Right paratracheal stripe is widened raise possibility of hematoma or adenopathy. CT scan chest with IV contrast is recommended. The patient has a left subclavian stent Venous Doppler Study 07/12/18 16:54 CONCLUSION: 1. Limited suboptimal study due to motion and color-flow artifact. 2. The jugular veins appear partially collapsed with apparent nonocclusive thrombus. The subclavian through cephalic veins are compressible and patent. 3. Bilateral adenopathy. Chest CT 07/12/18 17:27 CONCLUSION: 1. The brachiocephalic vein is very stenotic in appearance with a right subclavian port catheter transversing through this region. The azygos vein is distended densely opacified and reconstitutes the distal superior vena cava. In the appropriate clinical setting this could be characteristic of superior vena caval syndrome. 2. Stable mediastinal adenopathy. 3. Multiple stable areas of apparent rounded atelectasis. 4. Normal pleural effusions. Assessment and Plan - Assessment (1) SVC syndrome Code(s): I87.1 - Compression of vein Status: Acute (2) Hyperkalemia Code(s): E87.5 - Hyperkalemia Status: Acute (3) ESRD (end stage renal disease) on dialysis Code(s): N18.6 - End stage renal disease; Z99.2 - Dependence on renal dialysis Status: Acute (4) Hypertension Code(s): I10 - Essential (primary) hypertension Status: Chronic (5) Acute hyperkalemia Code(s): E87.5 - Hyperkalemia Status: Acute (6) Conjunctivitis Code(s): H10.9 - Unspecified conjunctivitis Status: Acute - Plan A/P: 58-year-old male with a PMH of HTN, CHF (Echo 12/13/16 w/ EF 40-45%), Lupus, RA, h/o Left Chest DVT (not on anticoagulation), h/o AKA and ESRD on HD M/W/F who presented to the ER w/ c/o neck swelling and SOB x1 wk. States he noticed "a double chin" approx 1 wk ago and thought it would go away after dialysis, however he's noted no improvement. States "feels like I'm drowning". Follows w / Dr. Sharp as outpatient, on HD M//, last HD on Friday w/ no complications. Notes he had Right Chest Port placement on by Dr. Meza w/ Vascular Surgery. Denies fever, chills, cough or chest pain. CXR with Arpxmo-r-Yatz placement, right paratracheal stripe possibly hematoma or adenopathy, patent left subclavian stent. Doppler with partially collapsed jugular veins, nonocclusive thrombus, patent subclavian through cephalic veins. 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 Dr. Smith consulted by ER physician, will evaluate for SVC Syndrome, Dr. Alcantar consulted, arrangements made for emergent dialysis this evening. SVC Syndrome: acute onset neck swelling x1 wk, CT Chest w/ significant stenosis brachiocephalic vein characteristic of SVC syndrome S/P port placement on - Dr. Smith consulted, will evaluate for possible intervention. -Keep NPO -monitor for airway compromise, sats, inc. SOB Hyperkalemia: K+ 6.3, EKG w/ peaked T-waves -Unable to have emergent HD, AV fistula nonfunctioning. Was tx with calcium gluconate, bicarb, insulin and D50 Labs better today, K 4.9 -appreciate nephrology input -going for fistulogram in IR today ESRD on HD: M// -Following w/ Dr. Sharp Conjunctivitis right eye worse than left. Continue with erythromycin ointment Hypertension hx CHF -continue home meds when able to take PO Hx RA -resume home meds when able to take PO DVT Prophylaxis: SCD/Teds Labs in am will follow up on vascular surgery recommendations Pt. to transfer to [facility] for closer monitoring D/W RN, pt, CM (4) Hypertension Qualifiers: Hypertension type: essential hypertension Qualified Code(s): I10 - Essential (primary) hypertension (6) Conjunctivitis Qualifiers: Conjunctivitis type: acute
--- NOTE | 2018-07-13 10:03 | P.PNVS ---
Subjective Subjective/Hospital Course: 58-year-old male with chronic renal insufficiency and obstruction of vena cava. Is evident from previous admissions between 2010 and 2016 patient had stenosis of vena cava but now is completely obstructed. In addition patient has an old Bayqzt-x-Zjmy in this area and request is made to remove the same Will remove the Ybxigz-f-Vzef later today or tomorrow considering the patient had breakfast today Thanks J Objective Vital Signs / I&O: Vital Signs 07/12/18 14:53 07/12/18 18:00 07/12/18 20:05 Temperature 98.7 F Pulse Rate 72 76 64 Respiratory Rate 18 16 18 Blood Pressure 131/70 151/73 H 151/66 H Pulse Oximetry 98 100 100 07/13/18 00:00 07/13/18 04:00 07/13/18 07:46 Temperature 97.3 F L 97.6 F Pulse Rate 69 69 69 Respiratory Rate 17 17 Blood Pressure 119/63 117/55 L Pulse Oximetry 100 100 07/13/18 08:00 Temperature 97.6 F Pulse Rate 72 Respiratory Rate 12 Blood Pressure 138/64 Pulse Oximetry 100 Intake & Output 07/12/18 07/13/18 07/13/18 18:59 06:59 18:59 Intake Total 100 / 100 Output Total 1999 Balance -1900 / -1900 Weight 59.421 kg Intake: IV 100 / 100 10 / 10 Calcium Gluconate Inj 4.65 MEQ 100 / 100 10 In NS Inj 100 ML @ 110 mls/hr IV.SIG ONCE ONE Rx#:[id number] Output: Hemodialysis Amount 1999 Other: # Voids 1 0 Date of Last Bowel Movement 07/12/18 Laboratory Results - last 24 hr 07/12/18 07/12/18 07/12/18 18:05 18:05 18:05 WBC 7.8 RBC 4.22 L Hgb 12.2 L Hct 37.0 L MCV 87.8 MCH 28.9 MCHC 32.9 RDW 16.2 Plt Count 210 MPV 10.1 Neut % (Auto) 65.2 Lymph % (Auto) 19.4 Leake % (Auto) 7.6 Eos % (Auto) 6.0 H Baso % (Auto) 1.8 Neut # (Auto) 5.1 Lymph # (Auto) 1.5 Leake # (Auto) 0.6 Eos # (Auto) 0.5 H Baso # (Auto) 0.1 WBC Differential . Differential Comment Auto diff final PT 11.3 INR 1.1 APTT 31.9 H Sodium 130 L Potassium 6.3 H Chloride 95 L Carbon Dioxide 25.3 Anion Gap 10 BUN 73 H Creatinine 12.02 H* Estimated GFR 4 L POC Glucose Random Glucose 124 H Calcium 8.4 L Total Bilirubin AST ALT Alkaline Phosphatase Troponin I Less than 0.02 L Total Protein Albumin 07/13/18 07/13/18 07/13/18 04:33 04:33 09:51 WBC 6.6 RBC 4.32 L Hgb 12.4 L Hct 37.5 L MCV 86.8 MCH 28.7 MCHC 33.1 RDW 16.3 Plt Count 201 MPV 9.8 Neut % (Auto) 67.0 Lymph % (Auto) 20.1 Leake % (Auto) 7.1 Eos % (Auto) 4.6 H Baso % (Auto) 1.2 Neut # (Auto) 4.4 Lymph # (Auto) 1.3 Leake # (Auto) 0.5 Eos # (Auto) 0.3 Baso # (Auto) 0.1 WBC Differential . Differential Comment Auto diff final PT INR APTT Sodium 134 L Potassium 4.9 D Chloride 96 L Carbon Dioxide 27.4 Anion Gap 11 BUN 48 H Creatinine 9.51 H Estimated GFR 6 L POC Glucose 158 H Random Glucose 99 Calcium 8.7 Total Bilirubin 0.6 AST 16 ALT 9 L Alkaline Phosphatase 157 H Troponin I Total Protein 8.6 H Albumin 3.6 Impressions Chest X-Ray 07/12/18 16:54 CONCLUSION: Status post Yxadqb-v-Fvct placement. Right paratracheal stripe is widened raise possibility of hematoma or adenopathy. CT scan chest with IV contrast is recommended. The patient has a left subclavian stent Venous Doppler Study 07/12/18 16:54 CONCLUSION: 1. Limited suboptimal study due to motion and color-flow artifact. 2. The jugular veins appear partially collapsed with apparent nonocclusive thrombus. The subclavian through cephalic veins are compressible and patent. 3. Bilateral adenopathy. Chest CT 07/12/18 17:27 CONCLUSION: 1. The brachiocephalic vein is very stenotic in appearance with a right subclavian port catheter transversing through this region. The azygos vein is distended densely opacified and reconstitutes the distal superior vena cava. In the appropriate clinical setting this could be characteristic of superior vena caval syndrome. 2. Stable mediastinal adenopathy. 3. Multiple stable areas of apparent rounded atelectasis. 4. Normal pleural effusions.
[2018-07-13] MEDS: Calcium Acetate 667 MG Capsule PO SCH ×2 (14:24→21:46)
[2018-07-13] MEDS ORDERED: Lidocaine PF 1% Inj 5 ML Syringe INFILTRATN ONE (15:12)
[2018-07-13] MEDS ORDERED: Metoprolol Tartrate 25 MG Tablet PO ONE (15:15)
[2018-07-13] MEDS ORDERED: Chlorhexidine Gluconate 2% 1 Pack (2 Cloths) TOPICAL ONE (15:15)
[2018-07-13] MEDS ORDERED: Sodium Chlor 0.9% Inj 500 ML IV.CONT ONE (15:15)
[2018-07-13] MEDS ORDERED: Lidocaine 1%/Epinephrine 1:100,000 Inj 30 ML Vial ONE (15:26)
[2018-07-13] MEDS ORDERED: Bupivacaine/Epinephrine 0.5% Inj 50 ML Vial ONE (15:27)
[2018-07-13] MEDS ORDERED: fentaNYL Citrate Inj 100 MCG/2 ML Ampul ONE (16:56)
[2018-07-13] MEDS ORDERED: BRIMONIDINE 0.1% EACH EYE SCH (18:00)
[2018-07-13] MEDS ORDERED: OPTH EACH EYE SCH (18:00)
--- NOTE | 2018-07-13 18:24 | ECG ---
Date Performed: 07/12/2018 Time Performed: 19:52:33 PTAGE: 58 years EKG: Sinus rhythm Slight nonpecific intraventricular conduction delay. Poor R wave progression. Cannot exclude old ant erior infarct verses changes due to lead Placement or dueto the intraventricular conduction delay. AB NORMAL ECG PREVIOUS TRACING : 06/11/2018 13.59 DOCTOR: Awais Schuster Interpretating Date/Time 07/13/2018 18:23:57
--- NOTE | 2018-07-13 19:43 | MB ---
cc: Matthew Markham MD DATE: 07/13/2018 CONSULTING PHYSICIAN: Matthew Markham MD, of vascular surgery. REASON FOR CONSULTATION: Superior vena cava syndrome, obstruction of superior vena cava. HISTORY OF PRESENT ILLNESS: This 58-year-old male who presents to the hospital with swelling of the neck, shortness of breath and obvious swelling of the head. The patient apparently had a right Infusaport placed on by Dr. Meza and since then, has been swollen. A question was raised about any vascular implications. PAST MEDICAL HISTORY: Congestive heart failure, recurrent DVT, lupus erythematosus, systemic, rheumatoid arthritis, vena cava stenosis previously and the patient has some sort of a stent placed in the past. The patient also has end-stage renal disease and is on hemodialysis. PAST SURGICAL HISTORY: Right above-knee amputation, coronary artery stenting and some sort of a stent placement, probably in the subclavian vein as I do not see one in the vena cava. SOCIAL HISTORY: The patient does not drink, positive smoking. PHYSICAL EXAMINATION: GENERAL: Reveals an unfortunate 58-year-old gentleman appearing older than his actual age. HEENT: Normocephalic. No trauma to the head. Pupils are equal and reactive. Extraocular muscles intact. NECK: Supple. Bilateral carotid pulses. Distended neck veins present. The patient is swollen in the head and the chest with a cyanotic purplish hue. HEART: Regular rhythm. LUNGS: Bilateral breath sounds, decreased over both lung hoskins. The patient is somewhat obese. ABDOMEN: Soft. No rebound, no guarding. EXTREMITIES: The patient has a right above-knee amputation. On the left side, he has a palpable femoral pulse and distal by Doppler. No signs of acute vascular deficit. NEUROLOGIC: Awake, alert, and oriented and neurologically otherwise intact. IMPRESSION AND RECOMMENDATIONS: I reviewed the laboratory and diagnostic procedures. This gentleman has a known history of a vena cava stenosis on previous visits. The patient had a below-knee amputation in December 2016 and then an above-knee amputation after that. He has had previous CT scans and based on the current one, there are additional channels present, so I believe the patient had developed additional channels around the vena cava as collateral flow and placement of the Infusaport closed the remaining flow in the vena cava, causing the superior vena cava syndrome. At this point, the patient needs reversal of his Coumadin and then removal of the Infusaport, which I am going to go ahead with on 07/13/2018. Further care with clinical indices. The patient will benefit from a vena cava stent, although he is mainly decompressed through the azygos system. I thank you very much for the referral. Critical care 38 minutes. MD DORINA Espinal/cait , 04:31 PM , 04:42 PM MTDTu
--- NOTE | 2018-07-13 19:47 | MP ---
cc: Matthew Markham MD DATE OF OPERATION: 07/13/2018 PREOPERATIVE DIAGNOSES: Superior vena cava syndrome, occluded vena cava. POSTOPERATIVE DIAGNOSES: Superior vena cava syndrome, occluded vena cava. PROCEDURE PERFORMED: Right Infusaport removal. SURGEON: Matthew Markham MD ANESTHESIA: 1% Xylocaine and some sedation. ESTIMATED BLOOD LOSS: 10 mL. DESCRIPTION OF PROCEDURE: The patient was prepped and draped in the usual fashion. The area was infiltrated with 1% Xylocaine. Stitches were removed and then the Infusaport was reached. The Infusaport was grasped with an Allis clamp, elevated and then the catheter itself was grasped with a hemostat and the entire complex was removed. There was some bleeding to follow under pressure. This was controlled with some pressure and placement of a 2-0 Vicryl xzmuqh-ng-hoica. The area was irrigated with saline and then the pocket debrided with Metzenbaum scissors and closed with 3-0 Prolene. A pressure dressing applied. The patient tolerated the procedure well. MD DORINA Espinal/cait , 04:33 PM , 04:37 PM
[2018-07-13] MEDS: Hydroxychloroquine 200 MG Tablet PO SCH (21:45)
[2018-07-13] MEDS: Latanoprost 0.005% Opth Drops 2.5 ML Bottle EACH EYE SCH (21:45)
[2018-07-13] MEDS ORDERED: oxyCODONE/Acetaminophen 10/325 Tablet PO ONE (22:26)
[2018-07-13] MEDS: Dorzolamide-Timolol 2/0.5% Opth Drops 10 ML Bottle EACH EYE SCH (23:12)
[2018-07-14 04:39] LABS: Calcium 8.5 mg/dL (8.5-10.1)
[2018-07-14 04:47] LABS: Potassium 6.7 meq/L (3.5-5.1)
[2018-07-14] MEDS: Calcium Acetate 667 MG Capsule PO SCH ×4 (08:45→17:37)
[2018-07-14] MEDS: Dorzolamide-Timolol 2/0.5% Opth Drops 10 ML Bottle EACH EYE SCH ×2 (08:45→23:05)
[2018-07-14] MEDS: Hydroxychloroquine 200 MG Tablet PO SCH ×3 (08:46→23:06)
[2018-07-14] MEDS: Vitamin B Complex/Vit C/Folic Tablet PO SCH ×3 (08:46→09:01)
[2018-07-14] MEDS: Senna/Docusate Sodium 8.6/50 MG Tablet PO SCH (08:46)
[2018-07-14] MEDS: Gabapentin 300 MG Capsule PO SCH ×2 (08:47→09:02)
[2018-07-14] MEDS: Latanoprost 0.005% Opth Drops 2.5 ML Bottle EACH EYE SCH ×3 (08:53→17:37)
[2018-07-14] MEDS: amLODIPine 10 MG Tablet PO SCH ×2 (08:54→09:02)
[2018-07-14] MEDS ORDERED: [UNRECOGNIZED DRUG - OTHER] EACH EYE SCH (09:00)
--- NOTE | 2018-07-14 09:11 | P.PNNP ---
Subjective Interval history: Shortness of breath has improved. Continues to have increased swelling in neck region. <Valerie Booth - Last Filed: 07/14/18 09:31> Physical Exam Vital signs: Vital Signs 07/13/18 11:59 07/13/18 16:15 07/13/18 16:30 Temperature 97.7 F 97.7 F Pulse Rate 70 70 63 Respiratory Rate 16 14 15 Blood Pressure 121/57 L 161/73 H 132/61 Pulse Oximetry 100 100 99 07/13/18 16:45 07/13/18 17:00 07/13/18 17:15 Temperature Pulse Rate 65 65 69 Respiratory Rate 12 12 12 Blood Pressure 133/57 L 150/63 H 155/61 H Pulse Oximetry 100 100 100 07/13/18 17:30 07/13/18 18:00 07/13/18 19:00 Temperature 97.7 F Pulse Rate 69 71 67 Respiratory Rate 15 12 Blood Pressure 127/61 132/57 L Pulse Oximetry 100 100 07/13/18 20:00 07/13/18 20:50 07/13/18 21:00 Temperature 98 F Pulse Rate 70 68 Respiratory Rate 18 Blood Pressure 130/62 Pulse Oximetry 100 100 07/13/18 22:00 07/13/18 23:00 07/13/18 23:15 Temperature 97.7 F Pulse Rate 68 68 69 Respiratory Rate 16 Blood Pressure 133/59 L Pulse Oximetry 98 07/14/18 00:00 07/14/18 01:00 07/14/18 02:00 Temperature Pulse Rate 70 63 68 Respiratory Rate Blood Pressure Pulse Oximetry 07/14/18 03:00 07/14/18 04:00 07/14/18 05:00 Temperature 97.8 F Pulse Rate 68 68 76 Respiratory Rate 18 Blood Pressure 145/67 H Pulse Oximetry 98 07/14/18 06:10 Temperature Pulse Rate 78 Respiratory Rate Blood Pressure Pulse Oximetry Intake & Output 07/13/18 07/14/18 07/14/18 18:59 06:59 18:59 Intake Total 260 / 260 480 / 480 Output Total 5 / 5 Balance 255 / 255 480 / 480 Intake: IV 10 / 10 Calcium Gluconate Inj 4.65 MEQ 10 / 10 In NS Inj 100 ML @ 110 mls/hr IV.SIG ONCE ONE Rx#:[id number] Oral 480 / 480 Anesthesia Amount 250 / 250 Output: Estimated Blood Loss 5 / 5 Other: # Voids 0 Narrative: GENERAL: Very pleasant middle-aged male in no acute distress. SKIN: Warm and dry. Steri strips and sutures present on right chest wall. HEENT: PERRLA, Scleral injected. No lid lag or facial droop. Bilateral neck edema, no erythema, no airway compromise. CARDIOVASCULAR: Regular rate and rhythm. No obvious murmurs to auscultation. No chest tenderness to palpation. AVF left arm RESPIRATORY: No obvious rhonchi or wheezing. Clear to auscultation. Breath sounds equal bilaterally. GASTROINTESTINAL: Abdomen soft, non-tender, nondistended. BS normal. MUSCULOSKELETAL: Extremities without clubbing, cyanosis, +1 edema. No obvious deformities. Right AKA NEUROLOGICAL: Awake, alert and oriented x4. No focal neurologic deficits. Moving both upper and lower extremities spontaneously. PSYCHIATRIC: Appropriate mood and affect. Insight and judgment normal. <Valerie Booth - Last Filed: 07/14/18 09:31> Vital signs: Vital Signs 07/13/18 17:00 07/13/18 17:15 07/13/18 17:30 Temperature Pulse Rate 65 69 69 Respiratory Rate 12 12 15 Blood Pressure 150/63 H 155/61 H 127/61 Pulse Oximetry 100 100 100 07/13/18 18:00 07/13/18 19:00 07/13/18 20:00 Temperature 97.7 F 98 F Pulse Rate 71 67 70 Respiratory Rate 12 18 Blood Pressure 132/57 L 130/62 Pulse Oximetry 100 100 07/13/18 20:50 07/13/18 21:00 07/13/18 22:00 Temperature Pulse Rate 68 68 Respiratory Rate Blood Pressure Pulse Oximetry 100 07/13/18 23:00 07/13/18 23:15 07/14/18 00:00 Temperature 97.7 F Pulse Rate 68 69 70 Respiratory Rate 16 Blood Pressure 133/59 L Pulse Oximetry 98 07/14/18 01:00 07/14/18 02:00 07/14/18 03:00 Temperature Pulse Rate 63 68 68 Respiratory Rate Blood Pressure Pulse Oximetry 07/14/18 04:00 07/14/18 05:00 07/14/18 06:10 Temperature 97.8 F Pulse Rate 68 76 78 Respiratory Rate 18 Blood Pressure 145/67 H Pulse Oximetry 98 07/14/18 07:00 07/14/18 08:00 07/14/18 09:00 Temperature 97.9 F Pulse Rate 67 67 67 Respiratory Rate 16 Blood Pressure 122/58 L Pulse Oximetry 96 07/14/18 10:00 07/14/18 10:36 07/14/18 11:00 Temperature Pulse Rate 75 66 Respiratory Rate Blood Pressure Pulse Oximetry 96 07/14/18 12:00 07/14/18 13:00 07/14/18 14:00 Temperature 98 F Pulse Rate 66 63 70 Respiratory Rate 14 Blood Pressure 138/63 Pulse Oximetry 98 07/14/18 15:00 07/14/18 16:00 07/14/18 16:20 Temperature 98.1 F 98 F Pulse Rate 66 79 72 Respiratory Rate 16 17 Blood Pressure 139/66 138/63 Pulse Oximetry 95 92 L 07/14/18 16:46 Temperature Pulse Rate 64 Respiratory Rate 14 Blood Pressure 115/56 L Pulse Oximetry 93 L Intake & Output 07/13/18 07/14/18 07/14/18 18:59 06:59 18:59 Intake Total 260 / 260 480 / 480 110 / 110 Output Total 5 / 5 Balance 255 / 255 480 / 480 110 / 110 Intake: IV 10 110 / 110 Calcium Gluconate Inj 1 GM In 110 / 110 NS Inj 100 ML @ 110 mls/hr IV. SIG ONCE ONE Rx#:[id number] Calcium Gluconate Inj 4.65 MEQ / 10 In NS Inj 100 ML @ 110 mls/hr IV.SIG ONCE ONE Rx#:[id number] Oral 480 / 480 Anesthesia Amount 250 / 250 Output: Estimated Blood Loss 5 / 5 Other: # Voids 0 <Massiel Sharp Q - Last Filed: 07/14/18 16:57> Assessment and Plan - Assessment (1) ESRD (end stage renal disease) on dialysis Code(s): N18.6 - End stage renal disease; Z99.2 - Dependence on renal dialysis Status: Acute Plan: End stage renal disease on hemodialysis Friday, Friday, and Friday and [facility]. Plan Avoid IVF administration and gadolinium. Renal diet added to cardiac diet Fistulogram scheduled for today, AVF not working well at last dialysis session Plan for hemodialysis today. (2) SVC syndrome Code(s): I87.1 - Compression of vein Status: Acute Plan: Infusaport removed 07/13 Continues to have increased swelling (3) Acute hyperkalemia Code(s): E87.5 - Hyperkalemia Status: Acute Plan: Potassium elevated at 6.7 this morning. Waiting for fistulogram today, will treat with calcium gluconate, D50, insulin, and sodium bicarbonate. <Valerie Booth - Last Filed: 07/14/18 09:31> - Assessment (1) ESRD (end stage renal disease) on dialysis Code(s): N18.6 - End stage renal disease; Z99.2 - Dependence on renal dialysis Status: Acute Plan: Patient seen and examined, agree with above. Post removal of the port, seen in IR after AVG Thrombectomy, has Bruit. To get HD, was given treatment for Hyperkalemia. HD again in AM to put back to his regular schedule. (2) SVC syndrome Code(s): I87.1 - Compression of vein Status: Acute (3) Acute hyperkalemia Code(s): E87.5 - Hyperkalemia Status: Acute <Parish Sharp - Last Filed: 07/14/18 16:57>
[2018-07-14] MEDS ORDERED: Dextrose 50% in Water 50 ML Vial IV.PUSH ONE (09:38)
[2018-07-14] MEDS ORDERED: Calcium Gluconate Inj 1 GM in Sodium Chlor 0.9% Inj 100 ML IV.SIG ONE (12:00)
[2018-07-14] MEDS ORDERED: Sodium Polystyrene Sulfonate/Sorbitol Liq 15 GM/60 ML UDC PO ONE (13:00)
[2018-07-14] MEDS ORDERED: fentaNYL Citrate Inj 100 MCG/2 ML Ampul ONE (15:02)
--- NOTE | 2018-07-14 15:29 | P.RAD ---
Post Procedure Progress Note - Procedure Information Procedure Date: 07/14/18 Supervising Radiologist: Willem Cope MD Estimated blood loss (mL): 3 Anesthesia: Local, Conscious Sedation - Plan of Activity Patient to Unit: ROPU Patient Condition: Fair Additional Comments: Left upper extremity fistula evaluated. Outflow has multiple stents up the arm but is widely patent. High grade central stenosis evident at the junction of the innominate vein and SVC. Lesion was treated with a 12mm balloon with excellent result. Brisk flow through the AV fistula post procedure. full report to follow See PACS Report for procedural detail/treatment.
--- NOTE | 2018-07-14 15:47 | P.PNIM ---
Subjective Interval history: Patient seen this morning around 11 AM. Says he is feeling right. Denies any chest pain or shortness of breath currently. Physical Exam Vital signs: Vital Signs 07/13/18 16:15 07/13/18 16:30 07/13/18 16:45 Temperature 97.7 F Pulse Rate 70 63 65 Respiratory Rate 14 15 12 Blood Pressure 161/73 H 132/61 133/57 L Pulse Oximetry 100 99 100 07/13/18 17:00 07/13/18 17:15 07/13/18 17:30 Temperature Pulse Rate 65 69 69 Respiratory Rate 12 12 15 Blood Pressure 150/63 H 155/61 H 127/61 Pulse Oximetry 100 100 100 07/13/18 18:00 07/13/18 19:00 07/13/18 20:00 Temperature 97.7 F 98 F Pulse Rate 71 67 70 Respiratory Rate 12 18 Blood Pressure 132/57 L 130/62 Pulse Oximetry 100 100 07/13/18 20:50 07/13/18 21:00 07/13/18 22:00 Temperature Pulse Rate 68 68 Respiratory Rate Blood Pressure Pulse Oximetry 100 07/13/18 23:00 07/13/18 23:15 07/14/18 00:00 Temperature 97.7 F Pulse Rate 68 69 70 Respiratory Rate 16 Blood Pressure 133/59 L Pulse Oximetry 98 07/14/18 01:00 07/14/18 02:00 07/14/18 03:00 Temperature Pulse Rate 63 68 68 Respiratory Rate Blood Pressure Pulse Oximetry 07/14/18 04:00 07/14/18 05:00 07/14/18 06:10 Temperature 97.8 F Pulse Rate 68 76 78 Respiratory Rate 18 Blood Pressure 145/67 H Pulse Oximetry 98 07/14/18 07:00 07/14/18 08:00 07/14/18 09:00 Temperature 97.9 F Pulse Rate 67 67 67 Respiratory Rate 16 Blood Pressure 122/58 L Pulse Oximetry 96 07/14/18 10:00 07/14/18 10:36 07/14/18 11:00 Temperature Pulse Rate 75 66 Respiratory Rate Blood Pressure Pulse Oximetry 96 07/14/18 12:00 07/14/18 13:00 Temperature 98 F Pulse Rate 66 63 Respiratory Rate 14 Blood Pressure 138/63 Pulse Oximetry 98 Intake & Output 07/13/18 07/14/18 07/14/18 18:59 06:59 18:59 Intake Total 260 / 260 480 / 480 110 / 110 Output Total 5 / 5 Balance 255 / 255 480 / 480 110 / 110 Intake: IV 110 / 110 Calcium Gluconate Inj 1 GM In 110 / 110 NS Inj 100 ML @ 110 mls/hr IV. SIG ONCE ONE Rx#:[id number] Calcium Gluconate Inj 4.65 MEQ / 10 In NS Inj 100 ML @ 110 mls/hr IV.SIG ONCE ONE Rx#:[id number] Oral 480 / 480 Anesthesia Amount 250 / 250 Output: Estimated Blood Loss 5 / 5 Other: # Voids 0 Narrative: GENERAL: Patient sitting up in chair. Appears comfortable. SKIN: Warm and dry. HEAD: Normocephalic. EYES: No scleral icterus. No injection or drainage. NECK: Edematous neck, without erythema. CARDIOVASCULAR: Regular rate and rhythm without murmurs, gallops, or rubs. RESPIRATORY: Breath sounds equal bilaterally. No accessory muscle use. GASTROINTESTINAL: Abdomen soft, non-tender, nondistended. MUSCULOSKELETAL: No cyanosis. Trace edema. Right [id number]-ydg-isqi amputation. Left arm AV fistula with very slight bruit BACK: Nontender without obvious deformity. Results - Labs CBC & Chem 7: 07/13/18 04:33 07/14/18 03:39 Laboratory Results - last 24 hr 07/13/18 07/13/18 07/14/18 17:10 21:49 03:39 Sodium 134 L Potassium 6.7 H* D Chloride 96 L Carbon Dioxide 31.0 Anion Gap 7 BUN 57 H Creatinine 10.53 H* D Estimated GFR 5 L POC Glucose 128 H 117 H Random Glucose 124 H Calcium 8.5 07/14/18 12:49 Sodium Potassium Chloride Carbon Dioxide Anion Gap BUN Creatinine Estimated GFR POC Glucose 122 H Random Glucose Calcium Assessment and Plan - Assessment (1) SVC syndrome Code(s): I87.1 - Compression of vein Status: Acute (2) Hyperkalemia Code(s): E87.5 - Hyperkalemia Status: Acute (3) ESRD (end stage renal disease) on dialysis Code(s): N18.6 - End stage renal disease; Z99.2 - Dependence on renal dialysis Status: Acute (4) Hypertension Code(s): I10 - Essential (primary) hypertension Status: Chronic (5) Acute hyperkalemia Code(s): E87.5 - Hyperkalemia Status: Acute (6) Conjunctivitis Code(s): H10.9 - Unspecified conjunctivitis Status: Acute - Plan 58-year-old male with a PMH of HTN, CHF (Echo 12/13/16 w/ EF 40-45%), Lupus, RA, h/o Left Chest DVT (not on anticoagulation), h/o AKA and ESRD on HD / who presented to the ER w/ c/o neck swelling and SOB x1 wk. States he noticed "a double chin" approx 1 wk ago and thought it would go away after dialysis, however he's noted no improvement. States "feels like I'm drowning". Follows w / Dr. Sharp as outpatient, on HD /, last HD on Friday w/ no complications. Notes he had Right Chest Port placement on by Dr. Meza w/ Vascular Surgery. Denies fever, chills, cough or chest pain. CXR with Gciycb-p-Kxnn placement, right paratracheal stripe possibly hematoma or adenopathy, patent left subclavian stent. Doppler with partially collapsed jugular veins, nonocclusive thrombus, patent subclavian through cephalic veins. 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 Dr. Smith consulted by ER physician, will evaluate for SVC Syndrome, Dr. Alcantar consulted, arrangements made for emergent dialysis this evening. //SVC Syndrome: acute onset neck swelling x1 wk, CT Chest w/ significant stenosis brachiocephalic vein characteristic of SVC syndrome S/P port placement on - Dr. Smith consulted, will evaluate for possible intervention. -Keep NPO -monitor for airway compromise, sats, inc. SOB = Vascular surgery following. Appreciate assistance. //Left arm AV fistula. Fistula malfunction. 4 fistulogram today. //Hyperkalemia: K+ 6.3, EKG w/ peaked T-waves -Unable to have emergent HD, AV fistula nonfunctioning. Was tx with calcium gluconate, bicarb, insulin and D50 Labs better today, K 4.9 -appreciate nephrology input -going for fistulogram in IR today = Potassium 6.7. hyperkalemia protocol ordered by nephrology. I have added Kayexalate. Otherwise as per nephrology. //ESRD on HD: M/W/F -Following w/ Dr. Sharp //Conjunctivitis right eye worse than left. Continue with erythromycin ointment //Hypertension hx CHF -continue home meds when able to take PO //Hx RA -resume home meds when able to take PO /DVT Prophylaxis: SCD/Teds Labs in am will follow up on vascular surgery recommendations Pt. to transfer to [facility] for closer monitoring D/W RN, pt, CM Discharge Planning: We will need nephrology and vascular surgery clearance. PT consult ordered and pending. (4) Hypertension Qualifiers: Hypertension type: essential hypertension Qualified Code(s): I10 - Essential (primary) hypertension (6) Conjunctivitis Qualifiers: Conjunctivitis type: acute
[2018-07-15] MEDS: Senna/Docusate Sodium 8.6/50 MG Tablet PO SCH ×2 (05:00→09:21)
[2018-07-15] MEDS: Gabapentin 300 MG Capsule PO SCH (09:18)
[2018-07-15] MEDS: Hydroxychloroquine 200 MG Tablet PO SCH (09:19)
[2018-07-15] MEDS: Vitamin B Complex/Vit C/Folic Tablet PO SCH ×2 (09:19→09:22)
[2018-07-15] MEDS: amLODIPine 10 MG Tablet PO SCH (09:19)
[2018-07-15] MEDS: Latanoprost 0.005% Opth Drops 2.5 ML Bottle EACH EYE SCH ×3 (09:21→17:08)
[2018-07-15] MEDS: Calcium Acetate 667 MG Capsule PO SCH ×3 (09:21→17:07)
[2018-07-15] MEDS: Dorzolamide-Timolol 2/0.5% Opth Drops 10 ML Bottle EACH EYE SCH (09:22)
--- NOTE | 2018-07-15 11:16 | P.PNNP ---
Subjective Interval history: Patients neck and face swelling improving. Hemodialysis yesterday but only able to do 1 hour as AVG continues to have high flows. <Valerie Booth - Last Filed: 07/15/18 13:32> Physical Exam Vital signs: Vital Signs 07/14/18 12:00 07/14/18 13:00 07/14/18 14:00 Temperature 98 F Pulse Rate 66 63 70 Respiratory Rate 14 Blood Pressure 138/63 Pulse Oximetry 98 07/14/18 15:00 07/14/18 16:00 07/14/18 16:20 Temperature 98.1 F 98 F Pulse Rate 66 79 72 Respiratory Rate 16 17 Blood Pressure 139/66 138/63 Pulse Oximetry 95 92 L 07/14/18 16:46 07/14/18 17:00 07/14/18 17:14 Temperature Pulse Rate 64 71 Respiratory Rate 14 Blood Pressure 115/56 L Pulse Oximetry 93 L 93 L 07/14/18 17:15 07/14/18 18:00 07/14/18 19:00 Temperature Pulse Rate 63 70 79 Respiratory Rate 16 Blood Pressure 118/58 L Pulse Oximetry 95 07/14/18 20:00 07/14/18 21:00 07/14/18 22:00 Temperature 97.9 F Pulse Rate 79 79 80 Respiratory Rate 20 Blood Pressure 147/88 H Pulse Oximetry 100 07/14/18 23:00 07/15/18 00:00 07/15/18 01:00 Temperature 98.2 F Pulse Rate 76 76 71 Respiratory Rate 20 Blood Pressure 136/64 Pulse Oximetry 94 L 07/15/18 02:00 07/15/18 03:00 07/15/18 04:00 Temperature 97.9 F Pulse Rate 82 83 77 Respiratory Rate 18 Blood Pressure 131/60 Pulse Oximetry 95 07/15/18 05:00 07/15/18 06:00 07/15/18 07:00 Temperature 97.7 F Pulse Rate 77 80 70 Respiratory Rate 20 Blood Pressure 133/62 Pulse Oximetry 97 07/15/18 08:00 07/15/18 09:00 07/15/18 10:00 Temperature Pulse Rate 73 74 74 Respiratory Rate Blood Pressure Pulse Oximetry 97 Intake & Output 07/14/18 07/15/18 07/15/18 18:59 06:59 18:59 Intake Total 320 / 320 210 / 210 Balance 320 / 320 210 / 210 Weight 59.421 kg Intake: IV 110 / 110 Calcium Gluconate Inj 1 GM In 110 / 110 NS Inj 100 ML @ 110 mls/hr IV. SIG ONCE ONE Rx#:[id number] Oral 210 Other: # Voids 0 Date of Last Bowel Movement 07/15/18 # Bowel Movements 8 Narrative: GENERAL: Patient sitting up in chair. Appears comfortable. SKIN: Warm and dry. HEAD: Normocephalic. EYES: No scleral icterus. No injection or drainage. NECK: Edematous neck, without erythema. CARDIOVASCULAR: Regular rate and rhythm without murmurs, gallops, or rubs. RESPIRATORY: Breath sounds equal bilaterally. No accessory muscle use. GASTROINTESTINAL: Abdomen soft, non-tender, nondistended. MUSCULOSKELETAL: No cyanosis. Trace edema. Right yhimt-asq-mzss amputation. Left arm AV fistula with with very slight bruit BACK: Nontender without obvious deformity. <Valerie Booth - Last Filed: 07/15/18 13:32> Vital signs: Vital Signs 07/14/18 23:00 07/15/18 00:00 07/15/18 01:00 Temperature 98.2 F Pulse Rate 76 76 71 Respiratory Rate 20 Blood Pressure 136/64 Pulse Oximetry 94 L 07/15/18 02:00 07/15/18 03:00 07/15/18 04:00 Temperature 97.9 F Pulse Rate 82 83 77 Respiratory Rate 18 Blood Pressure 131/60 Pulse Oximetry 95 07/15/18 05:00 07/15/18 06:00 07/15/18 07:00 Temperature 97.7 F Pulse Rate 77 80 70 Respiratory Rate 20 Blood Pressure 133/62 Pulse Oximetry 97 07/15/18 08:00 07/15/18 09:00 07/15/18 10:00 Temperature Pulse Rate 73 74 74 Respiratory Rate Blood Pressure Pulse Oximetry 97 07/15/18 11:00 07/15/18 12:00 07/15/18 13:00 Temperature 98 F Pulse Rate 61 81 64 Respiratory Rate 18 Blood Pressure 121/57 L Pulse Oximetry 93 L 07/15/18 14:00 07/15/18 15:00 07/15/18 17:26 Temperature 97.9 F Pulse Rate 67 67 Respiratory Rate 16 Blood Pressure 106/52 L Pulse Oximetry 93 L 93 L Intake & Output 07/15/18 07/15/18 07/16/18 06:59 18:59 06:59 Intake Total 210 / 210 610 / 610 100 / 100 Output Total 2500 / 2500 Balance 210 / 210 610 / 610 -2400 / -2400 Weight 59.421 kg Intake: IV 110 / 110 100 / 100 Flexbumin 25% Inj 100 ML @ 60 100 / 100 mls/hr IV.SIG WITH DIALYSIS PRN Rx#:[id number] Calcium Gluconate Inj 1 GM In 110 / 110 NS Inj 100 ML @ 110 mls/hr IV. SIG ONCE ONE Rx#:[id number] Oral 210 / 210 500 / 500 Output: Hemodialysis Amount 2500 / 2500 Other: # Voids 0 Date of Last Bowel Movement 07/15/18 # Bowel Movements 8 <Parish Sharp - Last Filed: 07/15/18 22:41> Assessment and Plan - Assessment (1) ESRD (end stage renal disease) on dialysis Code(s): N18.6 - End stage renal disease; Z99.2 - Dependence on renal dialysis Status: Acute Plan: End stage renal disease on hemodialysis Friday, Friday, and Friday and [facility]. Plan Avoid IVF administration and gadolinium. Renal diet added to cardiac diet, well increase protein IR yesterday with AVF Thrombectomy, hemodialysis yesterday and AVG still not working well enough for effective dialysis AVG could improve as swelling and inflammation improves. Will proceed now with vas cath in groin region for dialysis today, orders placed Hyperkalemia with potassium of 7, treated with calcium gluconate, insulin, D50, and Kayexalate. (2) SVC syndrome Code(s): I87.1 - Compression of vein Status: Acute Plan: Infusaport removed 07/13 Swelling improving (3) Acute hyperkalemia Code(s): E87.5 - Hyperkalemia Status: Acute Plan: Potassium elevated at 7.0 t Treat with calcium gluconate, D50, insulin, and Kayexalate. <Valerie Booth - Last Filed: 07/15/18 13:32> - Assessment (1) ESRD (end stage renal disease) on dialysis Code(s): N18.6 - End stage renal disease; Z99.2 - Dependence on renal dialysis Status: Acute Plan: Patient seen and examined, agree with above. Patient has low BF in AVF with increase venous and arterial pressure. D/W IR, patient has central venous stenosis and angioplasty with stent was done. Will get Vascath in femoral, he has neck veins all stenosed. HD today. (2) SVC syndrome Code(s): I87.1 - Compression of vein Status: Acute (3) Acute hyperkalemia Code(s): E87.5 - Hyperkalemia Status: Acute <Parish Sharp - Last Filed: 07/15/18 22:41>
--- NOTE | 2018-07-15 11:22 | IR ---
EXAM DATE: 07/14/2018 4:01 PM EDT AGE/SEX: 58 years / Male INDICATIONS: Patient with AV fistula. Decrease of thrill. Possible central venous stenosis. CLINICAL DATA: This is the patient's initial encounter. Patient reports that signs and symptoms have been present for 4 - 6 days and indicates a pain score of 0/10. MEDICAL/SURGICAL HISTORY: Hypertension. Renal disease, end stage. Deep venous thrombosis. CH F, broken back, Lupus, former smoker Peripheral vascular stent. Coronary artery stent. rt above kne e amputation,infusaport place and removal COMPARISON: No prior exams available for comparison. FLUORO TIME (min): 6.0 IMAGE SERIES: 9 ACCESS SITE: Left arm SEDATION TIME (min): 30 CONTRAST (cc): 70cc Visipaque (iodixanol) MEDICATION(S): 75mcg fentanyl (Sublimaze) IV DEVICE(S): SVC vein [employer] Balloon 12 X 4 XXL PROCEDURE: 1. Ultrasound guided puncture of the arterial limb of the fistula. 2. Evaluation of dialysis graft. 3. Upper extremity venogram 4. Superior venacavogram. 5. Conscious sedation with continuous EKG and oximetry monitoring. The risks, benefits and alternatives to the procedure were explained and verbal and written consent w as obtained. The site was prepped in sterile fashion. Full sterile technique was used, including ca p, mask, sterile gloves and gown and a large sterile sheet. Hand hygiene and 2% chlorhexidine and/or betadine/alcohol prep was utilized per protocol for cutaneous antisepsis. Sterile gel and sterile p robe cover were utilized for ultrasound guidance. The skin and subcutaneous tissues were infiltrated with local anesthetic solution. The arterial inflow to the AV fistula was examined with ultrasound. Is widely patent by ultrasound. With ultrasound and fluoroscopic guidance the arterial limb of the fistula was punctured directed tow kamran the venous anastomosis. Positive contrast was injected to evaluate the fistula and outflow of th e upper extremity and superior venacaval. The examination demonstrates multiple covered stents within the patient's AV fistula. The outflow is via the brachial vein. The stents are widely patent. The remaining portions of alatna brachial vein a re widely patent. The stented segment of axillary vein appeared widely patent. Examination of the central venous circulation demonstrated focal occlusion of the SVC at the junction with the innominate vein. A 0.035 angle glide wire and Berenstein catheter were manipulated across the occlusion. A 7 Pashto sh eath was passed into the outflow vein of the fistula. A 12 mm angioplasty balloon was advanced across the area of occlusion. Prolong, high-pressure angioplasty was performed. Follow-up evaluation demons trated excellent response to the angioplasty with brisk outflow from the innominate vein and into the SVC. The patient tolerated the procedure well. Hemostasis was achieved with manual compression. The patient tolerated the procedure well and there were no complications. Conscious sedation was per formed with the prescribed dosages and duration as above in the presence of an independent trained ra diology nurse to assist in the monitoring of the patient. EKG and oximetry remained stable throughou t the procedure. CONCLUSION: 1. Successful recannulization of the superior vena cava at the junction of the innominate vein and t he SVC. Following angioplasty there was excellent flow through the fistula, the outflow veins in the arm and the central venous circulation. Electronically signed by: Willem Cope MD 07/15/2018 11:20 AM EDT
[2018-07-15 12:59] LABS: Albumin 3.4 g/dL (3.4-5.0); Calcium 8.3 mg/dL (8.5-10.1); Carbon Dioxide 29.5 meq/L (21.0-32.0); Phosphorus 6.6 mg/dL (2.5-4.9)
--- NOTE | 2018-07-15 12:59 | P.PNIM ---
Subjective Interval history: Patient reports facial fullness continues. Denies any chest pain. Nursing reports that hemodialysis went for 1 hour yesterday prior to malfunction of left arm fistula. Physical Exam Vital signs: Vital Signs 07/14/18 13:00 07/14/18 14:00 07/14/18 15:00 Temperature Pulse Rate 63 70 66 Respiratory Rate Blood Pressure Pulse Oximetry 07/14/18 16:00 07/14/18 16:20 07/14/18 16:46 Temperature 98.1 F 98 F Pulse Rate 79 72 64 Respiratory Rate 16 17 14 Blood Pressure 139/66 138/63 115/56 L Pulse Oximetry 95 92 L 93 L 07/14/18 17:00 07/14/18 17:14 07/14/18 17:15 Temperature Pulse Rate 71 63 Respiratory Rate 16 Blood Pressure 118/58 L Pulse Oximetry 93 L 95 07/14/18 18:00 07/14/18 19:00 07/14/18 20:00 Temperature 97.9 F Pulse Rate 70 79 79 Respiratory Rate 20 Blood Pressure 147/88 H Pulse Oximetry 100 07/14/18 21:00 07/14/18 22:00 07/14/18 23:00 Temperature Pulse Rate 79 80 76 Respiratory Rate Blood Pressure Pulse Oximetry 07/15/18 00:00 07/15/18 01:00 07/15/18 02:00 Temperature 98.2 F Pulse Rate 76 71 82 Respiratory Rate 20 Blood Pressure 136/64 Pulse Oximetry 94 L 07/15/18 03:00 07/15/18 04:00 07/15/18 05:00 Temperature 97.9 F Pulse Rate 83 77 77 Respiratory Rate 18 Blood Pressure 131/60 Pulse Oximetry 95 07/15/18 06:00 07/15/18 07:00 07/15/18 08:00 Temperature 97.7 F Pulse Rate 80 70 73 Respiratory Rate 20 Blood Pressure 133/62 Pulse Oximetry 97 97 07/15/18 09:00 07/15/18 10:00 07/15/18 11:00 Temperature 98 F Pulse Rate 74 74 61 Respiratory Rate 18 Blood Pressure 121/57 L Pulse Oximetry 93 L 07/15/18 12:00 Temperature Pulse Rate 81 Respiratory Rate Blood Pressure Pulse Oximetry Intake & Output 07/14/18 07/15/18 07/15/18 18:59 06:59 18:59 Intake Total 320 / 320 210 / 210 Balance 320 / 320 210 / 210 Weight 59.421 kg Intake: IV 110 / 110 Calcium Gluconate Inj 1 GM In 110 / 110 NS Inj 100 ML @ 110 mls/hr IV. SIG ONCE ONE Rx#:[id number] Oral 210 / 210 210 / 210 Other: # Voids 0 Date of Last Bowel Movement 07/15/18 # Bowel Movements 8 Narrative: GENERAL: Patient sitting up in chair. Appears comfortable. Exam unchanged from yesterday. SKIN: Warm and dry. HEAD: Normocephalic. EYES: No scleral icterus. No injection or drainage. NECK: Edematous neck, without erythema. CARDIOVASCULAR: Regular rate and rhythm without murmurs, gallops, or rubs. RESPIRATORY: Breath sounds equal bilaterally. No accessory muscle use. GASTROINTESTINAL: Abdomen soft, non-tender, nondistended. MUSCULOSKELETAL: No cyanosis. Trace edema. Right lsyra-syf-oxwe amputation. Left arm AV fistula with very slight bruit. Still with very slight bruit BACK: Nontender without obvious deformity. Results - Labs CBC & Chem 7: 07/13/18 04:33 07/14/18 03:39 Laboratory Results - last 24 hr 07/14/18 07/15/18 12:49 08:38 POC Glucose 122 H 121 H - Imaging Impressions Shunt Study 07/14/18 00:00 CONCLUSION: 1. Successful recannulization of the superior vena cava at the junction of the innominate vein and the SVC. Following angioplasty there was excellent flow through the fistula, the outflow veins in the arm and the central venous circulation. Assessment and Plan - Assessment (1) SVC syndrome Code(s): I87.1 - Compression of vein Status: Acute (2) Hyperkalemia Code(s): E87.5 - Hyperkalemia Status: Acute (3) ESRD (end stage renal disease) on dialysis Code(s): N18.6 - End stage renal disease; Z99.2 - Dependence on renal dialysis Status: Acute (4) Hypertension Code(s): I10 - Essential (primary) hypertension Status: Chronic (5) Acute hyperkalemia Code(s): E87.5 - Hyperkalemia Status: Acute (6) Conjunctivitis Code(s): H10.9 - Unspecified conjunctivitis Status: Acute - Plan 58-year-old male with a PMH of HTN, CHF (Echo 12/13/16 w/ EF 40-45%), Lupus, RA, h/o Left Chest DVT (not on anticoagulation), h/o AKA and ESRD on HD / who presented to the ER w/ c/o neck swelling and SOB x1 wk. States he noticed "a double chin" approx 1 wk ago and thought it would go away after dialysis, however he's noted no improvement. States "feels like I'm drowning". Follows w / Dr. Sharp as outpatient, on HD , last HD on Friday w/ no complications. Notes he had Right Chest Port placement on by Dr. Meza w/ Vascular Surgery. Denies fever, chills, cough or chest pain. CXR with Mtmghd-[id number]-Owcv placement, right paratracheal stripe possibly hematoma or adenopathy, patent left subclavian stent. Doppler with partially collapsed jugular veins, nonocclusive thrombus, patent subclavian through cephalic veins. 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 Dr. Smith consulted by ER physician, will evaluate for SVC Syndrome, Dr. Alcantar consulted, arrangements made for emergent dialysis this evening. //SVC Syndrome: acute onset neck swelling x1 wk, CT Chest w/ significant stenosis brachiocephalic vein characteristic of SVC syndrome S/P port placement on - Dr. Smith consulted, will evaluate for possible intervention. -Keep NPO -monitor for airway compromise, sats, inc. SOB = Vascular surgery following. Appreciate assistance. //Left arm AV fistula. Fistula malfunction. = Nephrology following. //Hyperkalemia: K+ 6.3, EKG w/ peaked T-waves -Unable to have emergent HD, AV fistula nonfunctioning. Was tx with calcium gluconate, bicarb, insulin and D50 Labs better today, K 4.9 -appreciate nephrology input -going for fistulogram in IR today = Potassium 6.7. hyperkalemia protocol ordered by nephrology. I have added Kayexalate. Otherwise as per nephrology. = 07/15. Follow-up repeat labs //ESRD on HD: /W/F -Following w/ Dr. Sharp //Conjunctivitis right eye worse than left. Continue with erythromycin ointment //Hypertension hx CHF -continue home meds when able to take PO //Hx RA -resume home meds when able to take PO /DVT Prophylaxis: SCD/Teds Discharge Planning: We will need nephrology and vascular surgery clearance. (4) Hypertension Qualifiers: Hypertension type: essential hypertension Qualified Code(s): I10 - Essential (primary) hypertension (6) Conjunctivitis Qualifiers: Conjunctivitis type: acute
[2018-07-15] MEDS ORDERED: Sodium Polystyrene Sulfonate/Sorbitol Liq 15 GM/60 ML UDC PO ONE (13:14)
[2018-07-15] MEDS ORDERED: Calcium Gluconate Inj 1 GM in Sodium Chlor 0.9% Inj 100 ML IV.SIG ONE (14:00)
[2018-07-15] MEDS ORDERED: Dextrose 50% in Water 50 ML Vial IV.PUSH ONE (14:00)
[2018-07-15] MEDS ORDERED: *Heparin 10,000 UNITS/10 ML Vial Periprocedural ONLY ONE (16:15)
[2018-07-15] MEDS ORDERED: fentaNYL Citrate Inj 250 MCG/5 ML Ampul ONE (16:15)
[2018-07-15] MEDS ORDERED: Heparin Central Flush 100 UNIT/ML 5 ML Vial IV.FLUSH PRN (16:46)
--- NOTE | 2018-07-15 16:49 | P.RAD ---
Post Procedure Progress Note - Pre Procedure Diagnosis (1) SVC syndrome (2) ESRD (end stage renal disease) on dialysis - Post Procedure Diagnosis (1) SVC syndrome (2) ESRD (end stage renal disease) on dialysis - Procedure Information Procedure Date: 07/15/18 Supervising Radiologist: Manpreet Clemons Jr, MD Proceduralist/Assist: Мария Quiroz Anesthesia: Other - Plan of Activity Patient to Unit: Nursing Unit Patient Condition: Good See PACS Report for procedural detail/treatment. [facility] Radiology Procedures right Femoral Hemodialysis Catheter Non-Tunneled Placement Device: dual lumen Prydeinig: 14 - Additional Detail Findings: Pt with SVC syndrome and central venous occlusion in chest. Placed RCFV vascath. In good position and functions well. OK to use. Plan: Routine Vascath care.
[2018-07-15] MEDS ORDERED: Dextrose 50% in Water Syringe 50 ML ONE (17:15)
[2018-07-15] MEDS ORDERED: Dextrose 50% in Water 50 ML Vial IV.PUSH PRN (19:38)
[2018-07-16] MEDS: Hydroxychloroquine 200 MG Tablet PO SCH ×3 (01:45→22:37)
[2018-07-16] MEDS: Clotrimazole 1% Cream 15 GM Tube TOPICAL SCH ×3 (01:45→22:38)
[2018-07-16] MEDS: Dorzolamide-Timolol 2/0.5% Opth Drops 10 ML Bottle EACH EYE SCH ×3 (01:45→22:38)
[2018-07-16] MEDS: Senna/Docusate Sodium 8.6/50 MG Tablet PO SCH ×3 (01:46→22:46)
[2018-07-16 04:32] LABS: Baso # (Auto) 0.1 th/mm3 (0.0-0.2); Baso % (Auto) 1.5 % (0.0-2.0); Eos # (Auto) 0.3 th/mm3 (0.0-0.4); Eos % (Auto) 6.5 % (0.0-4.0); Hematocrit 35.3 % (39.0-51.0); Hemoglobin 11.2 gm/dL (13.0-17.0); Lymph # (Auto) 1.1 th/mm3 (1.0-4.8); Lymph % (Auto) 23.1 % (9.0-44.0); Mean Corpuscular HGB Conc 31.6 % (32.0-36.0); Mean Corpuscular Hemoglobin 28.4 pg (27.0-34.0); Mean Corpuscular Volume 89.6 fL (80.0-100.0); Mean Platelet Volume 9.4 fL (7.0-11.0); Mono # (Auto) 0.5 th/mm3 (0.0-0.9); Mono % (Auto) 11.3 % (0.0-8.0); Neut # (Auto) 2.7 th/mm3 (1.8-7.7); Neut % (Auto) 57.6 % (16.0-70.0); Platelet Count 146 th/mm3 (150-450); Red Blood Count 3.94 mil/mm3 (4.50-5.90); Red Cell Distribution Width 16.9 % (11.6-17.2); White Blood Count 4.6 th/mm3 (4.0-11.0)
[2018-07-16 05:07] LABS: Albumin 3.6 g/dL (3.4-5.0); Carbon Dioxide 32.1 meq/L (21.0-32.0); Magnesium 2.2 mg/dL (1.5-2.5); Phosphorus 4.5 mg/dL (2.5-4.9); Potassium 3.9 meq/L (3.5-5.1)
[2018-07-16] MEDS: Acetaminophen 325 MG Tablet PO PRN (07:41)
--- NOTE | 2018-07-16 08:37 | IR ---
EXAM DATE: 07/15/2018 4:58 PM EDT AGE/SEX: 58 years / Male INDICATIONS: Patient with history of end stage renal disease in need of non tunneled dialysis cathet er placement. 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 CLINICAL DATA: This is the patient's initial encounter. Patient reports that signs and symptoms have been present for 3 days and indicates a pain score of 0/10. MEDICAL/SURGICAL HISTORY: Rheumatoid arthritis. ESRD, CHF, HTN, Lupus, DVT BKA Right lower extr emity, Heart stent, Port placement, AV fistula COMPARISON: No prior exams available for comparison. FLUORO TIME (min): 0.1 IMAGE SERIES: 1 ACCESS SITE: Right femoral vein SEDATION TIME (min): 30 MEDICATION(S): 1mg lorazepam (Ativan) IV DEVICE(S): 14 Tajik double lumen X24CM Schon catheter . . PROCEDURE : 1. Ultrasound guided venipuncture. 2. Fluoroscopic guidance. 3. Central line placement. The risks, benefits and alternatives to the procedure were explained and verbal and written consent w as obtained. The site was prepped in sterile fashion. Full sterile technique was used, including ca p, mask, sterile gloves and gown and a large sterile sheet. Hand hygiene and 2% chlorhexidine prep w as utilized per protocol for cutaneous antisepsis with appropriate dry time for site. Sterile gel an d sterile probe cover were utilized for ultrasound guidance. The skin and subcutaneous tissues were infiltrated with local anesthetic solution. A suitable site a denis the vein was selected with ultrasound and fluoroscopic guidance. A small incision was made. Th e right common femoral vein was accessed under direct ultrasound visualization using the micropunctur e technique. The micropuncture set was exchanged for a 0.035 wire. The tract was dilated. The cath eter was advanced into position under direct fluoroscopic visualization, and was advanced with the ti p at the junction of the superior vena cava and rt atrium. The catheter was fixed in place with sutu re and a sterile dressing was applied. The patient tolerated the procedure well and there were no complications. CONCLUSION: 1. Uncomplicated Vas-catheter placement as above. Electronically signed by: Manpreet Clemons MD 07/16/2018 8:36 AM EDT
[2018-07-16] MEDS: amLODIPine 10 MG Tablet PO SCH (09:05)
[2018-07-16] MEDS: Calcium Acetate 667 MG Capsule PO SCH ×3 (09:05→18:25)
[2018-07-16] MEDS: Vitamin B Complex/Vit C/Folic Tablet PO SCH ×2 (09:05→09:11)
[2018-07-16] MEDS: Gabapentin 300 MG Capsule PO SCH (09:05)
[2018-07-16] MEDS: Latanoprost 0.005% Opth Drops 2.5 ML Bottle EACH EYE SCH ×3 (09:10→18:45)
--- NOTE | 2018-07-16 09:22 | P.PNNP ---
Subjective Interval history: Vas cath placed and hemodialysis done yesterday. Hyperkalemia has resolved with potassium level of 3.9 today <Valerie Booth - Last Filed: 07/16/18 09:33> Physical Exam Vital signs: Vital Signs 07/15/18 10:00 07/15/18 11:00 07/15/18 12:00 Temperature 98 F Pulse Rate 74 61 81 Respiratory Rate 18 Blood Pressure 121/57 L Pulse Oximetry 93 L 07/15/18 13:00 07/15/18 14:00 07/15/18 15:00 Temperature 97.9 F Pulse Rate 64 67 67 Respiratory Rate 16 Blood Pressure 106/52 L Pulse Oximetry 93 L 07/15/18 17:26 07/15/18 21:00 07/15/18 22:00 Temperature 97.9 F Pulse Rate 70 70 Respiratory Rate 20 Blood Pressure 135/63 Pulse Oximetry 93 L 100 07/15/18 23:00 07/16/18 00:00 07/16/18 01:00 Temperature 98.6 F Pulse Rate 73 73 68 Respiratory Rate 18 Blood Pressure 127/62 Pulse Oximetry 100 07/16/18 02:00 07/16/18 03:00 07/16/18 04:00 Temperature 98.1 F Pulse Rate 68 64 72 Respiratory Rate 18 Blood Pressure Pulse Oximetry 100 07/16/18 05:00 07/16/18 06:00 07/16/18 07:00 Temperature 97.6 F Pulse Rate 70 73 68 Respiratory Rate 16 Blood Pressure 122/60 Pulse Oximetry 97 07/16/18 08:00 Temperature Pulse Rate Respiratory Rate Blood Pressure Pulse Oximetry 97 Intake & Output 07/15/18 07/16/18 07/16/18 18:59 06:59 18:59 Intake Total 610 / 610 820 / 820 Output Total 2500 / 2500 Balance 610 / 610 -1680 / -1680 Weight 59 kg Intake: IV 110 / 110 100 / 100 Flexbumin 25% Inj 100 ML @ 60 100 / 100 mls/hr IV.SIG WITH DIALYSIS PRN Rx#:[id number] Calcium Gluconate Inj 1 GM In 110 / 110 NS Inj 100 ML @ 110 mls/hr IV. SIG ONCE ONE Rx#:[id number] Oral 500 / 500 720 / 720 Output: Hemodialysis Amount 2500 / 2500 Other: # Voids 0 Date of Last Bowel Movement 07/16/18 # Bowel Movements 2 Narrative: GENERAL: Patient sitting up in chair. Appears comfortable. SKIN: Warm and dry. Vas cath HEAD: Normocephalic. EYES: No scleral icterus. No injection or drainage. NECK: Edematous neck, without erythema. CARDIOVASCULAR: Regular rate and rhythm without murmurs, gallops, or rubs. RESPIRATORY: Breath sounds equal bilaterally. No accessory muscle use. GASTROINTESTINAL: Abdomen soft, non-tender, nondistended. MUSCULOSKELETAL: No cyanosis. Trace edema. Right njuxi-jgi-[id number] amputation. Left arm AV fistula with with very slight bruit BACK: Nontender without obvious deformity. <Valerie Booth - Last Filed: 07/16/18 09:33> Vital signs: Vital Signs 07/16/18 16:00 07/16/18 17:00 07/16/18 19:00 Temperature 98.4 F Pulse Rate 61 63 60 Respiratory Rate 18 Blood Pressure 120/56 L Pulse Oximetry 97 07/16/18 20:00 07/16/18 22:00 07/16/18 23:00 Temperature Pulse Rate 61 61 66 Respiratory Rate 20 Blood Pressure Pulse Oximetry 07/17/18 00:00 07/17/18 01:00 07/17/18 02:00 Temperature Pulse Rate 60 71 66 Respiratory Rate Blood Pressure Pulse Oximetry 07/17/18 03:00 07/17/18 04:00 07/17/18 05:00 Temperature 97.9 F Pulse Rate 64 60 76 Respiratory Rate 22 Blood Pressure 135/65 Pulse Oximetry 95 07/17/18 06:00 07/17/18 07:00 07/17/18 08:00 Temperature 97.7 F Pulse Rate 67 61 61 Respiratory Rate 18 Blood Pressure 121/60 Pulse Oximetry 07/17/18 08:31 07/17/18 11:00 Temperature 98.0 F Pulse Rate 72 Respiratory Rate 18 Blood Pressure 118/63 Pulse Oximetry 95 Intake & Output 07/16/18 07/17/18 07/17/18 18:59 06:59 18:59 Intake Total 240 / 240 480 / 480 Output Total 0 / 0 0 / 0 3000 / 3000 Balance 240 / 240 480 / 480 -3000 / -3000 Weight 58.5 kg Intake: Oral 240 / 240 480 / 480 Output: Urine 0 / 0 0 / 0 Hemodialysis Amount 3000 / 3000 Other: # Voids 0 Date of Last Bowel Movement 07/16/18 # Bowel Movements 0 <Parish Sharp - Last Filed: 07/17/18 15:40> Assessment and Plan - Assessment (1) ESRD (end stage renal disease) on dialysis Code(s): N18.6 - End stage renal disease; Z99.2 - Dependence on renal dialysis Status: Acute Plan: End stage renal disease on hemodialysis Friday, Friday, and Friday and [facility]. Plan Avoid IVF administration and gadolinium. Renal diet IR yesterday with AVF Thrombectomy 07/14 but still not working well enough for effective dialysis AVF could improve as swelling and inflammation improves. Vas cath placed 07/15 in femoral vein , neck veins all stenosed. Hemodialysis yesterday with removal of 2.5 liters of fluid Hyperkalemia has resolved with potassium level of 3.9 today Hemodialysis planned for tomorrow (2) SVC syndrome Code(s): I87.1 - Compression of vein Status: Acute Plan: Infusaport removed 07/13 Swelling improving (3) Acute hyperkalemia Code(s): E87.5 - Hyperkalemia Status: Acute Plan: resolved at 3.9 today <Valerie Booth - Last Filed: 07/16/18 09:33> - Assessment (1) ESRD (end stage renal disease) on dialysis Code(s): N18.6 - End stage renal disease; Z99.2 - Dependence on renal dialysis Status: Acute Plan: Patient seen and examined, agree with above. Will try to use AVF tomorrow with HD. Possibly will have some improvement in flow after edema is better. (2) SVC syndrome Code(s): I87.1 - Compression of vein Status: Acute (3) Acute hyperkalemia Code(s): E87.5 - Hyperkalemia Status: Acute <Parish Sharp - Last Filed: 07/17/18 15:40>
--- NOTE | 2018-07-16 12:05 | P.PNIM ---
Subjective Interval history: Patient says he is feeling right. Denies any chest pain or shortness of breath. Denies nausea vomiting. Next edema has improved today after dialysis yesterday. Physical Exam Vital signs: Vital Signs 07/15/18 13:00 07/15/18 14:00 07/15/18 15:00 Temperature 97.9 F Pulse Rate 64 67 67 Respiratory Rate 16 Blood Pressure 106/52 L Pulse Oximetry 93 L 07/15/18 17:26 07/15/18 21:00 07/15/18 22:00 Temperature 97.9 F Pulse Rate 70 70 Respiratory Rate 20 Blood Pressure 135/63 Pulse Oximetry 93 L 100 07/15/18 23:00 07/16/18 00:00 07/16/18 01:00 Temperature 98.6 F Pulse Rate 73 73 68 Respiratory Rate 18 Blood Pressure 127/62 Pulse Oximetry 100 07/16/18 02:00 07/16/18 03:00 07/16/18 04:00 Temperature 98.1 F Pulse Rate 68 64 72 Respiratory Rate 18 Blood Pressure Pulse Oximetry 100 07/16/18 05:00 07/16/18 06:00 07/16/18 07:00 Temperature 97.6 F Pulse Rate 70 73 68 Respiratory Rate 16 Blood Pressure 122/60 Pulse Oximetry 97 07/16/18 08:00 07/16/18 11:16 Temperature Pulse Rate Respiratory Rate Blood Pressure Pulse Oximetry 97 95 Intake & Output 07/15/18 07/16/18 07/16/18 18:59 06:59 18:59 Intake Total 610 / 610 820 / 820 Output Total 2500 / 2500 Balance 610 / 610 -1680 / -1680 Weight 59 kg Intake: IV 110 / 110 100 / 100 Flexbumin 25% Inj 100 ML @ 60 100 / 100 mls/hr IV.SIG WITH DIALYSIS PRN Rx#:[id number] Calcium Gluconate Inj 1 GM In 110 / 110 NS Inj 100 ML @ 110 mls/hr IV. SIG ONCE ONE Rx#:[id number] Oral 500 / 500 720 / 720 Output: Hemodialysis Amount 2500 / 2500 Other: # Voids 0 Date of Last Bowel Movement 07/16/18 # Bowel Movements 2 Narrative: GENERAL: Patient sitting up in chair. Appears comfortable. SKIN: Warm and dry. Vas cath HEAD: Normocephalic. EYES: No scleral icterus. No injection or drainage. NECK: Edematous neck, improved from yesterday. Without erythema. CARDIOVASCULAR: Regular rate and rhythm without murmurs, gallops, or rubs. RESPIRATORY: Breath sounds equal bilaterally. No accessory muscle use. GASTROINTESTINAL: Abdomen soft, non-tender, nondistended. MUSCULOSKELETAL: No cyanosis. Trace edema. Right nhmqi-mvp-olfb amputation. Left arm AV fistula with with very slight bruit BACK: Nontender without obvious deformity. Results - Labs CBC & Chem 7: 07/16/18 03:50 07/16/18 03:50 Laboratory Results - last 24 hr 07/15/18 07/15/18 07/15/18 12:18 17:13 17:14 WBC RBC Hgb Hct MCV MCH MCHC RDW Plt Count MPV Neut % (Auto) Lymph % (Auto) [place] % (Auto) Eos % (Auto) Baso % (Auto) Neut # (Auto) Lymph # (Auto) [place] # (Auto) Eos # (Auto) Baso # (Auto) WBC Differential Differential Comment Sodium 134 L Potassium 7.0 H* Chloride 94 L Carbon Dioxide 29.5 Anion Gap 11 BUN 55 H Creatinine 10.65 H* Estimated GFR 5 L POC Glucose 58 L 61 L Random Glucose 100 Calcium 8.3 L Phosphorus 6.6 H Magnesium Albumin 3.4 07/15/18 07/15/18 07/15/18 17:27 18:59 19:19 WBC RBC Hgb Hct MCV MCH MCHC RDW Plt Count MPV Neut % (Auto) Lymph % (Auto) [place] % (Auto) Eos % (Auto) Baso % (Auto) Neut # (Auto) Lymph # (Auto) [place] # (Auto) Eos # (Auto) Baso # (Auto) WBC Differential Differential Comment Sodium Potassium Chloride Carbon Dioxide Anion Gap BUN Creatinine Estimated GFR POC Glucose 142 H 68 94 Random Glucose Calcium Phosphorus Magnesium Albumin 07/15/18 07/16/18 07/16/18 19:34 01:43 03:50 WBC 4.6 RBC 3.94 L Hgb 11.2 L Hct 35.3 L MCV 89.6 MCH 28.4 MCHC 31.6 L RDW 16.9 Plt Count 146 L MPV 9.4 Neut % (Auto) 57.6 Lymph % (Auto) 23.1 [place] % (Auto) 11.3 H Eos % (Auto) 6.5 H Baso % (Auto) 1.5 Neut # (Auto) 2.7 Lymph # (Auto) 1.1 [place] # (Auto) 0.5 Eos # (Auto) 0.3 Baso # (Auto) 0.1 WBC Differential . Differential Comment Auto diff final Sodium Potassium Chloride Carbon Dioxide Anion Gap BUN Creatinine Estimated GFR POC Glucose 240 H 149 H Random Glucose Calcium Phosphorus Magnesium Albumin 07/16/18 07/16/18 03:50 07:46 WBC RBC Hgb Hct MCV MCH MCHC RDW Plt Count MPV Neut % (Auto) Lymph % (Auto) [place] % (Auto) Eos % (Auto) Baso % (Auto) Neut # (Auto) Lymph # (Auto) [place] # (Auto) Eos # (Auto) Baso # (Auto) WBC Differential Differential Comment Sodium 140 Potassium 3.9 D Chloride 97 L Carbon Dioxide 32.1 H Anion Gap 11 BUN 23 H Creatinine 6.35 H Estimated GFR 9 L POC Glucose 98 Random Glucose 102 Calcium 8.0 L Phosphorus 4.5 D Magnesium 2.2 Albumin 3.6 - Imaging Impressions Catheter Placement 07/15/18 00:00 CONCLUSION: 1. Uncomplicated Vas-catheter placement as above. Assessment and Plan - Assessment (1) SVC syndrome Code(s): I87.1 - Compression of vein Status: Acute (2) Hyperkalemia Code(s): E87.5 - Hyperkalemia Status: Acute (3) ESRD (end stage renal disease) on dialysis Code(s): N18.6 - End stage renal disease; Z99.2 - Dependence on renal dialysis Status: Acute (4) Hypertension Code(s): I10 - Essential (primary) hypertension Status: Chronic (5) Acute hyperkalemia Code(s): E87.5 - Hyperkalemia Status: Acute (6) Conjunctivitis Code(s): H10.9 - Unspecified conjunctivitis Status: Acute - Plan 58-year-old male with a PMH of HTN, CHF (Echo 12/13/16 w/ EF 40-45%), Lupus, RA, h/o Left Chest DVT (not on anticoagulation), h/o AKA and ESRD on HD M/W/F who presented to the ER w/ c/o neck swelling and SOB x1 wk. States he noticed "a double chin" approx 1 wk ago and thought it would go away after dialysis, however he's noted no improvement. States "feels like I'm drowning". Follows w / Dr. Sharp as outpatient, on HD M//, last HD on Friday w/ no complications. Notes he had Right Chest Port placement on by Dr. Meza w/ Vascular Surgery. Denies fever, chills, cough or chest pain. CXR with [id number] placement, right paratracheal stripe possibly hematoma or adenopathy, patent left subclavian stent. Doppler with partially collapsed jugular veins, nonocclusive thrombus, patent subclavian through cephalic veins. 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 Dr. Smith consulted by ER physician, will evaluate for SVC Syndrome, Dr. Alcantar consulted, arrangements made for emergent dialysis this evening. //SVC Syndrome: acute onset neck swelling x1 wk, CT Chest w/ significant stenosis brachiocephalic vein characteristic of SVC syndrome S/P port placement on - Dr. Smith consulted, will evaluate for possible intervention. -Keep NPO -monitor for airway compromise, sats, inc. SOB = Vascular surgery following. Appreciate assistance. = Nonfunctional left AV fistula. Discussed with nursing. Nephrology evaluating options. Appreciate assistance. //Left arm AV fistula. Fistula malfunction. = Nephrology following. //Hyperkalemia: K+ 6.3, EKG w/ peaked T-waves -Unable to have emergent HD, AV fistula nonfunctioning. Was tx with calcium gluconate, bicarb, insulin and D50 Labs better today, K 4.9 -appreciate nephrology input -going for fistulogram in IR today = Potassium 6.7. hyperkalemia protocol ordered by nephrology. I have added Kayexalate. Otherwise as per nephrology. = 07/15. Follow-up repeat labs = 07/16. Potassium normalized after dialysis. Appreciate nephrology assistance. Continue to monitor. //ESRD on HD: M// -Following w/ Dr. Sharp //Conjunctivitis right eye worse than left. Continue with erythromycin ointment = Really this is probably secondary to SVC syndrome. Appears improved. //Hypertension hx CHF -continue home meds when able to take PO //Hx RA -resume home meds when able to take PO /DVT Prophylaxis: SCD/Teds Discharge Planning: We will need nephrology and vascular surgery clearance. (4) Hypertension Qualifiers: Hypertension type: essential hypertension Qualified Code(s): I10 - Essential (primary) hypertension (6) Conjunctivitis Qualifiers: Conjunctivitis type: acute
[2018-07-17] MEDS: Acetaminophen 325 MG Tablet PO PRN ×2 (04:18→21:59)
[2018-07-17 06:56] LABS: Baso # (Auto) 0.1 th/mm3 (0.0-0.2); Baso % (Auto) 1.5 % (0.0-2.0); Eos # (Auto) 0.4 th/mm3 (0.0-0.4); Eos % (Auto) 7.8 % (0.0-4.0); Hemoglobin 10.7 gm/dL (13.0-17.0); Lymph % (Auto) 20.6 % (9.0-44.0); Mean Corpuscular HGB Conc 32.3 % (32.0-36.0); Mean Corpuscular Hemoglobin 28.7 pg (27.0-34.0); Mean Corpuscular Volume 88.8 fL (80.0-100.0); Mean Platelet Volume 9.5 fL (7.0-11.0); Mono # (Auto) 0.5 th/mm3 (0.0-0.9); Mono % (Auto) 9.9 % (0.0-8.0); Neut # (Auto) 3.1 th/mm3 (1.8-7.7); Neut % (Auto) 60.2 % (16.0-70.0); Platelet Count 149 th/mm3 (150-450); Red Blood Count 3.72 mil/mm3 (4.50-5.90); Red Cell Distribution Width 16.7 % (11.6-17.2); White Blood Count 5.1 th/mm3 (4.0-11.0)
[2018-07-17 07:00] LABS: Albumin 3.4 g/dL (3.4-5.0); Calcium 8.3 mg/dL (8.5-10.1); Carbon Dioxide 29.7 meq/L (21.0-32.0); Magnesium 2.1 mg/dL (1.5-2.5); Phosphorus 5.6 mg/dL (2.5-4.9); Potassium 4.3 meq/L (3.5-5.1)
--- NOTE | 2018-07-17 10:07 | P.PNIM ---
Subjective Interval history: Patient seen this morning in dialysis. Says he is feeling comfortable. Denies any chest pain or shortness of breath. Asking when he might leave the hospital. Physical Exam Vital signs: Vital Signs 07/16/18 11:00 07/16/18 11:16 07/16/18 15:00 Temperature 98.8 F 98.6 F Pulse Rate 68 60 Respiratory Rate 18 16 Blood Pressure 115/58 L 116/57 L Pulse Oximetry 96 95 96 07/16/18 16:00 07/16/18 17:00 07/16/18 19:00 Temperature 98.4 F Pulse Rate 61 63 60 Respiratory Rate 18 Blood Pressure 120/56 L Pulse Oximetry 97 07/16/18 20:00 07/16/18 22:00 07/16/18 23:00 Temperature Pulse Rate 61 61 66 Respiratory Rate 20 Blood Pressure Pulse Oximetry 07/17/18 00:00 07/17/18 01:00 07/17/18 02:00 Temperature Pulse Rate 60 71 66 Respiratory Rate Blood Pressure Pulse Oximetry 07/17/18 03:00 07/17/18 04:00 07/17/18 05:00 Temperature 97.9 F Pulse Rate 64 60 76 Respiratory Rate 22 Blood Pressure 135/65 Pulse Oximetry 95 07/17/18 06:00 07/17/18 08:31 Temperature Pulse Rate 67 Respiratory Rate Blood Pressure Pulse Oximetry 95 Intake & Output 07/16/18 07/17/18 07/17/18 18:59 06:59 18:59 Intake Total 240 / 240 480 / 480 Output Total 0 / 0 0 / 0 Balance 240 / 240 480 / 480 Weight 58.5 kg Intake: Oral 240 / 240 480 / 480 Output: Urine 0 / 0 0 / 0 Other: # Voids 0 Date of Last Bowel Movement 07/16/18 # Bowel Movements 0 Narrative: GENERAL: Patient lying in dialysis.. Appears comfortable. SKIN: Warm and dry. Vas cath left groin. HEAD: Normocephalic. EYES: No scleral icterus. No injection or drainage. NECK: Edematous neck, improved from yesterday. Without erythema. CARDIOVASCULAR: Regular rate and rhythm without murmurs, gallops, or rubs. RESPIRATORY: Breath sounds equal bilaterally. No accessory muscle use. GASTROINTESTINAL: Abdomen soft, non-tender, nondistended. MUSCULOSKELETAL: No cyanosis. Trace edema. Right [id number]-[id number] amputation. Left arm AV fistula used for dialysis today. BACK: Nontender without obvious deformity. Results - Labs CBC & Chem 7: 07/17/18 05:29 07/17/18 05:29 Laboratory Results - last 24 hr 07/16/18 07/16/18 07/17/18 12:16 22:42 05:29 WBC 5.1 RBC 3.72 L Hgb 10.7 L Hct 33.0 L MCV 88.8 MCH 28.7 MCHC 32.3 RDW 16.7 Plt Count 149 L MPV 9.5 Neut % (Auto) 60.2 Lymph % (Auto) 20.6 [place] % (Auto) 9.9 H Eos % (Auto) 7.8 H Baso % (Auto) 1.5 Neut # (Auto) 3.1 Lymph # (Auto) 1.0 [place] # (Auto) 0.5 Eos # (Auto) 0.4 Baso # (Auto) 0.1 WBC Differential . Differential Comment Auto diff final Sodium Potassium Chloride Carbon Dioxide Anion Gap BUN Creatinine Estimated GFR POC Glucose 179 H 127 H Random Glucose Calcium Phosphorus Magnesium Albumin 07/17/18 07/17/18 05:29 08:08 WBC RBC Hgb Hct MCV MCH MCHC RDW Plt Count MPV Neut % (Auto) Lymph % (Auto) [place] % (Auto) Eos % (Auto) Baso % (Auto) Neut # (Auto) Lymph # (Auto) [place] # (Auto) Eos # (Auto) Baso # (Auto) WBC Differential Differential Comment Sodium 137 Potassium 4.3 Chloride 96 L Carbon Dioxide 29.7 Anion Gap 11 BUN 33 H Creatinine 7.84 H Estimated GFR 7 L POC Glucose 164 H Random Glucose 147 H Calcium 8.3 L Phosphorus 5.6 H D Magnesium 2.1 Albumin 3.4 Assessment and Plan - Assessment (1) SVC syndrome Code(s): I87.1 - Compression of vein Status: Acute (2) Hyperkalemia Code(s): E87.5 - Hyperkalemia Status: Acute (3) ESRD (end stage renal disease) on dialysis Code(s): N18.6 - End stage renal disease; Z99.2 - Dependence on renal dialysis Status: Acute (4) Hypertension Code(s): I10 - Essential (primary) hypertension Status: Chronic (5) Acute hyperkalemia Code(s): E87.5 - Hyperkalemia Status: Acute (6) Conjunctivitis Code(s): H10.9 - Unspecified conjunctivitis Status: Acute - Plan 58-year-old male with a PMH of HTN, CHF (Echo 12/13/16 w/ EF 40-45%), Lupus, RA, h/o Left Chest DVT (not on anticoagulation), h/o AKA and ESRD on HD // who presented to the ER w/ c/o neck swelling and SOB x1 wk. States he noticed "a double chin" approx 1 wk ago and thought it would go away after dialysis, however he's noted no improvement. States "feels like I'm drowning". Follows w / Dr. Sharp as outpatient, on HD /, last HD on Friday w/ no complications. Notes he had Right Chest Port placement on by Dr. Meza w/ Vascular Surgery. Denies fever, chills, cough or chest pain. CXR with Bnaiin-j-Vazi placement, right paratracheal stripe possibly hematoma or adenopathy, patent left subclavian stent. Doppler with partially collapsed jugular veins, nonocclusive thrombus, patent subclavian through cephalic veins. 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 Dr. Smith consulted by ER physician, will evaluate for SVC Syndrome, Dr. Alcantar consulted, arrangements made for emergent dialysis this evening. //SVC Syndrome: acute onset neck swelling x1 wk, CT Chest w/ significant stenosis brachiocephalic vein characteristic of SVC syndrome S/P port placement on - Dr. Smith consulted, will evaluate for possible intervention. -Keep NPO -monitor for airway compromise, sats, inc. SOB = Vascular surgery following. Appreciate assistance. = Nonfunctional left AV fistula. Discussed with nursing. Nephrology evaluating options. Appreciate assistance. //Left arm AV fistula. Fistula malfunction. = Nephrology following. //Hyperkalemia: K+ 6.3, EKG w/ peaked T-waves -Unable to have emergent HD, AV fistula nonfunctioning. Was tx with calcium gluconate, bicarb, insulin and D50 Labs better today, K 4.9 -appreciate nephrology input -going for fistulogram in IR today = Potassium 6.7. hyperkalemia protocol ordered by nephrology. I have added Kayexalate. Otherwise as per nephrology. = 07/15. Follow-up repeat labs = 07/16. Potassium normalized after dialysis. Appreciate nephrology assistance. Continue to monitor. //ESRD on HD: M/W/F -Following w/ Dr. Sharp = 07/17. Undergoing dialysis via a left arm AV fistula as well as left leg Vas- Cath. //Conjunctivitis right eye worse than left. Continue with erythromycin ointment = still there but improving. //Hypertension hx CHF -continue home meds when able to take PO //Hx RA -resume home meds when able to take PO /DVT Prophylaxis: SCD/Teds Discharge Planning: We will need nephrology and vascular surgery clearance. PT recommends home with no PT. (4) Hypertension Qualifiers: Hypertension type: essential hypertension Qualified Code(s): I10 - Essential (primary) hypertension (6) Conjunctivitis Qualifiers: Conjunctivitis type: acute
--- NOTE | 2018-07-17 12:13 | P.PNNP ---
Subjective Interval history: Seen during hemodialysis, only able to use 1 needle in AVF. Patient denies any shortness of breath, nausea, or vomiting. Swelling improving. <Valerie Booth - Last Filed: 07/17/18 12:06> Physical Exam Vital signs: Vital Signs 07/16/18 15:00 07/16/18 16:00 07/16/18 17:00 Temperature 98.6 F Pulse Rate 60 61 63 Respiratory Rate 16 Blood Pressure 116/57 L Pulse Oximetry 96 07/16/18 19:00 07/16/18 20:00 07/16/18 22:00 Temperature 98.4 F Pulse Rate 60 61 61 Respiratory Rate 18 Blood Pressure 120/56 L Pulse Oximetry 97 07/16/18 23:00 07/17/18 00:00 07/17/18 01:00 Temperature Pulse Rate 66 60 71 Respiratory Rate 20 Blood Pressure Pulse Oximetry 07/17/18 02:00 07/17/18 03:00 07/17/18 04:00 Temperature 97.9 F Pulse Rate 66 64 60 Respiratory Rate 22 Blood Pressure 135/65 Pulse Oximetry 95 07/17/18 05:00 07/17/18 06:00 07/17/18 08:31 Temperature Pulse Rate 76 67 Respiratory Rate Blood Pressure Pulse Oximetry 95 Intake & Output 07/16/18 07/17/18 07/17/18 18:59 06:59 18:59 Intake Total 240 / 240 480 / 480 Output Total 0 / 0 0 / 0 3000 / 3000 Balance 240 / 240 480 / 480 -3000 / -3000 Weight 58.5 kg Intake: Oral 240 / 240 480 / 480 Output: Urine 0 / 0 0 / 0 Hemodialysis Amount 3000 / 3000 Other: # Voids 0 Date of Last Bowel Movement 07/16/18 # Bowel Movements 0 Narrative: GENERAL: Patient sitting up in chair. Appears comfortable. SKIN: Warm and dry. Vas cath, femoral HEAD: Normocephalic. EYES: No scleral icterus. No injection or drainage. NECK: Edematous neck, without erythema. CARDIOVASCULAR: Regular rate and rhythm without murmurs, gallops, or rubs. RESPIRATORY: Breath sounds equal bilaterally. No accessory muscle use. GASTROINTESTINAL: Abdomen soft, non-tender, nondistended. MUSCULOSKELETAL: No cyanosis. Trace edema. Right iolby-ahp-pykh amputation. Left arm AV fistula with with very slight bruit BACK: Nontender without obvious deformity. <Valerie Booth - Last Filed: 07/17/18 12:06> Vital signs: Vital Signs 07/16/18 16:00 07/16/18 17:00 07/16/18 19:00 Temperature 98.4 F Pulse Rate 61 63 60 Respiratory Rate 18 Blood Pressure 120/56 L Pulse Oximetry 97 07/16/18 20:00 07/16/18 22:00 07/16/18 23:00 Temperature Pulse Rate 61 61 66 Respiratory Rate 20 Blood Pressure Pulse Oximetry 07/17/18 00:00 07/17/18 01:00 07/17/18 02:00 Temperature Pulse Rate 60 71 66 Respiratory Rate Blood Pressure Pulse Oximetry 07/17/18 03:00 07/17/18 04:00 07/17/18 05:00 Temperature 97.9 F Pulse Rate 64 60 76 Respiratory Rate 22 Blood Pressure 135/65 Pulse Oximetry 95 07/17/18 06:00 07/17/18 07:00 07/17/18 08:00 Temperature 97.7 F Pulse Rate 67 61 61 Respiratory Rate 18 Blood Pressure 121/60 Pulse Oximetry 07/17/18 08:31 07/17/18 11:00 Temperature 98.0 F Pulse Rate 72 Respiratory Rate 18 Blood Pressure 118/63 Pulse Oximetry 95 Intake & Output 07/16/18 07/17/18 07/17/18 18:59 06:59 18:59 Intake Total 240 / 240 480 / 480 Output Total 0 / 0 0 / 0 3000 / 3000 Balance 240 / 240 480 / 480 -3000 / -3000 Weight 58.5 kg Intake: Oral 240 / 240 480 / 480 Output: Urine 0 / 0 0 / 0 Hemodialysis Amount 3000 / 3000 Other: # Voids 0 Date of Last Bowel Movement 07/16/18 # Bowel Movements 0 <Parish Sharp - Last Filed: 07/17/18 15:41> Assessment and Plan - Assessment (1) ESRD (end stage renal disease) on dialysis Code(s): N18.6 - End stage renal disease; Z99.2 - Dependence on renal dialysis Status: Acute Plan: End stage renal disease on hemodialysis Friday, Friday, and Friday and [facility]. Plan Avoid IVF administration and gadolinium. Renal diet IR with AVF Thrombectomy 07/14, continues to have difficulty with hemodialysis Vas cath placed 07/15 in femoral vein , neck veins all stenosed. Seen during hemodialysis and able to use one needle only in AVF Will repeat hemodialysis tomorrow and attempt to use AVF again Anticipate discharge home tomorrow after hemodialysis Will likely need to follow up outpatient with vascular for permacath placement. (2) SVC syndrome Code(s): I87.1 - Compression of vein Status: Acute Plan: Infusaport removed 07/13 Swelling improving (3) Acute hyperkalemia Code(s): E87.5 - Hyperkalemia Status: Acute Plan: resolved at 4.3 today <Valerie Booth - Last Filed: 07/17/18 12:06> - Assessment (1) ESRD (end stage renal disease) on dialysis Code(s): N18.6 - End stage renal disease; Z99.2 - Dependence on renal dialysis Status: Acute Plan: Patient seen and examined, agree with above. Seen during HD, has one needle in AVF. Will do HD again in AM and then D/C Vascath and possibly D/C home. HD again on Friday and if AVF has any problem , possibly will need PermCath in femoral area. (2) SVC syndrome Code(s): I87.1 - Compression of vein Status: Acute (3) Acute hyperkalemia Code(s): E87.5 - Hyperkalemia Status: Acute <Parish Sharp - Last Filed: 07/17/18 15:41>
[2018-07-17] MEDS: Gabapentin 300 MG Capsule PO SCH (13:10)
[2018-07-17] MEDS: Senna/Docusate Sodium 8.6/50 MG Tablet PO SCH ×2 (13:11→21:59)
[2018-07-17] MEDS: Hydroxychloroquine 200 MG Tablet PO SCH ×2 (13:11→21:59)
[2018-07-17] MEDS: amLODIPine 10 MG Tablet PO SCH (13:11)
[2018-07-17] MEDS: Vitamin B Complex/Vit C/Folic Tablet PO SCH (13:12)
[2018-07-17] MEDS: Clotrimazole 1% Cream 15 GM Tube TOPICAL SCH ×2 (13:16→22:00)
[2018-07-17] MEDS: Dorzolamide-Timolol 2/0.5% Opth Drops 10 ML Bottle EACH EYE SCH ×2 (13:17→22:00)
[2018-07-17] MEDS: Calcium Acetate 667 MG Capsule PO SCH ×3 (14:12→18:00)
[2018-07-17] MEDS: Latanoprost 0.005% Opth Drops 2.5 ML Bottle EACH EYE SCH ×2 (14:13→18:00)
--- NOTE | 2018-07-18 07:51 | P.PN ---
Subjective Interval history: Pt seen and examined during HD. He has no complaints and reports he is feeling well. He is anxious to go home. He lives with his fiance and states he has no discharge needs. He discussed with Dr. Sharp about possibly needing a PermaCath placed should his AVF not be patent when he goes for outpatient HD on Friday. He has been cleared for d/c by Dr. Sharp today. He states his neck is completely back to normal size and he has had no difficulty breathing. He denies CP, SOB, abdominal pain, N/V. He is tolerating PO. Physical Exam Vital signs: Vital Signs 07/17/18 08:00 07/17/18 08:31 07/17/18 11:00 Temperature 98.0 F Pulse Rate 61 72 Respiratory Rate 18 Blood Pressure 118/63 Pulse Oximetry 95 07/17/18 12:00 07/17/18 13:00 07/17/18 14:00 Temperature Pulse Rate 70 68 66 Respiratory Rate Blood Pressure Pulse Oximetry 07/17/18 15:00 07/17/18 16:00 07/17/18 17:00 Temperature 98 F Pulse Rate 66 80 78 Respiratory Rate 16 Blood Pressure 120/56 L Pulse Oximetry 07/17/18 17:01 07/17/18 18:00 07/17/18 19:00 Temperature 97.9 F Pulse Rate 80 64 Respiratory Rate 18 Blood Pressure 120/60 Pulse Oximetry 95 98 07/17/18 20:00 07/17/18 21:00 07/17/18 22:00 Temperature Pulse Rate 70 71 68 Respiratory Rate Blood Pressure Pulse Oximetry 98 07/17/18 22:30 07/17/18 23:00 07/18/18 00:00 Temperature 97.8 F Pulse Rate 64 62 Respiratory Rate 18 20 Blood Pressure 120/60 Pulse Oximetry 98 07/18/18 01:00 07/18/18 02:00 07/18/18 03:00 Temperature 97.6 F Pulse Rate 67 72 82 Respiratory Rate 20 Blood Pressure 120/60 Pulse Oximetry 07/18/18 04:00 07/18/18 06:00 Temperature Pulse Rate 74 68 Respiratory Rate Blood Pressure Pulse Oximetry Intake & Output 07/17/18 07/18/18 07/18/18 18:59 06:59 18:59 Intake Total 940 / 940 240 / 240 Output Total 3000 / 3000 0 / 0 Balance -2059 / -2059 240 / 240 Weight 58.5 kg Intake: Oral 940 / 940 240 / 240 Output: Urine 0 / 0 0 / 0 Hemodialysis Amount 3000 / 3000 Other: # Voids 0 Date of Last Bowel Movement 07/15/18 07/17/18 # Bowel Movements 0 0 Narrative: GENERAL: WN, WD pleasant male resting in bed in NAD. SKIN: Warm and dry. HEENT: AT/NC. Pupils equal and round. MMM. NECK: Supple no tender LAD or JVD. HEART: RRR with 1/6 QUINN. LUNGS: CTAB without wheezes or crackles. ABDOMEN: +BS, soft, NT, ND. EXTREMITIES: RLE AKA. No LLE swelling. LUE AVF with slight bruit. NEURO: Awake and alert. PSYCH: Appropriate mood and affect. Results - Labs CBC & Chem 7: 07/17/18 05:29 07/17/18 05:29 Laboratory Results - last 24 hr 07/17/18 07/17/18 08:08 11:38 POC Glucose 164 H 83 Assessment and Plan - Assessment (1) SVC syndrome Code(s): I87.1 - Compression of vein Status: Resolved (2) Hyperkalemia Code(s): E87.5 - Hyperkalemia Status: Resolved (3) ESRD (end stage renal disease) on dialysis Code(s): N18.6 - End stage renal disease; Z99.2 - Dependence on renal dialysis Status: Chronic (4) Hypertension Code(s): I10 - Essential (primary) hypertension Status: Chronic (5) Conjunctivitis Code(s): H10.9 - Unspecified conjunctivitis Status: Acute - Plan 58 year old male with history of ESRD on HD, HTN, CHF, SLE, RA, h/o vena cava stenosis, and h/o BKA admitted 07/12 for increasing neck swelling ans shortness of breath following right chest port placement on 07/09. Vascular surgery consulted for superior vena cava syndrome. 1. Superior vena cava syndrome - Patient presented with neck swelling and SOB following Infusaport placement on 07/09 - Initial CXR showed widened right paratracheal stripe - CT chest showed a very stenotic brachiocephalic vein with R subclavian port catheter transversing through this region. The azygos vein is distended and reconstitutes the distal SVC characteristic of superior vena caval syndrome - Doppler U/S of the UE showed partially collapsed jugular veins with apparent nonocclusive thrombus - Vascular surgery consulted, s/p removal of right Infusaport on 07/13. Appreciate expertise - Swelling and symptoms improved 2. Hyperkalemia - Resolved - On admission K+ was 6.3 but patient was unable to go emergent HD secondary to nonfunctioning AV fistula - S/p tx with calcium gluconate, bicarb, insulin, D50, and Kayexalate - Potassium got up to 7.0 during admission on 07/15 but has resolved with treatment as above and resumption of dialysis 3. ESRD - LUE AV fistula malfunctioning, s/p AVF thrombectomy with IR 07/14 - s/p R femoral VasCath placement by IR 07/15 (neck veins all stenosed) - AV fistula has one needle - Nephrology following - Continue HD MWF and additionally per nephrology - Plan per nephro: D/C Vascath following HD and D/C home today. May need PermCath as outpatient if fistula cannot be used by Friday 4. Conjunctivitis - Improving with erythromycin ointment 5. HTN - BPs stable - Continue home amlodipine and Losartan 6. CHF - Continue home Losartan 7. SLE, RA - Continue home hydroxychloroquine and leflunomide - Home tramadol PRN 8. Neuropathy - Continue home gabapentin 9. 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
--- NOTE | 2018-07-18 09:41 | P.PNNP ---
Subjective Interval history: Patient seen during dialysis , no complain. Physical Exam Vital signs: Vital Signs 07/17/18 11:00 07/17/18 12:00 07/17/18 13:00 Temperature 98.0 F Pulse Rate 72 70 68 Respiratory Rate 18 Blood Pressure 118/63 Pulse Oximetry 07/17/18 14:00 07/17/18 15:00 07/17/18 16:00 Temperature 98 F Pulse Rate 66 66 80 Respiratory Rate 16 Blood Pressure 120/56 L Pulse Oximetry 07/17/18 17:00 07/17/18 17:01 07/17/18 18:00 Temperature Pulse Rate 78 80 Respiratory Rate Blood Pressure Pulse Oximetry 95 07/17/18 19:00 07/17/18 20:00 07/17/18 21:00 Temperature 97.9 F Pulse Rate 64 70 71 Respiratory Rate 18 Blood Pressure 120/60 Pulse Oximetry 98 98 07/17/18 22:00 07/17/18 22:30 07/17/18 23:00 Temperature 97.8 F Pulse Rate 68 64 Respiratory Rate 18 20 Blood Pressure 120/60 Pulse Oximetry 98 07/18/18 00:00 07/18/18 01:00 07/18/18 02:00 Temperature Pulse Rate 62 67 72 Respiratory Rate Blood Pressure Pulse Oximetry 07/18/18 03:00 07/18/18 04:00 07/18/18 06:00 Temperature 97.6 F Pulse Rate 82 74 68 Respiratory Rate 20 Blood Pressure 120/60 Pulse Oximetry 07/18/18 07:00 Temperature Pulse Rate 60 Respiratory Rate Blood Pressure Pulse Oximetry Intake & Output 07/17/18 07/18/18 07/18/18 18:59 06:59 18:59 Intake Total 940 / 940 240 / 240 Output Total 3000 / 3000 0 / 0 Balance -2060 / -2060 240 / 240 Weight 58.5 kg Intake: Oral 940 / 940 240 / 240 Output: Urine 0 / 0 0 / 0 Hemodialysis Amount 3000 / 3000 Other: # Voids 0 Date of Last Bowel Movement 07/15/18 07/17/18 # Bowel Movements 0 0 Narrative: GENERAL: WN, WD [] resting in bed in NAD. SKIN: Warm and dry. HEENT: AT/NC. Pupils equal and round. MMM. NECK: Supple no tender LAD or JVD. HEART: RRR no m/r/g. LUNGS: CTAB without wheezes or crackles. ABDOMEN: +BS, soft, NT, ND. EXTREMITIES: No LE edema. 2+ pedal pulses. NEURO: Awake and alert. Nonfocal. PSYCH: Appropriate mood and affect. Assessment and Plan - Assessment (1) ESRD (end stage renal disease) on dialysis Code(s): N18.6 - End stage renal disease; Z99.2 - Dependence on renal dialysis Status: Acute Plan: Patient with end stage renal disease. Has central venous stenosis and has poor flow via AVF. Has femoral Vascath and now has one needle in AVF and return in Vascath. Will D/C femoral Vascath after HD. D/C home, hoping that AVF will work on Friday after swelling decrease. If not working will need PermCath by Vascular center. (2) SVC syndrome Code(s): I87.1 - Compression of vein Status: Acute Plan: Infusaport removed 07/13 Swelling improving (3) Acute hyperkalemia Code(s): E87.5 - Hyperkalemia Status: Acute Plan: resolved at 4.3 today
--- NOTE | 2018-07-18 10:10 | P.DS ---
Date of admission: 07/12/18 20:30 Primary care physician: Wiley Meza MD Attending physician on discharge: Miono Hallsamm Anticipated date of discharge: 07/18/18 Brief History from admission: This is a 58-year-old male with a PMH of HTN, CHF (Echo 12/13/16 w/ EF 40-45%), Lupus, RA, h/o Left Chest DVT (not on anticoagulation), h/o BKA and ESRD on HD / who presented to the ER w/ c/o neck swelling and SOB x1 wk. States he noticed "a double chin" approx 1 wk ago and thought it would go away after dialysis, however he's noted no improvement. States "feels like I'm drowning". Follows w/ Dr. Sharp as outpatient, on HD , last HD on Friday w/ no complications. Notes he had Right Chest Port placement on by Dr. Meza w/ Vascular Surgery. Denies fever, chills, cough or chest pain. On arrival, BP 131/70, HR 72, O2 sat 98% on RA, Afebrile. CBC essentially unremarkable. INR 1.1. K+ 6.3. Creatinine 12.02. Troponin negative. EKG w/ peaked T-waves. CXR with Ucutap-o-Ingv placement, right paratracheal stripe possibly hematoma or adenopathy, patent left subclavian stent. Doppler with partially collapsed jugular veins, nonocclusive thrombus, patent subclavian through cephalic veins. 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 Dr. Smith consulted by ER physician, will evaluate for SVC Syndrome , Dr. Alcantar consulted, arrangements made for emergent dialysis this evening. Patient update on day of discharge: Pt seen and examined during HD. He has no complaints and reports he is feeling well. He is anxious to go home. He lives with his fiance and states he has no discharge needs. He discussed with Dr. Sharp about possibly needing a PermaCath placed should his AVF not be patent when he goes for outpatient HD on Friday. He has been cleared for d/c by Dr. Sharp today. He states his neck is completely back to normal size and he has had no difficulty breathing. He denies CP, SOB, abdominal pain, N/V. He is tolerating PO. DS: Diagnosis - Discharge Diagnosis (1) SVC syndrome Status: Resolved (2) Hyperkalemia Status: Resolved (3) ESRD (end stage renal disease) on dialysis Status: Chronic (4) Hypertension Status: Chronic (5) Conjunctivitis Status: Acute DS: Summary Hospital Course: 58 year old male with history of ESRD on HD, HTN, CHF, SLE, RA, h/o vena caval stenosis, and h/o RLE AKA admitted 07/12 for increasing neck swelling and shortness of breath following right chest port placement on 07/09. Vascular surgery consulted for superior vena cava syndrome. The following acute problems were addressed: 1. Superior vena cava syndrome - Patient presented with neck swelling and SOB following Infusaport placement on 07/09 - Initial CXR showed widened right paratracheal stripe - CT chest showed a very stenotic brachiocephalic vein with R subclavian port catheter transversing through this region. The azygos vein is distended and reconstitutes the distal SVC characteristic of superior vena caval syndrome - Doppler U/S of the UE showed partially collapsed jugular veins with apparent nonocclusive thrombus - Vascular surgery consulted, s/p removal of right Infusaport on 07/13 with resolution of symptoms 2. Hyperkalemia - On admission K+ was 6.3 but patient was unable to go emergent HD secondary to nonfunctioning AV fistula - S/p tx with calcium gluconate, bicarb, insulin, D50, and Kayexalate - Potassium got up to 7.0 during admission on 07/15 but resolved with treatment as above and resumption of dialysis 3. ESRD - LUE AV fistula found to be malfunctioning - s/p AVF thrombectomy with IR 07/14 - s/p R femoral VasCath placement by IR 07/15 (neck veins all stenosed) - AV fistula has one needle - Nephrology following - Continue HD MWF and additionally per nephrology - Plan per nephro: D/C Vascath. May need PermCath as outpatient if fistula cannot be used by Friday He was discharged in stable condition on 07/18 following dialysis. - Time Spent with Patient Total time spent providing and/or coordinating discharge services: Less than 30 minutes - Quality: VTE Deep Vein Thrombosis/Pulmonary Embolism Present on Admission: No Exam Vital signs: Vital Signs 07/17/18 11:00 07/17/18 12:00 07/17/18 13:00 Temperature 98.0 F Pulse Rate 72 70 68 Respiratory Rate 18 Blood Pressure 118/63 Pulse Oximetry 07/17/18 14:00 07/17/18 15:00 07/17/18 16:00 Temperature 98 F Pulse Rate 66 66 80 Respiratory Rate 16 Blood Pressure 120/56 L Pulse Oximetry 07/17/18 17:00 07/17/18 17:01 07/17/18 18:00 Temperature Pulse Rate 78 80 Respiratory Rate Blood Pressure Pulse Oximetry 95 07/17/18 19:00 07/17/18 20:00 07/17/18 21:00 Temperature 97.9 F Pulse Rate 64 70 71 Respiratory Rate 18 Blood Pressure 120/60 Pulse Oximetry 98 98 07/17/18 22:00 07/17/18 22:30 07/17/18 23:00 Temperature 97.8 F Pulse Rate 68 64 Respiratory Rate 18 20 Blood Pressure 120/60 Pulse Oximetry 98 07/18/18 00:00 07/18/18 01:00 07/18/18 02:00 Temperature Pulse Rate 62 67 72 Respiratory Rate Blood Pressure Pulse Oximetry 07/18/18 03:00 07/18/18 04:00 07/18/18 06:00 Temperature 97.6 F Pulse Rate 82 74 68 Respiratory Rate 20 Blood Pressure 120/60 Pulse Oximetry 07/18/18 07:00 Temperature Pulse Rate 60 Respiratory Rate Blood Pressure Pulse Oximetry Intake & Output 07/17/18 07/18/18 07/18/18 18:59 06:59 18:59 Intake Total 940 / 940 240 / 240 Output Total 3000 / 3000 0 / 0 Balance -2060 / -2060 240 / 240 Weight 58.5 kg Intake: Oral 940 / 940 240 / 240 Output: Urine 0 / 0 0 / 0 Hemodialysis Amount 3000 / 3000 Other: # Voids 0 Date of Last Bowel Movement 07/15/18 07/17/18 # Bowel Movements 0 0 Narrative: GENERAL: WN, WD pleasant male resting in bed in NAD. SKIN: Warm and dry. HEENT: AT/NC. Pupils equal and round. MMM. NECK: Supple no tender LAD or JVD. HEART: RRR with 1/6 QUINN. LUNGS: CTAB without wheezes or crackles. ABDOMEN: +BS, soft, NT, ND. EXTREMITIES: RLE AKA. No LLE swelling. LUE AVF with slight bruit. NEURO: Awake and alert. PSYCH: Appropriate mood and affect. Results Procedures completed during hospitalization: Right chest infusaport removed 07/13 AVF thrombectomy with IR 07/14 R femoral VasCath placement by IR 07/15 Labs on day of discharge: Labs from last 24 hours 07/17/18 11:38 POC Glucose 83 - Impressions ITS Impressions Chest X-Ray 07/12/18 16:54 CONCLUSION: Status post Fzmlij-y-Ypbr placement. Right paratracheal stripe is widened raise possibility of hematoma or adenopathy. CT scan chest with IV contrast is recommended. The patient has a left subclavian stent Venous Doppler Study 07/12/18 16:54 CONCLUSION: 1. Limited suboptimal study due to motion and color-flow artifact. 2. The jugular veins appear partially collapsed with apparent nonocclusive thrombus. The subclavian through cephalic veins are compressible and patent. 3. Bilateral adenopathy. Chest CT 07/12/18 17:27 CONCLUSION: 1. The brachiocephalic vein is very stenotic in appearance with a right subclavian port catheter transversing through this region. The azygos vein is distended densely opacified and reconstitutes the distal superior vena cava. In the appropriate clinical setting this could be characteristic of superior vena caval syndrome. 2. Stable mediastinal adenopathy. 3. Multiple stable areas of apparent rounded atelectasis. 4. Normal pleural effusions. Shunt Study 07/14/18 00:00 CONCLUSION: 1. Successful recannulization of the superior vena cava at the junction of the innominate vein and the SVC. Following angioplasty there was excellent flow through the fistula, the outflow veins in the arm and the central venous circulation. Catheter Placement 07/15/18 00:00 CONCLUSION: 1. Uncomplicated Vas-catheter placement as above. Discharge Plan - Discharge Disposition Patient Disposition: 01 Discharge Home - Discharge Condition Condition: Stable - Discharge Order Discharge Orders: Discharge Order (Routine); Ordered 07/18/18 Ordered By: Minoo Rhodes - Discharge Details Anticipated Discharge Date: 07/18/18 Discharge Comment: After dialysis if cleared by nephrology - Physicians Team Primary Care Provider: Wiley Meza V Attending Provider: Minoo Rhodes Other Providers: Ham Alcantar MD ; Matthew Markham MD
[2018-07-18] MEDS: Calcium Acetate 667 MG Capsule PO SCH ×2 (12:18→17:59)
[2018-07-18] MEDS: Dorzolamide-Timolol 2/0.5% Opth Drops 10 ML Bottle EACH EYE SCH (17:57)
[2018-07-18] MEDS: amLODIPine 10 MG Tablet PO SCH (17:58)
[2018-07-18] MEDS: Gabapentin 300 MG Capsule PO SCH (17:58)
[2018-07-18] MEDS: Vitamin B Complex/Vit C/Folic Tablet PO SCH (17:58)
[2018-07-18] MEDS: Senna/Docusate Sodium 8.6/50 MG Tablet PO SCH (17:58)
[2018-07-18] MEDS: Clotrimazole 1% Cream 15 GM Tube TOPICAL SCH (17:58)
[2018-07-18] MEDS: Hydroxychloroquine 200 MG Tablet PO SCH (17:59)
[2018-07-18] MEDS: Latanoprost 0.005% Opth Drops 2.5 ML Bottle EACH EYE SCH (17:59)
[2018-07-18 18:17] VITALS: BP 111/65; PULSE 66; RESP 17; TEMP 97.9; O2SAT 96
== END 2018-07-18 18:48 | disposition home or self-care (01) ==
LOC: NEPD 14:49 → NEDA 20:30 → NEPFCDU 07-13 00:09 → HCIS 07-13 14:54 → HCPC 07-13 18:15
PROVIDERS: ADMIT Family Medicine; ATTEND Family Medicine
PROC: [UNRECOGNIZED PROCEDURE] (2018-07-13 15:12)